=== PATIENT | female | born 1955 | race Caucasian/White ===

== ENCOUNTER 2020-05-30 13:14 | Outpatient (REF) | payer OTHER, SELFPAY | END 2020-05-30 13:15 | disposition home or self-care (01) | LOC: HO.LAB 13:14 | PROVIDERS: PCP Internal Medicine; Visit Provider Internal Medicine | DX: Z20.828 Contact with and (suspected) exposure to other viral communicable diseases (principal) | CPT/HCPCS: 87635 ==

== ENCOUNTER 2020-06-13 09:28 | Outpatient (REF) | payer OTHER, SELFPAY ==
--- NOTE | 2020-06-13 09:33 | MM_ITS ---
EXAMINATION: BONE DENSITOMETRY CLINICAL INDICATION: Disorder of bone density and structure, unspecified site. COMPARISON: Previous BD dated 11/09/2009 and baseline BD dated 06/12/2007. TECHNIQUE: Using a [employer] DXA System (software version: 13.1) manufactured by [employer], dual-energy x-ray absorptiometry was performed of the lumbar spine and left hip. The images are of good technical quality. Summary results are attached. FINDINGS: AP SPINE L1-L4: Current: BMD 1.107 g/cm2, Z-score 1.2, T-score -0.6, normal, 1.4% increase from previous, 5.2% increase from baseline (<5% change is not significant). Prior: BMD 1.092 g/cm2. Baseline: BMD 1.052 g/cm2. LEFT FEMUR, NECK: Current: BMD 0.806 g/cm2, Z-score 0.0, T-score -1.7, osteopenia. Prior: BMD 0.826 g/cm2. Baseline: BMD 0.769 g/cm2. LEFT FEMUR, TOTAL: Current: BMD 0.861 g/cm2, Z-score 0.2, T-score -1.2, osteopenia, 0.2% decrease from previous, 2.3% increase from baseline (<5% change is not significant). Prior: BMD 0.863 g/cm2. Baseline: BMD 0.842 g/cm2. IDENTIFIED RISK FACTORS: Rheumatoid arthritis. Secondary osteoporosis (early menopause). Hysterectomy. Bilateral oophorectomy. HISTORY OF FRACTURE: None listed. MEDICATIONS: None listed. IMPRESSION: 1. DIAGNOSIS: Osteopenia based on the lowest T-score value of -1.7 in the femoral neck applying World Health Organization criteria. 2. 10-YEAR FRACTURE RISK PREDICTION, FRAX: Major osteoporotic fracture (clinical spine, forearm, hip or shoulder) 11.3%. Hip fracture 1.7%. 3. Treatment Recommendations: NOF guidelines recommend consideration for treatment in postmenopausal women and men age 50 and older presenting with the following: -A hip or vertebral (clinical or morphometric) fracture. -T-score less than or equal to -2.5 at the femoral neck or spine after appropriate evaluation to exclude secondary causes. -Low bone mass at the hip or spine and a 10-year fracture probability by FRAX of greater than or equal to 3% for hip fracture or greater than or equal to 20% for major osteoporotic fracture based on the [place] adapted WHO algorithm. 4. Other Recommendations: All treatment decisions require clinical judgment and consideration of individual patient factors, including patient preferences, comorbidities, previous drug use, risk factors not captured in the FRAX model (e.g. frailty, falls, vitamin D deficiency, increased bone turnover, interval significant decline in bone density) and possible under or overestimation of fracture risk by FRAX. Additional medical evaluation for secondary cause of low bone mineral density may be appropriate. FUTURE SCAN RECOMMENDATION: People with diagnosed cases of osteoporosis or at high risk for fracture should have regular bone mineral density tests. For patients eligible for Medicare, routine testing is allowed once every 2 years. The testing frequency can be increased to one year for patients who have rapidly progressing disease, those who are receiving or discontinuing medical therapy to restore bone mass, or have additional risk factors.
== END 2020-06-13 09:29 | disposition home or self-care (01) ==
LOC: HO.MAMMO 09:28
PROVIDERS: Visit Provider Internal Medicine
DX: Z13.820 Encounter for screening for osteoporosis (principal); M85.80 Other specified disorders of bone density and structure, unspecified site; M19.90 Unspecified osteoarthritis, unspecified site; M06.9 Rheumatoid arthritis, unspecified; Z78.0 Asymptomatic menopausal state; Z90.710 Acquired absence of both cervix and uterus; Z90.722 Acquired absence of ovaries, bilateral
CPT/HCPCS: 77080

== ENCOUNTER 2020-06-14 15:18 | Outpatient (REF) | payer OTHER, SELFPAY ==
--- NOTE | 2020-06-14 15:25 | XR_ITS ---
EXAMINATION: XR FINGER, RIGHT CLINICAL INFORMATION: Cellulitis. COMPARISON: Radiographs right hand 02/22/2019. TECHNIQUE: AP view right hand and 2 views right index finger are obtained for a total of 3 views. FINDINGS: The right index finger shows prominent osteoarthritic changes DIP joints with joint narrowing and subchondral sclerosis and spurring, greatest bridging dorsal osteophyte. No definite erosion. There is benign oval mineralization in soft tissues lateral side. There is no gas tracking in the soft tissues. No bony destructive process or periostitis. There is mild narrowing DIP joints 2nd through 5th fingers and mild narrowing 3rd finger PIP joint. The carpus is unremarkable. IMPRESSION: 1. Prominent osteoarthritic changes index finger DIP joint. No definite erosive change. 2. No gas tracking in soft tissues. No destructive process or periostitis.
== END 2020-06-14 15:19 | disposition home or self-care (01) ==
LOC: HO.XRAY 15:18
PROVIDERS: PCP Internal Medicine; Visit Provider Physician Assistant
DX: L03.019 Cellulitis of unspecified finger (principal)
CPT/HCPCS: 73140

== ENCOUNTER 2020-09-27 09:46 | Outpatient (REF) | payer OTHER, SELFPAY ==
--- NOTE | 2020-09-27 | MM_ITS ---
EXAMINATION: MM SCREENING DIGITAL BREAST TOMOSYNTHESIS, BILATERAL CLINICAL INFORMATION: Screening. Asymptomatic. The lifetime risk of breast cancer based on the Tyrer-Cuzick Model is 5.0%. COMPARISON: Mammography: July 03, 2018 and studies dating back to November 09, 2009 TECHNIQUE: Digital breast tomosynthesis is performed in both the craniocaudal and mediolateral oblique views along with computer-aided detection (CAD). Synthesized 2D images are generated from the tomosynthesis. FINDINGS: The breasts are heterogeneously dense, which may obscure small masses (ACR BI-RADS breast composition Category c). There are no significant masses, abnormal calcifications, or other abnormalities. MM/MM tomosynthesis screening BI IMPRESSION: There are no significant changes from prior study. ASSESSMENT: BI-RADS 1: Negative RECOMMENDATION: Routine annual mammography screening. This patient's information was entered into a reminder system with a target due date for their next mammogram.
== END 2020-09-27 09:47 | disposition home or self-care (01) ==
LOC: HO.MAMMO 09:46
PROVIDERS: Visit Provider Internal Medicine
DX: Z12.31 Encounter for screening mammogram for malignant neoplasm of breast (principal)
CPT/HCPCS: 77063; 77067

== ENCOUNTER 2021-07-10 05:48 | Inpatient (IN) | payer OTHER, SELFPAY ==
[2021-07-10] VITALS (29 sets, daily range): BP systolic 000–189; BP diastolic 00–97; PULSE 0–89; RESP 0–22; TEMP -17.7–36.7; O2SAT 0–100; BMI 26.0; BMI 25.7; BMI 22.8
--- NOTE | ~2021-07-10 | CT_ITS ---
EXAMINATION: CT HEAD WITHOUT CONTRAST (STROKE PROTOCOL) INDICATION INFORMATION: Stroke COMPARISON: 09/16/2019 TECHNIQUE: Noncontrast CT of the head was performed. DLP: 818 mGy-cm DOSE LOWERING TECHNIQUES: This CT examination was performed using dose optimization techniques as appropriate, variously including the following: - Automated exposure control - Adjustment of mA and/or kV according to patient size (this includes techniques or standardized protocols for targeted exams were dose is matched to indication/reason for exam; i.e. extremities or head) - Use of iterative reconstruction technique FINDINGS: There is no evidence of acute intracranial hemorrhage or territorial infarction. No abnormal mass-effect or midline shift is seen. [place] to white matter differentiation is well preserved. No extra-axial fluid collections are identified. The ventricles are normal in size. There is moderate periventricular white matter hypoattenuation consistent with chronic small vessel ischemic disease. Mild volume loss is noted. The osseous structures and soft tissues are normal. The mastoid air cells and visualized portions of the paranasal sinuses are well-aerated. CT/CT head for stroke IMPRESSION: No acute intracranial findings. Chronic small vessel ischemic disease and volume loss. This stroke protocol result was discussed with Dr. Johns on 07/10/2021 6:20 AM.
--- NOTE | ~2021-07-10 | MR_ITS ---
EXAMINATION: MR BRAIN AND CERVICAL SPINE WITHOUT CONTRAST CLINICAL INFORMATION: Posterior stroke symptoms. CT showing C5-C6 disc herniation with mass effect. COMPARISON: CTA head and neck 07/10/2021. TECHNIQUE: Multiplanar multisequence MRI of the brain and cervical spine were performed without contrast. FINDINGS: Brain MRI: There is no acute infarction, hemorrhage, mass, or extra-axial fluid collection. Moderate patchy foci of T2/FLAIR hyperintensity are seen in the cerebral white matter. The ventricles are normal in size without hydrocephalus. The major arterial flow voids are preserved at the skull base. 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 There is mild paranasal sinus mucosal thickening. Orbital contents appear normal. Cervical spine MRI: The cervical vertebral bodies maintain normal heights and alignment. There is moderate disc height loss at C5-C6 and mild to moderate disc height loss at C6-C7. No bone marrow edema is seen. There is no edema within the cord. Several scattered perineural cysts are noted in the neural foramina. The extraspinal soft tissues are within normal limits. SPINAL LEVELS: C2-C3: Mild disc bulging. No spinal canal or neural foraminal stenosis. C3-C4: Disc osteophyte complex with uncovertebral hypertrophy and facet arthropathy resulting in mild spinal canal stenosis with effacement of the subarachnoid space. Severe bilateral neural foraminal stenosis. C4-C5: Disc osteophyte complex with central protrusion and uncovertebral hypertrophy resulting in moderate spinal canal stenosis with flattening of the cord. Moderate left neural foraminal stenosis. C5-C6: Disc osteophyte complex with uncovertebral hypertrophy resulting in moderate to severe spinal canal stenosis with cord flattening and severe bilateral neural foraminal stenosis. Moderate right facet arthropathy. C6-C7: Disc osteophyte complex with uncovertebral hypertrophy resulting in mild to moderate spinal canal stenosis and moderate bilateral neural foraminal stenosis. C7-T1: No posterior disc abnormality. No spinal canal or neural foraminal stenosis. MR/MR cervical spine wo con IMPRESSION: Brain MRI: No acute intracranial abnormality. No infarct or mass. Moderate chronic microangiopathy. Cervical spine: Multilevel degenerative spondylosis. Spinal canal stenosis appears moderate at C4-C5 and moderate to severe at C5-C6. Multilevel neural foraminal stenosis is detailed above.
--- NOTE | ~2021-07-10 | CT_ITS ---
EXAMINATION: CT ANGIOGRAM NECK AND HEAD CLINICAL INFORMATION: Stroke COMPARISON: Noncontrast head CT from earlier today TECHNIQUE: Initial noncontrast head CT was performed. Test bolus sequences followed by intravenous administration 70 mL of Omnipaque 350. Helical imaging was performed in the axial plane from the thoracic inlet to the skull vertex. Delayed postcontrast imaging of the head was also performed. The data was processed at the geospatial information technologist's workstation for generation of MIP sequences. Angled MIPs and volume rendered reformatted images were also generated at an offline 3D workstation. Stenoses are assessed in accordance with NASCET criteria unless otherwise indicated. DOSE LOWERING TECHNIQUES: This CT examination was performed using dose optimization techniques as appropriate, variously including the following: - Automated exposure control - Adjustment of mA and/or kV according to patient size (this includes techniques or standardized protocols for targeted exams were dose is matched to indication/reason for exam; i.e. extremities or head) - Use of iterative reconstruction technique DLP: 1544 mGy-cm FINDINGS: Neck CTA: There is a classic 3 vessel branching pattern of the aortic arch. Normal appearance of the visualized aortic arch and proximal branches. No evidence of stenosis at the branch origins. Both vertebral arteries are diminutive along the cervical course. There is atherosclerotic plaque and calcification at the proximal segments of the bilateral internal carotid arteries, without significant stenosis. Otherwise normal appearance of the common and internal carotid arteries without focal stenosis. 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 The remainder of the basilar artery is diminutive in caliber. Bilateral posterior cerebral arteries are patent. Normal appearance of the intradural internal carotid arteries without focal stenosis. Normal appearance of the anterior cerebral and middle cerebral arteries without focal occlusion or stenosis. Normal anterior communicating artery. Normal arborization of the middle cerebral arteries. CT Head: No intracranial mass, hemorrhage, extra-axial collection, or midline shift. The [place]-white matter differentiation is preserved. There is moderate periventricular white matter hypoattenuation consistent with chronic small vessel ischemic disease. Volume loss is noted. No pathologic intra-axial enhancement or regional oligemia. No hydrocephalus. There is mucosal thickening of the ethmoid air cells. The mastoid air cells are well-aerated. CT Neck: The thyroid gland and remaining cervical soft tissues are normal in appearance. Degenerative changes are noted in the cervical spine with disc space narrowing and endplate osteophyte formation. Upper Chest: Scarring is noted at the lung apices. 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 No large vessel occlusion or significant stenosis in the intracranial circulation. Findings discussed with Dr. Johns on 07/10/2021 6:51 AM.
--- NOTE | 2021-07-10 06:00 | ECG_ITS ---
Test Reason : stroke protocol Blood Pressure : / mmHG Vent. Rate : 086 BPM Atrial Rate : 086 BPM P-R Int : 236 ms QRS Dur : 092 ms QT Int : 380 ms P-R-T Axes : 083 -24 061 degrees QTc Int : 454 ms Sinus rhythm with 1st degree A-V block RSR' or QR pattern in V1 suggests right ventricular conduction delay Left axis deviation Borderline ECG When compared with ECG of 16-SEP-2019 05:31, No significant change was found Referred By: Becky Johns Electronically Signed By:ETHEL CRUMP MD
[2021-07-10 06:05] LABS: Glucose, Whole Blood 90 mg/dL (60-115)
--- NOTE | 2021-07-10 06:11 | ED_ITS ---
HPI - Weakness General Chief complaint: Stroke Stated complaint: Dizziness, fell into [place] trying to walk Time Seen by Provider: 07/10/21 05:59 Source: family () Mode of arrival: wheelchair History of Present Illness HPI Narrative: 65-year-old female arrives via wheelchair to the emergency room with acute dizziness and weakness. provides most of the initial information and states that when he got home last night his was a little upset with him and he went to bed early at approximately 9:00 p.m.. Patient endorses that she went to bed at approximately 12:30. The states that at approximately 5:15 a.m. he heard his walking around and then states that she called out to him that she was dizzy. Has been when up and found on the toilet ?kind of wheezing back and forth? and he helped her to stand and then they both walked to the bed. The states that the hung onto him with both of her arms and stated that she did not want the ambulance to be called. The then helped his down the stairs, but she primarily descended the stairs on her bottom and then states that he ?set her up on the outside bench? and went and got the car. He denies that she was slouched or tilted to 1 side when he returned. Related Data Allergies Allergy/AdvReac Type Severity Reaction Status Date / Time No Known Allergies Allergy Unverified 05/11/20 15:03 [No Known Allergies*] Review of Systems Review of Systems: Pertinent positives and negatives as stated in HPI 10 point review of systems is otherwise negative. [facility] Past Medical History Source: nursing notes reviewed Medical History Bipolar disorder HTN (hypertension) IBS (irritable bowel syndrome) Lupus Rheumatoid arthritis TIA (transient ischemic attack) Surgical History No history of previous surgery Social History Social History Alcohol intake: never Patient Tobacco Use Status: Never used Tobacco Use of substances other than those prescribed or required for medical reasons: Yes Substance Use Type: Marijuana Substance Use Frequency: Occasionally Advance Directives: No Advance Directives Information Provided: Yes Physical Exam Vital Signs: Vital Signs: Last Vital Signs Temp 0 F L 07/10/21 06:05 Pulse 74 07/10/21 07:56 Resp 16 07/10/21 07:31 BP 163/77 H 07/10/21 07:56 Pulse Ox 97 07/10/21 07:56 Body Mass Index 22.8 VITAL SIGNS: Reviewed. GENERAL: Well developed, well nourished, in no acute distress. HEAD: Normocephalic/atraumatic EYES: PERRLA, EOMI intact without pain, no nystagmus EARS: Ext canals without abnormality, TMs non-bulging and non-erythematous NOSE: Nares patent bilateral OROPHARYNX: no oral lesions noted, posterior pharynx clear NECK: Supple, no adenopathy LUNGS: Normal breath sounds. No adventitious sounds or accessory muscle use. SpO2<97> CARDIOVASCULAR: Regular rate and rhythm without noted murmurs, no JVD or lower extremity edema. ABDOMEN: Soft, non-tender, non-distended with bowel sounds. MUSCULOSKELETAL: No tenderness, deformities, or effusions noted on gross inspection. EXTREMITIES: No cyanosis, clubbing or edema. SKIN: Inspection of the skin reveals no rashes NEUROLOGIC: Alert and please refer to NIH Stroke scale NIH Stroke Scale Internal: Initial- Upon Arrival Level of Consciousness: Alert Level of Consciousness Questions: Answers neither question correctly Level of Consciousness Commands: Performs both tasks correctly Best Gaze: Normal Visual: No visual loss Facial Palsy: Partial paralysis Motor Arm (Right): No movement Motor Arm (Left): Some effort against gravity Motor Leg (Right): No movement Motor Leg (Left): Some effort against gravity Limb Ataxia: Absent Sensory: Normal Best Language: Severe aphasia Dysarthia: Normal Extinction and Inattention: No abnormality Score: 18 Course Course Course Narrative: 65-year-old male with history and clinical presentation of stroke, suspect posterior. No evidence of infection, EKG is without evidence of the atrial fibrillation atrial flutter, and initial systolic blood pressure although elevated responded well to 2.5 mg of Lopressor and patient was treated with tPA. I discussed the case in length with neurology, as well as later discussing the case with the buffing wheel inspector who accepts admission. MRI has been ordered. Reevaluation(s) Reevaluation #1: I discuss the CT head noncontrast with [facility] who states that there are no acute ischemic findings. Time: 06:20 Reevaluation #2: I spoke with Neurology, Dr. Reed, who recommends administering tPA at this time. Time: 06:31 MDM - Weakness Lab Data Result diagrams: 07/10/21 06:13 07/10/21 06:13 Labs: Lab Results 07/10/21 07/10/21 07/10/21 Range/Units 06:00 06:00 06:13 WBC 3.7 L (4.8-10.8) X10*3/uL RBC 3.78 L (4.20-5.50) X10*6/uL Hgb 12.0 (12.0-16.0) g/dl Hct 35.5 L (37.0-47.0) % MCV 93.9 (80.0-98.0) fL MCH 31.7 (27.0-33.0) pg MCHC 33.8 (31.0-35.0) g/dl RDW 12.5 (11.0-16.0) % Plt Count 209 (160-400) X10*3/uL MPV 9.5 (9.4-12.3) fL Immature Gran % (Auto) 0.3 (0.0-0.4) % Neut % (Auto) 36.8 L (45-73) % Lymph % (Auto) 42.2 H (20-40) % [place] % (Auto) 17.7 H (2-11) % Eos % (Auto) 2.5 (0-4) % Baso % (Auto) 0.5 (0-2) % Lymph # (Auto) 1.6 (1.2-4.9) X10*3/uL [place] # (Auto) 0.7 (0.1-1.2) X10*3/uL Eos # (Auto) 0.1 (0.0-0.4) X10*3/uL Baso # (Auto) 0.0 (0.0-0.2) X10*3/uL Abs Immat Gran (auto) 0.01 (0.00-0.03) X10*3/uL Absolute Neuts (auto) 1.4 L (2.0-8.3) x10*3/uL Absolute Nucleated RBC 0.000 (0.0-0.012) X10*3/uL Nucleated RBC % (auto) 0.0 (0.0-0.2) /100WBC PT (9.9-13.0) SEC Whole Blood PT 12.7 (11.1-13.5) sec INR (0.9-1.1) Whole Blood INR 1.1 (0.9-1.1) Sodium (135-145) mmol/L Potassium (3.3-5.1) mmol/L Chloride (96-108) mmol/L Carbon Dioxide (22-29) mmol/L Anion Gap (12-20) BUN (9-16) mg/dL Creatinine (0.5-1.4) mg/dL Estim Creat Clear Calc Estimated GFR POC Glucose 90 (60-115) mg/dL Random Glucose (60-115) mg/dL Calcium (8.4-10.2) mg/dL Total Bilirubin (0.0-1.0) mg/dL AST (5-31) U/L ALT (0-31) U/L Alkaline Phosphatase (39-117) U/L Troponin I High Sens Total Protein (6.5-8.0) g/dL Albumin (3.5-5.0) g/dL COVID-19 (VINEET) (Negative) COVID-19 Clin Com 07/10/21 07/10/21 07/10/21 Range/Units 06:13 06:13 06:13 WBC (4.8-10.8) X10*3/uL RBC (4.20-5.50) X10*6/uL Hgb (12.0-16.0) g/dl Hct (37.0-47.0) % MCV (80.0-98.0) fL MCH (27.0-33.0) pg MCHC (31.0-35.0) g/dl RDW (11.0-16.0) % Plt Count (160-400) X10*3/uL MPV (9.4-12.3) fL Immature Gran % (Auto) (0.0-0.4) % Neut % (Auto) (45-73) % Lymph % (Auto) (20-40) % [place] % (Auto) (2-11) % Eos % (Auto) (0-4) % Baso % (Auto) (0-2) % Lymph # (Auto) (1.2-4.9) X10*3/uL [place] # (Auto) (0.1-1.2) X10*3/uL Eos # (Auto) (0.0-0.4) X10*3/uL Baso # (Auto) (0.0-0.2) X10*3/uL Abs Immat Gran (auto) (0.00-0.03) X10*3/uL Absolute Neuts (auto) (2.0-8.3) x10*3/uL Absolute Nucleated RBC (0.0-0.012) X10*3/uL Nucleated RBC % (auto) (0.0-0.2) /100WBC PT 11.3 (9.9-13.0) SEC Whole Blood PT (11.1-13.5) sec INR 1.0 (0.9-1.1) Whole Blood INR (0.9-1.1) Sodium 139 (135-145) mmol/L Potassium 4.4 (3.3-5.1) mmol/L Chloride 105 (96-108) mmol/L Carbon Dioxide 25 (22-29) mmol/L Anion Gap 13 (12-20) BUN 14 (9-16) mg/dL Creatinine 0.71 (0.5-1.4) mg/dL Estim Creat Clear Calc 77.0 Estimated GFR > 60 POC Glucose (60-115) mg/dL Random Glucose 99 (60-115) mg/dL Calcium 9.0 (8.4-10.2) mg/dL Total Bilirubin < 0.2 (0.0-1.0) mg/dL AST 22 (5-31) U/L ALT 22 (0-31) U/L Alkaline Phosphatase 138 H (39-117) U/L Troponin I High Sens Cancelled Total Protein 6.5 (6.5-8.0) g/dL Albumin 4.3 (3.5-5.0) g/dL COVID-19 (VINEET) (Negative) COVID-19 Clin Com 07/10/21 Range/Units 06:13 WBC (4.8-10.8) X10*3/uL RBC (4.20-5.50) X10*6/uL Hgb (12.0-16.0) g/dl Hct (37.0-47.0) % MCV (80.0-98.0) fL MCH (27.0-33.0) pg MCHC (31.0-35.0) g/dl RDW (11.0-16.0) % Plt Count (160-400) X10*3/uL MPV (9.4-12.3) fL Immature Gran % (Auto) (0.0-0.4) % Neut % (Auto) (45-73) % Lymph % (Auto) (20-40) % [place] % (Auto) (2-11) % Eos % (Auto) (0-4) % Baso % (Auto) (0-2) % Lymph # (Auto) (1.2-4.9) X10*3/uL [place] # (Auto) (0.1-1.2) X10*3/uL Eos # (Auto) (0.0-0.4) X10*3/uL Baso # (Auto) (0.0-0.2) X10*3/uL Abs Immat Gran (auto) (0.00-0.03) X10*3/uL Absolute Neuts (auto) (2.0-8.3) x10*3/uL Absolute Nucleated RBC (0.0-0.012) X10*3/uL Nucleated RBC % (auto) (0.0-0.2) /100WBC PT (9.9-13.0) SEC Whole Blood PT (11.1-13.5) sec INR (0.9-1.1) Whole Blood INR (0.9-1.1) Sodium (135-145) mmol/L Potassium (3.3-5.1) mmol/L Chloride (96-108) mmol/L Carbon Dioxide (22-29) mmol/L Anion Gap (12-20) BUN (9-16) mg/dL Creatinine (0.5-1.4) mg/dL Estim Creat Clear Calc Estimated GFR POC Glucose (60-115) mg/dL Random Glucose (60-115) mg/dL Calcium (8.4-10.2) mg/dL Total Bilirubin (0.0-1.0) mg/dL AST (5-31) U/L ALT (0-31) U/L Alkaline Phosphatase (39-117) U/L Troponin I High Sens Total Protein (6.5-8.0) g/dL Albumin (3.5-5.0) g/dL COVID-19 (VINEET) Negative (Negative) COVID-19 Clin Com See Note Discharge Plan Discharge Clinical Impression: Cerebrovascular accident Patient Disposition: Admitted As Inpatient
--- NOTE | 2021-07-10 06:18 | PC.NURSE ---
IV PLACED, LABS DRAWN AND COVID OBTAINED TO LAB. AT BEDSIDE. PT DIRECTLY TO CT SCAN. DIFFICULT TO DETERMINE LAST KNOWN WELL TIME. DR. ACEVEDO IN ROOM SPEAKING WITH .
[2021-07-10 06:21] LABS: MANUAL DIFF FLAG NO
[2021-07-10 06:28] LABS: Basophils Percent Auto 0.5 % (0-2); Eosinophils Absolute Auto 0.1 X10*3/uL (0.0-0.4); Eosinophils Percent Auto 2.5 % (0-4); Hematocrit 35.5 % (37.0-47.0); Imm Gran Abs Auto 0.01 X10*3/uL (0.00-0.03); Imm Gran Pct Auto 0.3 % (0.0-0.4); Lymphocytes Absolute Auto 1.6 X10*3/uL (1.2-4.9); Lymphocytes Percent Auto 42.2 % (20-40); Mean Corpuscular HGB Conc 33.8 g/dl (31.0-35.0); Mean Corpuscular Hemoglobin 31.7 pg (27.0-33.0); Mean Corpuscular Volume 93.9 fL (80.0-98.0); Mean Platelet Volume 9.5 fL (9.4-12.3); Monocytes Absolute Auto 0.7 X10*3/uL (0.1-1.2); Monocytes Percent Auto 17.7 % (2-11); Neutrophils Absolute Auto 1.4 x10*3/uL (2.0-8.3); Neutrophils Percent Auto 36.8 % (45-73); Platelet Count 209 X10*3/uL (160-400); Red Blood Count 3.78 X10*6/uL (4.20-5.50); Red Cell Distribution Width 12.5 % (11.0-16.0); White Blood Count 3.7 X10*3/uL (4.8-10.8)
[2021-07-10] MEDS: iohexoL 350 MG/ML 100 ML INFUS..BTL 70 ML IV (06:28)
--- NOTE | 2021-07-10 06:28 | PC.NURSE ---
PT RETURNS FROM CT IN STRETCHER.
--- NOTE | 2021-07-10 06:31 | PC.NURSE ---
Nursing prepress supervisor called for TPA.
[2021-07-10 06:33] LABS: Prothrombin Time 11.3 SEC (9.9-13.0)
[2021-07-10 06:34] LABS: Prothrombin Time Whole Bld POC 12.7 sec (11.1-13.5); ~PT, ~INR - Anti Coag Clinic 1.1 (0.9-1.1)
[2021-07-10] MEDS: Metoprolol Tartrate 5 MG/5 ML VIAL 2.5 MG IVPUSH (06:41)
[2021-07-10 06:42] LABS: Alanine Aminotransferase 22 U/L (0-31); Albumin Level 4.3 g/dL (3.5-5.0); Alkaline Phosphatase 138 U/L (39-117); Anion Gap 13 (12-20); Aspartate Amino Transferase 22 U/L (5-31); Bilirubin Total < 0.2 mg/dL (0.0-1.0); Blood Urea Nitrogen 14 mg/dL (9-16); COVID-19 Test Negative (Negative); Carbon Dioxide 25 mmol/L (22-29); Chloride 105 mmol/L (96-108); Estimated Glomerular Filt Rate > 60; Glucose Random 99 mg/dL (60-115); Potassium 4.4 mmol/L (3.3-5.1); Sodium 139 mmol/L (135-145); Total Protein 6.5 g/dL (6.5-8.0)
--- NOTE | 2021-07-10 06:46 | PC.NURSE ---
Pharmacy contacted regarding possible need for TPA.
[2021-07-10 06:49] LABS: Troponin-I High Sensitivity < 3.5 ng/L (<3.5-17.0)
--- NOTE | 2021-07-10 07:06 | PC.NURSE ---
Initiatial bolus of alteplase given 8
--- NOTE | 2021-07-10 07:17 | PC.NURSE ---
Initial dose of alteplase of 5.6ml bp 178/83 hr-77 Prior to be given dose slight left hand weakness and drift, slight weakness in left leg. No visible facial droop, speech clear. Patient is reporting posterior head pressure which is her baseline still experiencing some dizziness when moving head side to side.
--- NOTE | 2021-07-10 07:35 | PC.NURSE ---
pt alert and oriented, skin pwd, respirations even and unlabored pt continuos on speaking in full clear sentences, left sided drift improving and strength improving as well, left leg also improving, pt reports dizziness improving just feels foggy ns on the monitor, vs stable
[2021-07-10] MEDS: 0.9 % Sodium Chloride 1,000 ML 999 ML IV (08:18)
[2021-07-10 08:30] LABS: MANUAL DIFF FLAG NO
[2021-07-10 08:32] LABS: Basophils Percent Auto 0.6 % (0-2); Eosinophils Absolute Auto 0.1 X10*3/uL (0.0-0.4); Eosinophils Percent Auto 1.7 % (0-4); Hematocrit 33.4 % (37.0-47.0); Hemoglobin 11.4 g/dl (12.0-16.0); Imm Gran Abs Auto 0.01 X10*3/uL (0.00-0.03); Imm Gran Pct Auto 0.3 % (0.0-0.4); Lymphocytes Percent Auto 27.4 % (20-40); Mean Corpuscular HGB Conc 34.1 g/dl (31.0-35.0); Mean Corpuscular Hemoglobin 31.8 pg (27.0-33.0); Mean Corpuscular Volume 93.3 fL (80.0-98.0); Mean Platelet Volume 9.2 fL (9.4-12.3); Monocytes Absolute Auto 0.5 X10*3/uL (0.1-1.2); Monocytes Percent Auto 14.5 % (2-11); Neutrophils Percent Auto 55.5 % (45-73); Platelet Count 178 X10*3/uL (160-400); Red Blood Count 3.58 X10*6/uL (4.20-5.50); Red Cell Distribution Width 12.4 % (11.0-16.0); White Blood Count 3.6 X10*3/uL (4.8-10.8)
--- NOTE | 2021-07-10 08:48 | PHA.MEDREC ---
Pharmacy Consult ? Medication Reconciliation Pharmacy has completed the medication reconciliation. There are no remarkable issues for provider's attention. Patient reported she is no longer taking Lefunomide or Trulance. Fidelina Egan, PharmD
[2021-07-10 08:58] LABS: Anion Gap 11 (12-20); Blood Urea Nitrogen 13 mg/dL (9-16); Calcium 8.6 mg/dL (8.4-10.2); Carbon Dioxide 26 mmol/L (22-29); Chloride 106 mmol/L (96-108); Cholesterol 205 mg/dL; Creatinine Clr Calc Pharmacy 76.6; Estimated Glomerular Filt Rate > 60; Glucose Random 94 mg/dL (60-115); HDL Cholesterol 59 mg/dL; LDL Cholesterol Calculated 137 mg/dl; Potassium 4.2 mmol/L (3.3-5.1); Sodium 139 mmol/L (135-145); Triglycerides 48 mg/dL
--- NOTE | 2021-07-10 09:05 | PC.NURSE ---
Patient requested bed paris reports being still dizzy.
--- NOTE | 2021-07-10 09:12 | PC.NURSE ---
@ [address] ACEVEDO FOR CALL OUT TO [facility] PT [place] LINE [phone] GENEVIEVE ANSWERS, TAKES PT INFO AND CALL BACK NUMBER THEN ASKS TO SPEAK WITH DR CURTIS ACEVEDO TAKES OVER CALL RIGHT AWAY
--- NOTE | 2021-07-10 09:33 | P.CNNE_ITS ---
History of Present Illness Data of Consult Service Date: 07/10/21 Primary Care Provider: Franko Graham MD [facility] Reason for consult: Stroke 65 years old woman with complex underlying medical history with diagnoses of bipolar disorder, lupus, rheumatoid arthritis, cerebral microvascular disease and complex partial seizure disorder who was in usual state of health until this morning at about 05:00 when her noted sudden change in her condition. She complained of being dizzy and her had to hold her. She was complaining of weakness and being very dizzy. She was brought to emergency room and was evaluated. In emergency room she was noted to have right arm and leg weakness at 1 point and then ataxia. There was no obvious problem with her speech language or mentation. There was no headache. Initial head CT did not reveal any significant abnormality of acute nature. Emergency room physician vincent gómez I discussed her case and because of no other obvious explanation and suspicion of ischemic stroke treated her with intravenous tPA. I saw her after tPA was finished. There was no new complaint at that point. She was feeling somewhat better. Review of Systems Review of Systems: No recent cold or flu-like illness. No recent ear problem. She had her ear cleaned couple of days ago. No headache. No trauma. No chest pain shortness of breath or palpitation. PMFSH Past Medical History Medical History Bipolar disorder HTN (hypertension) IBS (irritable bowel syndrome) Lupus Rheumatoid arthritis TIA (transient ischemic attack) Surgical History Surgical History No history of previous surgery Social History Social History Alcohol intake: never Patient Tobacco Use Status: Never used Tobacco Use of substances other than those prescribed or required for medical reasons: Yes Substance Use Type: Marijuana Substance Use Frequency: Occasionally Advance Directives: No Advance Directives Information Provided: Yes Meds Allergies Allergy/AdvReac Type Severity Reaction Status Date / Time No Known Allergies Allergy Unverified 05/11/20 15:03 [No Known Allergies*] Active Medications: Current Medications Pharmacy Consult (Consult Rx Perform Med Rec) 1 each MISCELLANE ONCE PRN PRN Reason: Consult order Sodium Chloride (0.9 % Sodium Chloride Flush 3 Ml Syringe) [facility] Medications Medication Instructions Recorded Confirmed Last Taken Type aspirin 81 mg chewable tablet 81 mg PO DAILY 07/10/21 07/10/21 07/09/21 History bupropion HCl 300 mg 24 hr tablet, 300 mg PO BEDTIME 07/10/21 07/10/21 07/09/21 History extended release carbamazepine 200 mg tablet 400 mg PO BEDTIME 07/10/21 07/10/21 07/09/21 History diphenhydramine 25 1 tab PO Q6H PRN 07/10/21 07/10/21 Unknown History mg-acetaminophen 500 mg tablet (Tylenol PM Extra Strength) hydroxychloroquine 200 mg tablet 1 tab PO DAILY 07/10/21 07/10/21 07/09/21 History lamotrigine 200 mg tablet 400 mg PO BEDTIME 07/10/21 07/10/21 07/09/21 History lorazepam 1 mg tablet 1 tab PO BEDTIME PRN 07/10/21 07/10/21 Unknown History metoprolol succinate 25 mg 37.5 tab PO DAILY 07/10/21 07/10/21 07/09/21 History tablet,extended release 24 hr naproxen sodium 220 mg tablet 220 mg PO BID PRN 07/10/21 07/10/21 Unknown History (Aleve) omeprazole 40 mg capsule,delayed 40 mg PO DAILY 07/10/21 07/10/21 07/09/21 History release Physical Exam Vital Signs: Vital Signs: Last Vital Signs Temp 0 F L 07/10/21 06:05 Pulse 79 07/10/21 08:12 Resp 18 07/10/21 08:12 BP 159/79 H 07/10/21 08:12 Pulse Ox 98 07/10/21 08:12 Body Mass Index 22.8 Neuro: Other: She was alert and awake with normal spontaneity of speech fluency comprehension and affect. She recognized me right away. Pupils were round reactive to light. Extraocular muscles were intact. There was right beating nystagmus with rightward gaze and upward gaze. With leftward gaze somewhat of similar nystagmus was noted. Visual shafer are full to confrontation. Face was symmetrical. Tongue was midline. Speech was normal. There was no pronator drift. There was no [id number] and [id number] ataxia. There was no obvious focal weakness at this time. Deep tendon reflexes were trace to absent with flexor plantars. Results Labs CBC & Chem 7: 07/10/21 08:28 07/10/21 08:28 Labs: Short CBC 07/10/21 07/10/21 Range/Units 06:13 08:28 WBC 3.7 L 3.6 L (4.8-10.8) X10*3/uL Hgb 12.0 11.4 L (12.0-16.0) g/dl Hct 35.5 L 33.4 L (37.0-47.0) % Plt Count 209 178 (160-400) X10*3/uL BMP 07/10/21 07/10/21 06:13 08:28 Sodium 139 139 Potassium 4.4 4.2 Chloride 105 106 Carbon Dioxide 25 26 BUN 14 13 Creatinine 0.71 0.65 Calcium 9.0 8.6 Liver Function 07/10/21 Range/Units 06:13 Total Bilirubin < 0.2 (0.0-1.0) mg/dL AST 22 (5-31) U/L ALT 22 (0-31) U/L Alkaline Phosphatase 138 H (39-117) U/L Albumin 4.3 (3.5-5.0) g/dL Noncontrast head CT did not reveal any obvious acute abnormality. Moderate amount of microvascular ischemic changes were noted in the white matter. Some atrophy was noted. CTA of brain did not reveal any definite large vessel occlusion or stenosis. Assessment and Plan (1) Cerebrovascular accident: Status: Acute 65 years old woman with complex underlying history with diagnoses of bipolar disorder, lupus, rheumatoid arthritis, cerebral microvascular disease and complex partial seizure disorder. She came to hospital with new and sudden onset of dizziness and weakness. In emergency room she was noted to have one- sided weakness and ataxia. With clinical suspicion of cerebral infarction and no other obvious explanation she was treated with intravenous tPA. I saw her after that treatment when she was feeling better. Her examination revealed a right beating nystagmus. Otherwise there was no focal finding. Imaging with CT scan and CTA did not reveal any obvious lesion to explain her symptoms. My semaj mmendation is to obtain a noncontrast MRI of brain to define the exact nature of this problem, stroke versus an alternate explanation such as was tubular neuritis. Seizure disorder was a possibility but her mentation in emergency room was not suggestive of that. I would also recommend checking lamotrigine level. Otherwise she should be admitted to ICU for 24 hours with typical to post tPA blood pressure control protocol. After that she could be started on anti-platelet agent. Procedures Date of Service Date of Service: 07/10/21
--- NOTE | 2021-07-10 09:36 | PC.NURSE ---
@ [phone] RETURN CALL FROM [facility]LAY[facility] OF [facility] PT [place] LINE ASKING TO SPEAK WITH DR CURTIS ACEVEDO TAKES OVER CALL
--- NOTE | 2021-07-10 09:50 | ED_ITS ---
HPI - Neuro Symptoms/Deficit General Chief Complaint: Stroke Stated Complaint: Dizziness, fell into [place] trying to walk Time Seen by Provider: 07/10/21 05:59 Source: family () Mode of arrival: wheelchair Related Data Home Medications Medication Instructions Recorded Confirmed aspirin 81 mg chewable tablet 81 mg PO DAILY 07/10/21 07/10/21 bupropion HCl 300 mg 24 hr tablet, 300 mg PO BEDTIME 07/10/21 07/10/21 extended release carbamazepine 200 mg tablet 400 mg PO BEDTIME 07/10/21 07/10/21 diphenhydramine 25 1 tab PO Q6H PRN 07/10/21 07/10/21 mg-acetaminophen 500 mg tablet (Tylenol PM Extra Strength) hydroxychloroquine 200 mg tablet 1 tab PO DAILY 07/10/21 07/10/21 lamotrigine 200 mg tablet 400 mg PO BEDTIME 07/10/21 07/10/21 lorazepam 1 mg tablet 1 tab PO BEDTIME PRN 07/10/21 07/10/21 metoprolol succinate 25 mg 37.5 tab PO DAILY 07/10/21 07/10/21 tablet,extended release 24 hr naproxen sodium 220 mg tablet 220 mg PO BID PRN 07/10/21 07/10/21 (Aleve) omeprazole 40 mg capsule,delayed 40 mg PO DAILY 07/10/21 07/10/21 release Previous Rx's Medication Instructions Recorded atorvastatin 40 mg tablet (Lipitor) 40 mg PO DAILY 30 Days #30 tab 07/11/21 Allergies Allergy/AdvReac Type Severity Reaction Status Date / Time No Known Allergies Allergy Unverified 05/11/20 15:03 [No Known Allergies*] [facility] Past Medical History Medical History (Updated 07/10/21 @ 14:44 by Felice Oliver MD) Bipolar disorder HTN (hypertension) IBS (irritable bowel syndrome) Lupus Rheumatoid arthritis TIA (transient ischemic attack) Surgical History No history of previous surgery Social History Social History Household Members: Spouse Housing: House Do you presently have visiting nurse or other home services: No Alcohol intake: never Patient Tobacco Use Status: Former Tobacco user Tobacco use type: Cigarette Substance Use Type: Marijuana service: No Current occupational status: unemployed Physical Exam Vital Signs: Vital Signs: Last Vital Signs Temp 97.0 F 07/11/21 11:54 Pulse 97 07/11/21 12:59 Resp 25 H 07/11/21 11:54 BP 156/76 H 07/11/21 12:59 Pulse Ox 98 07/11/21 11:54 Body Mass Index 22.8 MDM - Neuro Symptoms/Deficit Lab Data Result diagrams: 07/11/21 05:15 07/11/21 05:15 Labs: Lab Results 07/10/21 07/10/21 07/10/21 Range/Units 06:00 06:00 06:13 WBC 3.7 L (4.8-10.8) X10*3/uL RBC 3.78 L (4.20-5.50) X10*6/uL Hgb 12.0 (12.0-16.0) g/dl Hct 35.5 L (37.0-47.0) % MCV 93.9 (80.0-98.0) fL MCH 31.7 (27.0-33.0) pg MCHC 33.8 (31.0-35.0) g/dl RDW 12.5 (11.0-16.0) % Plt Count 209 (160-400) X10*3/uL MPV 9.5 (9.4-12.3) fL Immature Gran % (Auto) 0.3 (0.0-0.4) % Neut % (Auto) 36.8 L (45-73) % Lymph % (Auto) 42.2 H (20-40) % [place] % (Auto) 17.7 H (2-11) % Eos % (Auto) 2.5 (0-4) % Baso % (Auto) 0.5 (0-2) % Lymph # (Auto) 1.6 (1.2-4.9) X10*3/uL [place] # (Auto) 0.7 (0.1-1.2) X10*3/uL Eos # (Auto) 0.1 (0.0-0.4) X10*3/uL Baso # (Auto) 0.0 (0.0-0.2) X10*3/uL Abs Immat Gran (auto) 0.01 (0.00-0.03) X10*3/uL Absolute Neuts (auto) 1.4 L (2.0-8.3) x10*3/uL Absolute Nucleated RBC 0.000 (0.0-0.012) X10*3/uL Nucleated RBC % (auto) 0.0 (0.0-0.2) /100WBC PT (9.9-13.0) SEC Whole Blood PT 12.7 (11.1-13.5) sec INR (0.9-1.1) Whole Blood INR 1.1 (0.9-1.1) Sodium (135-145) mmol/L Potassium (3.3-5.1) mmol/L Chloride (96-108) mmol/L Carbon Dioxide (22-29) mmol/L Anion Gap (12-20) BUN (9-16) mg/dL Creatinine (0.5-1.4) mg/dL Estim Creat Clear Calc Estimated GFR POC Glucose 90 (60-115) mg/dL Random Glucose (60-115) mg/dL Calcium (8.4-10.2) mg/dL Total Bilirubin (0.0-1.0) mg/dL AST (5-31) U/L ALT (0-31) U/L Alkaline Phosphatase (39-117) U/L Troponin I High Sens (<3.5-17.0) ng/L Total Protein (6.5-8.0) g/dL Albumin (3.5-5.0) g/dL COVID-19 (VINEET) (Negative) COVID-19 Clin Com 07/10/21 07/10/21 07/10/21 Range/Units 06:13 06:13 06:13 WBC (4.8-10.8) X10*3/uL RBC (4.20-5.50) X10*6/uL Hgb (12.0-16.0) g/dl Hct (37.0-47.0) % MCV (80.0-98.0) fL MCH (27.0-33.0) pg MCHC (31.0-35.0) g/dl RDW (11.0-16.0) % Plt Count (160-400) X10*3/uL MPV (9.4-12.3) fL Immature Gran % (Auto) (0.0-0.4) % Neut % (Auto) (45-73) % Lymph % (Auto) (20-40) % [place] % (Auto) (2-11) % Eos % (Auto) (0-4) % Baso % (Auto) (0-2) % Lymph # (Auto) (1.2-4.9) X10*3/uL [place] # (Auto) (0.1-1.2) X10*3/uL Eos # (Auto) (0.0-0.4) X10*3/uL Baso # (Auto) (0.0-0.2) X10*3/uL Abs Immat Gran (auto) (0.00-0.03) X10*3/uL Absolute Neuts (auto) (2.0-8.3) x10*3/uL Absolute Nucleated RBC (0.0-0.012) X10*3/uL Nucleated RBC % (auto) (0.0-0.2) /100WBC PT 11.3 (9.9-13.0) SEC Whole Blood PT (11.1-13.5) sec INR 1.0 (0.9-1.1) Whole Blood INR (0.9-1.1) Sodium 139 (135-145) mmol/L Potassium 4.4 (3.3-5.1) mmol/L Chloride 105 (96-108) mmol/L Carbon Dioxide 25 (22-29) mmol/L Anion Gap 13 (12-20) BUN 14 (9-16) mg/dL Creatinine 0.71 (0.5-1.4) mg/dL Estim Creat Clear Calc 77.0 Estimated GFR > 60 POC Glucose (60-115) mg/dL Random Glucose 99 (60-115) mg/dL Calcium 9.0 (8.4-10.2) mg/dL Total Bilirubin < 0.2 (0.0-1.0) mg/dL AST 22 (5-31) U/L ALT 22 (0-31) U/L Alkaline Phosphatase 138 H (39-117) U/L Troponin I High Sens < 3.5 (<3.5-17.0) ng/L Total Protein 6.5 (6.5-8.0) g/dL Albumin 4.3 (3.5-5.0) g/dL COVID-19 (VINEET) (Negative) COVID-19 Clin Com 07/10/21 Range/Units 06:13 WBC (4.8-10.8) X10*3/uL RBC (4.20-5.50) X10*6/uL Hgb (12.0-16.0) g/dl Hct (37.0-47.0) % MCV (80.0-98.0) fL MCH (27.0-33.0) pg MCHC (31.0-35.0) g/dl RDW (11.0-16.0) % Plt Count (160-400) X10*3/uL MPV (9.4-12.3) fL Immature Gran % (Auto) (0.0-0.4) % Neut % (Auto) (45-73) % Lymph % (Auto) (20-40) % [place] % (Auto) (2-11) % Eos % (Auto) (0-4) % Baso % (Auto) (0-2) % Lymph # (Auto) (1.2-4.9) X10*3/uL [place] # (Auto) (0.1-1.2) X10*3/uL Eos # (Auto) (0.0-0.4) X10*3/uL Baso # (Auto) (0.0-0.2) X10*3/uL Abs Immat Gran (auto) (0.00-0.03) X10*3/uL Absolute Neuts (auto) (2.0-8.3) x10*3/uL Absolute Nucleated RBC (0.0-0.012) X10*3/uL Nucleated RBC % (auto) (0.0-0.2) /100WBC PT (9.9-13.0) SEC Whole Blood PT (11.1-13.5) sec INR (0.9-1.1) Whole Blood INR (0.9-1.1) Sodium (135-145) mmol/L Potassium (3.3-5.1) mmol/L Chloride (96-108) mmol/L Carbon Dioxide (22-29) mmol/L Anion Gap (12-20) BUN (9-16) mg/dL Creatinine (0.5-1.4) mg/dL Estim Creat Clear Calc Estimated GFR POC Glucose (60-115) mg/dL Random Glucose (60-115) mg/dL Calcium (8.4-10.2) mg/dL Total Bilirubin (0.0-1.0) mg/dL AST (5-31) U/L ALT (0-31) U/L Alkaline Phosphatase (39-117) U/L Troponin I High Sens (<3.5-17.0) ng/L Total Protein (6.5-8.0) g/dL Albumin (3.5-5.0) g/dL COVID-19 (VINEET) Negative (Negative) COVID-19 Clin Com See Note Discharge Plan Discharge Clinical Impression: Cerebrovascular accident Patient Disposition: Admitted As Inpatient Interventions: Admission Worksheet (ED) Last Done: 07/10/21 10:50 Discharge Date/Time: 07/10/21 10:51
--- NOTE | 2021-07-10 09:52 | PC.NURSE ---
speech therapy at bedside
[2021-07-10] MEDS: Acetaminophen 325 MG TABLET 975 MG PO (10:30)
--- NOTE | 2021-07-10 10:32 | PC.NURSE ---
pt going to mri with dilcia li the installation coordinator
--- NOTE | 2021-07-10 10:50 | PC.NURSE ---
report given to rn icu
[2021-07-10 12:29] LABS: Glucose, Whole Blood 95 mg/dL (60-115)
--- NOTE | 2021-07-10 12:34 | MHC.STROKE ---
Addendum entered by Judy Sun RN 07/10/21 16:45: I ROUNDED AGAIN ON THE PATIENT AND WE DISCUSSED THE MRI RESULTS, I MENTIONED THAT DR. GONZALES REVIEWED THE MRI ALSO. STROKE EDUCATION REINFORCED. WE DISCUSSED HER LDL OF 137, CONSIDER A STATIN, ALSO APPLY VTE PROPHYLAXIS COMPRESSION DEVICES BY THE END OF DAY 2 07/11/21 2300, THEY ARE ORDERED. Original Note: 07/10/21 WALK-IN WITH HER FROM HOME. STROKE PROTOCOL ACTIVATED, I RECEIVED A CALL FROM THE ED PROVIDER. STAT CTH AND CTA H/N, NO BLEED, NO LVO. ONSET OF SYMPTOMS BEGAN AROUND 2100 THE NIGHT BEFORE DIZZINESS I WAS BOUNCING OFF THE [place], I COULDN'T STAND STRAIGHT , BUT THEN RESOLVED. SHE WENT TO BED AROUND 0023. SHE WOKE AROUND 0500 AND JUST HER WAS ABOUT TO GO TO WORK SHE BEGAN WITH SEVERE DIZZINESS, CONFUSION, APHASIA. NIHSS = 18. DR ACEVEDO AND DR GONZALES DISCUSSED THE CASE. THIS PATIENT IS KNOWN TO DR GONZALES. HER BP WAS 189/87. BASED ON HER SYMPTOMS AND HER SIGNIFICANT CHANGE FROM HER BASELINE IT WAS DETERMINED TO GIVE TPA (ALTEPLASE). [id number] WAS 78 MINUTES DUE TO CONTROLLING BP AND CARE TEAM DETERMINING ELIGIBILITY AND CLARIFICATION OF TIMELINE. TPA (ALTEPLASE BOLUS GIVEN AT 0706. FAILED INITIAL SWALLOW SCREEN, NPO. PATIENT WITH HISTORY OF TIA'S, HTN, I DID MEET WITH THE PATIENT AND HER , I ALSO KNOW THEM FROM A PRIOR ADMISSION. STROKE EDUCATION PROVIDED. I ACCOMPANIED HER TO MRI ON A CARDIAC SBP 170'S, SHE TOLERATED THE SCAN, I THEN TRANSFERRED HER TO ICU NURSE JOHANA. I DID IDENTIFY A SMALL BRUISE ON THE LEFT UPPER CHEST THAT I COMMUNICATED TO THE NURSE ABOUT. DR GONZALES AND DR NICHOALS DISCUSSED HER CASE AND MRI BRAIN AND C-SPINE ARE BEING READ STAT. I WILLCONTINUE JERMAIN.
--- NOTE | 2021-07-10 13:06 | MHC.SL.SWA ---
Speech Pathologist Impression: Within Functional Limits Risk of Aspiration Due to: Neurological Condition Dysphasia Diet Status: Upgrade Liquid Consistency and Strategies for Safe Swallow: Liquid Intake Recommendation: Thin Liquid Intake Strategies: Small Sips Solid Food Consistency: Dietary Recommendations: Regular Additional Modifications to Solid Foods: Provide additional gravies, sauces. Oral Medication Intake: Whole with Liquid Compensatory Strategies and Precautions to be Taken for Safe Swallow: Sitting Upright (90 deg) Supervision While Eating and Drinking for Safe Swallow: Intermittent Supervision Foods to Avoid: Swallowing Recommended Treatments: Recommendation for Speech: Inpatient Speech Therapy Comment: Pt presents with signs of mild R oral motor weakness. On swallow evaluation, on all consistencies, Pt presented with Swallow WNL with no clinical signs of aspiration. Recommend start Regular Diet with thin liquids. MD, Nursing, Nutrition notified of diet recommendation via secure Text. BRICK CLEANER to follow up with observation of toleration of recommended diet. Frequency/Duration: BRICK CLEANER to observe 1-2X for toleration of recommended diet, swallow function. Date Range for Service Req: While inpatient Timeline to reassess: Leather Stretcher Clinican/Clinical Fellow: No Supervisory Statement: I have reviewed and agree with the student/clinical fellow's documentation: Speech Language Pathologist: Racquel Markham M.A., CCC-BRICK CLEANER
[2021-07-10 13:41] LABS: Appearance Urine CLEAR; Color Urine YELLOW; Glucose Urine UA NEG (NEG); Leukocyte Esterase Urine NEG (NEG); Nitrite Urine NEG (NEG); Urine Blood NEG (NEG); Urine Ketones NEG (NEG); Urine Protein TRACE MG/DL (NEG-TRACE)
--- NOTE | 2021-07-10 14:32 | PM.CCHP ---
History of Present Illness Date of Service: 07/10/21 Chief Complaint: Dizziness 65-year-old lady with underlying history of bipolar disorder, lupus/rheumatoid arthritis on Plaquenil, hypertension, IBS, prior history of TIA admitted on 07/10/2021 with dizziness, bilateral weakness, and possible aphasia. CT head demonstrated no acute bleed. Neurology was consulted and recommended tPA administration. Patient has had tPA. She also was noted to have protrusion of several cervical discs with concern for cord compression. MRI had/cervical spine was obtained and showed no bleed, acute infarct, 0 cord compression. Patient has been admitted to intensive care unit for further monitoring. Review of Systems Constitutional: Constitutional: Denies daytime sleepiness, Denies excessive sweating, Denies fatigue, Denies fever(s), Denies lethargy, Denies malaise, Denies night sweats, Denies snoring, Reports weakness and Denies weight loss Eyes: Eyes: Denies blurry vision and Denies itchy eyes ENT: Reports dizziness, Denies nasal congestion, Denies post nasal drip, Denies sinus pain, Denies sinus pressure and Denies other ( Thrush) Cardiovascular: Cardiovascular: Denies chest pain, Denies pedal edema, Denies dyspnea, Denies orthopnea and Denies paroxysmal nocturnal dyspnea Respiratory: Respiratory: Denies cough, Denies hemoptysis, Denies excessive phlegm production, Denies dyspnea, Denies snoring and Denies wheezing Gastrointestinal: Gastrointestinal: Denies abdominal pain and Denies heartburn Musculoskeletal: Musculoskeletal: Denies myalgias, Denies arthralgias and Denies joint swelling Integumentary/Breasts: Skin/Breast: Denies rash Neurologic: Reports dizziness, Reports lack of coordination, Denies memory loss, Denies seizure-like activity, Reports weakness and Reports other Psychiatric: Psychiatric: Denies abnormal sleep pattern, Denies anxiety and Denies memory loss Endocrine: Endocrine: Denies excessive sweating, Denies fatigue and Denies heat intolerance Hematologic/Lymphatic: Hematologic/Lymphatic: Denies easy bruising Allergic/Immunologic: Allergic/Immunologic: Denies itchy eyes, Denies seasonal rhinorrhea and Denies wheezing PMFSH Past Medical History Medical History (Updated 07/10/21 @ 14:44 by Felice Oliver MD) Bipolar disorder HTN (hypertension) IBS (irritable bowel syndrome) Lupus Rheumatoid arthritis TIA (transient ischemic attack) Surgical History Surgical History No history of previous surgery Social History Social History Household Members: Spouse Housing: House Do you presently have visiting nurse or other home services: No Alcohol intake: never Patient Tobacco Use Status: Former Tobacco user Tobacco use type: Cigarette Use of substances other than those prescribed or required for medical reasons: Yes Substance Use Type: Marijuana Substance Use Frequency: Occasionally Last Used Substance: Days (ago) Currently Displaying Signs/Symptoms of Drug Intoxication Withdrawal: No Any prior treatment program specific to substance use: No Have you been hit, kicked, punched, or otherwise hurt by someone within the past year? If so, by whom?: No Do you feel safe in your current relationship?: Yes Is there a partner from a previous relationship who is making you feel unsafe now?: No Advance Directives: No Advance Directives Information Provided: Yes Do you have thoughts of harming others: None Do you have a plan to hurt others: No Plan Recently lost weight without trying: Unsure Nutrition Risks: No Nutritional Risk Patient : No : No Poor oral hygiene: No Meds Allergies Allergy/AdvReac Type Severity Reaction Status Date / Time No Known Allergies Allergy Unverified 05/11/20 15:03 [No Known Allergies*] Active Medications: Current Medications Pharmacy Consult (Consult Rx Perform Med Rec) 1 each MISCELLANE ONCE PRN PRN Reason: Consult order Sodium Chloride (0.9 % Sodium Chloride Flush 3 Ml Syringe) 3 ml IVFLUSH [facility] Medications Medication Instructions Recorded Confirmed Last Taken Type aspirin 81 mg chewable tablet 81 mg PO DAILY 07/10/21 07/10/21 07/09/21 History bupropion HCl 300 mg 24 hr tablet, 300 mg PO BEDTIME 07/10/21 07/10/21 07/09/21 History extended release carbamazepine 200 mg tablet 400 mg PO BEDTIME 07/10/21 07/10/21 07/09/21 History diphenhydramine 25 1 tab PO Q6H PRN 07/10/21 07/10/21 Unknown History mg-acetaminophen 500 mg tablet (Tylenol PM Extra Strength) hydroxychloroquine 200 mg tablet 1 tab PO DAILY 07/10/21 07/10/2107/09/21 History lamotrigine 200 mg tablet 400 mg PO BEDTIME 07/10/21 07/10/21 07/09/21 History lorazepam 1 mg tablet 1 tab PO BEDTIME PRN 07/10/21 07/10/21 Unknown History metoprolol succinate 25 mg 37.5 tab PO DAILY 07/10/21 07/10/21 07/09/21 History tablet,extended release 24 hr naproxen sodium 220 mg tablet 220 mg PO BID PRN 07/10/21 07/10/21 Unknown History (Aleve) omeprazole 40 mg capsule,delayed 40 mg PO DAILY 07/10/21 07/10/21 07/09/21 History release Physical Exam Vital Signs: Vital Signs: Last Vital Signs Temp 0 F L 07/10/21 06:05 Pulse 72 07/10/21 14:00 Resp 13 07/10/21 14:00 BP 140/55 H 07/10/21 14:00 Pulse Ox 96 07/10/21 14:00 Body Mass Index 22.8 Const: General: no acute distress, alert and awake Nutritional Appearance: not obese Orientation/consciousness: oriented to person, oriented to place, oriented to time and Other orientation findings ( oriented) HENMT: Head: Yes atraumatic Mouth: no other ( thrush) Throat: No postnasal drainage Eyes: General: appearance normal, both eyes and all related structures Sclerae: sclerae normal EOM: EOMs intact bilaterally Neck: Neck: Yes no lymphadenopathy, Yes trachea midline and Yes supple Lymphatic: no lymphadenopathy noted Resp: Effort & Inspection: normal respiratory effort and no respiratory distress Auscultation: clear to auscultation bilaterally Cardio: Rate: regular rate Rhythm: regular rhythm Heart sounds: no gallops, no murmurs and no rubs GI: Palpation (GI): Soft to palpation and Other GI palpation findings present ( Nontender) Auscultation: normal bowel sounds Skin: General skin exam: other ( warm) Rashes: no rashes Neuro: General: oriented to person, oriented to place, oriented to time, tone normal, moves all extremities, no focal motor deficits and other (Strength 4 out of 5 bilateral symmetric) Cranial nerves: Yes CN's II-XII intact bilaterally Extrem: General: Yes no pedal edema, No clubbing and No cyanosis Results Labs CBC and Chem 7: 07/10/21 08:28 07/10/21 08:28 Labs: Laboratory Results - last 24 hr 07/10/21 07/10/21 07/10/21 06:00 06:00 06:13 MCV 93.9 MCH 31.7 MCHC 33.8 RDW 12.5 Plt Count 209 MPV 9.5 Immature Gran % (Auto) 0.3 Neut % (Auto) 36.8 L Lymph % (Auto) 42.2 H [place] % (Auto) 17.7 H Eos % (Auto) 2.5 Baso % (Auto) 0.5 Lymph # (Auto) 1.6 [place] # (Auto) 0.7 Eos # (Auto) 0.1 Baso # (Auto) 0.0 Abs Immat Gran (auto) 0.01 Absolute Neuts (auto) 1.4 L Absolute Nucleated RBC 0.000 Nucleated RBC % (auto) 0.0 PT Whole Blood PT 12.7 INR Whole Blood INR 1.1 Anion Gap Estim Creat Clear Calc Estimated GFR POC Glucose 90 Random Glucose Calcium Total Bilirubin AST ALT Alkaline Phosphatase Troponin I High Sens Total Protein Albumin Triglycerides Cholesterol LDL Cholesterol, Calc HDL Cholesterol Urine Color Urine Appearance Urine pH Ur Specific [place] Urine Protein Urine Glucose (UA) Urine Ketones Urine Blood Urine Nitrite Ur Leukocyte Esterase COVID-19 (VINEET) COVID-19 Clin Com 07/10/21 07/10/21 07/10/21 06:13 06:13 06:13 MCV MCH MCHC RDW Plt Count MPV Immature Gran % (Auto) Neut % (Auto) Lymph % (Auto) [place] % (Auto) Eos % (Auto) Baso % (Auto) Lymph # (Auto) [place] # (Auto) Eos # (Auto) Baso # (Auto) Abs Immat Gran (auto) Absolute Neuts (auto) Absolute Nucleated RBC Nucleated RBC % (auto) PT 11.3 Whole Blood PT INR 1.0 Whole Blood INR Anion Gap 13 Estim Creat Clear Calc 77.0 Estimated GFR > 60 POC Glucose Random Glucose 99 Calcium 9.0 Total Bilirubin < 0.2 AST 22 ALT 22 Alkaline Phosphatase 138 H Troponin I High Sens < 3.5 Total Protein 6.5 Albumin 4.3 Triglycerides Cholesterol LDL Cholesterol, Calc HDL Cholesterol Urine Color Urine Appearance Urine pH Ur Specific [place] Urine Protein Urine Glucose (UA) Urine Ketones Urine Blood Urine Nitrite Ur Leukocyte Esterase COVID-19 (VINEET) COVID-19 Clin Com 07/10/21 07/10/21 07/10/21 06:13 08:28 08:28 MCV 93.3 MCH 31.8 MCHC 34.1 RDW 12.4 Plt Count 178 MPV 9.2 L Immature Gran % (Auto) 0.3 Neut % (Auto) 55.5 Lymph % (Auto) 27.4 [place] % (Auto) 14.5 H Eos % (Auto) 1.7 Baso % (Auto) 0.6 Lymph # (Auto) 1.0 L [place] # (Auto) 0.5 Eos # (Auto) 0.1 Baso # (Auto) 0.0 Abs Immat Gran (auto) 0.01 Absolute Neuts (auto) 2.0 Absolute Nucleated RBC 0.000 Nucleated RBC % (auto) 0.0 PT Whole Blood PT INR Whole Blood INR Anion Gap 11 L Estim Creat Clear Calc 76.6 Estimated GFR > 60 POC Glucose Random Glucose 94 Calcium 8.6 Total Bilirubin AST ALT Alkaline Phosphatase Troponin I High Sens Total Protein Albumin Triglycerides 48 Cholesterol 205 LDL Cholesterol, Calc 137 HDL Cholesterol 59 Urine Color Urine Appearance Urine pH Ur Specific [place] Urine Protein Urine Glucose (UA) Urine Ketones Urine Blood Urine Nitrite Ur Leukocyte Esterase COVID-19 (VINEET) Negative COVID-19 Clin Com See Note 07/10/21 07/10/21 12:26 13:26 MCV MCH MCHC RDW Plt Count MPV Immature Gran % (Auto) Neut % (Auto) Lymph % (Auto) [place] % (Auto) Eos % (Auto) Baso % (Auto) Lymph # (Auto) [place] # (Auto) Eos # (Auto) Baso # (Auto) Abs Immat Gran (auto) Absolute Neuts (auto) Absolute Nucleated RBC Nucleated RBC % (auto) PT Whole Blood PT INR Whole Blood INR Anion Gap Estim Creat Clear Calc Estimated GFR POC Glucose 95 Random Glucose Calcium Total Bilirubin AST ALT Alkaline Phosphatase Troponin I High Sens Total Protein Albumin Triglycerides Cholesterol LDL Cholesterol, Calc HDL Cholesterol Urine Color YELLOW Urine Appearance CLEAR Urine pH 6.0 Ur Specific [place] 1.010 Urine Protein TRACE Urine Glucose (UA) NEG Urine Ketones NEG Urine Blood NEG Urine Nitrite NEG Ur Leukocyte Esterase NEG COVID-19 (VINEET) COVID-19 Clin Com Imaging Radiologist's Impressions: Impressions Head CT 07/10/21 05:59 IMPRESSION: No acute intracranial findings. Chronic small vessel ischemic disease and volume loss. This stroke protocol result was discussed with Dr. Johns on 07/10/2021 6:20 AM. Head/Neck CTA 07/10/21 05:59 IMPRESSION: Persistent trigeminal artery as noted above, with diminutive caliber of the vertebrobasilar system which is favored to be chronic. No large vessel occlusion or significant stenosis in the intracranial circulation. Findings discussed with Dr. Johns on 07/10/2021 6:51 AM. Brain MRI 07/10/21 07:51 IMPRESSION: Brain MRI: No acute intracranial abnormality. No infarct or mass. Moderate chronic microangiopathy. Cervical spine: Multilevel degenerative spondylosis. Spinal canal stenosis appears moderate at C4-C5 and moderate to severe at C5-C6. Multilevel neural foraminal stenosis is detailed above. Cervical Spine MRI 07/10/21 09:03 IMPRESSION: Brain MRI: No acute intracranial abnormality. No infarct or mass. Moderate chronic microangiopathy. Cervical spine: Multilevel degenerative spondylosis. Spinal canal stenosis appears moderate at C4-C5 and moderate to severe at C5-C6. Multilevel neural foraminal stenosis is detailed above. Assessment and Plan (1) Cerebrovascular accident: Status: Acute (2) Bipolar disorder: Status: Acute (3) Lupus: Status: Acute (4) Rheumatoid arthritis: Status: Acute Assessment: 65-year-old lady admitted with suspicion for CVA, now status post tPA vein monitored in the intensive care unit. Plan: Neuro: Possible CVA versus conversion, now status post tPA. Neurology service care appreciated. Passed swallow evaluation. OT/PT pending. Continue with neuro checks. MRI brain/cervical spine with no evidence of bleed, infarct, or cord compression. Cardiac: No acute issues. Pulmonary: No acute issues. Renal: No acute issues. Endo: No acute issues. GI: No acute issues. ID: No acute issues Heme/Onc: No acute issues. Psych: Underlying history of bipolar disease. Lamictal level is pending. Miscellaneous: Underlying history of SLE and rheumatoid arthritis on Plaquenil therapy. Continue Plaquenil.. Prophylaxis: Pneumatic compression Diet: Regular Critical care time spent: 45 minutes
[2021-07-10] MEDS: 0.9 % Sodium Chloride Flush 3 ML SYRINGE IVFLUSH ×2 (16:16→23:27)
[2021-07-10 16:39] LABS: Glucose, Whole Blood 81 mg/dL (60-115)
--- NOTE | 2021-07-10 18:21 | PC.NURSE ---
Pt to floor from ER post tpa. Alert and oriented, VSS. SR with 1st degree on tele. LS clear, satting well on RA. used bedpan x3. Passed swalow eval, tolerating regular diet well.
[2021-07-10 21:36] LABS: Glucose, Whole Blood 99 mg/dL (60-115)
[2021-07-10] MEDS: carBAMazepine 200 MG TABLET 400 MG PO (21:47)
[2021-07-10] MEDS: LORazepam 1 MG TABLET PO (23:25)
[2021-07-11] VITALS (13 sets, daily range): BP systolic 130–187; BP diastolic 65–101; PULSE 75–98; RESP 12–25; TEMP 36.1–36.4; O2SAT 95–98; BMI 23.6
[2021-07-11] MEDS: Metoprolol Tartrate 5 MG/5 ML VIAL IVPUSH (01:21)
[2021-07-11 05:25] LABS: MANUAL DIFF FLAG NO
[2021-07-11 05:47] LABS: Basophils Percent Auto 0.3 % (0-2); Eosinophils Absolute Auto 0.1 X10*3/uL (0.0-0.4); Eosinophils Percent Auto 3.5 % (0-4); Hematocrit 32.8 % (37.0-47.0); Imm Gran Abs Auto 0.01 X10*3/uL (0.00-0.03); Imm Gran Pct Auto 0.3 % (0.0-0.4); Lymphocytes Percent Auto 34.5 % (20-40); Mean Corpuscular HGB Conc 33.5 g/dl (31.0-35.0); Mean Corpuscular Hemoglobin 31.7 pg (27.0-33.0); Mean Corpuscular Volume 94.5 fL (80.0-98.0); Mean Platelet Volume 9.3 fL (9.4-12.3); Monocytes Absolute Auto 0.3 X10*3/uL (0.1-1.2); Monocytes Percent Auto 10.1 % (2-11); Neutrophils Absolute Auto 1.5 x10*3/uL (2.0-8.3); Neutrophils Percent Auto 51.3 % (45-73); Platelet Count 193 X10*3/uL (160-400); Red Blood Count 3.47 X10*6/uL (4.20-5.50); Red Cell Distribution Width 12.6 % (11.0-16.0); White Blood Count 2.9 X10*3/uL (4.8-10.8)
[2021-07-11 05:55] LABS: Albumin Level 3.7 g/dL (3.5-5.0); Anion Gap 14 (12-20); Blood Urea Nitrogen 10 mg/dL (9-16); Calcium 8.7 mg/dL (8.4-10.2); Carbon Dioxide 24 mmol/L (22-29); Chloride 107 mmol/L (96-108); Creatinine Clr Calc Pharmacy 70.1; Estimated Glomerular Filt Rate > 60; Glucose Random 140 mg/dL (60-115); Magnesium 2.1 mg/dL (1.6-2.6); Phosphorus 3.1 mg/dL (2.7-4.5); Potassium 3.6 mmol/L (3.3-5.1); Sodium 141 mmol/L (135-145)
[2021-07-11 07:32] LABS: Glucose, Whole Blood 91 mg/dL (60-115)
[2021-07-11] MEDS: Hydroxychloroquine Sulfate 200 MG TABLET 400 MG PO (07:55)
[2021-07-11] MEDS: 0.9 % Sodium Chloride Flush 3 ML SYRINGE IVFLUSH (07:55)
--- NOTE | 2021-07-11 08:05 | CA_ITS ---
NAME: KELLEY WISE DATE: 07/11/2021 : 54 AGE: 65 SEX: FEMALE REFERRING PHYSICIAN: LADAN NICHOLAS INDICATIONS: CVA, S/P TPA BUBBLE STUDY HT: 5'5 WT: 141 BP: 162/83 SALESPERSON BURIAL PLOTS: YR STUDY QUALITY: Average ECG RHYTHM: Sinus rhythm CONCLUSION: Normal biventricular function. There is no significant valvular or pericardial pathology. No interatrial shunt by bubble study. FINDINGS: Left ventricle: Normal left ventricular ejection fraction 60 65%. No regional wall motion abnormalities. There Is mildly increased left ventricular wall thickness. Diastolic function is normal for age. Right ventricle: Right ventricular is normal in size in function. Atria: Both atria are normal in size. There is no evidence of interatrial shunting by bubble study. Aortic valve: Normal in structure and function. There is no evidence of aortic valve stenosis or regurgitation. Mitral valve: Mitral valve is normal in structure and function. There is no mitral stenosis or regurgitation. Pulmonic valve: Likely normal in structure and function. Tricuspid valve: Normal in structure and function. PASP Aorta: Aorta normal in size. Pulmonary artery: Normal in size. Inferior vena cava: Normal in size and collapses normally with respiration. Normal right atrial pressure. Pericardium: There is no pericardial effusion. M-MODE/2D MEASUREMENTS: LVd: 4.05 cm LVs: 3.02 cm IVSd: 1.25 cm IVSs: LVPWd: 1.14 cm LVPWs: ASC. AORATA: 2.7 cm RVd: 2.83 cm AO root: 3.0 cm LA: AV Cusp: LVOT: 2.2 cm: EF%: TAPSE: OTHER: Effusion: Thrombus: Wall Motion: RVSP: MITRAL E/A: 59.6 / 87.8 = .7 E Med: 7.18 cm/s E Lat. 9.25 cm/s AV Cusps Trileaflet : Yes / No DOPPLER MEASUREMENTS: AORTIC PP mmHg MFG 5 mmHg Velocity: 151 m/s Valve Area: 1.91 cm2 RA Vol. 8.5 ml/m2 IVC: 1.44 cm LA Vol. 24.5 ml/m2 RVS 12.2. cm/s MTDD
--- NOTE | 2021-07-11 08:56 | P.PNCC_ITS ---
Subjective Subjective Date of Service: 07/11/21 Interval History: 65-year-old lady with underlying history of bipolar disorder, lupus/rheumatoid arthritis on Plaquenil, hypertension, IBS, prior history of TIA admitted on 07/10/2021 with dizziness, bilateral weakness, and possible aphasia. CT head demonstrated no acute bleed. Neurology was consulted and recommended tPA administration. Patient has had tPA infused. She also was noted to have protrusion of several cervical discs with concern for cord compression. MRI had/cervical spine was obtained and showed no bleed, acute infarct, and no cord compression. Patient has been admitted to intensive care unit for further monitoring. No events overnight Critical Care Time (minutes): 0 Physical Exam Vital Signs: Vital Signs: Last Vital Signs Temp 97.5 F 07/11/21 08:00 Pulse 77 07/11/21 08:00 Resp 14 07/11/21 08:00 BP 130/65 07/11/21 08:00 Pulse Ox 95 07/11/21 08:00 Body Mass Index 23.6 Const: General: no acute distress, alert and awake Eyes: Sclerae: sclerae normal EOM: EOMs intact bilaterally Neck: Neck: Yes no lymphadenopathy, Yes trachea midline and Yes supple Resp: Effort & Inspection: normal respiratory effort and no respiratory distress Auscultation: clear to auscultation bilaterally Cardio: Rate: regular rate Rhythm: regular rhythm Heart sounds: no gallops, no murmurs and no rubs GI: Palpation (GI): Soft to palpation and Other GI palpation findings present ( Nontender) Auscultation: normal bowel sounds Extrem: General: Yes no pedal edema, No clubbing and No cyanosis Objective Data Labs CBC & Chem 7: 07/11/21 05:15 07/11/21 05:15 Labs: Laboratory Results - last 24 hr 07/10/21 07/10/21 07/10/21 06:13 08:28 12:26 WBC RBC Hgb Hct MCV MCH MCHC RDW Plt Count MPV Immature Gran % (Auto) Neut % (Auto) Lymph % (Auto) [place] % (Auto) Eos % (Auto) Baso % (Auto) Lymph # (Auto) [place] # (Auto) Eos # (Auto) Baso # (Auto) Abs Immat Gran (auto) Absolute Neuts (auto) Absolute Nucleated RBC Nucleated RBC % (auto) Sodium 139 Potassium 4.2 Chloride 106 Carbon Dioxide 26 Anion Gap 11 L BUN 13 Creatinine 0.65 Estim Creat Clear Calc 76.6 Estimated GFR > 60 POC Glucose 95 Random Glucose 94 Calcium 8.6 Phosphorus Magnesium Troponin I High Sens < 3.5 Albumin Triglycerides 48 Cholesterol 205 LDL Cholesterol, Calc 137 HDL Cholesterol 59 Urine Color Urine Appearance Urine pH Ur Specific [place] Urine Protein Urine Glucose (UA) Urine Ketones Urine Blood Urine Nitrite Ur Leukocyte Esterase 07/10/21 07/10/21 07/10/21 13:26 16:35 21:32 WBC RBC Hgb Hct MCV MCH MCHC RDW Plt Count MPV Immature Gran % (Auto) Neut % (Auto) Lymph % (Auto) [place] % (Auto) Eos % (Auto) Baso % (Auto) Lymph # (Auto) [place] # (Auto) Eos # (Auto) Baso # (Auto) Abs Immat Gran (auto) Absolute Neuts (auto) Absolute Nucleated RBC Nucleated RBC % (auto) Sodium Potassium Chloride Carbon Dioxide Anion Gap BUN Creatinine Estim Creat Clear Calc Estimated GFR POC Glucose 81 99 Random Glucose Calcium Phosphorus Magnesium Troponin I High Sens Albumin Triglycerides Cholesterol LDL Cholesterol, Calc HDL Cholesterol Urine Color YELLOW Urine Appearance CLEAR Urine pH 6.0 Ur Specific [place] 1.010 Urine Protein TRACE Urine Glucose (UA) NEG Urine Ketones NEG Urine Blood NEG Urine Nitrite NEG Ur Leukocyte Esterase NEG 07/11/21 07/11/21 07/11/21 05:15 05:15 07:29 WBC 2.9 L RBC 3.47 L Hgb 11.0 L Hct 32.8 L MCV 94.5 MCH 31.7 MCHC 33.5 RDW 12.6 Plt Count 193 MPV 9.3 L Immature Gran % (Auto) 0.3 Neut % (Auto) 51.3 Lymph % (Auto) 34.5 [place] % (Auto) 10.1 Eos % (Auto) 3.5 Baso % (Auto) 0.3 Lymph # (Auto) 1.0 L [place] # (Auto) 0.3 Eos # (Auto) 0.1 Baso # (Auto) 0.0 Abs Immat Gran (auto) 0.01 Absolute Neuts (auto) 1.5 L Absolute Nucleated RBC 0.000 Nucleated RBC % (auto) 0.0 Sodium 141 Potassium 3.6 Chloride 107 Carbon Dioxide 24 Anion Gap 14 BUN 10 Creatinine 0.71 Estim Creat Clear Calc 70.1 Estimated GFR > 60 POC Glucose 91 Random Glucose 140 H Calcium 8.7 Phosphorus 3.1 Magnesium 2.1 Troponin I High Sens Albumin 3.7 Triglycerides Cholesterol LDL Cholesterol, Calc HDL Cholesterol Urine Color Urine Appearance Urine pH Ur Specific [place] Urine Protein Urine Glucose (UA) Urine Ketones Urine Blood Urine Nitrite Ur Leukocyte Esterase Progress Note: A&P Assessment and plan (1) Cerebrovascular accident: Status: Acute (2) Bipolar disorder: Status: Acute (3) Lupus: Status: Acute (4) Rheumatoid arthritis: Status: Acute Assessment and Plan: Assessment: 65-year-old lady admitted with suspicion for CVA, now status post tPA being monitored in the intensive care unit. Plan: Neuro: Possible CVA versus conversion, now status post tPA. Neurology service care appreciated. Passed swallow evaluation. OT/PT is pending. Continue with neuro checks. MRI brain/cervical spine with no evidence of bleed, infarct, or cord compression. Cardiac: No acute issues. Pulmonary: No acute issues. Renal: No acute issues. Endo: No acute issues. GI: No acute issues. ID: No acute issues Heme/Onc: No acute issues. Psych: Underlying history of bipolar disease. Lamictal level is pending. Miscellaneous: Underlying history of SLE and rheumatoid arthritis on Plaquenil therapy. Continue Plaquenil.. Prophylaxis: Pneumatic compression Diet: Regular Quality Stroke Does the patient have a stroke diagnosis?: Yes Reason for No Anti-thrombotic by Day Two: N/A - Med Ordered VTE Prior VTE?: No VTE Risk Level:: Medical - moderate - high VTE Device Contraindication: N/A - Device Ordered VTE Drug Contraindication: Treatment Not Indicated
--- NOTE | 2021-07-11 10:39 | MHC.SL.DTX ---
Dysphagia Diet modifications: Last documented Solid diet consistencies: Regular Last documented Liquid consistency: Thin Last documented Medication Administration: whole with liquids Changes made to current diet?: No: D/C 07/11. Liquid Consistency and Strategies: Liquid Intake Recommendation: Thin Compensatory Strategies for Safe Swallow: Small Sips No Straws Compensatory Strategies for Safe Swallow(b): Sitting Upright (90 deg) Solid Food Consistency: Dietary Recommendations: Regular Additional Modifications to Solids: Provide additional gravies, sauces. Oral Medication Intake: Whole with Liquid Strategies and Precautions to be Taken for Safe Swallow: Sitting Upright (90 deg) Supervision While Eating and/Drinking: Intermittent Supervision Foods to Avoid: Swallowing Recommended Treatments: Compens. Strategy Educat. Level of Impact on: Daily activities: None Interpersonal interactions: Education: None Employment: None Community: None Prognosis for Improvement: Excellent Recommendation for Speech: Discharge from this date. Pt was seen in her room in the ICU with her present. Current diet consistency REGULAR solids and THIN liquids. RN reported pt has been tolerating her current diet consistency without any issues. Pt denied difficulty with mastication, swallow, speech, or language abilities. Pt declined solids offered due to just having eaten breakfast but tolerated thin liquids with a timely pharyngeal swallow trigger and no overt s/s aspiration. Pt to be discharged from at this time. RN notified. Please re-refer if any changes in any ST domain are noted. Claims Adjudicator Clinican/Clinical Fellow: No Supervisory Statement: I have reviewed and agree with the student/clinical fellow's documentation: N/A Speech Language Pathologist: Kate Mijares M.A., CCC-GARMENT [employer] CUTTER [employer]
[2021-07-11 11:46] LABS: Glucose, Whole Blood 109 mg/dL (60-115)
--- NOTE | 2021-07-11 12:17 | P.DS_ITS ---
DS: Providers Provider Date of Service: 07/11/21 Date of admission: 07/10/21 08:05 Date of discharge: 07/11/21 Primary care physician: Franko Graham MD Consults: 07/10/21 08:05 Consult to Neurology Routine Consulting Provider: [facility] Reason for consultation: CVA s/p tPA DS: Diagnosis Discharge Diagnosis (1) Cerebrovascular accident: Status: Acute (2) Bipolar disorder: Status: Acute (3) Lupus: Status: Acute (4) Rheumatoid arthritis: Status: Acute DS: Summary Hospital Course Hospital Course: 65-year-old lady with underlying history of bipolar disorder, lupus/rheumatoid arthritis on Plaquenil, hypertension, IBS, prior history of TIA admitted on 07/10/2021 with dizziness, bilateral weakness, and possible aphasia. CT head demonstrated no acute bleed. Neurology was consulted and recommended tPA administration. Patient has had tPA infused. She also was noted to have protrusion of several cervical discs with concern for cord compression. MRI had/cervical spine was obtained and showed no bleed, acute infarct, and no cord compression. Patient has been admitted to intensive care unit for further monitoring. She has been monitored for 24 hours with no recurrnce of her symptoms. Status at Discharge Functional status at discharge: independent ambulation Overall status at discharge: patient is back to baseline Time Spent with Patient Time attestation: Total time spent providing and/or coordinating discharge services: Discharge coordination time: Greater than 30 minutes Quality: Stroke Does the patient have a stroke diagnosis?: Yes Reason for No Anti-thrombotic at DC: N/A - Med Ordered Reason for No Anticoagulant at DC: Drug treatment not indicated Reason Not Initiating IV-Tpa: N/A - Med Ordered Reason for No Anti-thrombotic by Day Two: N/A - Med Ordered Reason for No Statin at DC: N/A - Med Ordered Physical Exam 2 Vital Signs: Vital Signs: Last Vital Signs Temp 97.0 F 07/11/21 11:54 Pulse 97 07/11/21 11:54 Resp 25 H 07/11/21 11:54 BP 156/76 H 07/11/21 11:54 Pulse Ox 98 07/11/21 11:54 Body Mass Index 23.6 Const: General: no acute distress, alert and awake Eyes: Sclerae: sclerae normal EOM: EOMs intact bilaterally Neck: Neck: Yes no lymphadenopathy, Yes trachea midline and Yes supple Resp: Effort & Inspection: normal respiratory effort and no respiratory distress Auscultation: clear to auscultation bilaterally Cardio: Rate: regular rate Rhythm: regular rhythm Heart sounds: no gallops, no murmurs and no rubs GI: Palpation (GI): Soft to palpation and Other GI palpation findings present ( Nontender) Auscultation: normal bowel sounds Extrem: General: Yes no pedal edema, No clubbing and No cyanosis DS: Data Data Completed and Pending Labs on day of discharge: Laboratory Results - last 24 hr 07/10/21 07/10/21 07/10/21 06:13 12:26 13:26 WBC RBC Hgb Hct MCV MCH MCHC RDW Plt Count MPV Immature Gran % (Auto) Neut % (Auto) Lymph % (Auto) [place] % (Auto) Eos % (Auto) Baso % (Auto) Lymph # (Auto) [place] # (Auto) Eos # (Auto) Baso # (Auto) Abs Immat Gran (auto) Absolute Neuts (auto) Absolute Nucleated RBC Nucleated RBC % (auto) Sodium Potassium Chloride Carbon Dioxide Anion Gap BUN Creatinine Estim Creat Clear Calc Estimated GFR POC Glucose 95 Random Glucose Calcium Phosphorus Magnesium Troponin I High Sens < 3.5 Albumin Urine Color YELLOW Urine Appearance CLEAR Urine pH 6.0 Ur Specific [place] 1.010 Urine Protein TRACE Urine Glucose (UA) NEG Urine Ketones NEG Urine Blood NEG Urine Nitrite NEG Ur Leukocyte Esterase NEG 07/10/21 07/10/21 07/11/21 16:35 21:32 05:15 WBC 2.9 L RBC 3.47 L Hgb 11.0 L Hct 32.8 L MCV 94.5 MCH 31.7 MCHC 33.5 RDW 12.6 Plt Count 193 MPV 9.3 L Immature Gran % (Auto) 0.3 Neut % (Auto) 51.3 Lymph % (Auto) 34.5 [place] % (Auto) 10.1 Eos % (Auto) 3.5 Baso % (Auto) 0.3 Lymph # (Auto) 1.0 L [place] # (Auto) 0.3 Eos # (Auto) 0.1 Baso # (Auto) 0.0 Abs Immat Gran (auto) 0.01 Absolute Neuts (auto) 1.5 L Absolute Nucleated RBC 0.000 Nucleated RBC % (auto) 0.0 Sodium Potassium Chloride Carbon Dioxide Anion Gap BUN Creatinine Estim Creat Clear Calc Estimated GFR POC Glucose 81 99 Random Glucose Calcium Phosphorus Magnesium Troponin I High Sens Albumin Urine Color Urine Appearance Urine pH Ur Specific [place] Urine Protein Urine Glucose (UA) Urine Ketones Urine Blood Urine Nitrite Ur Leukocyte Esterase 07/11/21 07/11/21 07/11/21 05:15 07:29 11:43 WBC RBC Hgb Hct MCV MCH MCHC RDW Plt Count MPV Immature Gran % (Auto) Neut % (Auto) Lymph % (Auto) [place] % (Auto) Eos % (Auto) Baso % (Auto) Lymph # (Auto) [place] # (Auto) Eos # (Auto) Baso # (Auto) Abs Immat Gran (auto) Absolute Neuts (auto) Absolute Nucleated RBC Nucleated RBC % (auto) Sodium 141 Potassium 3.6 Chloride 107 Carbon Dioxide 24 Anion Gap 14 BUN 10 Creatinine 0.71 Estim Creat Clear Calc 70.1 Estimated GFR > 60 POC Glucose 91 109 Random Glucose 140 H Calcium 8.7 Phosphorus 3.1 Magnesium 2.1 Troponin I High Sens Albumin 3.7 Urine Color Urine Appearance Urine pH Ur Specific [place] Urine Protein Urine Glucose (UA) Urine Ketones Urine Blood Urine Nitrite Ur Leukocyte Esterase Discharge Plan Discharge Anticipated Discharge Date/Time: 07/11/21 12:20 Patient Disposition: Home, Self-Care Discharge Diagnosis: Stroke like syndrome Referrals: Franko Graham MD [Primary Care Provider] - 1 Week Discharge Medications: New atorvastatin [Lipitor] 40 mg tablet 40 mg PO DAILY 30 Days Qty: 30 RF: 6 Continued lamotrigine 200 mg tablet 400 mg PO BEDTIME RF: 0 omeprazole 40 mg capsule,delayed release(DR/EC) 40 mg PO DAILY RF: 0 metoprolol succinate 25 mg tablet extended release 24 hr 37.5 tab PO DAILY RF: 0 lorazepam 1 mg tablet 1 tab PO BEDTIME PRN (Reason: Anxiety/insomnia) RF: 0 hydroxychloroquine 200 mg tablet 1 tab PO DAILY RF: 0 bupropion HCl 300 mg tablet extended release 24 hr 300 mg PO BEDTIME RF: 0 carbamazepine 200 mg tablet 400 mg PO BEDTIME RF: 0 naproxen sodium [Aleve] 220 mg Tablet 220 mg PO BID PRN (Reason: Back Pain) RF: 0 aspirin 81 mg Tablet,Chewable 81 mg PO DAILY RF: 0 diphenhydramine-acetaminophen [Tylenol PM Extra Strength] 25-500 mg Tablet 1 tab PO Q6H PRN (Reason: Headache) RF: 0 Discharge Orders: Discharge Order (Routine); Ordered 07/11/21 Ordered By: Felice Oliver Diet: regular diet Activity on Discharge: As tolerated Stand Alone Forms: Patient Portal Discharge page Care Plan Goals: Continue current medication regimen, start Lipitor 40mg daily. Health Concerns: Likely stroke like syndrome Plan of Treatment: Follow up with Dr. Reed within 2 weeks. Assessment: Admitted with CVA syndrome, received tPA. MRI brain normal. Discharge Date/Time: 07/11/21 13:35
--- NOTE | 2021-07-11 12:47 | MHC.CM.PN ---
Met with pt to discuss d/c planning; pt resides with spouse: active and independent with all care needs: no barriers to transportation/care/f/u services: Reviewed findings from PT/OT evals supporting a return to home - pt is in agreement and anxious to d/c. Spouse to transport. No services are expected.
[2021-07-11] MEDS: Metoprolol Succinate ER 12.5 MG HALFTAB.ER.24H 37.5 MG PO (12:59)
[2021-07-11] MEDS: NaPROXEN 250 MG TABLET PO (12:59)
[2021-07-13 21:16] LABS: Lamotrigine Lamictal 9.5 mcg/mL (4.0-18.0)
== END 2021-07-11 13:35 | disposition home or self-care (01) | DRG 93 ==
LOC: HO.ED 07:53 → HO.EDOVER 08:10 → HO.ICU 08:26
PROVIDERS: Student in an Organized Health Care Education/Training Program; Admitting Provider Internal Medicine Pulmonary Disease; Emergency Provider Emergency Medicine Emergency Medical Services; PCP Internal Medicine; Visit Provider Student in an Organized Health Care Education/Training Program
DX: R47.01 Aphasia (principal); R42 Dizziness and giddiness; M06.9 Rheumatoid arthritis, unspecified; M32.9 Systemic lupus erythematosus, unspecified; Z20.822 Contact with and (suspected) exposure to COVID-19; M48.02 Spinal stenosis, cervical region; Z87.891 Personal history of nicotine dependence; Z79.1 Long term (current) use of non-steroidal anti-inflammatories (NSAID); Z79.82 Long term (current) use of aspirin; Z79.899 Other long term (current) drug therapy
CPT/HCPCS: 36415; 70450; 70496; 70498; 70551; 72141; 80048; 80053; 80061; 80175; 81003; 82040; 82947; 83735; 84100; 84484; 85025; 85610; 87635; 92610; 93005; 93306; 96361; 96374; 96375; 97112; 97116; 97162; 97166; 97535; 99285; J2997; Q9967

== ENCOUNTER 2021-07-23 17:12 | Outpatient (REF) | payer OTHER, SELFPAY ==
[2021-07-23 18:34] LABS: C Reactive Protein 0.32 mg/dL (< or = 0.50)
[2021-07-23 19:07] LABS: Erythrocyte Sedimentation Rate 21 MM/HR (0-20)
== END 2021-07-23 17:13 | disposition home or self-care (01) ==
LOC: HO.LAB 17:12
PROVIDERS: PCP Internal Medicine; Visit Provider Psychiatry & Neurology Neurology
DX: G43.909 Migraine, unspecified, not intractable, without status migrainosus (principal)
CPT/HCPCS: 36415; 85652; 86140

== ENCOUNTER 2021-08-06 13:34 | Outpatient (REF) | payer OTHER, SELFPAY ==
--- NOTE | ~2021-08-06 | US_ITS ---
EXAMINATION: ULTRASOUND SOFT TISSUES NONVASCULAR, LEFT LEG AND RIGHT FOREARM CLINICAL INFORMATION: Palpable lump. COMPARISON: None TECHNIQUE: Grayscale and color imaging of the left posteromedial lower thigh and right volar proximal forearm laterally near the elbow. FINDINGS: There is heterogeneous appearance to the soft tissues in the left medial thigh just deep to skin and adjacent to the muscles. This appears ill-defined. Ultrasound of the right forearm is normal. No abnormality is seen. US/US extremity nonvascular IMPRESSION: Heterogeneous appearance to the soft tissues of the left thigh. Further evaluation with MRI should be considered if clinically indicated. No focal abnormality seen in the right forearm.
== END 2021-08-06 13:35 | disposition home or self-care (01) ==
LOC: HO.US 13:34
PROVIDERS: PCP Internal Medicine; Visit Provider Physician Assistant
DX: D17.24 Benign lipomatous neoplasm of skin and subcutaneous tissue of left leg (principal)
CPT/HCPCS: 76882

== ENCOUNTER 2021-09-03 16:36 | Outpatient (REF) | payer OTHER, SELFPAY ==
--- NOTE | ~2021-09-03 | CT_ITS ---
EXAMINATION: CT BRAIN AND CT CERVICAL SPINE WITHOUT CONTRAST. CLINICAL INFORMATION: Status post injury. Pain. COMPARISON: MR head 07/10/2021. CT brain 07/10/2021. TECHNIQUE: 5 mm thin axial and reformatted 2 mm thin sagittal and coronal images of brain were obtained without contrast. Subsequently axial 3 mm thin and reformatted 2 mm thin sagittal and coronal images of cervical spine were obtained. DLP 910 mGy/cm. FINDINGS: BRAIN: There is no acute intra-axial, extra-axial bleed, masses, collection or midline shift. There is no acute infarction evolution. The lateral ventricles are symmetrical in size but enlarged. There is a lacunar infarction left external capsule. There is diffuse periventricular hypodensity in both cerebral hemispheres without mass effect. Bone windows reveal no calvarial abnormality. There is no scalp soft tissue abnormality either. Bilateral paranasal sinuses and mastoid air cells are well-aerated. CERVICAL SPINE: There is mild straightening of cervical lordosis. The vertebral heights and alignment is normal. There is loss of C5-C6 and C6-C7 disc heights with moderate ventral and posterior spondylosis. Rest the disc heights are normal. The craniovertebral junction and the C1-C2 alignment is normal. There is no visible acute fracture, dislocation or subluxation seen. There is bilateral C3-C4 right C5-C6 facet joint arthropathy and mild hypertrophy. The prevertebral and paravertebral soft tissues are normal. CT/CT cervical spine wo con IMPRESSION: No acute intracranial process seen Lacunar infarction left external capsule and chronic small vessel ischemic changes in both cerebral hemispheres is unchanged to 07/10/2021 exam.. No acute fracture, dislocation or subluxation seen in cervical spine. There are degenerative disc changes and spondylosis C5-C6 and C6-C7 disc levels.
== END 2021-09-03 16:37 | disposition home or self-care (01) ==
LOC: HO.CT 16:36
PROVIDERS: PCP Internal Medicine; Visit Provider Nurse Practitioner Primary Care
DX: S09.8XXA Other specified injuries of head, initial encounter (principal); S20.211A Contusion of right front wall of thorax, initial encounter; X58.XXXA Exposure to other specified factors, initial encounter; Y93.9 Activity, unspecified; Y92.9 Unspecified place or not applicable; Y99.9 Unspecified external cause status
CPT/HCPCS: 70450; 72125

== ENCOUNTER 2021-10-09 14:59 | Emergency (ER) | payer OTHER, SELFPAY ==
--- NOTE | ~2021-10-09 | CT_ITS ---
EXAMINATION: CT HEAD WITHOUT CONTRAST CT FACIAL BONES WITHOUT CONTRAST CT CERVICAL SPINE WITHOUT CONTRAST CLINICAL INFORMATION: Fall. Injury. COMPARISON: CT head and CT cervical spine 09/03/2021 TECHNIQUE: Imaging was performed from the skull base to vertex without intravenous administration of contrast. In addition, helical noncontrast CT imaging was acquired through the cervical spine and facial bones and source images were reviewed along with axial reconstructions and sagittal and coronal MPRs. [This CT examination was performed using dose optimization techniques as appropriate, variously including the following: *Automated exposure control *Adjustment of mA and/or kV according to patient size (this includes techniques or standardized protocols for targeted exams where dose is matched to indication/reason for exam; i.e. extremities or head) *Use of iterative reconstruction technique] DLP: 1259 mGy-cm FINDINGS: HEAD: Small scalp hematoma left frontal region. No skull fracture. There is a small acute hyperdense right-sided subdural the frontal lobe measuring 0.7 cm in diameter. Coronal image 70/200 series 10. There is generalized global volume loss. There is moderate prominence of the ventricles and the sulci . There is moderate hypodensity of the periventricular white matter due to chronic small vessel ischemic disease. There are vascular calcifications of the internal carotid arteries bilaterally. FACIAL BONES: There is no evidence of an acute facial bone fracture. The paranasal sinuses are well aerated. The orbits are unremarkable in appearance. CERVICAL SPINE: There is no evidence of acute cervical spine fracture. Vertebral bodies remain normal in height. There is degenerative disc height narrowing and vertebral endplate spurs and facet joint arthrosis of cervical spine. No pre- or paravertebral soft tissue abnormality is identified. Limited assessment of the lung apices is unremarkable. CT/CT cervical spine wo con IMPRESSION: 1. Small acute right-sided subdural hematoma the right frontal region. Scalp hematoma left frontal region. No skull fracture. 2. No acute facial bone abnormality. 3. No acute cervical spine fracture or traumatic subluxation. This critical result was discussed with Mirtha HOSKINS on 10/09/2021, 5:13 PM and it was ascertained that the content and urgency of the report was understood at the time of direct communication.
[2021-10-09 15:17] VITALS: BP 184/87; PULSE 86; RESP 18; TEMP 36.8; O2SAT 97; BMI 22.2
--- NOTE | 2021-10-09 16:06 | ED_ITS ---
HPI - Fall General Chief Complaint: Fall Stated Complaint: fell down stair head laceration Time Seen by Provider: 10/09/21 16:06 Source: patient and family () Mode of arrival: ambulatory Limitations: no limitations History of Present Illness HPI Narrative: Patient is a 66 year old female presenting to the emergency department today with her , after a fall. Patient states that she slipped down a few stairs into her cellar and landed on her face, while wearing glasses. Patient denies any loss of consciousness. Patient denies any other injuries from the incident. Patient denies any dizziness, lightheadedness, abdominal pain, nausea, vomiting, fever, chills, blurry vision, double vision, loss of vision, chest pain, difficulty breathing, shortness of breath, back pain, night sweats, pain with urination, increased urinary frequency, increased urinary urgency, blood in her urine or stool, syncope or a near syncopal episode, bowel incontinence, bladder incontinence, bowel retention, bladder retention, or any other complaints at this time. Patient denies any anticoagulant use. MD complaint: fall Onset (ago): minute(s) Fall from: standing Fall witnessed: yes, by family Place fall occurred: home Loss of consciousness: none Prolonged down time: no Symptoms prior to fall: none Context: tripped/slipped Location of injury: face Related Data Home Medications Medication Instructions Recorded Confirmed aspirin 81 mg chewable tablet 81 mg PO DAILY 07/10/21 07/10/21 bupropion HCl 300 mg 24 hr tablet, 300 mg PO BEDTIME 07/10/21 07/10/21 extended release carbamazepine 200 mg tablet 400 mg PO BEDTIME 07/10/21 07/10/21 diphenhydramine 25 1 tab PO Q6H PRN 07/10/21 07/10/21 mg-acetaminophen 500 mg tablet (Tylenol PM Extra Strength) hydroxychloroquine 200 mg tablet 1 tab PO DAILY 07/10/21 07/10/21 lamotrigine 200 mg tablet 400 mg PO BEDTIME 07/10/21 07/10/21 lorazepam 1 mg tablet 1 tab PO BEDTIME PRN 07/10/21 07/10/21 metoprolol succinate 25 mg 37.5 tab PO DAILY 07/10/21 07/10/21 tablet,extended release 24 hr naproxen sodium 220 mg tablet 220 mg PO BID PRN 07/10/21 07/10/21 (Aleve) omeprazole 40 mg capsule,delayed 40 mg PO DAILY 07/10/21 07/10/21 release Previous Rx's Medication Instructions Recorded atorvastatin 40 mg tablet (Lipitor) 40 mg PO DAILY 30 Days #30 tab 07/11/21 Allergies Allergy/AdvReac Type Severity Reaction Status Date / Time No Known Allergies Allergy Verified 10/09/21 15:17 [No Known Allergies*] Review of Systems Constitutional: Constitutional: Reports no additional constitutional complaints, Denies chills, Denies fever(s) and Denies night sweats Eyes: Eyes: Reports no additional eye complaints, Denies blurry vision, Denies change in vision, Denies diplopia, Denies eye discharge, Denies loss of vision and Denies eye pain ENT: Denies dizziness Cardiovascular: Cardiovascular: Reports no additional cardiovascular complaints, Denies chest pain, Denies lightheadedness, Denies Loss of Consciousness and Denies dyspnea Respiratory: Respiratory: Reports no additional respiratory complaints and Denies dyspnea Gastrointestinal: Gastrointestinal: Reports no additional gastrointestinal complaints, Denies abdominal pain, Denies melena, Denies hematochezia, Denies change in bowel habits and Denies change in stool character Genitourinary: Genitourinary: Denies hematuria, Denies urinary frequency, Denies dysuria, Denies urinary incontinence, Denies urinary hesitancy and Denies urinary urgency Musculoskeletal: Musculoskeletal: Reports no additional musculoskeletal comp laints, Denies numbness and Denies tingling Integumentary/Breasts: Comments: skin tear to the left cheek Neurologic: Denies dizziness, Denies loss of vision, Denies numbness and Denies tingling Psychiatric: Psychiatric: Reports no additional psychiatric complaints Endocrine: Endocrine: Reports no additional endocrine complaints Hematologic/Lymphatic: Hematologic/Lymphatic: Reports no additional hematologic/lymphatic complaints Allergic/Immunologic: Allergic/Immunologic: Reports no additional allergic/immunologic complaints PMFSH Past Medical History Attestation statement: The following information was validated with the patient. Source: old records reviewed Medical History Bipolar disorder HTN (hypertension) IBS (irritable bowel syndrome) Lupus Rheumatoid arthritis TIA (transient ischemic attack) Surgical History No history of previous surgery Social History Social History Household Members: Spouse Housing: House Do you presently have visiting nurse or other home services: No Alcohol intake: never Patient Tobacco Use Status: Former Tobacco user Tobacco use type: Cigarette Substance Use Type: Marijuana Advance Directives: No Advance Directives Information Provided: No service: No Current occupational status: unemployed Physical Exam Vital Signs: Vital Signs: Last Vital Signs Temp 98.4 F 10/09/21 17:49 Pulse 84 10/09/21 17:49 Resp 15 10/09/21 17:49 BP 172/80 H 10/09/21 17:49 Pulse Ox 100 10/09/21 17:49 BMI result Body Mass Index 22.2 Const: General: cooperative, no acute distress, alert and awake Nutritional Appearance: well nourished Orientation/consciousness: patient oriented x3 Limitations: no limitations HENMT: Head: Yes normal to inspection and Yes atraumatic Ears: hearing grossly normal bilaterally and external ears normal General nose exam: Normal external nose present, no nasal discharge noted and no epistaxis Face and sinus: Yes normal facial exam, No abrasion and No laceration Mouth: Normal oral and palatal mucosa present, no drooling and no muffled voice Eyes: General: appearance normal, both eyes and all related structures Leticia orbital: periorbital findings normal Eyelids: Yes eyelids normal Conjunctivae: conjunctivae normal Pupils: Equal, round and reactive pupils present EOM: EOMs intact bilaterally Neck: Neck: Yes normal visual inspection, Yes full ROM and Yes no lymphadenopathy Chest: Chest palpation & inspection: normal inspection of the chest Resp: Effort & Inspection: normal respiratory effort and able to speak in complete sentences GI: Inspection: Yes normal to inspection Skin: Other: small skin tear to the left facial cheek, no active bleeding Neuro: General: patient oriented x3 and moves all extremities Cranial nerves: Yes Equal, round and reactive pupils present Cognition (Neuro): no rmal cognition Motor exam (neuro): 5/5 motor strength present throughout Sensory Exam: Normal double simultaneous stimulation for sensation Coordination: [id number] test normal Extrem: General: Yes normal to inspection, Yes full ROM and Yes capillary refill normal Psych: Appearance: grossly normal Mental Status: mental status grossly normal Affect: normal affect Attitude: cooperative Thought process: Normal thought process present Thought content: Normal thought content present Insight: Good insight present (Psych) NIH Stroke Scale Internal: Initial- Upon Arrival Time: 16:06 Level of Consciousness: Alert Level of Consciousness Questions: Answers both questions correctly Level of Consciousness Commands: Performs both tasks correctly Best Gaze: Normal Visual: No visual loss Facial Palsy: Normal Motor Arm (Right): No drift Motor Arm (Left): No drift Motor Leg (Right): No drift Motor Leg (Left): No drift Limb Ataxia: Absent Sensory: Normal Best Language: No aphasia Dysarthia: Normal Extinction and Inattention: No abnormality Score: 0 Course Consultations Consultation #1: Spoke to radiologist who informed me the patient has a small subdural bleed. Time: 17:20 Consultation #2: Spoke to Dr. Sims at [facility] who accepted the patient as a trauma transfer. Time: 17:30 MDM - Fall MDM Narrative Medical decision making narrative: Patient is a 66 year old female presenting to the emergency department today after a fall. Patient's physical exam showed a small skin abrasion to the patient's left facial cheek with no active bleeding. Patient's neurological exam was normal.Patient's head, C-Spine, and maxillofacial CT showed a left sided scalp hematoma and small right subdural hematoma. I explained my physical exam findings as well as all test results to the patient and the patient's . I answered all questions asked by the patient and the patient's . I callend and spoke to Dr. Zuluaga at [facility] who agreed to the transfer of the patient. Patient and the patient's verbalized agreement and understanding with this treatment plan and transfer. Differential Diagnosis Differential diagnosis: Likely fracture and concussion without loss of consciousness Medical Records Attestation: I reviewed the patient's medical records. Imaging Data Head, C-Spine, Maxillofacial CT: Attestation: I personally reviewed and interpreted this imaging study as follows: Radiologist's impression: EXAMINATION: CT HEAD WITHOUT CONTRAST CT FACIAL BONES WITHOUT CONTRAST CT CERVICAL SPINE WITHOUT CONTRAST CLINICAL INFORMATION: Fall. Injury.? COMPARISON: CT head and CT cervical spine 09/03/2021 TECHNIQUE: Imaging was performed from the skull base to vertex without intravenous administration of contrast. In addition, helical noncontrast CT imaging was acquired through the cervical spine and facial bones and source images were reviewed along with axial reconstructions and sagittal and coronal MPRs. [This CT examination was performed using dose optimization techniques as appropriate, variously including the following: *Automated exposure control *Adjustment of mA and/or kV according to patient size (this includes techniques or standardized protocols for targeted exams where dose is matched to indication/reason for exam; i.e. extremities or head) *Use of iterative reconstruction technique] DLP: 1259 mGy-cm FINDINGS: HEAD: Small scalp hematoma left frontal region. No skull fracture. There is a small acute hyperdense right-sided subdural the frontal lobe measuring 0.7 cm in diameter. Coronal image 70/200 series 10. There is generalized global volume loss. There is moderate prominence of the ventricles and the sulci . There is moderate hypodensity of the periventricular white matter due to chronic small vessel ischemic disease. There are vascular calcifications of the internal carotid arteries bilaterally. FACIAL BONES: There is no evidence of an acute facial bone fracture. The paranasal sinuses are well aerated. The orbits are unremarkable in appearance. CERVICAL SPINE: There is no evidence of acute cervical spine fracture. Vertebral bodies remain normal in height. There is degenerative disc height narrowing and vertebral endplate spurs and facet joint arthrosis of cervical spine. No pre- or paravertebral soft tissue abnormality is identified. Limited assessment of the lung apices is unremarkable. CT/CT head/brain wo con IMPRESSION: 1. Small acute right-sided subdural hematoma the right frontal region. Scalp hematoma left frontal region. No skull fracture. 2. No acute facial bone abnormality. 3. No acute cervical spine fracture or traumatic subluxation. ? This critical result was discussed with Mirtha HOSKINS on 10/09/2021, 5:13 PM and it was ascertained that the content and urgency of the report was understood at the time of direct communication. Dictated By: CLAUDIO GARCIA MD Signed By: Electronically signed by CLAUDIO GARCIA MD Movie Producer: [email or web address] Discharge Plan Discharge Clinical Impression: Subdural hematoma, Fall Patient Disposition: [facility] Transfer Details: [facility] Trauma/ED, accepted by Dr. Zuluaga Prescriptions: No Action lamotrigine 200 mg tablet 400 mg PO BEDTIME 0RF omeprazole 40 mg capsule,delayed release(DR/EC) 40 mg PO DAILY 0RF metoprolol succinate 25 mg tablet extended release 24 hr 37.5 tab PO DAILY 0RF lorazepam 1 mg tablet 1 tab PO BEDTIME PRN (Reason: Anxiety/insomnia) 0RF hydroxychloroquine 200 mg tablet 1 tab PO DAILY 0RF bupropion HCl 300 mg tablet extended release 24 hr 300 mg PO BEDTIME 0RF carbamazepine 200 mg tablet 400 mg PO BEDTIME 0RF naproxen sodium [Aleve] 220 mg Tablet 220 mg PO BID PRN (Reason: Back Pain) 0RF aspirin 81 mg Tablet,Chewable 81 mg PO DAILY 0RF diphenhydramine-acetaminophen [Tylenol PM Extra Strength] 25-500 mg Tablet 1 tab PO Q6H PRN (Reason: Headache) 0RF atorvastatin [Lipitor] 40 mg tablet 40 mg PO DAILY 30 Days Qty: 30 6RF Print Language: Surinamese
[2021-10-09 17:49] VITALS: BP 172/80; PULSE 84; RESP 15; TEMP 36.9; O2SAT 100
== END 2021-10-09 19:04 | disposition short-term general hospital (02) ==
PROVIDERS: Emergency Provider Internal Medicine; PCP Internal Medicine
DX: S06.5X9A Traumatic subdural hemorrhage with loss of consciousness of unspecified duration, initial encounter (principal); S00.81XA Abrasion of other part of head, initial encounter; M54.2 Cervicalgia; G44.309 Post-traumatic headache, unspecified, not intractable; W10.9XXA Fall (on) (from) unspecified stairs and steps, initial encounter; Y93.9 Activity, unspecified; Y92.9 Unspecified place or not applicable; Y99.9 Unspecified external cause status
CPT/HCPCS: 70450; 70486; 72125; 90471; 99285

== ENCOUNTER 2021-10-18 09:35 | Outpatient (REF) | payer OTHER, SELFPAY ==
--- NOTE | ~2021-10-18 | XR_ITS ---
EXAMINATION: XR CHEST XR RIBS, BILATERAL XR SHOULDER, RIGHT XR FACIAL BONES CLINICAL INFORMATION: Pain, swelling and bruising of right shoulder, facial bones and bilateral ribs. COMPARISON: None TECHNIQUE: Right shoulder 3 views. Chest x-ray and bilateral ribs 6 views. Facial bones 5 views. FINDINGS: CHEST: The lungs are well-expanded and clear of acute process. There is minimal bilateral apical pleural thickening. The heart size and pulmonary vascularity is normal. No gross bony abnormality seen. BILATERAL RIBS: Multiple views of bilateral ribs reveal no visible acute fracture. There is a healing fracture right lateral 10th rib. There is no acute fracture or bony abnormality involving the left ribs. The soft tissues are normal. RIGHT SHOULDER: There is no visible acute, dislocation or subluxation. The AC joint is intact. The soft tissues are normal. FACIAL BONES: There is a normal aeration of paranasal sinuses and mastoid air cells. The bony sinus driscoll, bony facial bones and the nasal bone appear intact. There is no fracture or soft tissue swelling seen. There are dentures seen throughout the oral cavity. XR/XR ribs BI min 4V w CXR1V IMPRESSION: 1. Unremarkable chest. 2. Old healing fracture right lateral 10th rib. No acute rib fracture seen on either side. 3. Unremarkable maxillofacial and nasal bones. The sinuses are clear. 4. Unremarkable right shoulder.
--- NOTE | ~2021-10-18 | XR_ITS ---
EXAMINATION: XR CHEST XR RIBS, BILATERAL XR SHOULDER, RIGHT XR FACIAL BONES CLINICAL INFORMATION: Pain, swelling and bruising of right shoulder, facial bones and bilateral ribs. COMPARISON: None TECHNIQUE: Right shoulder 3 views. Chest x-ray and bilateral ribs 6 views. Facial bones 5 views. FINDINGS: CHEST: The lungs are well-expanded and clear of acute process. There is minimal bilateral apical pleural thickening. The heart size and pulmonary vascularity is normal. No gross bony abnormality seen. BILATERAL RIBS: Multiple views of bilateral ribs reveal no visible acute fracture. There is a healing fracture right lateral 10th rib. There is no acute fracture or bony abnormality involving the left ribs. The soft tissues are normal. RIGHT SHOULDER: There is no visible acute, dislocation or subluxation. The AC joint is intact. The soft tissues are normal. FACIAL BONES: There is a normal aeration of paranasal sinuses and mastoid air cells. The bony sinus driscoll, bony facial bones and the nasal bone appear intact. There is no fracture or soft tissue swelling seen. There are dentures seen throughout the oral cavity. XR/XR facial bones min 3V IMPRESSION: 1. Unremarkable chest. 2. Old healing fracture right lateral 10th rib. No acute rib fracture seen on either side. 3. Unremarkable maxillofacial and nasal bones. The sinuses are clear. 4. Unremarkable right shoulder.
--- NOTE | ~2021-10-18 | XR_ITS ---
EXAMINATION: XR CHEST XR RIBS, BILATERAL XR SHOULDER, RIGHT XR FACIAL BONES CLINICAL INFORMATION: Pain, swelling and bruising of right shoulder, facial bones and bilateral ribs. COMPARISON: None TECHNIQUE: Right shoulder 3 views. Chest x-ray and bilateral ribs 6 views. Facial bones 5 views. FINDINGS: CHEST: The lungs are well-expanded and clear of acute process. There is minimal bilateral apical pleural thickening. The heart size and pulmonary vascularity is normal. No gross bony abnormality seen. BILATERAL RIBS: Multiple views of bilateral ribs reveal no visible acute fracture. There is a healing fracture right lateral 10th rib. There is no acute fracture or bony abnormality involving the left ribs. The soft tissues are normal. RIGHT SHOULDER: There is no visible acute, dislocation or subluxation. The AC joint is intact. The soft tissues are normal. FACIAL BONES: There is a normal aeration of paranasal sinuses and mastoid air cells. The bony sinus driscoll, bony facial bones and the nasal bone appear intact. There is no fracture or soft tissue swelling seen. There are dentures seen throughout the oral cavity. XR/XR shoulder RT min 2V IMPRESSION: 1. Unremarkable chest. 2. Old healing fracture right lateral 10th rib. No acute rib fracture seen on either side. 3. Unremarkable maxillofacial and nasal bones. The sinuses are clear. 4. Unremarkable right shoulder.
== END 2021-10-18 09:36 | disposition home or self-care (01) ==
LOC: HO.XRAY 09:35
PROVIDERS: Absent Provider Internal Medicine; PCP Internal Medicine; Visit Provider Physician Assistant
DX: M25.511 Pain in right shoulder (principal); R07.81 Pleurodynia; S00.83XD Contusion of other part of head, subsequent encounter
CPT/HCPCS: 70150; 71111; 73030

== ENCOUNTER 2021-11-01 13:32 | Outpatient (REF) | payer OTHER, SELFPAY ==
[2021-11-01 14:21] LABS: Carbamazepine Tegretol 7.9 mcg/mL (5.0-12.0)
[2021-11-06 09:31] LABS: Lamotrigine Lamictal 9.6 mcg/mL (4.0-18.0)
== END 2021-11-01 13:33 | disposition home or self-care (01) ==
LOC: HO.LAB 13:32
PROVIDERS: Internal Medicine; PCP Internal Medicine; Visit Provider Psychiatry & Neurology Neurology
DX: G40.209 Localization-related (focal) (partial) symptomatic epilepsy and epileptic syndromes with complex partial seizures, not intractable, without status epilepticus (principal); Z79.899 Other long term (current) drug therapy
CPT/HCPCS: 36415; 80156; 80175

== ENCOUNTER 2021-11-16 04:28 | Observation (INO) | payer OTHER, SELFPAY ==
[2021-11-16] VITALS (12 sets, daily range): BP systolic 131–220; BP diastolic 53–140; PULSE 68–103; RESP 8–18; TEMP 36.3–36.8; O2SAT 96–100; BMI 21.4
--- NOTE | ~2021-11-16 | CT_ITS ---
EXAMINATION: CT HEAD WITHOUT CONTRAST CLINICAL INFORMATION: AMS, HTN, hx hemorrhagic cva 6 weeks ago COMPARISON: 10/09/2021 TECHNIQUE: Contiguous axial imaging was performed from the skull base to vertex without intravenous administration of contrast. This CT examination was performed using dose optimization techniques as appropriate, variously including the following: *Automated exposure control *Adjustment of mA and/or kV according to patient size (this includes techniques or standardized protocols for targeted exams where dose is matched to indication/reason for exam; i.e. extremities or head) *Use of iterative reconstruction technique DLP: 723 mGy-cm FINDINGS: There is no evidence of acute intracranial hemorrhage or territorial infarction. Previously seen right subdural hematoma has resolved. No abnormal mass effect or midline shift is seen. [place] to white matter differentiation is well preserved. No extra-axial fluid collections are identified. Mild enlargement of the ventricles, sulci, and extra-axial CSF spaces is indicative of parenchymal volume loss. Multiple areas of hypoattenuation in the subcortical and periventricular white matter are most consistent with chronic microangiopathic changes. The osseous structures and soft tissues are normal. The mastoid air cells and visualized portions of the paranasal sinuses are well aerated. CT/CT head/brain wo con IMPRESSION: No acute intracranial pathology. Moderate cerebral microangiopathy. Resolution of the previously seen right frontal subdural hematoma.
--- NOTE | 2021-11-16 05:06 | ECG_ITS ---
Test Reason : ams Blood Pressure : / mmHG Vent. Rate : 086 BPM Atrial Rate : 086 BPM P-R Int : 246 ms QRS Dur : 108 ms QT Int : 390 ms P-R-T Axes : 089 -28 066 degrees QTc Int : 466 ms Sinus rhythm with 1st degree A-V block Minimal voltage criteria for LVH, may be normal variant ( Jan product ) Borderline ECG When compared with ECG of 10-JUL-2021 06:35, No significant change was found Referred By: Jaye Saldana Electronically Signed By:FAITH PAGE MD
--- NOTE | 2021-11-16 05:09 | ED.AMS ---
HPI - Altered Mental Status General Chief Complaint: Altered Mental Status Stated Complaint: ? Medication Reaction Time Seen by Provider: 11/16/21 04:58 Source: family and EMS Mode of arrival: EMS Limitations: altered mental status History of Present Illness HPI narrative: Patient comes to emergency room complaining of altered mental status. The patient's called the ambulance because the patient's was not acting right. Patient's reports that she has had episodes very similar to this. It is unclear if it is secondary to the patient's bipolar disorder versus medication. The reports that the /patient refuses any help with her medications and she manage her medications herself. Patient's is concerned that she might have accidentally overdosed in her psychiatric medications. The patient is complaining of nausea. On October 09, patient had a fall, came to the emergency room and she was diagnosed with a small subdural bleed. The patient's reports that since then, the patient has been acting abnormally, seems to be more distant from her , does not want to get any help for her chores, states she has more disagreeable. Related Data Home Medications Medication Instructions Recorded Confirmed aspirin 81 mg chewable tablet 81 mg PO DAILY 07/10/21 07/10/21 bupropion HCl 300 mg 24 hr tablet, 300 mg PO BEDTIME 07/10/21 07/10/21 extended release carbamazepine 200 mg tablet 400 mg PO BEDTIME 07/10/21 07/10/21 diphenhydramine 25 1 tab PO Q6H PRN 07/10/21 07/10/21 mg-acetaminophen 500 mg tablet (Tylenol PM Extra Strength) hydroxychloroquine 200 mg tablet 1 tab PO DAILY 07/10/21 07/10/21 lamotrigine 200 mg tablet 400 mg PO BEDTIME 07/10/21 07/10/21 lorazepam 1 mg tablet 1 tab PO BEDTIME PRN 07/10/21 07/10/21 metoprolol succinate 25 mg 37.5 tab PO DAILY 07/10/21 07/10/21 tablet,extended release 24 hr naproxen sodium 220 mg tablet 220 mg PO BID PRN 07/10/21 07/10/21 (Aleve) omeprazole 40 mg capsule,delayed 40 mg PO DAILY 07/10/21 07/10/21 release Previous Rx's Medication Instructions Recorded atorvastatin 40 mg tablet (Lipitor) 40 mg PO DAILY 30 Days #30 tab 07/11/21 Allergies Allergy/AdvReac Type Severity Reaction Status Date / Time No Known Allergies Allergy Verified 10/09/21 15:17 [No Known Allergies*] Review of Systems Review of Systems: Yes Unobtainable due to mental status [facility] Past Medical History Medical History (Updated 11/16/21 @ 07:02 by Jaye Saldana MD) Bipolar disorder HTN (hypertension) IBS (irritable bowel syndrome) Lupus Rheumatoid arthritis Subdural hematoma TIA (transient ischemic attack) Surgical History No history of previous surgery Social History Social History Household Members: Spouse Housing: House Do you presently have visiting nurse or other home services: No Alcohol intake: never Patient Tobacco Use Status: Former Tobacco user Tobacco use type: Cigarette Use of substances other than those prescribed or required for medical reasons: Yes Substance Use Type: Marijuana Substance Use Frequency: Chronic Longstanding Advance Directives: No service: No Current occupational status: unemployed Physical Exam ED Vital Signs: Vital Signs - 24 hr 11/16/21 04:39 11/16/21 05:30 11/16/21 05:37 Temperature 97.4 F Pulse Rate 86 82 Respiratory Rate 15 15 12 Blood Pressure 202/97 H 209/98 H Pulse Oximetry 96 100 11/16/21 06:00 11/16/21 06:14 Temperature Pulse Rate 83 82 Respiratory Rate 13 12 Blood Pressure 189/90 H 157/82 H Pulse Oximetry 99 96 BMI result Body Mass Index 21.4 Const Other: Appearance: Patient is awake, nonverbal, groaning, tossing in bed Eyes: Pupils equal, round and reactive to light. ENT: Pharynx normal. Neck: Normal inspection. Neck supple. No lymph nodes noted. No crepitus CVS: Normal heart rate and rhythm. Pulses normal. Normal S1 and S2 Respiratory: No respiratory distress. Breath sounds normal. No Wheezing. No rales Abdomen: Soft and nontender. No rigidity. No distention. Skin: Skin warm and dry. Normal skin color. Normal skin turgor. Extremities: No lower extremity edema. No Lacerations. No Rash Neuro: Patient is awake, not speaking. Unable to participate in cranial nerve assessment, moves all extremities spontaneously Psych: Patient is altered Course Course Course Narrative: Patient's blood pressure to 215/97. Patient states she has headache. Patient was given 1 dose of [address] has been ordered, all labs pending After 1st dose of labetalol, blood pressure decreased to 200, patient was still complaining of a headache. A 2nd dose of labetalol 10 mg was ordered, blood pressure decreased to 150 systolic, patient no longer having a headache. Patient is more awake and alert, still seems confused. Head CT does not show any acute pathologies. I discussed the above-mentioned with ou hospitalist Dr. Velasquez, pt being admitted MDM - Altered Mental Status Lab Data Result diagrams: 11/16/21 05:23 11/16/21 05:23 Labs: Lab Results 11/16/21 11/16/21 11/16/21 Range/Units 05:19 05:22 05:22 WBC (4.8-10.8) X10*3/uL RBC (4.20-5.50) X10*6/uL Hgb (12.0-16.0) g/dl Hct (37.0-47.0) % MCV (80.0-98.0) fL MCH (27.0-33.0) pg MCHC (31.0-35.0) g/dl RDW (11.0-16.0) % Plt Count (160-400) X10*3/uL MPV (9.4-12.3) fL Immature Gran % (Auto) (0.0-0.4) % Neut % (Auto) (45-73) % Lymph % (Auto) (20-40) % [place] % (Auto) (2-11) % Eos % (Auto) (0-4) % Baso % (Auto) (0-2) % Lymph # (Auto) (1.2-4.9) X10*3/uL [place] # (Auto) (0.1-1.2) X10*3/uL Eos # (Auto) (0.0-0.4) X10*3/uL Baso # (Auto) (0.0-0.2) X10*3/uL Abs Immat Gran (auto) (0.00-0.03) X10*3/uL Absolute Neuts (auto) (2.0-8.3) x10*3/uL Absolute Nucleated RBC (0.0-0.012) X10*3/uL Nucleated RBC % (auto) (0.0-0.2) /100WBC PT 11.1 (9.9-13.0) SEC INR 1.0 (0.9-1.1) Sodium (135-145) mmol/L Potassium (3.3-5.1) mmol/L Chloride (96-108) mmol/L Carbon Dioxide (22-29) mmol/L Anion Gap (12-20) BUN (9-16) mg/dL Creatinine (0.5-1.4) mg/dL Estim Creat Clear Calc Estimated GFR Random Glucose (60-115) mg/dL Calcium (8.4-10.2) mg/dL Total Bilirubin (0.0-1.0) mg/dL Direct Bilirubin (0.0-0.5) mg/dL AST (5-31) U/L ALT (0-31) U/L Alkaline Phosphatase (39-117) U/L Ammonia (13-55) umol/L Troponin I High Sens < 3.5 (<3.5-17.0) ng/L Total Protein (6.5-8.0) g/dL Albumin (3.5-5.0) g/dL Urine Color Urine Appearance Urine pH (5.0-8.0) Ur Specific [place] (1.005-1.025) Urine Protein (NEG-TRACE) MG/DL Urine Glucose (UA) (NEG) MG/DL Urine Ketones (NEG) MG/DL Urine Blood (NEG) Urine Nitrite (NEG) Ur Leukocyte Esterase (NEG) Urine Opiates Screen (Not Detect) Urine Fentanyl Screen (Not Detect) Ur Barbiturates Screen (Not Detect) Ur Phencyclidine Scrn (Not Detect) Ur Amphetamines Screen (Not Detect) U Benzodiazepines Scrn (Not Detect) Urine Cocaine Screen (Not Detect) U Marijuana (THC) Screen (Not Detect) Ethyl Alcohol mg/dL COVID-19 (VINEET) Negative (Negative) COVID-19 Clin Com See Note 11/16/21 11/16/21 11/16/21 Range/Units 05:22 05:22 05:23 WBC 4.4 L (4.8-10.8) X10*3/uL RBC 3.59 L (4.20-5.50) X10*6/uL Hgb 11.2 L (12.0-16.0) g/dl Hct 34.3 L (37.0-47.0) % MCV 95.5 (80.0-98.0) fL MCH 31.2 (27.0-33.0) pg MCHC 32.7 (31.0-35.0) g/dl RDW 13.3 (11.0-16.0) % Plt Count 193 (160-400) X10*3/uL MPV 9.0 L (9.4-12.3) fL Immature Gran % (Auto) 0.9 H (0.0-0.4) % Neut % (Auto) 66.6 (45-73) % Lymph % (Auto) 21.7 (20-40) % [place] % (Auto) 8.9 (2-11) % Eos % (Auto) 1.4 (0-4) % Baso % (Auto) 0.5 (0-2) % Lymph # (Auto) 1.0 L (1.2-4.9) X10*3/uL [place] # (Auto) 0.4 (0.1-1.2) X10*3/uL Eos # (Auto) 0.1 (0.0-0.4) X10*3/uL Baso # (Auto) 0.0 (0.0-0.2) X10*3/uL Abs Immat Gran (auto) 0.04 H (0.00-0.03) X10*3/uL Absolute Neuts (auto) 2.9 (2.0-8.3) x10*3/uL Absolute Nucleated RBC 0.000 (0.0-0.012) X10*3/uL Nucleated RBC % (auto) 0.0 (0.0-0.2) /100WBC PT (9.9-13.0) SEC INR (0.9-1.1) Sodium (135-145) mmol/L Potassium (3.3-5.1) mmol/L Chloride (96-108) mmol/L Carbon Dioxide (22-29) mmol/L Anion Gap (12-20) BUN (9-16) mg/dL Creatinine (0.5-1.4) mg/dL Estim Creat Clear Calc Estimated GFR Random Glucose (60-115) mg/dL Calcium (8.4-10.2) mg/dL Total Bilirubin (0.0-1.0) mg/dL Direct Bilirubin (0.0-0.5) mg/dL AST (5-31) U/L ALT (0-31) U/L Alkaline Phosphatase (39-117) U/L Ammonia 30 (13-55) umol/L Troponin I High Sens (<3.5-17.0) ng/L Total Protein (6.5-8.0) g/dL Albumin (3.5-5.0) g/dL Urine Color Urine Appearance Urine pH (5.0-8.0) Ur Specific [place] (1.005-1.025) Urine Protein (NEG-TRACE) MG/DL Urine Glucose (UA) (NEG) MG/DL Urine Ketones (NEG) MG/DL Urine Blood (NEG) Urine Nitrite (NEG) Ur Leukocyte Esterase (NEG) Urine Opiates Screen (Not Detect) Urine Fentanyl Screen (Not Detect) Ur Barbiturates Screen (Not Detect) Ur Phencyclidine Scrn (Not Detect) Ur Amphetamines Screen (Not Detect) U Benzodiazepines Scrn (Not Detect) Urine Cocaine Screen (Not Detect) U Marijuana (THC) Screen (Not Detect) Ethyl Alcohol < 10 mg/dL COVID-19 (VINEET) (Negative) COVID-19 Clin Com 11/16/21 11/16/21 11/16/21 Range/Units 05:23 06:29 06:29 WBC (4.8-10.8) X10*3/uL RBC (4.20-5.50) X10*6/uL Hgb (12.0-16.0) g/dl Hct (37.0-47.0) % MCV (80.0-98.0) fL MCH (27.0-33.0) pg MCHC (31.0-35.0) g/dl RDW (11.0-16.0) % Plt Count (160-400) X10*3/uL MPV (9.4-12.3) fL Immature Gran % (Auto) (0.0-0.4) % Neut % (Auto) (45-73) % Lymph % (Auto) (20-40) % [place] % (Auto) (2-11) % Eos % (Auto) (0-4) % Baso % (Auto) (0-2) % Lymph # (Auto) (1.2-4.9) X10*3/uL [place] # (Auto) (0.1-1.2) X10*3/uL Eos # (Auto) (0.0-0.4) X10*3/uL Baso # (Auto) (0.0-0.2) X10*3/uL Abs Immat Gran (auto) (0.00-0.03) X10*3/uL Absolute Neuts (auto) (2.0-8.3) x10*3/uL Absolute Nucleated RBC (0.0-0.012) X10*3/uL Nucleated RBC % (auto) (0.0-0.2) /100WBC PT (9.9-13.0) SEC INR (0.9-1.1) Sodium 138 (135-145) mmol/L Potassium 4.2 (3.3-5.1) mmol/L Chloride 104 (96-108) mmol/L Carbon Dioxide 24 (22-29) mmol/L Anion Gap 14 (12-20) BUN 27 H (9-16) mg/dL Creatinine 0.77 (0.5-1.4) mg/dL Estim Creat Clear Calc 68.9 Estimated GFR > 60 Random Glucose 148 H (60-115) mg/dL Calcium 9.1 (8.4-10.2) mg/dL Total Bilirubin 0.3 (0.0-1.0) mg/dL Direct Bilirubin < 0.2 (0.0-0.5) mg/dL AST 17 (5-31) U/L ALT 23 (0-31) U/L Alkaline Phosphatase 151 H (39-117) U/L Ammonia (13-55) umol/L Troponin I High Sens (<3.5-17.0) ng/L Total Protein 6.3 L (6.5-8.0) g/dL Albumin 4.1 (3.5-5.0) g/dL Urine Color YELLOW Urine Appearance HAZY Urine pH 6.0 (5.0-8.0) Ur Specific [place] >= 1.030 H (1.005-1.025) Urine Protein TRACE (NEG-TRACE) MG/DL Urine Glucose (UA) NEG (NEG) MG/DL Urine Ketones 5 (NEG) MG/DL Urine Blood NEG (NEG) Urine Nitrite NEG (NEG) Ur Leukocyte Esterase NEG (NEG) Urine Opiates Screen POSITIVE H (Not Detect) Urine Fentanyl Screen Not Detected (Not Detect) Ur Barbiturates Screen Not Detected (Not Detect) Ur Phencyclidine Scrn Not Detected (Not Detect) Ur Amphetamines Screen Not Detected (Not Detect) U Benzodiazepines Scrn Not Detected (Not Detect) Urine Cocaine Screen Not Detected (Not Detect) U Marijuana (THC) Screen POSITIVE H (Not Detect) Ethyl Alcohol mg/dL COVID-19 (VINEET) (Negative) COVID-19 Clin Com Critical Care Time Critical Care Time Critical Care Time: Yes Total Critical Care Time: 50 Attestation: I have personally provided critical care time. Time includes review of lab data, radiology results, discussion with consultants, and monitoring for potential decompensation. Intervention performed as documented. Discharge Plan Discharge Clinical Impression: Altered mental status, Hypertensive emergency Patient Disposition: Admitted As Inpatient Prescriptions: No Action lamotrigine 200 mg tablet 400 mg PO BEDTIME 0RF omeprazole 40 mg capsule,delayed release(DR/EC) 40 mg PO DAILY 0RF metoprolol succinate 25 mg tablet extended release 24 hr 37.5 tab PO DAILY 0RF lorazepam 1 mg tablet 1 tab PO BEDTIME PRN (Reason: Anxiety/insomnia) 0RF hydroxychloroquine 200 mg tablet 1 tab PO DAILY 0RF bupropion HCl 300 mg tablet extended release 24 hr 300 mg PO BEDTIME 0RF carbamazepine 200 mg tablet 400 mg PO BEDTIME 0RF naproxen sodium [Aleve] 220 mg Tablet 220 mg PO BID PRN (Reason: Back Pain) 0RF aspirin 81 mg Tablet,Chewable 81 mg PO DAILY 0RF diphenhydramine-acetaminophen [Tylenol PM Extra Strength] 25-500 mg Tablet 1 tab PO Q6H PRN (Reason: Headache) 0RF atorvastatin [Lipitor] 40 mg tablet 40 mg PO DAILY 30 Days Qty: 30 6RF
[2021-11-16] MEDS: ondansetron HCL 4 MG/2 ML VIAL IVPUSH (05:28)
[2021-11-16] MEDS: Labetalol HCL 100 MG/20 ML VIAL 10 MG IVPUSH ×2 (05:28→05:35)
[2021-11-16 05:30] LABS: Basophils Percent Auto 0.5 % (0-2); Eosinophils Absolute Auto 0.1 X10*3/uL (0.0-0.4); Eosinophils Percent Auto 1.4 % (0-4); Hematocrit 34.3 % (37.0-47.0); Hemoglobin 11.2 g/dl (12.0-16.0); Imm Gran Abs Auto 0.04 X10*3/uL (0.00-0.03); Imm Gran Pct Auto 0.9 % (0.0-0.4); Lymphocytes Percent Auto 21.7 % (20-40); MANUAL DIFF FLAG NO; Mean Corpuscular HGB Conc 32.7 g/dl (31.0-35.0); Mean Corpuscular Hemoglobin 31.2 pg (27.0-33.0); Mean Corpuscular Volume 95.5 fL (80.0-98.0); Monocytes Absolute Auto 0.4 X10*3/uL (0.1-1.2); Monocytes Percent Auto 8.9 % (2-11); Neutrophils Absolute Auto 2.9 x10*3/uL (2.0-8.3); Neutrophils Percent Auto 66.6 % (45-73); Platelet Count 193 X10*3/uL (160-400); Red Blood Count 3.59 X10*6/uL (4.20-5.50); Red Cell Distribution Width 13.3 % (11.0-16.0); White Blood Count 4.4 X10*3/uL (4.8-10.8)
[2021-11-16] MEDS: Morphine Sulfate 4 MG/ML CARTRIDGE IVPUSH (05:30)
[2021-11-16 05:35] LABS: Prothrombin Time 11.1 SEC (9.9-13.0)
[2021-11-16 05:40] LABS: Ammonia 30 umol/L (13-55)
[2021-11-16 05:46] LABS: Ethanol < 10 mg/dL
[2021-11-16 05:49] LABS: Alanine Aminotransferase 23 U/L (0-31); Albumin Level 4.1 g/dL (3.5-5.0); Alkaline Phosphatase 151 U/L (39-117); Anion Gap 14 (12-20); Aspartate Amino Transferase 17 U/L (5-31); Bilirubin Direct < 0.2 mg/dL (0.0-0.5); Bilirubin Total 0.3 mg/dL (0.0-1.0); Blood Urea Nitrogen 27 mg/dL (9-16); Calcium 9.1 mg/dL (8.4-10.2); Carbon Dioxide 24 mmol/L (22-29); Chloride 104 mmol/L (96-108); Creatinine Clr Calc Pharmacy 68.9; Estimated Glomerular Filt Rate > 60; Glucose Random 148 mg/dL (60-115); Potassium 4.2 mmol/L (3.3-5.1); Sodium 138 mmol/L (135-145); Total Protein 6.3 g/dL (6.5-8.0)
[2021-11-16 05:55] LABS: Troponin-I High Sensitivity < 3.5 ng/L (<3.5-17.0)
[2021-11-16] MEDS: Prochlorperazine Edisylate 10 MG/2 ML VIAL IVPUSH (05:58)
[2021-11-16 06:03] LABS: COVID-19 Test Negative (Negative)
[2021-11-16 06:35] LABS: Appearance Urine HAZY; Color Urine YELLOW; Glucose Urine UA NEG (NEG); Leukocyte Esterase Urine NEG (NEG); Nitrite Urine NEG (NEG); Specific Gravity - Urine >= 1.030 (1.005-1.025); Urine Blood NEG (NEG); Urine Ketones 5 MG/DL (NEG); Urine Protein TRACE MG/DL (NEG-TRACE)
[2021-11-16 06:59] LABS: Amphetamine Screen Urine Not Detected (Not Detect); Barbiturates, Urine Not Detected (Not Detect); Benzodiazepines Screen Urine Not Detected (Not Detect); Cannabinoid Screen Urine POSITIVE (Not Detect); Cocaine Screen Urine Not Detected (Not Detect); Fentanyl, urine Not Detected (Not Detect); Opiate Screen Urine POSITIVE (Not Detect); Phencyclidine Screen Urine Not Detected (Not Detect)
--- NOTE | 2021-11-16 07:15 | PHA.MEDREC ---
Pharmacy Consult ? Medication Reconciliation Pharmacy has completed the medication reconciliation. Patient brought in list that matched claim history. Fidelina Egan, BaronD
--- NOTE | 2021-11-16 08:51 | PM.IMHP ---
History of Present Illness Date of Service: 11/16/21 Attending physician on admission: Dinesh Miles Chief Complaint: altered mental status 66-year-old female patient with past medical history significant for bipolar disorder, hypertension, irritable bowel syndrome, lupus, rheumatoid arthritis on Plaquenil, prior history of TIA and recent hospitalization to [facility] ICU on 07/10/2021 with symptoms of dizziness bilateral weakness possible aphasia patient received tPA treatment post tPA MRI showed no bleed no acute infarction no cord compression, patient was evaluated at [facility] on 10/09 for a fall and was noted to have small subdural bleed, called the ambulance last night since he found patient with garbled speech, and dry heaves, he did not allow her to ambulate since he was nervous that she might fall, he denies any weakness or visual impairment, noticed that patient's behavior is different since she was not taking her help, is more irritable, in the emergency room CT head was unremarkable but patient was noted to have significantly elevated blood pressure 202/98 patient received couple dosages of labetalol blood pressure improved to 157/82, her electrolytes are normal, UA unremarkable at present patient is awake alert answering questions appropriately she complains of occasional dizziness that is chronic associated with dry heaves dizziness at times last for few hours otherwise resolves in minutes she is on meclizine , at baseline patient is independent with ambulation take her medications. patient denies urinary symptoms of urgency and frequency complaining of dry heaves, otherwise denies abdominal pain, diarrhea, denies headache weakness, speech is clear. Review of Systems Review of Systems: General no headache , chronic intermittent dizziness, no fever, chills. CVS no chest pain, no palpitation. Respiratory no cough, no sputum production no respiratory distress. Gastrointestinal no abdominal pain, chronic constipation Skin no rash Musculoskeletal no pain Yes all other systems are reviewed and are negative [facility] Medical History Bipolar disorder HTN (hypertension) IBS (irritable bowel syndrome) Lupus Rheumatoid arthritis Subdural hematoma TIA (transient ischemic attack) Functional capacity: independent ambulation Pertinent family history: father had stroke and cancer( not aware of location), mother had no health issues Surgical History No history of previous surgery Social History Household Members: Spouse Housing: House Do you presently have visiting nurse or other home services: No Alcohol intake: never Patient Tobacco Use Status: Former Tobacco user Tobacco use type: Cigarette Use of substances other than those prescribed or required for medical reasons: Yes Substance Use Type: Marijuana Substance Use Frequency: Chronic Longstanding Advance Directives: No service: No Current occupational status: unemployed Meds Allergies Allergy/AdvReac Type Severity Reaction Status Date / Time No Known Allergies Allergy Verified 10/09/21 15:17 [No Known Allergies*] Active Medications: Current Medications Acetaminophen (Acetaminophen 325 Mg Tablet) 650 mg PO Q6H PRN PRN Reason: Pain, Mild (Pain Scale 1-3) Aspirin (Aspirin 81 Mg Tab.Chew) 81 mg PO DAILY MAURI Atorvastatin Calcium (Atorvastatin Calcium 40 Mg Tablet) 40 mg PO DAILY MAURI Bupropion HCl (Bupropion Hcl Xl 300 Mg Tab.Er.24h) 300 mg PO BEDTIME MAURI Carbamazepine (Carbamazepine 200 Mg Tablet) 400 mg PO BEDTIME MAURI Enoxaparin Sodium (Enoxaparin Sodium 40 Mg/0.4 Ml Syringe) 40 mg SUBCUT Q24H MAURI Gabapentin (Gabapentin 300 Mg Capsule) 300 mg PO BID MAURI Hydroxychloroquine Sulfate (Hydroxychloroquine Sulfate 200 Mg Tablet) 200 mg PO DAILY MARUI Lamotrigine (Lamotrigine 100 Mg Tablet) 400 mg PO BEDTIME MAURI Leflunomide (Leflunomide 10 Mg Tablet) 10 mg PO DAILY MAURI Lorazepam (Lorazepam 0.5 Mg Tablet) 0.5 mg PO TID PRN PRN Reason: Anxiety Lorazepam (Lorazepam 1 Mg Tablet) 1 mg PO BEDTIME MAURI Meclizine HCl (Meclizine Hcl 12.5 Mg Tablet) 12.5 mg PO DAILY PRN PRN Reason: Vertigo Omeprazole (Omeprazole 40 Mg Capsule.Dr) 40 mg PO DAILY MAURI Ondansetron HCl (Ondansetron Hcl 4 Mg/2 Ml Vial) 4 mg IVPUSH Q8H PRN PRN Reason: Nausea and Vomiting Sodium Chloride (0.9 % Sodium Chloride Flush 3 Ml Syringe) 3 ml IVFLUSH QSHIFT [facility] Home Medications Medication Instructions Recorded Confirmed Last Taken Type bupropion HCl 300 mg 24 hr tablet, 300 mg PO BEDTIME 07/10/21 11/16/21 07/09/21 History extended release carbamazepine 200 mg tablet 400 mg PO BEDTIME 07/10/21 11/16/21 07/09/21 History hydroxychloroquine 200 mg tablet 1 tab PO DAILY 07/10/21 11/16/21 07/09/21 History lamotrigine 200 mg tablet 400 mg PO BEDTIME 07/10/21 11/16/21 07/09/21 History lorazepam 1 mg tablet 1 tab PO BEDTIME PRN 07/10/21 11/16/21 Unknown History metoprolol succinate 25 mg 37.5 tab PO DAILY 07/10/21 11/16/21 07/09/21 History tablet,extended release 24 hr omeprazole 40 mg capsule,delayed 40 mg PO DAILY 07/10/21 11/16/21 07/09/21 History release gabapentin 300 mg capsule 1 cap PO BID 11/16/21 11/16/21 Unknown History leflunomide 10 mg tablet 1 tab PO DAILY 11/16/21 11/16/21 Unknown History lorazepam 0.5 mg tablet 1 tab PO TID PRN 11/16/21 11/16/21 Unknown History meclizine 12.5 mg tablet 1 tab PO DAILY PRN 11/16/21 11/16/21 Unknown History plecanatide 3 mg tablet (Trulance) 1 tab PO DAILY 11/16/21 11/16/21 Unknown History Physical Exam Vital Signs and Narrative: Vital Signs: Last Vital Signs Temp 97.4 F 11/16/21 04:39 Pulse 82 11/16/21 06:14 Resp 12 11/16/21 06:14 BP 157/82 H 11/16/21 06:14 Pulse Ox 96 11/16/21 06:14 BMI result Body Mass Index 21.4 Const: Other: General awake alert, resting comfortably in no acute distress. HEENT pupil equal round reactive to light and accommodation no nystagmus Neck supple no JVD. CVS regular rate rhythm, Respiratory lungs clear to auscultation, no respiratory distress, no wheeze, no rhonchi. Gastrointestinal abdomen soft, nontender, bowel sounds audible, no guarding , no rigidity. Extremities no edema. Neuro nonfocal , speech clear, cranial nerve 2-12 intact, gait not assessed. Skin no rash Psych appropriate affect Results Labs CBC and Chem 7: 11/16/21 05:23 11/16/21 05:23 Labs: Laboratory Results - last 24 hr 11/16/21 11/16/21 11/16/21 05:19 05:22 05:22 MCV MCH MCHC RDW Plt Count MPV Immature Gran % (Auto) Neut % (Auto) Lymph % (Auto) [place] % (Auto) Eos % (Auto) Baso % (Auto) Lymph # (Auto) [place] # (Auto) Eos # (Auto) Baso # (Auto) Abs Immat Gran (auto) Absolute Neuts (auto) Absolute Nucleated RBC Nucleated RBC % (auto) PT 11.1 INR 1.0 Anion Gap Estim Creat Clear Calc Estimated GFR Random Glucose Calcium Total Bilirubin Direct Bilirubin AST ALT Alkaline Phosphatase Ammonia 30 Total Protein Albumin Urine Color Urine Appearance Urine pH Ur Specific [place] Urine Protein Urine Glucose (UA) Urine Ketones Urine Blood Urine Nitrite Ur Leukocyte Esterase Urine Opiates Screen Urine Fentanyl Screen Ur Barbiturates Screen Ur Phencyclidine Scrn Ur Amphetamines Screen U Benzodiazepines Scrn Urine Cocaine Screen U Marijuana (THC) Screen Ethyl Alcohol COVID-19 (VINEET) Negative COVID-19 Clin Com See Note 11/16/21 11/16/21 11/16/21 05:22 05:23 05:23 MCV 95.5 MCH 31.2 MCHC 32.7 RDW 13.3 Plt Count 193 MPV 9.0 L Immature Gran % (Auto) 0.9 H Neut % (Auto) 66.6 Lymph % (Auto) 21.7 [place] % (Auto) 8.9 Eos % (Auto) 1.4 Baso % (Auto) 0.5 Lymph # (Auto) 1.0 L [place] # (Auto) 0.4 Eos # (Auto) 0.1 Baso # (Auto) 0.0 Abs Immat Gran (auto) 0.04 H Absolute Neuts (auto) 2.9 Absolute Nucleated RBC 0.000 Nucleated RBC % (auto) 0.0 PT INR Anion Gap 14 Estim Creat Clear Calc 68.9 Estimated GFR > 60 Random Glucose 148 H Calcium 9.1 Total Bilirubin 0.3 Direct Bilirubin < 0.2 AST 17 ALT 23 Alkaline Phosphatase 151 H Ammonia Total Protein 6.3 L Albumin 4.1 Urine Color Urine Appearance Urine pH Ur Specific [place] Urine Protein Urine Glucose (UA) Urine Ketones Urine Blood Urine Nitrite Ur Leukocyte Esterase Urine Opiates Screen Urine Fentanyl Screen Ur Barbiturates Screen Ur Phencyclidine Scrn Ur Amphetamines Screen U Benzodiazepines Scrn Urine Cocaine Screen U Marijuana (THC) Screen Ethyl Alcohol < 10 COVID-19 (VINEET) COVID-19 Clin Com 11/16/21 11/16/21 06:29 06:29 MCV MCH MCHC RDW Plt Count MPV Immature Gran % (Auto) Neut % (Auto) Lymph % (Auto) [place] % (Auto) Eos % (Auto) Baso % (Auto) Lymph # (Auto) [place] # (Auto) Eos # (Auto) Baso # (Auto) Abs Immat Gran (auto) Absolute Neuts (auto) Absolute Nucleated RBC Nucleated RBC % (auto) PT INR Anion Gap Estim Creat Clear Calc Estimated GFR Random Glucose Calcium Total Bilirubin Direct Bilirubin AST ALT Alkaline Phosphatase Ammonia Total Protein Albumin Urine Color YELLOW Urine Appearance HAZY Urine pH 6.0 Ur Specific [place] >= 1.030 H Urine Protein TRACE Urine Glucose (UA) NEG Urine Ketones 5 Urine Blood NEG Urine Nitrite NEG Ur Leukocyte Esterase NEG Urine Opiates Screen POSITIVE H Urine Fentanyl Screen Not Detected Ur Barbiturates Screen Not Detected Ur Phencyclidine Scrn Not Detected Ur Amphetamines Screen Not Detected U Benzodiazepines Scrn Not Detected Urine Cocaine Screen Not Detected U Marijuana (THC) Screen POSITIVE H Ethyl Alcohol COVID-19 (VINEET) COVID-19 Clin Com Imaging Radiologist's Impressions: Impressions Head CT 11/16/21 05:56 IMPRESSION: No acute intracranial pathology. Moderate cerebral microangiopathy. Resolution of the previously seen right frontal subdural hematoma. Assessment and Plan (1) Hypertensive emergency: Status: Acute (2) Altered mental status: Status: Acute (3) Rheumatoid arthritis: Status: Acute (4) Lupus: Status: Acute (5) Bipolar disorder: Status: Acute Plan 66-year-old female patient with past medical history of bipolar disorder, hypertension,irritable bowel syndrome, history of lupus / rheumatoid arthritis on [facility], recent hospitalization to [facility] on 07/10/2021 with dizziness bilateral weakness and possible aphasia received tPA patient presented again to [facility] ER today with symptoms of impaired speech, dry heaves and dizziness, CT head unremarkable noted to have elevated blood pressure at present speech has cleared will admit to hospital with a diagnosis of hypertensive encephalopathy. Dizziness with speech impairment likely due to hypertensive encephalopathy all symptoms have resolved, CT head unremarkable, recently seen subdural hematoma has resolved patient with chronic intermittent dizziness, continue meclizine patient is independent at baseline compliant with medication, denies drug overdose continue close neuro checks, good blood pressure control continue aspirin and statin consult Neurology with any change in new neuro exam Hypertensive encephalopathy noted to have elevated blood pressures in the past will increase dose of metoprolol to 50 mg daily and follow blood pressure closely history of lupus / rheumatoid arthritis continue Plaquenil history of bipolar disorder continue home medications recent Tegretol level was within normal range 7.9 on 11/01/2021, an upcoming appointment with Psychology next week increased irritability, refusal to take help likely related to mood disorder. history of chronic constipation continue home medication code status full code DVT prophylaxis with Lovenox Quality Stroke Does the patient have a stroke diagnosis?: No VTE Prior VTE?: No VTE Risk Level:: Medical - moderate - high VTE Device Contraindication: Treatment Not Indicated VTE Drug Contraindication: N/A - Med Ordered
[2021-11-16] MEDS: Leflunomide 10 MG TABLET PO (09:34)
[2021-11-16] MEDS: Hydroxychloroquine Sulfate 200 MG TABLET PO (09:34)
[2021-11-16] MEDS: Gabapentin 300 MG CAPSULE PO ×2 (09:34→21:15)
[2021-11-16] MEDS: Atorvastatin Calcium 40 MG TABLET PO (09:34)
[2021-11-16] MEDS: Enoxaparin Sodium 40 MG/0.4 ML SYRINGE SUBCUT (09:39)
[2021-11-16] MEDS: 0.9 % Sodium Chloride Flush 3 ML SYRINGE IVFLUSH ×2 (17:20→21:17)
[2021-11-16] MEDS: lamoTRIgine 100 MG TABLET 400 MG PO (21:15)
[2021-11-16] MEDS: buPROPion HCl XL 300 MG TAB.ER.24H PO (21:15)
[2021-11-16] MEDS: carBAMazepine 200 MG TABLET 400 MG PO (21:16)
[2021-11-16] MEDS: Acetaminophen 325 MG TABLET 650 MG PO (21:16)
[2021-11-16] MEDS: LORazepam 0.5 MG TABLET PO (21:16)
[2021-11-17 03:52] VITALS: BP 121/56; PULSE 82; RESP 20; TEMP 37.1; O2SAT 97
[2021-11-17] MEDS: Omeprazole 40 MG CAPSULE.DR PO (06:02)
[2021-11-17] MEDS: ondansetron HCL 4 MG/2 ML VIAL IVPUSH (06:35)
[2021-11-17 08:00] VITALS: BP 129/68; PULSE 76; RESP 18; TEMP 36.3; O2SAT 98
--- NOTE | 2021-11-17 08:21 | MHC.CM.PN ---
CM met with Patient at bedside and addressed IMM with her, providing her with the original and placing a copy on the chart. Patient lives in a house with her and home no services is the goal for dc. CM has initiated and will follow for dc planning. Patient has had [facility] in the past only and she requires no DME. PCP is DR. Franko Graham and Patient has received Covid/Pfizer vax X3.
[2021-11-17] MEDS: Leflunomide 10 MG TABLET PO (08:57)
[2021-11-17] MEDS: Hydroxychloroquine Sulfate 200 MG TABLET PO (08:57)
[2021-11-17] MEDS: Acetaminophen 325 MG TABLET 650 MG PO (08:57)
[2021-11-17] MEDS: Gabapentin 300 MG CAPSULE PO (08:57)
[2021-11-17] MEDS: 0.9 % Sodium Chloride Flush 3 ML SYRINGE IVFLUSH (08:58)
[2021-11-17] MEDS: Atorvastatin Calcium 40 MG TABLET PO (08:58)
[2021-11-17] MEDS: Enoxaparin Sodium 40 MG/0.4 ML SYRINGE SUBCUT (08:58)
[2021-11-17 11:28] VITALS: BP 124/56; PULSE 80; RESP 17; TEMP 36.3; O2SAT 98
--- NOTE | 2021-11-17 12:27 | P.DS_ITS ---
DS: Providers Provider Date of Service: 11/17/21 Date of admission: 11/16/21 08:45 Primary care physician: Franko Graham MD DS: Diagnosis Discharge Diagnosis (1) Hypertensive emergency: Status: Acute (2) Altered mental status: Status: Acute (3) Rheumatoid arthritis: Status: Acute (4) Lupus: Status: Acute (5) Bipolar disorder: Status: Acute DS: Summary Hospital Course Hospital Course: HPI Chief Complaint:? altered mental status 66-year-old female patient with past medical history significant for bipolar disorder, hypertension, irritable bowel syndrome, lupus, rheumatoid arthritis on Plaquenil, prior history of TIA and recent hospitalization to [facility] on 07/10/2021 with symptoms of dizziness bilateral weakness possible aphasia patient received tPA treatment post tPA MRI showed no bleed no acute infarction no cord compression, patient was evaluated at [facility] on 10/09 for a fall and was noted to have small subdural bleed, called the ambulance last night since he found patient with? garbled speech, and dry heaves, he did not allow her to ambulate since he was nervous that she might fall, he denies any weakness or? visual impairment, noticed that patient's behavior is different since she was not taking her help, is more irritable, in the emergency room CT head was unremarkable but patient was noted to have significantly elevated blood pressure 202/98 patient received couple dosages of labetalol blood pressure improved to 157/82, her electrolytes are normal, UA unremarkable at present patient is awake alert answering questions appropriately she complains of occasional dizziness that is chronic associated with dry heaves dizziness at times last for few hours otherwise resolves in minutes she is on meclizine , at baseline patient is independent with ambulation take her medications. patient denies? urinary symptoms of urgency and frequency complaining of dry heaves, otherwise denies abdominal pain, diarrhea, denies headache weakness,? speech is clear. hospital course 66-year-old female patient with past medical history of bipolar disorder, hypertension,irritable bowel syndrome, history of lupus / rheumatoid arthritis on Plaquenil, recent hospitalization to [facility] on 07/10/2021 with dizziness bilateral weakness and possible aphasia received tPA patient presented again to [facility] today with symptoms of? impaired speech, dry heaves and dizziness, CT head unremarkable noted to have elevated blood pressure at present speech has cleared will admit to hospital with a diagnosis of hypertensive encephalopathy. ?Dizziness with speech impairment ?likely due to hypertensive encephalopathy all symptoms have resolved, CT head unremarkable, recently seen subdural hematoma has resolved,?patient has chronic intermittent dizziness, dizziness has resolved patient tolerating diet, ambulating without symptoms of lightheadedness or dizziness, no nystagmus on examination, no cerebellar sign, recommend to continue meclizine,?patient is independent at baseline compliant with medication, denies drug overdose,?blood pressure under good control, recommend to?continue aspirin and statin. ? Hypertensive encephalopathy noted to have elevated blood pressures on arrival to ED, subsequently blood pressure improved after multiple doses of labetalol, BP stable in last 24 hours recommend to continue home dose of metoprolol and follow BP closely. history of lupus / rheumatoid arthritis continue Plaquenil history of bipolar disorder continue home medications recent Tegretol level was within normal range 7.9 on 11/01/2021, has an appointment with Psychology next week, no behavioral issues noted. history of chronic constipation? continue home medication Time Spent with Patient Time attestation: Total time spent providing and/or coordinating discharge services: Discharge coordination time: Greater than 30 minutes Quality: Stroke Does the patient have a stroke diagnosis?: No Physical Exam Vital Signs: Vital Signs: Last Vital Signs Temp 97.4 F 11/17/21 11:28 Pulse 80 11/17/21 11:28 Resp 17 11/17/21 11:28 BP 124/56 L 11/17/21 11:28 Pulse Ox 98 11/17/21 11:28 BMI result Body Mass Index 21.4 Const: Other: General? awake alert, , no acute distress.? HEENT pupil equal round reactive to light and accommodation, no nystagmus Neck? no JVD. CVS? regular rate rhythm, Respiratory lungs clear to auscultation, no respiratory distress, no wheeze, no rhonchi. Gastrointestinal abdomen soft, nontender, bowel sounds audible, no guarding , no rigidity. Extremities no edema. Neuro nonfocal , speech clear, cranial nerve 2-12 intact, gait steady Skin no rash Psych appropriate affect DS: Data Data Completed and Pending Completed studies during hospitalization [Text1]: Procedures Introduction of Other Thrombolytic into Peripheral Vein, Percutaneous Approach (07/10/21) Discharge Plan Discharge Patient Disposition: Home, Self-Care Discharge Diagnosis: Dizziness with speech impairment hypertensive encephalopathy Referrals: Franko Graham MD [Primary Care Provider] - 1 Week Discharge Medications: Continued leflunomide 10 mg tablet 1 tab PO DAILY 0RF meclizine 12.5 mg tablet 1 tab PO DAILY PRN (Reason: Vertigo) 0RF lorazepam 0.5 mg tablet 1 tab PO TID PRN (Reason: Anxiety) 0RF gabapentin 300 mg capsule 1 cap PO BID 0RF Trulance 3 mg tablet 1 tab PO DAILY 0RF lamotrigine 200 mg tablet 400 mg PO BEDTIME 0RF omeprazole 40 mg capsule,delayed release(DR/EC) 40 mg PO DAILY 0RF metoprolol succinate 25 mg tablet extended release 24 hr 37.5 tab PO DAILY 0RF lorazepam 1 mg tablet 1 tab PO BEDTIME PRN (Reason: Insomnia) 0RF hydroxychloroquine 200 mg tablet 1 tab PO DAILY 0RF bupropion HCl 300 mg tablet extended release 24 hr 300 mg PO BEDTIME 0RF carbamazepine 200 mg tablet 400 mg PO BEDTIME 0RF atorvastatin [Lipitor] 40 mg tablet 40 mg PO DAILY 30 Days Qty: 30 6RF Discharge Orders: Discharge Order (Routine); Ordered 11/17/21 Ordered By: Dinesh Miles Diet: low fat, low cholesterol Activity on Discharge: As tolerated Stand Alone Forms: Patient Portal Discharge page Care Plan Goals: dizziness /speech impairment completely resolved, symptoms likely related to high blood pressure take all medications as planned history of chronic dizziness follow-up with neurology, resume aspirin 81 mg daily subdural hematoma resolved Health Concerns: mood disorder/hyperlipidemia, continue all home medication/ Plan of Treatment: follow-up with primary care physician in psychology as planned/ take aspirin 81 mg by mouth daily Assessment: per discharge summary Discharge Date/Time: 11/17/21 14:45
--- NOTE | 2021-11-17 12:27 | MHC.CM.PN ---
Patient has been medically cleared for dc to home today, self care.
== END 2021-11-17 14:45 | disposition home or self-care (01) ==
LOC: HO.ED 07:02 → HO.EDOVER 08:58 → HO.IMC 15:45
PROVIDERS: Admitting Provider Hospitalist; Emergency Provider Emergency Medicine; PCP Internal Medicine; Visit Provider Hospitalist
DX: I16.1 Hypertensive emergency (principal); R41.82 Altered mental status, unspecified; M06.9 Rheumatoid arthritis, unspecified; M32.9 Systemic lupus erythematosus, unspecified; R47.81 Slurred speech; T42.6X1A Poisoning by other antiepileptic and sedative-hypnotic drugs, accidental (unintentional), initial encounter; Y92.019 Unspecified place in single-family (private) house as the place of occurrence of the external cause; I62.9 Nontraumatic intracranial hemorrhage, unspecified; I10 Essential (primary) hypertension; I44.0 Atrioventricular block, first degree; E78.5 Hyperlipidemia, unspecified; F31.9 Bipolar disorder, unspecified; F12.20 Cannabis dependence, uncomplicated; Z20.822 Contact with and (suspected) exposure to COVID-19; Z87.891 Personal history of nicotine dependence; Z79.899 Other long term (current) drug therapy
CPT/HCPCS: 36415; 70450; 80048; 80076; 80307; 81003; 82077; 82140; 84484; 85025; 85610; 87635; 93005; 96372; 96374; 96375; 96376; 99219; 99285; 99291; J1650; J2270; J2405

== ENCOUNTER 2021-12-05 17:43 | Outpatient (REF) | payer OTHER, SELFPAY | END 2021-12-05 17:44 | disposition home or self-care (01) | LOC: HO.LNP 17:43 | PROVIDERS: Visit Provider Physician Assistant | DX: R30.0 Dysuria (principal) | CPT/HCPCS: 87086 ==

== ENCOUNTER 2021-12-20 10:11 | Outpatient (REF) | payer OTHER, SELFPAY ==
--- NOTE | ~2021-12-20 | MM_ITS ---
EXAMINATION: MM SCREENING DIGITAL BREAST TOMOSYNTHESIS, BILATERAL CLINICAL INFORMATION: Screening. Asymptomatic. The lifetime risk of breast cancer based on the Tyrer-Cuzick Model is 1.9%. COMPARISON: Mammography: September 27, 2020 and studies dating back to August 06, 2013 TECHNIQUE: Digital breast tomosynthesis is performed in both the craniocaudal and mediolateral oblique views along with computer-aided detection (CAD). Synthesized 2D images are generated from the tomosynthesis. FINDINGS: The breasts are heterogeneously dense, which may obscure small masses (ACR BI-RADS breast composition Category c). There are no significant masses, abnormal calcifications, or other abnormalities. MM/MM tomosynthesis screening BI IMPRESSION: There are no significant changes from prior study. ASSESSMENT: BI-RADS 1: Negative RECOMMENDATION: Routine annual mammography screening. This patient's information was entered into a reminder system with a target due date for their next mammogram.
== END 2021-12-20 10:12 | disposition home or self-care (01) ==
LOC: HO.MAMMO 10:11
PROVIDERS: Visit Provider Internal Medicine
DX: Z12.31 Encounter for screening mammogram for malignant neoplasm of breast (principal)
CPT/HCPCS: 77063; 77067

== ENCOUNTER 2022-01-09 16:05 | Outpatient (REF) | payer OTHER, SELFPAY ==
[2022-01-09 19:22] LABS: Appearance Urine CLEAR; Color Urine YELLOW; Glucose Urine UA NEG (NEG); Leukocyte Esterase Urine NEG (NEG); Nitrite Urine NEG (NEG); Urine Blood NEG (NEG); Urine Ketones NEG (NEG); Urine Protein NEG (NEG-TRACE)
== END 2022-01-09 16:06 | disposition home or self-care (01) ==
LOC: HO.MANLNP 16:05
PROVIDERS: PCP Internal Medicine; Visit Provider Physician Assistant
DX: N10 Acute pyelonephritis (principal)
CPT/HCPCS: 81003

== ENCOUNTER 2022-03-01 12:38 | Outpatient (REF) | payer OTHER, SELFPAY ==
--- NOTE | ~2022-03-01 | XR_ITS ---
EXAMINATION: XR RIBS, LEFT CLINICAL INFORMATION: Pleurodynia, left side COMPARISON: Chest and bilateral RIBS 10/18/2021, single view chest 09/16/2019. TECHNIQUE: Frontal view chest and 4 views of the left ribs are obtained for a total of 5 views. FINDINGS: The lungs are clear. There is no pneumothorax, airspace consolidation, pleural reaction, or effusion. The costophrenic sulci are well-defined. Heart size normal. Vascularity normal. There is no visible rib fracture or rib destructive process. No visible acute bony abnormality. XR/XR ribs LT min 3V w CXR1V IMPRESSION: -No visible rib fracture or rib destructive process. -Lungs clear. No pneumothorax, infiltrate, or effusion.
== END 2022-03-01 12:39 | disposition home or self-care (01) ==
LOC: HO.XRAY 12:38
PROVIDERS: PCP Internal Medicine; Visit Provider Physician Assistant
DX: R07.81 Pleurodynia (principal)
CPT/HCPCS: 71101

== ENCOUNTER 2022-12-26 10:05 | Outpatient (REF) | payer OTHER, SELFPAY ==
--- NOTE | ~2022-12-26 | MM_ITS ---
EXAMINATION: MM SCREENING DIGITAL BREAST TOMOSYNTHESIS, BILATERAL CLINICAL INFORMATION: Screening. Asymptomatic. The lifetime risk of breast cancer based on the Tyrer-Cuzick Model is 4%. COMPARISON: Mammography: December 20, 2021 and studies dating back to April 30, 2016 TECHNIQUE: Digital breast tomosynthesis is performed in both the craniocaudal and mediolateral oblique views along with computer-aided detection (CAD). Synthesized 2D images are generated from the tomosynthesis. FINDINGS: There are scattered areas of fibroglandular density (ACR BI-RADS breast composition Category b). There are no significant masses, abnormal calcifications, or other abnormalities. MM/MM tomosynthesis screening BI IMPRESSION: No significant changes ASSESSMENT: BI-RADS 1: Negative RECOMMENDATION: Routine annual mammography screening. This patient's information was entered into a reminder system with a target due date for their next mammogram.
== END 2022-12-26 10:06 | disposition home or self-care (01) ==
LOC: HO.MAMMO 10:05
PROVIDERS: Visit Provider Internal Medicine
DX: Z12.31 Encounter for screening mammogram for malignant neoplasm of breast (principal)
CPT/HCPCS: 77063; 77067

== ENCOUNTER 2023-01-14 09:36 | Outpatient (REF) | payer OTHER, SELFPAY ==
[2023-01-14 11:27] LABS: MANUAL DIFF FLAG NO
[2023-01-14 11:33] LABS: Basophils Percent Auto 0.6 % (0-2); Eosinophils Absolute Auto 0.1 X10*3/uL (0.0-0.4); Eosinophils Percent Auto 2.9 % (0-4); Hematocrit 36.4 % (37.0-47.0); Hemoglobin 11.9 g/dl (12.0-16.0); Imm Gran Abs Auto 0.02 X10*3/uL (0.00-0.03); Imm Gran Pct Auto 0.6 % (0.0-0.4); Lymphocytes Absolute Auto 0.8 X10*3/uL (1.2-4.9); Lymphocytes Percent Auto 23.2 % (20-40); Mean Corpuscular HGB Conc 32.7 g/dl (31.0-35.0); Mean Corpuscular Hemoglobin 31.2 pg (27.0-33.0); Mean Corpuscular Volume 95.3 fL (80.0-98.0); Mean Platelet Volume 9.9 fL (9.4-12.3); Monocytes Absolute Auto 0.4 X10*3/uL (0.1-1.2); Monocytes Percent Auto 12.2 % (2-11); Neutrophils Absolute Auto 2.1 x10*3/uL (2.0-8.3); Neutrophils Percent Auto 60.5 % (45-73); Platelet Count 178 X10*3/uL (160-400); Red Blood Count 3.82 X10*6/uL (4.20-5.50); Red Cell Distribution Width 13.2 % (11.0-16.0); White Blood Count 3.5 X10*3/uL (4.8-10.8)
[2023-01-14 12:17] LABS: Estimated Average Glucose 105 mg/dL; Hemoglobin A1c % 5.3 %
[2023-01-14 12:24] LABS: Alanine Aminotransferase 28 U/L (0-31); Albumin Level 4.4 g/dL (3.5-5.0); Alkaline Phosphatase 125 U/L (39-117); Anion Gap 13 (12-20); Aspartate Amino Transferase 23 U/L (5-31); Bilirubin Total 0.2 mg/dL (0.0-1.0); Blood Urea Nitrogen 15 mg/dL (9-16); C Reactive Protein 0.17 mg/dL (< or = 0.50); Calcium 9.2 mg/dL (8.4-10.2); Carbon Dioxide 28 mmol/L (22-29); Chloride 107 mmol/L (96-108); Estimated Glomerular Filt Rate > 60; Glucose Random 94 mg/dL (60-115); Iron 74 mcg/dL (30-160); Magnesium 2.1 mg/dL (1.6-2.6); Percent Iron Saturation 27 % (15-50); Potassium 4.8 mmol/L (3.3-5.1); Sodium 143 mmol/L (135-145); Total Iron Binding Capacity 278 mcg/dL (228-428); Total Protein 6.3 g/dL (6.5-8.0); Unsaturated Iron Binding 204 ug/dL
[2023-01-14 12:32] LABS: Erythrocyte Sedimentation Rate 18 MM/HR (0-20)
[2023-01-14 12:42] LABS: Ferritin 78 ng/mL (10-250); Folate 9.5 ng/mL (> or = 4.0); Free T4 (Free Thyroxine) 0.82 ng/dL (0.71-1.85); Thyroid Stimulating Hormone 0.92 uIU/mL (0.32-4.0); Vitamin B12 261 pg/mL (200-900); Vitamin D 25-OH Total 13.9 ng/mL (>30)
[2023-01-15 04:11] LABS: Syphilis Screen Nonreactive (Nonreactive)
[2023-01-16 21:18] LABS: Lyme Abs Screen <0.90 index
== END 2023-01-14 09:37 | disposition home or self-care (01) ==
LOC: HO.MANLDS 09:36
PROVIDERS: Visit Provider Physician Assistant
DX: R41.3 Other amnesia (principal); R53.83 Other fatigue; G47.09 Other insomnia; M32.9 Systemic lupus erythematosus, unspecified
CPT/HCPCS: 36415; 80053; 82306; 82607; 82728; 82746; 83036; 83540; 83735; 84439; 84443; 85025; 85652; 86140; 86617; 86618; 86780

== ENCOUNTER 2023-02-11 15:09 | Outpatient (REF) | payer OTHER, SELFPAY ==
[2023-02-11 19:30] LABS: Vitamin D 25-OH Total 54.6 ng/mL (>30)
== END 2023-02-11 15:10 | disposition home or self-care (01) ==
LOC: HO.MANLDS 15:09
PROVIDERS: Visit Provider Physician Assistant
DX: E55.9 Vitamin D deficiency, unspecified (principal)
CPT/HCPCS: 36415; 82306

== ENCOUNTER 2023-09-27 09:07 | Emergency (ER) | payer BC, SELFPAY ==
--- NOTE | ~2023-09-27 | CT_ITS ---
EXAMINATION: CT ABDOMEN AND PELVIS WITH CONTRAST CLINICAL INFORMATION: Nausea, vomiting and diarrhea COMPARISON: Previous CT of the abdomen and pelvis December 2014 TECHNIQUE: Multidetector volumetric images were obtained from the superior aspect of the liver through the pubic symphysis following administration 85 mL of Omnipaque 350 intravenous contrast. Sagittal and coronal reformatted images were obtained on the technologist's workstation. Oral contrast: Yes This CT examination was performed using dose optimization techniques as appropriate, variously including the following: *Automated exposure control *Adjustment of mA and/or kV according to patient size (this includes techniques or standardized protocols for targeted exams where dose is matched to indication/reason for exam; i.e. extremities or head) *Use of iterative reconstruction technique DLP: 433 mGy-cm FINDINGS: LUNG BASES: The visualized lung bases are unremarkable. LIVER, GALLBLADDER, AND BILIARY TREE: The liver is normal in size, shape, and attenuation. No focal hepatic lesion or biliary ductal dilatation is present. The gallbladder is unremarkable with no evidence of radiopaque gallstones, gallbladder wall thickening, or obvious pericholecystic inflammatory changes. PANCREAS: Unremarkable. SPLEEN: Unremarkable. ADRENAL GLANDS: Unremarkable. KIDNEYS AND URETERS: The kidneys are normal in size, shape, and attenuation. No hydronephrosis, hydroureter, or calculi seen. No perinephric stranding. BLADDER: Unremarkable. GASTROINTESTINAL TRACT: The cecum is located low in the pelvis. Question mild wall thickening/colitis of the distal left colon and sigmoid colon versus changes due to underdistention. The small and large bowel are unremarkable. The appendix is seen. ABDOMINAL WALL: No significant hernia is appreciated. LYMPH NODES: Normal. VASCULAR: Severe atherosclerotic disease. PELVIC VISCERA: Uterus has been removed. No pelvic mass. OSSEOUS STRUCTURES: Unremarkable. CT/CT abdomen pelvis w IV con IMPRESSION: Question mild colitis of the distal colon versus changes due to underdistention. Severe atherosclerotic disease. Fleischner guidelines were followed.
[2023-09-27 09:14] VITALS: BP 158/71; PULSE 99; RESP 16; TEMP 36.4; O2SAT 97; BMI 25.8
[2023-09-27 09:41] LABS: MANUAL DIFF FLAG NO
[2023-09-27 09:56] LABS: Alanine Aminotransferase 18 U/L (0-31); Albumin Level 4.5 g/dL (3.5-5.0); Alkaline Phosphatase 132 U/L (39-117); Anion Gap 19 (12-20); Aspartate Amino Transferase 25 U/L (5-31); Bilirubin Total 0.3 mg/dL (0.0-1.0); Blood Urea Nitrogen 16 mg/dL (9-16); Calcium 9.7 mg/dL (8.4-10.2); Carbon Dioxide 22 mmol/L (22-29); Chloride 106 mmol/L (96-108); Creatinine Clr Calc Pharmacy 61.4; Estimated Glomerular Filt Rate > 60; Glucose Random 91 mg/dL (60-115); Potassium 3.7 mmol/L (3.3-5.1); Sodium 143 mmol/L (135-145); Total Protein 7.2 g/dL (6.5-8.0)
[2023-09-27 10:12] LABS: Basophils Percent Auto 0.7 % (0-2); Eosinophils Absolute Auto 0.1 X10*3/uL (0.0-0.4); Eosinophils Percent Auto 2.4 % (0-4); Hematocrit 34.1 % (37.0-47.0); Hemoglobin 11.3 g/dl (12.0-16.0); Imm Gran Abs Auto 0.03 X10*3/uL (0.00-0.03); Lymphocytes Percent Auto 34.3 % (20-40); Mean Corpuscular HGB Conc 33.1 g/dl (31.0-35.0); Mean Corpuscular Hemoglobin 31.1 pg (27.0-33.0); Mean Corpuscular Volume 93.9 fL (80.0-98.0); Mean Platelet Volume 9.4 fL (9.4-12.3); Monocytes Absolute Auto 0.5 X10*3/uL (0.1-1.2); Monocytes Percent Auto 15.5 % (2-11); Neutrophils Absolute Auto 1.4 x10*3/uL (2.0-8.3); Neutrophils Percent Auto 46.1 % (45-73); Platelet Count 231 X10*3/uL (160-400); Red Blood Count 3.63 X10*6/uL (4.20-5.50); Red Cell Distribution Width 12.9 % (11.0-16.0)
--- NOTE | 2023-09-27 10:20 | ED_ITS ---
HPI - Nausea/Vomiting/Diarrhea General Chief complaint: Nausea/Vomiting/Diarrhea Stated complaint: dehydration Time Seen by Provider: 09/27/23 10:19 Source: patient and RN notes reviewed Mode of arrival: ambulatory Limitations: no limitations History of Present Illness HPI Narrative: This is a 68-year-old female, with a history of hypertension, IBS, lupus, rheumatoid arthritis, subdural hematoma, and TIA presenting to the emergency department with complaints of diarrhea and vomiting x1 week. Patient states that over this last month, she has had loose stool which is atypical of her given her history of IBS as she typically gets constipation. She states that over the last week she has had very loose stool over this last week. Denies bloody or black stool. Denies any recent antibiotic use or raw undercooked food. Denies any sick contacts. She states that she has also had nausea and vomiting. She states that approximately 3 hours after consuming anything she vomits. She states that she has had 3 she sections, hysterectomy, and appendectomy. She does admit that she has been under significant amount of stress as her is currently at [facility] seeking treatment, unable to report what this treatment is for as this is making her upset, however states he has no GI symptoms. Denies any abdominal pain. No other complaints or concerns at this time. MD elicited complaint: nausea, vomiting and diarrhea Pertinent past history: abdominal surgery Description of vomiting: watery Description of diarrhea: watery Associated nausea: Yes Associated abdominal pain: No Exacerbating factors: eating Relieving factors: none Related Data Home Medications Medication Instructions Recorded Confirmed bupropion HCl 300 mg 24 hr tablet, 300 mg PO BEDTIME 07/10/21 11/16/21 extended release carbamazepine 200 mg tablet 400 mg PO BEDTIME 07/10/21 11/16/21 hydroxychloroquine 200 mg tablet 1 tab PO DAILY 07/10/21 11/16/21 lamotrigine 200 mg tablet 400 mg PO BEDTIME 07/10/21 11/16/21 lorazepam 1 mg tablet 1 tab PO BEDTIME PRN Insomnia 07/10/21 11/16/21 metoprolol succinate 25 mg 37.5 tab PO DAILY 07/10/21 11/16/21 tablet,extended release 24 hr omeprazole 40 mg capsule,delayed 40 mg PO DAILY 07/10/21 11/16/21 release gabapentin 300 mg capsule 1 cap PO BID 11/16/21 11/16/21 leflunomide 10 mg tablet 1 tab PO DAILY 11/16/21 11/16/21 lorazepam 0.5 mg tablet 1 tab PO TID PRN Anxiety 11/16/21 11/16/21 meclizine 12.5 mg tablet 1 tab PO DAILY PRN Vertigo 11/16/21 11/16/21 plecanatide 3 mg tablet (Trulance) 1 tab PO DAILY 11/16/21 11/16/21 Previous Rx's Medication Instructions Recorded atorvastatin 40 mg tablet (Lipitor) 40 mg PO DAILY 30 days #30 tabs 07/11/21 ciprofloxacin HCl 500 mg tablet 500 mg PO BID 5 days #10 tabs 09/27/23 metronidazole 500 mg tablet 500 mg PO Q8H 5 days #15 tabs 09/27/23 Allergies Allergy/AdvReac Type Severity Reaction Status Date / Time codeine AdvReac Nausea Verified 09/27/23 09:17 Review of Systems 2 Review of Systems: Yes all other systems are reviewed and are negative Constitutional: Constitutional: Reports as per HPI Gastrointestinal: Gastrointestinal: Reports nausea PMFSH Past Medical History Medical History Bipolar disorder HTN (hypertension) IBS (irritable bowel syndrome) Lupus Rheumatoid arthritis Subdural hematoma TIA (transient ischemic attack) Surgical History No history of previous surgery Social History Social History Household Members: Significant Other Housing: House Do you presently have visiting nurse or other home services: No Alcohol intake: never Patient Tobacco Use Status: Former Tobacco user Tobacco use type: Cigarette Smoked in Last 30 Days: No Use of substances other than those prescribed or required for medical reasons: Yes Substance Use Type: Marijuana Advance Directives: No Advance Directives Information Provided: No service: No Current occupational status: retired Physical Exam 2 Vital Signs: Vital Signs: Last Vital Signs Temp 97.8 F 09/27/23 15:32 Pulse 94 09/27/23 15:32 Resp 16 09/27/23 15:32 BP 185/80 H 09/27/23 15:32 Pulse Ox 99 09/27/23 15:32 O2 Del Method Room Air 09/27/23 15:32 BMI result Body Mass Index 25.8 Const: General: cooperative, comfortable and no acute distress O rientation/consciousness: patient oriented x3 Limitations: no limitations HEENT: Head: Yes normal to inspection, Yes normocephalic and Yes atraumatic Ears: hearing grossly normal bilaterally General nose exam: Normal external nose present Face and sinus: Yes normal facial exam Mouth: Normal oral and palatal mucosa present, oropharynx normal and moist mucous membranes Throat: Yes posterior oropharynx normal Eyes: General: appearance normal, both eyes and all related structures E yelids: Yes eyelids normal Conjunctivae: conjunctivae normal Sclerae: s clerae normal Pupils: Equal, round and reactive pupils present EOM: EOMs intact bilaterally Neck: Neck: Yes normal visual inspection, Yes full ROM and Yes no lymphadenopathy Lymphatic: no lymphadenopathy noted Chest: Chest palpation & inspection: normal inspection of the chest Resp: Effort & Inspection: normal respiratory effort and able to speak in complete sentences Auscultation: clear to auscultation bilaterally, no crackles, no rales, no rhonchi and no wheezes Cardio: Rate: regular rate Rhythm: regular rhythm Heart sounds: S1 normal heart sound present and S2 normal heart sound present GI: Other: Abdomen is soft, nontender, nondistended, normoactive bowel sounds present in all 4 quadrants Inspection: Yes normal to inspection Skin: General skin exam: no rashes or lesions noted Trauma: no lacerations or abrasions Wounds: no wounds Neuro: General: patient oriented x3 and moves all extremities Cranial nerves: Yes Equal, round and reactive pupils present Extrem: General: Yes normal to inspection Right upper extremity: normal to inspection Left upper extremity: normal to inspection Right lower extremity: normal to inspection Left lower extremity: normal to inspection Course Reevaluation(s) Reevaluation #1: Patient feeling okay. Has not been able to produce stool sample however states that if she is able to eat she will be able to do so. She also reports that she has had increasing anxiety, typically takes lorazepam 1 mg p.o. up to 3 times a day. Or provide patient with lorazepam as well as 2 L of IV fluids. Vital signs stable. She is nontoxic appearing. In no acute distress. Will continue to monitor in hopes that we will be able to obtain stool sample. Time: 14:55 Reevaluation #2: We were able to obtain stool sample, will treat patient with azithromycin x3 days Time: 16:31 Medications Administered Discontinued Medications Generic Name Dose Route Start Last Admin Trade Name Elfego PRN Reason Stop Dose Admin Sodium Chloride 1,000 mls @ 999 mls/hr 09/27/23 11:29 09/27/23 12:53 Ns IV 09/27/23 12:29 Infused .Q1H1M ONE Infusion Sodium Chloride 1,000 mls @ 999 mls/hr 09/27/23 14:55 09/27/23 16:49 Ns IV 09/27/23 15:55 Infused .Q1H1M ONE Infusion Iohexol 100 ml 09/27/23 11:59 09/27/23 11:59 Iohexol 350 Mg/Ml 100 Ml Infus..Btl IV 09/27/23 12:00 85 ml ONCE ONE Administration Lorazepam 1 mg 09/27/23 14:55 09/27/23 15:17 Lorazepam 1 Mg Tablet PO 09/27/23 14:56 1 mg ONCE ONE Administration Medical Decision Making Medical Decision Making [facility] Narrative: 68-year-old female, with a history of hypertension, IBS, lupus, rheumatoid arthritis, subdural hematoma, and TIA presenting to the emergency department with complaints of diarrhea and vomiting x1 week. On arrival, vital signs within normal limits. Patient is nontoxic appearing. Abdomen is soft and nontender. Given presentation, differential diagnoses include small-bowel obstruction, infectious diarrhea, C diff, irritable bowel syndrome, dehydration, TARSHA, influenza, COVID Plan: Labs, CT abdomen with IV contrast, GI panel, C diff Differential Diagnosis Differential Diagnoses: The differential diagnosis associated with the presentation includes See above Admission/Observation Consideration of admission/observation: Escalation of care including admission/observation considered Lab Data [facility] Lab Attestation statement: I reviewed the patient's lab results. No leukocytosis, H&H revealing normocytic anemia at 11.3/34.1, alk-phos mildly elevated 132, she has a history of this. 09/27/23 09:38 09/27/23 09:38 Labs: Lab Results 09/27/23 09/27/23 09/27/23 Range/Units 09:38 11:42 13:20 WBC 3.0 L (4.8-10.8) X10*3/uL RBC 3.63 L (4.20-5.50) X10*6/uL Hgb 11.3 L (12.0-16.0) g/dl Hct 34.1 L (37.0-47.0) % MCV 93.9 (80.0-98.0) fL MCH 31.1 (27.0-33.0) pg MCHC 33.1 (31.0-35.0) g/dl RDW 12.9 (11.0-16.0) % Plt Count 231 D (160-400) X10*3/uL MPV 9.4 (9.4-12.3) fL Immature Gran % (Auto) 1.0 H (0.0-0.4) % Neut % (Auto) 46.1 (45-73) % Lymph % (Auto) 34.3 (20-40) % Mclennan % (Auto) 15.5 H (2-11) % Eos % (Auto) 2.4 (0-4) % Baso % (Auto) 0.7 (0-2) % Lymph # (Auto) 1.0 L (1.2-4.9) X10*3/uL Mclennan # (Auto) 0.5 (0.1-1.2) X10*3/uL Eos # (Auto) 0.1 (0.0-0.4) X10*3/uL Baso # (Auto) 0.0 (0.0-0.2) X10*3/uL Abs Immat Gran (auto) 0.03 (0.00-0.03) X10*3/uL Absolute Neuts (auto) 1.4 L (2.0-8.3) x10*3/uL Absolute Nucleated RBC 0.000 (0.0-0.012) X10*3/uL Nucleated RBC % (auto) 0.0 (0.0-0.2) /100WBC Sodium 143 (135-145) mmol/L Potassium 3.7 (3.3-5.1) mmol/L Chloride 106 (96-108) mmol/L Carbon Dioxide 22 (22-29) mmol/L Anion Gap 19 (12-20) BUN 16 (9-16) mg/dL Creatinine 0.85 (0.5-1.4) mg/dL Estim Creat Clear Calc 61.4 Estimated GFR > 60 Random Glucose 91 (60-115) mg/dL Calcium 9.7 (8.4-10.2) mg/dL Total Bilirubin 0.3 (0.0-1.0) mg/dL AST 25 (5-31) U/L ALT 18 (0-31) U/L Alkaline Phosphatase 132 H (39-117) U/L Total Protein 7.2 (6.5-8.0) g/dL Albumin 4.5 (3.5-5.0) g/dL Lipase 16 (8-78) U/L Urine Color Yellow Urine Appearance Clear Urine pH 6.0 (5.0-9.0) Ur Specific [place] >= 1.030 H (1.005-1.025) Urine Protein Negative (Neg-Trace) mg/dL Urine Glucose (UA) Negative (Negative) mg/dL Urine Ketones 40 (Negative) mg/dL Urine Blood Negative (Negative) Urine Nitrite Negative (Negative) Ur Leukocyte Esterase Negative (Negative) Urine RBC 0-2 (0-2) /HPF Urine WBC 0-5 (0-5) /HPF Ur Squamous Epith Cells 0-2 (0-2) /HPF Urine Bacteria None Seen (None Seen) Hyaline Casts 0-2 (0-2) /LPF Stl C. cayetanensis PCR (Not Detect.) Stool Rotavirus A PCR (Not Detect.) Stl Adenov F 40/41 PCR (Not Detect.) Stool Astrovirus (PCR) (Not Detect.) Stool Campylobacter PCR (Not Detect.) Stool Cryptosporidium PCR (Not Detect.) Stl Sh Tox Pr E STEC PCR (Not Detect.) Stool E coli O157 PCR (Not Detect.) Stl Enterotoxigenic E PCR (Not Detect.) Stool EPEC (PCR) (Not Detect.) Stool EAEC (PCR) (Not Detect.) Stl E. histolytica PCR (Not Detect.) Stool Giardia Lamblia PCR (Not Detect.) Stl P. shigelloides PCR (Not Detect.) Stool Salmonella PCR (Not Detect.) Stool Sapovirus (PCR) (Not Detect.) Stl Shigella/EIEC PCR (Not Detect.) St Y.enterocolitica PCR (Not Detect.) Stool Vibrio (PCR) (Not Detect.) Stl Vibrio cholerae PCR (Not Detect.) Stl Norovirus GI/GII PCR (Not Detect.) C. difficile Tox B Gene (Negative) COVID-19 (VINEET) Negative (Negative) COVID-19 Clin Com See Note Influenza Type A (OPAL) Negative (Negative) Influenza Type B (OPAL) Negative (Negative) Influenza A & B Note See Note 09/27/23 Range/Units 16:06 WBC (4.8-10.8) X10*3/uL RBC (4.20-5.50) X10*6/uL Hgb (12.0-16.0) g/dl Hct (37.0-47.0) % MCV (80.0-98.0) fL MCH (27.0-33.0) pg MCHC (31.0-35.0) g/dl RDW (11.0-16.0) % Plt Count (160-400) X10*3/uL MPV (9.4-12.3) fL Immature Gran % (Auto) (0.0-0.4) % Neut % (Auto) (45-73) % Lymph % (Auto) (20-40) % Mclennan % (Auto) (2-11) % Eos % (Auto) (0-4) % Baso % (Auto) (0-2) % Lymph # (Auto) (1.2-4.9) X10*3/uL Mclennan # (Auto) (0.1-1.2) X10*3/uL Eos # (Auto) (0.0-0.4) X10*3/uL Baso # (Auto) (0.0-0.2) X10*3/uL Abs Immat Gran (auto) (0.00-0.03) X10*3/uL Absolute Neuts (auto) (2.0-8.3) x10*3/uL Absolute Nucleated RBC (0.0-0.012) X10*3/uL Nucleated RBC % (auto) (0.0-0.2) /100WBC Sodium (135-145) mmol/L Potassium (3.3-5.1) mmol/L Chloride (96-108) mmol/L Carbon Dioxide (22-29) mmol/L Anion Gap (12-20) BUN (9-16) mg/dL Creatinine (0.5-1.4) mg/dL Estim Creat Clear Calc Estimated GFR Random Glucose (60-115) mg/dL Calcium (8.4-10.2) mg/dL Total Bilirubin (0.0-1.0) mg/dL AST (5-31) U/L ALT (0-31) U/L Alkaline Phosphatase (39-117) U/L Total Protein (6.5-8.0) g/dL Albumin (3.5-5.0) g/dL Lipase (8-78) U/L Urine Color Urine Appearance Urine pH (5.0-9.0) Ur Specific [place] (1.005-1.025) Urine Protein (Neg-Trace) mg/dL Urine Glucose (UA) (Negative) mg/dL Urine Ketones (Negative) mg/dL Urine Blood (Negative) Urine Nitrite (Negative) Ur Leukocyte Esterase (Negative) Urine RBC (0-2) /HPF Urine WBC (0-5) /HPF Ur Squamous Epith Cells (0-2) /HPF Urine Bacteria (None Seen) Hyaline Casts (0-2) /LPF Stl C. cayetanensis PCR Not Detected (Not Detect.) Stool Rotavirus A PCR Not Detected (Not Detect.) Stl Adenov F 40/41 PCR Not Detected (Not Detect.) Stool Astrovirus (PCR) Not Detected (Not Detect.) Stool Campylobacter PCR Not Detected (Not Detect.) Stool Cryptosporidium PCR Not Detected (Not Detect.) Stl Sh Tox Pr E STEC PCR Not Detected (Not Detect.) Stool E coli O157 PCR Not applicable (Not Detect.) Stl Enterotoxigenic E PCR Not Detected (Not Detect.) Stool EPEC (PCR) Not Detected (Not Detect.) Stool EAEC (PCR) Not Detected (Not Detect.) Stl E. histolytica PCR Not Detected (Not Detect.) Stool Giardia Lamblia PCR Not Detected (Not Detect.) Stl P. shigelloides PCR Not Detected (Not Detect.) Stool Salmonella PCR Not Detected (Not Detect.) Stool Sapovirus (PCR) Not Detected (Not Detect.) Stl Shigella/EIEC PCR Not Detected (Not Detect.) St Y.enterocolitica PCR Not Detected (Not Detect.) Stool Vibrio (PCR) Not Detected (Not Detect.) Stl Vibrio cholerae PCR Not Detected (Not Detect.) Stl Norovirus GI/GII PCR Not Detected (Not Detect.) C. difficile Tox B Gene NEGATIVE (Negative) COVID-19 (VINEET) (Negative) COVID-19 Clin Com Influenza Type A (OPAL) (Negative) Influenza Type B (OPAL) (Negative) Influenza A & B Note Radiology Impression Discussion of test interpretation with radiology: I have reviewed the radiologist's reading. Radiologist Impression: EXAMINATION: CT ABDOMEN AND PELVIS WITH CONTRAST CLINICAL INFORMATION: Nausea, vomiting and diarrhea COMPARISON: Previous CT of the abdomen and pelvis December 2014 TECHNIQUE: Multidetector volumetric images were obtained from the superior aspect of the liver through the pubic symphysis following administration 85 mL of Omnipaque 350 intravenous contrast. Sagittal and coronal reformatted images were obtained on the technologist's workstation. Oral contrast: Yes This CT examination was performed using dose optimization techniques as appropriate, variously including the following: *Automated exposure control *Adjustment of mA and/or kV according to patient size (this includes techniques or standardized protocols for targeted exams where dose is matched to indication/reason for exam; i.e. extremities or head) *Use of iterative reconstruction technique DLP: 433 mGy-cm FINDINGS: LUNG BASES: The visualized lung bases are unremarkable. LIVER, GALLBLADDER, AND BILIARY TREE: The liver is normal in size, shape, and attenuation. No focal hepatic lesion or biliary ductal dilatation is present. The gallbladder is unremarkable with no evidence of radiopaque gallstones, gallbladder wall thickening, or obvious pericholecystic inflammatory changes. PANCREAS: Unremarkable. SPLEEN: Unremarkable. ADRENAL GLANDS: Unremarkable. KIDNEYS AND URETERS: The kidneys are normal in size, shape, and attenuation. No hydronephrosis, hydroureter, or calculi seen. No perinephric stranding. BLADDER: Unremarkable. GASTROINTESTINAL TRACT: The cecum is located low in the pelvis. Question mild wall thickening/colitis of the distal left colon and sigmoid colon versus changes due to underdistention. The small and large bowel are unremarkable. The appendix is seen. ABDOMINAL WALL: No significant hernia is appreciated. LYMPH NODES: Normal. VASCULAR: Severe atherosclerotic disease. PELVIC VISCERA: Uterus has been removed. No pelvic mass. OSSEOUS STRUCTURES: Unremarkable. CT/CT abdomen pelvis w IV con IMPRESSION: Question mild colitis of the distal colon versus changes due to underdistention. Severe atherosclerotic disease. Fleischner guidelines were followed. Dictated By: Becky Pearl MD Discharge Plan Discharge Clinical Impression: Colitis, Diarrhea Patient Disposition: Home, Self-Care Instructions: Acute Nausea and Vomiting (ED), Acute Diarrhea (ED), Colitis (ED) Additional Instructions: You were seen in the emergency department due to diarrhea, nausea and vomiting for the last week. Your urine does not appear to be infected however does appear to have evidence of dehydration. We gave you IV fluids. Your CT scan shows evidence of colitis, this can be due to a virus or bacterial. Drink plenty of fluids and get plenty of rest. We are sending her stool out for further testing, we will call you with any abnormal results. Please follow-up with your primary care physician on Friday regarding this visit. If any new or worsening symptoms occur including but not limited to chest pain, shortness of breath, worsening abdominal pain, nausea, vomiting, please return for re-evaluation. Prescriptions: New metronidazole 500 mg tablet 500 mg PO Q8H 5 Days Qty: 15 0RF ciprofloxacin HCl 500 mg tablet 500 mg PO BID 5 Days Qty: 10 0RF No Action leflunomide 10 mg tablet 1 tab PO DAILY meclizine 12.5 mg tablet 1 tab PO DAILY PRN (Reason: Vertigo) lorazepam 0.5 mg tablet 1 tab PO TID PRN (Reason: Anxiety) gabapentin 300 mg capsule 1 cap PO BID Trulance 3 mg tablet 1 tab PO DAILY lamotrigine 200 mg tablet 400 mg PO BEDTIME omeprazole 40 mg capsule,delayed release(DR/EC) 40 mg PO DAILY metoprolol succinate 25 mg tablet extended release 24 hr 37.5 tab PO DAILY lorazepam 1 mg tablet 1 tab PO BEDTIME PRN (Reason: Insomnia) hydroxychloroquine 200 mg tablet 1 tab PO DAILY bupropion HCl 300 mg tablet extended release 24 hr 300 mg PO BEDTIME carbamazepine 200 mg tablet 400 mg PO BEDTIME atorvastatin [Lipitor] 40 mg tablet 40 mg PO DAILY 30 Days Qty: 30 6RF Interventions: ED Discharge Assessment Last Done: 09/27/23 16:49 Discharge Date/Time: 09/27/23 16:50
[2023-09-27 11:02] VITALS: BP 165/81; PULSE 81; RESP 16; TEMP 36.4; O2SAT 99
[2023-09-27 11:48] LABS: Lipase 16 U/L (8-78)
[2023-09-27] MEDS: 0.9 % Sodium Chloride 1,000 ML 999 ML IV ×2 (11:52→15:18)
[2023-09-27] MEDS: iohexoL 350 MG/ML 100 ML INFUS..BTL IV (11:59)
--- NOTE | 2023-09-27 12:00 | PC.NURSE ---
a&ox4. vss and up to date. pt presents to the ED d/t v/d x a few days. denies blood in stool/emesis. pt also c/o generalized abd comfort that radiates to lower back bilaterally. pt verbalizes pain in back is stronger on the left side. pt also stating she has increased urinary frequency/urgency. no sob/wob noted. respirations even and unlabored. 20gIV placed in the left AC. tech obtained swabs and sent to lab. pt currently waiting to go to CT at this time. call ogden placed within reach.
[2023-09-27 12:09] LABS: COVID-19 Test Negative (Negative); IDNOW Serial# 6674DD1D
[2023-09-27 12:30] LABS: IDNOW Serial# 58CA691E; Influenza A Negative (Negative); Influenza B2 Negative (Negative)
[2023-09-27 13:02] VITALS: BP 159/69; PULSE 91; RESP 16; TEMP 36.8; O2SAT 100
--- NOTE | 2023-09-27 13:03 | PC.NURSE ---
vss and up to date at this time. pt stating she feels much better at this time and that her pain level in her back decreased to a 3/10 at this time. respirations remain even and unlabored. pt waiting for CT results at this time.resting comfortably in no apparent distress. call ogden placed within reach.
--- NOTE | 2023-09-27 13:21 | PC.NURSE ---
pt ambulates to the restroom independently w/ steady gait. urine obtained/sent to lab. plan of care ongoing at this time.
[2023-09-27 13:31] LABS: Appearance Urine Clear; Color Urine Yellow; Glucose Urine UA Negative (Negative); Leukocyte Esterase Urine Negative (Negative); Nitrite Urine Negative (Negative); Specific Gravity - Urine >= 1.030 (1.005-1.025); Urine Blood Negative (Negative); Urine Ketones 40 mg/dL (Negative); Urine Protein Negative (Neg-Trace)
[2023-09-27 13:34] LABS: Bacteria Urine None Seen (None Seen); Hyaline Casts Urine 0-2 /LPF (0-2); RBC Urine 0-2 /HPF (0-2); Squamous Epithelial Cell Urine 0-2 /HPF (0-2); WBC Urine 0-5 /HPF (0-5)
--- NOTE | 2023-09-27 14:58 | PC.NURSE ---
PO CHALLENGE REQUESTED BY PROVIDER. BEDSIDE COMMODE PROVIDED, AWAITING STOOL SAMPLE
[2023-09-27] MEDS: LORazepam 1 MG TABLET PO (15:17)
[2023-09-27 15:32] VITALS: BP 185/80; PULSE 94; RESP 16; TEMP 36.6; O2SAT 99
[2023-09-27 17:03] LABS: CDiff Gene PCR NEGATIVE (Negative)
[2023-09-28 10:20] LABS: Adenovirus F 40/41 Not Detected (Not Detect.); Astrovirus Not Detected (Not Detect.); Campylobacter Not Detected (Not Detect.); Cryptosporidium Not Detected (Not Detect.); Cyclospora cayetanensis Not Detected (Not Detect.); E. coli EAEC Not Detected (Not Detect.); E. coli EPEC Not Detected (Not Detect.); E. coli ETEC Not Detected (Not Detect.); E. coli STEC Not Detected (Not Detect.); Entamoeba histolytica Not Detected (Not Detect.); Giardia lamblia Not Detected (Not Detect.); Norovirus GI/GII Not Detected (Not Detect.); Plesiomonas shigelloides Not Detected (Not Detect.); Rotavirus A Not Detected (Not Detect.); Salmonella Not Detected (Not Detect.); Sapovirus Not Detected (Not Detect.); Shigella sp./EIEC Not Detected (Not Detect.); Vibrio Not Detected (Not Detect.); Vibrio Cholerae Not Detected (Not Detect.); Yersinia enterocolitica Not Detected (Not Detect.)
== END 2023-09-27 16:50 | disposition home or self-care (01) ==
PROVIDERS: Physician Assistant Medical; Emergency Provider Student in an Organized Health Care Education/Training Program; PCP Internal Medicine
DX: K52.9 Noninfective gastroenteritis and colitis, unspecified (principal); R11.2 Nausea with vomiting, unspecified; Z11.52 Encounter for screening for COVID-19; I10 Essential (primary) hypertension; M32.9 Systemic lupus erythematosus, unspecified; M06.9 Rheumatoid arthritis, unspecified; Z86.73 Personal history of transient ischemic attack (TIA), and cerebral infarction without residual deficits
CPT/HCPCS: 36415; 74177; 80053; 81001; 83690; 85025; 87493; 87502; 87507; 87635; 96360; 96361; 99284; Q9967

== ENCOUNTER 2023-12-30 10:14 | Outpatient (REF) | payer BC, SELFPAY ==
--- NOTE | ~2023-12-30 | MM_ITS ---
EXAMINATION: MM SCREENING DIGITAL BREAST TOMOSYNTHESIS, BILATERAL CLINICAL INFORMATION: Screening. Asymptomatic. COMPARISON: Mammography: 12/26/2022, 12/20/2021, and dating back to 2011. TECHNIQUE: Digital breast tomosynthesis is performed in both the craniocaudal and mediolateral oblique views along with computer-aided detection (CAD). Synthesized 2D images are generated from the tomosynthesis. FINDINGS: The breasts are heterogeneously dense, which may obscure small masses (ACR BI-RADS breast composition Category c). There are benign type scattered dystrophic calcifications bilaterally. There are no suspicious pleomorphic grouped calcifications. There is a benign-appearing lymph node in the far lateral right breast, and left breast as well. There is a stable elongated focal asymmetry in the inferolateral left breast, unchanged, probable cyst. Heterogeneously dense breast parenchyma as a stable somewhat nodular appearance. This is most likely on the basis of fibrocystic changes. No dominant mass or architectural distortion identified. There is no suspicious skin or axillary abnormality. MM/MM tomosynthesis screening BI IMPRESSION: No mammographic evidence of malignancy. No significant interval change. Heterogeneously dense breast parenchyma with probable fibrocystic changes. Stable benign findings. ASSESSMENT: BI-RADS BI-RADS 2 - Benign Findings RECOMMENDATION: Routine annual mammography screening. 1 year F/U This examination should not preclude the clinical evaluation of a suspicious palpable abnormality. This patient's information was entered into a reminder system with a target due date for their next mammogram.
== END 2023-12-30 10:15 | disposition home or self-care (01) ==
LOC: HO.MAMMO 10:14
PROVIDERS: PCP Internal Medicine; Visit Provider Internal Medicine
DX: Z12.31 Encounter for screening mammogram for malignant neoplasm of breast (principal)
CPT/HCPCS: 77063; 77067

== ENCOUNTER → 2023-12-30 10:30 | Outpatient (BNV) | payer BC, SELFPAY | PROVIDERS: PCP Internal Medicine; Visit Provider Radiology Diagnostic Radiology | DX: Z12.31 Encounter for screening mammogram for malignant neoplasm of breast (principal) | CPT/HCPCS: 77063; 77067 ==

== ENCOUNTER 2024-07-09 14:30 | Outpatient (REF) | payer BC, SELFPAY ==
[2024-07-09 17:54] LABS: MANUAL DIFF FLAG NO
[2024-07-09 18:01] LABS: Basophils Percent Auto 0.7 % (0-2); Eosinophils Absolute Auto 0.1 X10*3/uL (0.0-0.4); Eosinophils Percent Auto 3.2 % (0-4); Hematocrit 29.1 % (37.0-47.0); Hemoglobin 9.5 g/dl (12.0-16.0); Imm Gran Abs Auto 0.01 X10*3/uL (0.00-0.03); Imm Gran Pct Auto 0.4 % (0.0-0.4); Mean Corpuscular HGB Conc 32.6 g/dl (31.0-35.0); Mean Corpuscular Hemoglobin 30.7 pg (27.0-33.0); Mean Corpuscular Volume 94.2 fL (80.0-98.0); Mean Platelet Volume 9.7 fL (9.4-12.3); Monocytes Absolute Auto 0.4 X10*3/uL (0.1-1.2); Monocytes Percent Auto 14.2 % (2-11); Neutrophils Absolute Auto 1.3 x10*3/uL (2.0-8.3); Neutrophils Percent Auto 44.5 % (45-73); Platelet Count 200 X10*3/uL (160-400); Red Blood Count 3.09 X10*6/uL (4.20-5.50); Red Cell Distribution Width 14.1 % (11.0-16.0); White Blood Count 2.8 X10*3/uL (4.8-10.8)
[2024-07-09 18:15] LABS: Alanine Aminotransferase 12 U/L (0-31); Albumin Level 3.9 g/dL (3.5-5.0); Alkaline Phosphatase 112 U/L (39-117); Anion Gap 9 (12-20); Aspartate Amino Transferase 21 U/L (5-31); Bilirubin Total 0.2 mg/dL (0.0-1.0); Blood Urea Nitrogen 10 mg/dL (9-16); C Reactive Protein 0.14 mg/dL (< or = 0.50); Carbon Dioxide 27 mmol/L (22-29); Chloride 109 mmol/L (96-108); Estimated Glomerular Filt Rate > 60; Glucose Random 116 mg/dL (60-115); Iron 84 mcg/dL (30-160); Magnesium 2.1 mg/dL (1.6-2.6); Percent Iron Saturation 31 % (15-50); Potassium 3.5 mmol/L (3.3-5.1); Sodium 141 mmol/L (135-145); Total Iron Binding Capacity 271 mcg/dL (228-428); Total Protein 6.2 g/dL (6.5-8.0); Unsaturated Iron Binding 187 ug/dL
[2024-07-09 18:39] LABS: Ferritin 62 ng/mL (10-250); Thyroid Stimulating Hormone 1.08 uIU/mL (0.32-4.0)
[2024-07-09 18:44] LABS: Vitamin B12 359 pg/mL (200-900)
[2024-07-09 18:55] LABS: T4 Thyroxine 6.4 ug/dL (4.5-12.0)
[2024-07-09 19:29] LABS: Erythrocyte Sedimentation Rate 33 MM/HR (0-20)
[2024-07-15 16:58] LABS: VITAMIN D (1,25 OH) D3 37 pg/mL; Vit D (1,25-Dihydroxy) Total 37 pg/mL (18-72); Vitamin D (1,25 OH) D2 <8 pg/mL
== END 2024-07-09 14:31 | disposition home or self-care (01) ==
LOC: HO.MANLDS 14:30
PROVIDERS: Visit Provider Physician Assistant
DX: R53.83 Other fatigue (principal)
CPT/HCPCS: 36415; 80053; 82607; 82652; 82728; 83540; 83735; 84436; 84443; 85025; 85652; 86140

== ENCOUNTER 2024-07-13 15:02 | Outpatient (REF) | payer MEDICARE, OTHER, SELFPAY ==
--- NOTE | ~2024-07-13 | XR_ITS ---
EXAMINATION: XR CHEST CLINICAL INFORMATION: COUGH COMPARISON: September 16, 2019 TECHNIQUE: 2 views of the chest were obtained. FINDINGS: No significant abnormality is noted involving the heart, lungs, mediastinum, bony thorax or soft tissues. XR/XR chest 2V IMPRESSION: Unremarkable examination. Electronically signed by: Lorena Hernandez MD 07/13/2024 07:21 PM [facility] [place], [place]
[2024-07-13 15:20] LABS: MANUAL DIFF FLAG NO
[2024-07-13 15:30] LABS: Basophils Percent Auto 0.9 % (0-2); Eosinophils Absolute Auto 0.2 X10*3/uL (0.0-0.4); Eosinophils Percent Auto 4.6 % (0-4); Hemoglobin 9.8 g/dl (12.0-16.0); Imm Gran Abs Auto 0.01 X10*3/uL (0.00-0.03); Imm Gran Pct Auto 0.3 % (0.0-0.4); Lymphocytes Absolute Auto 1.1 X10*3/uL (1.2-4.9); Lymphocytes Percent Auto 30.9 % (20-40); Mean Corpuscular HGB Conc 32.7 g/dl (31.0-35.0); Mean Corpuscular Volume 94.9 fL (80.0-98.0); Mean Platelet Volume 9.3 fL (9.4-12.3); Monocytes Absolute Auto 0.5 X10*3/uL (0.1-1.2); Monocytes Percent Auto 13.5 % (2-11); Neutrophils Absolute Auto 1.7 x10*3/uL (2.0-8.3); Neutrophils Percent Auto 49.8 % (45-73); Platelet Count 181 X10*3/uL (160-400); Red Blood Count 3.16 X10*6/uL (4.20-5.50); Red Cell Distribution Width 14.3 % (11.0-16.0); White Blood Count 3.5 X10*3/uL (4.8-10.8)
== END 2024-07-13 15:03 | disposition home or self-care (01) ==
LOC: HO.XRAY 15:02
PROVIDERS: PCP Internal Medicine; Visit Provider Physician Assistant
DX: R53.83 Other fatigue (principal); R05.3 Chronic cough
CPT/HCPCS: 36415; 71046; 85025

== ENCOUNTER 2024-09-27 01:29 | Observation (INO) | payer MEDICARE, OTHER, SELFPAY ==
[2024-09-27] VITALS (9 sets, daily range): BP systolic 122–205; BP diastolic 58–93; PULSE 89–107; RESP 16–20; TEMP 36.3–36.8; O2SAT 92–99; BMI 24.3
--- NOTE | ~2024-09-27 | CT_ITS ---
CLINICAL HISTORY: Fall with possible head strike CT head without contrast Comparison: CT/REG/SR - CT HEAD/BRAIN WO CON - 11/16/2021 05:45 AM EDT Findings: No intra-axial mass, midline shift, hydrocephalus, or acute hemorrhage. There is moderate cortical atrophy. Low-attenuation changes in the periventricular white matter are most compatible with microvascular ischemia. There is no sinus or mastoid fluid. The orbits are unremarkable. There is no acute fracture. IMPRESSION: 1. No acute intracranial findings. Involutional changes. This document has been electronically signed by: Burke Paul MD on 09/28/2024 01:07:41
--- NOTE | ~2024-09-27 | XR_ITS ---
EXAMINATION: XR LUMBOSACRAL SPINE CLINICAL INFORMATION: pain COMPARISON: July 25, 2017. TECHNIQUE: Three views of the lumbosacral spine. FINDINGS: Superior endplate compression deformity representing 40% volume loss, at L1. No gross retropulsion. Multilevel marginal osteophyte formation and endplate sclerosis and decreased intervertebral disc height more conspicuous at L5-S1 and L2-3 levels. Calcified plaques abdominal aorta. XR/XR lumbar spine 2-3V IMPRESSION: Acute/to subacute superior endplate compression fracture representing 40% volume loss at L1. Multilevel spondylosis. Atherosclerosis disease, abdominal aorta. Electronically signed by: Leonard Contreras MD 09/27/2024 08:52 AM EST
--- NOTE | 2024-09-27 01:54 | ED_ITS ---
HPI - Back Pain/Injury General Chief Complaint: Back Pain/Injury Stated Complaint: low back pain Time Seen by Provider: 09/27/24 01:50 Source: patient Mode of arrival: ambulatory Limitations: no limitations History of Present Illness ED Provider: Dr. Harpreet Kumari HPI Narrative: 69-year-old female with a history of subdural hematoma, rheumatoid arthritis, IBS, hypertension, TIA, lupus, bipolar disorder who presents emergency department for evaluation of severe lower back pain. According to the ED nurse, the patient ?threw out her back? 2 weeks prior. Patient was treated with lorazepam but no pain medicines. Patient states that today she was in the bathroom she got up twisted causing severe pain in her back and then she struck a wall and lowered herself to the ground. The patient was your pain and her was unable to get her off the ground. He called 911 and the patient was transported to the emergency department for evaluation. Here in the emergency department the patient states that her pain is greater than 10/10. She points to her lower mid back when asked to localize the pain. She states the pain is worse with movement. She denied any numbness or weakness of her lower extremities. She denied loss of bowel or bladder control. She states she was not ill in any way prior to twisting this. She denied fever, chills, chest pain, shortness of breath, nausea, vomiting or diarrhea. Related Data Home Medications ?Medication ?Instructions ?Recorded ?Confirmed bupropion HCl 300 mg 24 hr tablet, 300 mg PO BEDTIME 07/10/21 09/27/24 extended release hydroxychloroquine 200 mg tablet 200 mg PO DAILY 07/10/21 09/27/24 lamotrigine 200 mg tablet 400 mg PO BEDTIME 07/10/21 09/27/24 metoprolol succinate 25 mg 37.5 tab PO DAILY 07/10/21 09/27/24 tablet,extended release 24 hr omeprazole 40 mg capsule,delayed 40 mg PO DAILY@0630 07/10/21 09/27/24 release leflunomide 10 mg tablet 10 mg PO DAILY 11/16/21 09/27/24 diclofenac sodium 50 mg 50 mg PO BID 09/27/24 09/27/24 tablet,delayed release duloxetine 30 mg capsule,delayed 30 mg PO DAILY 02/03/25 02/03/25 release lorazepam 2 mg tablet 2 mg PO DAILY 09/27/24 09/27/24 Previous Rx's ?Medication ?Instructions ?Recorded atorvastatin 40 mg tablet (Lipitor) 40 mg PO DAILY 30 days #30 tabs 07/11/21 Allergies Allergy/AdvReac Type Severity Reaction Status Date / Time codeine AdvReac Nausea Verified 09/27/24 01:36 Review of Systems 2 Review of Systems: Yes all other systems are reviewed and are negative [facility] Past Medical History [facility] Narrative: Social history: The patient denies tobacco and alcohol use. She denies drug use. She lives with her . Medical History (Updated 09/28/24 @ 08:23 by Donal Lowe MD) L1 vertebral fracture Subdural hematoma Rheumatoid arthritis IBS (irritable bowel syndrome) HTN (hypertension) TIA (transient ischemic attack) Lupus Bipolar disorder Surgical History No history of previous surgery Social History Social History Household Members: Significant Other Housing: House Do you presently have visiting nurse or other home services: No Alcohol intake: never Patient Tobacco Use Status: Current someday Tobacco user Tobacco use type: Smokeless Tobacco Second Hand Smoke Exposure: No Substance Use Type: Marijuana service: No Current occupational status: retired Physical Exam 2 Vital Signs: Vital Signs: Last Vital Signs Temp 97.6 F 09/28/24 07:48 Pulse 99 09/28/24 07:48 Resp 16 09/28/24 07:48 BP 159/72 H 09/28/24 07:48 Pulse Ox 92 09/28/24 07:48 O2 Del Method Room Air 09/28/24 07:48 BMI result Body Mass Index 24.3 Vital signs revealed an elevated heart rate of 107 and elevated blood pressure of 205/93-most likely secondary to her severe pain Exam: General: Awake, patient was moaning and pain, she was able to answer questions Head: Normocephalic, atraumatic EENT: PERRL, Lids normal, sclera normal, conjunctiva normal, nose normal , ears normal, throat without erythema or exudates Neck: Supple, no adenopathy Lung: breath sounds symmetric, no wheezing, rales or rhonchi Chest: symmetric movement, nontender Heart: regular rate and rhythm, normal S1, S2 no murmurs or rubs Abdomen: soft, non-tender, nondistended, normal bowel sounds Back: no vertebral tenderness, tenderness palpation of her paraspinal muscles bilaterally in the lumbar sacral area, there was spasm of these muscles Extremities: no deformities, moves all extremities symmetrically Neuro: Awake, alert, oriented, normal speech, cranial nerves intact, moves all extremities symmetrically Psych: Pleasant, cooperative Medications Administered Generic Name Dose Route Start Last Admin Trade Name Freq PRN Reason Stop Dose Admin Acetaminophen 650 mg 09/27/24 08:06 09/28/24 07:12 Acetaminophen 325 Mg Tablet PO 650 mg Q6H PRN Administration Pain, Mild 1-3,fever,headache Atorvastatin Calcium 40 mg 09/28/24 09:00 09/28/24 08:12 Atorvastatin Calcium 40 Mg Tablet PO 40 mg DAILY MAURI Administration Bupropion HCl 300 mg 09/27/24 21:00 09/27/24 20:17 Bupropion Hcl Xl 300 Mg Tab.Er.24h PO 300 mg BEDTIME MAURI Administration Cyclobenzaprine HCl 5 mg 09/27/24 09:00 09/28/24 08:12 Cyclobenzaprine Hcl 5 Mg Tablet PO 5 mg TID MAURI Administration Diclofenac Sodium 50 mg 09/27/24 21:00 09/28/24 08:12 Diclofenac Sodium Delayed Rel 50 Mg Tablet. PO 50 mg BID MAURI Administration Duloxetine HCl 30 mg 09/28/24 09:00 09/28/24 08:12 Duloxetine Hcl 30 Mg Capsule. PO 30 mg DAILY MAURI Administration Enoxaparin Sodium 40 mg 09/28/24 10:00 09/28/24 09:56 Enoxaparin Sodium 40 Mg/0.4 Ml Syringe SUBCUT 40 mg Q24H MAURI Administration Hydroxychloroquine Sulfate 200 mg 09/27/24 11:00 09/28/24 08:13 Hydroxychloroquine Sulfate 200 Mg Tablet PO 200 mg DAILY MAURI Administration Lamotrigine 400 mg 09/27/24 21:00 09/27/24 20:16 Lamotrigine 100 Mg Tablet PO 400 mg BEDTIME MAURI Administration Leflunomide 10 mg 09/27/24 11:00 09/28/24 08:13 Leflunomide 10 Mg Tablet PO 10 mg DAILY MAURI Administration Lorazepam 2 mg 09/28/24 09:00 09/28/24 08:12 Lorazepam 1 Mg Tablet PO 2 mg DAILY MAURI Administration Metoprolol Succinate 37.5 mg 09/28/24 09:00 09/28/24 08:12 Metoprolol Succinate Er 12.5 Mg Halftab.Er.24h PO 37.5 mg DAILY MAURI Administration Protocol Morphine Sulfate 4 mg 09/27/24 08:03 09/28/24 09:56 Morphine Sulfate 4 Mg/Ml Cartridge IVPUSH 4 mg Q4H PRN Administration Pain, Severe (Pain Scale 7-10) Protocol Omeprazole 40 mg 09/28/24 06:30 09/28/24 05:56 Omeprazole 40 Mg Capsule.Dr PO 40 mg DAILY@0630 MAURI Administration Sodium Chloride 3 ml 09/27/24 16:00 09/28/24 08:11 0.9 % Sodium Chloride Flush 3 Ml Syringe IVFLUSH 3 ml QSHIFT MAURI Administration Discontinued Medications Generic Name Dose Route Start Last Admin Trade Name Freq PRN Reason Stop Dose Admin Ketorolac Tromethamine 15 mg 09/27/24 01:55 09/27/24 01:59 Ketorolac Tromethamine 15 Mg/Ml Vial IVPUSH 09/27/24 01:56 15 mg ONCE STA Administration Lorazepam 1 mg 09/27/24 06:26 09/27/24 06:46 Lorazepam 1 Mg Tablet PO 09/27/24 06:27 1 mg ONCE ONE Administration Lorazepam 2 mg 09/27/24 08:06 09/27/24 08:42 Lorazepam 2 Mg/Ml Vial IVPUSH 2 mg Q4H PRN Administration back spasms breakthrough Morphine Sulfate 4 mg 09/27/24 01:55 09/27/24 01:59 Morphine Sulfate 4 Mg/Ml Cartridge IVPUSH 09/27/24 01:56 4 mg ONCE STA Administration Protocol Morphine Sulfate 4 mg 09/27/24 03:56 09/27/24 04:02 Morphine Sulfate 4 Mg/Ml Cartridge IVPUSH 09/27/24 03:57 4 mg ONCE STA Administration Protocol Morphine Sulfate 4 mg 09/27/24 06:05 09/27/24 06:46 Morphine Sulfate 4 Mg/Ml Cartridge IVPUSH 09/27/24 06:06 4 mg ONCE STA Administration Protocol Ondansetron HCl 4 mg 09/27/24 03:56 09/27/24 04:02 Ondansetron Hcl 4 Mg/2 Ml Vial IVPUSH 09/27/24 03:57 4 mg ONCE ONE Administration Medical Decision Making Medical Decision Making [facility] Narrative: 69-year-old female with a history of subdural hematoma, rheumatoid arthritis, IBS, hypertension, TIA, lupus, bipolar disorder who presents emergency department for evaluation of severe lower back pain. Back 2 weeks prior and was taking lorazepam for spasm, she twisted while she was in the using severe pain in her lower back. The patient states that she fell against the wall then lowered herself to the ground. She had no head strike or injury. She was in severe in her was unable to get her off the ground and the patient was transported to the emergency department by ambulance. Vital signs revealed elevated heart rate and blood pressure most likely secondary to pain. Patient did have significant tenderness palpation of the paraspinal muscles in the lumbar sacral area bilaterally with no point tenderness or vertebrae. Neurologic exam was nonfocal. Differential diagnosis: ?Includes but is not limited to lumbar sacral sprain, lumbar sacral strain, muscle spasm, vertebral fracture Course: 02:00 Patient was presentation and findings are consistent with musculoskeletal strain of the lumbar sacral paraspinal muscles. Patient was treated with Toradol 15 mg IV and Zofran 4 mg IV 06:08 The patient did receive a 2nd dose of morphine 4 mg IV with only minimal improvement of her pain. Her pain came down from 10/10 to 7/10. Examination revealed no point tenderness over vertebrae but she still has significant tenderness palpation over her right paraspinal muscles. I ordered a 3rd dose of morphine 4 mg IV. At this time, I do not think that the patient will be able to be discharged home and will need to be admitted for intractable pain. Patient's presentation was discussed over tiger with the covering hospitalist, Dr. Ozuna. After this discussion, I ordered Ativan 1 mg orally for spasm , laboratory evaluation and physical therapy consult. The patient will be admitted to the hospitalist service for further management. Admission/Observation Consideration of admission/observation: Escalation of care including admission/observation considered (Yes) Consult Healthcare Provider Management of the patient was discussed with: Hospitalist Lab Data [facility] Lab Attestation statement: I reviewed the patient's lab results. My independent interpretation patient's laboratory evaluation is as follows: Chronic normal static anemia with an H&H of 9.8 and 28.8 . Platelet count was normal. CMP revealed an elevated glucose of 119, elevated alk-phos of 124. C reactive protein was elevated . ESR was elevated 55. Urinalysis did not reveal any evidence for urinary tract infection. Patient does have elevations in her C-reactive protein And ESR, but I do not think that she has infectious process is the cause of her back pain. 09/27/24 06:44 09/27/24 06:44 Labs: Lab Results 09/27/24 Range/Units 06:44 WBC 4.8 (4.8-10.8) X10*3/uL RBC 3.17 L (4.20-5.50) X10*6/uL Hgb 9.8 L (12.0-16.0) g/dl Hct 28.8 L (37.0-47.0) % MCV 90.9 (80.0-98.0) fL MCH 30.9 (27.0-33.0) pg MCHC 34.0 (31.0-35.0) g/dl RDW 13.2 (11.0-16.0) % Plt Count 164 (160-400) X10*3/uL MPV 9.1 L (9.4-12.3) fL Immature Gran % (Auto) 0.6 H (0.0-0.4) % Neut % (Auto) 78.3 H (45-73) % Lymph % (Auto) 10.5 L (20-40) % [place] % (Auto) 9.8 (2-11) % Eos % (Auto) 0.4 (0-4) % Baso % (Auto) 0.4 (0-2) % Lymph # (Auto) 0.5 L (1.2-4.9) X10*3/uL [place] # (Auto) 0.5 (0.1-1.2) X10*3/uL Eos # (Auto) 0.0 (0.0-0.4) X10*3/uL Baso # (Auto) 0.0 (0.0-0.2) X10*3/uL Abs Immat Gran (auto) 0.03 (0.00-0.03) X10*3/uL Absolute Neuts (auto) 3.7 (2.0-8.3) x10*3/uL Absolute Nucleated RBC 0.000 (0.0-0.012) X10*3/uL Nucleated RBC % (auto) 0.0 (0.0-0.2) /100WBC ESR 55 H (0-20) MM/HR Sodium 141 (135-145) mmol/L Potassium 3.9 (3.3-5.1) mmol/L Chloride 107 (96-108) mmol/L Carbon Dioxide 23 (22-29) mmol/L Anion Gap 15 (12-20) BUN 13 (9-16) mg/dL Creatinine 0.72 (0.5-1.4) mg/dL Estim Creat Clear Calc 62.7 Estimated GFR > 60 Random Glucose 119 H (60-115) mg/dL Calcium 9.3 (8.4-10.2) mg/dL Total Bilirubin 0.2 (0.0-1.0) mg/dL AST 27 (5-31) U/L ALT 12 (0-31) U/L Alkaline Phosphatase 124 H (39-117) U/L Total Creatine Kinase 79 (26-140) U/L C-Reactive Protein 1.01 H (< or = 0.50) mg/dL Total Protein 6.7 (6.5-8.0) g/dL Albumin 4.0 (3.5-5.0) g/dL Independent Historian Clinical information obtained from an independent historian. History obtained from or confirmed by: Spouse Chronic Conditions Patient?s care impacted by: Hypertension and Other (Rheumatoid arthritis) Discharge Plan Discharge Clinical Impression: Strain of lumbar region, Intractable back pain Patient Disposition: Admitted As Inpatient Interventions: Admission Worksheet (ED) Last Done: 09/27/24 09:37 Discharge Date/Time: 09/27/24 10:32
--- NOTE | 2024-09-27 01:55 | PC.NURSE ---
MD dee made aware that pt extremely uncomfortable and unable to sit still d/t pain. at bedside assessing pt now
[2024-09-27] MEDS: Morphine Sulfate 4 MG/ML CARTRIDGE IVPUSH ×5 (01:59→17:43)
[2024-09-27] MEDS: Ketorolac Tromethamine 15 MG/ML VIAL IVPUSH (01:59)
--- OUTSIDE RECORDS SUMMARY | 2024-09-27 02:00 | XMS_ITS | Data Portability ---
Author Organization [facility] Home Service Address [address] [place] [address] Assessment No assessment recorded. Plan of Treatment Reminders Order Date Submit Date Provider Last Modified By Organization Details Last Modified Time Details Appointments None recorded. Lab vitamin B12 + folate, serum or blood 2023 [facility] (Lab), [address] [place] [address], [id number], 4 14:20:30 vitamin D, 25-hydroxy , total, serum 2023 [facility] (Lab), [address] [place] [address], [address], 4 11:24:46 TSH + free T4, serum 2023 [facility] (Lab), [address] [place] [address], [address], 4 14:20:30 iron + TIBC + ferritin, serum 2023 [facility] (Lab), [address] [place] [address], [address], 4 14:20:30 CBC w/ auto diff 2023 [facility] (Lab), [address] [place] [address], [address], 4 14:20:30 CMP, serum or plasma 2023 024 [facility] (Lab), [address] [place], [address], 4 14:20:30 magnesium, serum or plasma 2023 024 [facility] (Lab), [address] [place], [address], 4 14:20:30 ESR (erythrocy te sedimentat ion rate), blood 2023 [facility] (Lab), [address] [place], [address], 4 14:20:30 C-reactive protein, quantitati ve, serum or plasma 2023 [facility] (Lab), [address] [place], [address], 4 14:20:30 Referral None recorded. Procedures None recorded. Surgeries None recorded. Imaging XR, chest, 2 view 2023 [facility], [address] [place], [address], 4 19:24:35 Medication Orders eszopiclon e 1 mg tablet 2022 023 [facility][id number], [address], [place], [id number], 3 11:01:34 doxepin 6 mg tablet 2022 023 [facility] #[id number], [address], [place], [id number], 4 16:29:28 ondansetro n 8 mg disintegra ting tablet 2023 024 [facility], [address] [facility], [place], [address], 14:20:33 omeprazole 40 mg capsule,de layed release 2023 024 [facility], [address] [facility], [place], [address], 4 10:58:32 primidone 50 mg tablet 2023 024 [facility] #[id number], [address] [place], [address], 10:12:41 lorazepam 2 mg tablet 2023 024 [id number], [address] [place], [address], 14:16:17 Patient TargetsNo targets recorded. Patient InstructionsNo instructions recorded. Reason for Referral None Reported. Results Created Date Observation Date Name Description Value Unit Range Abnormal Flag Note LastModifiedBy Organization Detail LastModifiedTime 09/27/1909/27/2023 CT, abdom en + pelvi s, w/ contr ast No observ ation record ed. [email or web address] [facility] (Medical Records) [address] [place], [address], 09/28/2023 09:30:05 01/24/20 24 12/30/2023 MAMMO , scree jason, digit al, bilat eral No observ ation record ed. [email or web address] [facility] [address] [place] [address] [place], [address], 01/25/2024 09:20:22 07/13/20 24 07/13/2024 XR, chest , 2 view No observ ation record ed. [email or web address] [facility] (Medical Records) [address] [place], [address], 07/14/2024 09:04:08 Result Notes None recorded. Problems Name Problem SNOMED Code Status Onset Date Resolution Date Notes Provider Name and Address Organization Details Recorded Time Systemic lupus erythemat osus 68253898 Active 2019 Not Available [facility] 3 18:59:09 Paronychi a of finger of right hand 175763834205 23339 Active 2019 Not Available [facility] 3 18:59:08 Seronegat lionel rheumatoi d arthritis 246977408 Active 2020 Not Available [facility] 3 18:59:08 Hypertens lionel encephalo juan luis 07614044 Active 2021 Not Available [facility] 3 18:59:08 Fall Active 2021 Not Available [facility] 3 18:59:08 Dysuria 17462144 Active 2021 Not Available [facility] 3 18:59:08 Acute urinary tract infection 194410380 Active 2021 Not Available [facility] 3 18:59:08 Urinary incontine nce 565399621 Active 2021 Not Available [facility] 3 18:59:08 Cervical radiculop athy 79100050 Active 2021 Not Available [facility] 3 18:59:08 Rib pain 890647979 Active 2021 Not Available [facility] 3 18:59:08 Dizziness 511200879 Active 2021 Not Available [facility] 3 18:59:08 Tremor 53785572 Active 2021 Not Available [facility] 3 18:59:08 Impacted cerumen of bilateral ears 808982611701 9108 Active 2021 Not Available [facility] 3 18:59:08 Impacted cerumen 84961304 Active 2021 Not Available [facility] 3 18:59:08 Cough 31041565 Active 2021 Not Available [facility] 3 18:59:08 Insomnia 697515222 Active 2022 Not Available [facility] 3 18:59:08 Multi-inf arct dementia 04612447 Active 2022 Not Available [facility] 3 18:59:09 Seizure disorder 384874552 Active 2022 Not Available [facility] 3 18:59:08 Subdural hematoma 83773225 Active 2022 Not Available [facility] 3 18:59:09 Memory impairmen t 632796929 Active 2022 Not Available [facility] 3 18:59:08 Allergic rhinitis 34547677 Active 2022 Not Available [facility] 3 18:59:09 Fatigue 93615725 Active 2022 Not Available [facility] 3 18:59:09 Vitamin D deficienc y 88339902 Active 2022 Not Available [facility] 3 18:59:08 Iron deficienc y anemia 35665628 Active 2022 Not Available [facility] 3 18:59:09 Nausea 533989094 Active 2022 Not Available [facility] 3 18:59:08 Fever with chills 804921525 Active 2022 Not Available [facility] 3 18:59:08 Bipolar disorder 25961499 Active 2017 Not Available [facility] 3 18:59:08 Hypertens lionel disorder 08014843 Active 2017 Not Available [facility] 3 18:59:08 Acid reflux 487006642 Active 2017 Not Available [facility] 3 18:59:09 Anxiety disorder 034291133 Active 2017 Not Available [facility] 3 18:59:08 Chronic constipat ion 846023145 Active 2017 Not Available [facility] 3 18:59:08 Diarrhea 73192805 Active 2023 GATO BRENNAN [address] [place] [address], [address], [facility] [place] 4 13:38:28 Nausea and vomiting 67797665 Active 2023 GATO BRENNAN [address] [place] [address], [address], [facility] [place] 4 10:55:51 Gastroeso phageal reflux disease 647590810 Active 2023 GATO BRENNAN [address] [place] [address], [address], [facility] [place] 4 10:57:39 Acute gastroent eritis 16312652 Active 2023 GATO BRENNAN [address] [place] [address], [address], [facility] [place] 4 11:00:39 Isolated head tremor 568564970 Active 2023 GATO BRENNAN [address] [place] [address], [address], [facility] [place] 4 10:10:19 Acute bronchiti s 93880677 Active 2023 GATO BRENNAN [address] [place] [address], [address], [facility] [place] 4 13:50:08 Leukopeni a 77545502 Active 2023 GATO BRENNAN [address] [place] [address], [address], [facility] [place] 4 15:51:30 Problem Notes None recorded. Procedures Surgical History Date Name Laterality Status Provider Name and Address Organization Details Recorded Time 2 Cerumen Removal completed GATO BRENNAN [address] [place] [address], [address], [facility] [place] 03/05/2022 11:40:45 2 Cerumen Removal completed GATO BRENNAN [address] [place] [address], [address], [facility] [place] 03/01/2022 12:04:20 0 Cerumen Removal completed GATO BRENNAN [address] [facility], [place], [address], [facility] [place] 05/22/2020 16:19:48 Imaging Results Imaging Date Name Status LastModified by Organiz ation Details LastModified Time 09/27/2023 CT, abdomen + pelvis, w/ contrast completed [email or web address] [facility] (Medical Records) [address] [place], [address], 09/28/2023 09:30:05 12/30/2023 MAMMO, screening, digital, bilateral completed [email or web address] [facility] [address] [place] [address] [place], [address], 01/25/2024 09:20:22 07/13/2024 XR, chest, 2 view completed [email or web address] [facility] (Medical Records) [address] [place], [address], 07/14/2024 09:04:08 Procedure Notes None recorded. Medical Equipment None Reported. Allergies Allergen ID Allergen Name Allergen Category Reaction Reaction Severity Criticality Documentation Date Start Date Code Code System Note Provider Name and Address Organization Details Recorded Time 688 codeine medicatio n Not available Not available Not available 11/19/2017 2670 RxNorm Emily Bose [facility] 8 14:48:46 Medications Name Sig Start Date Stop Date Status Note LastModified by Organization Details LastModified Time celecoxib 200 mg capsule TAKE 1 CAPSULE BY MOUTH TWICE DAILY 06/17 completed Not Available Not Available Not Available cyclobenzap rine 10 mg tablet 03/23 completed Not Available Not Available Not Available amoxicillin 500 mg capsule TAKE 1 CAPSULE BY MOUTH EVERY 8 HOURS FOR 10 DAYS active Not Available Not Available No t Available atorvastati n 40 mg tablet TAKE 1 TABLET DAILY active Not Available Not Available No t Available lamotrigine 150 mg tablet Take 2 tablets every day by oral route for 90 days. 05/17 completed Not Available Not Available Not Available metformin 500 mg tablet TAKE 1 TABLET BY MOUTH TWICE DAILY active Not Available Not Available No t Available primidone 50 mg tablet TAKE 1 TABLET BY MOUTH THREE TIMES A DAY NEEDED FOR 14 DAYS active Not Available Not Available No t Available venlafaxine ER 37.5 mg capsule,ext ended release 24 hr TAKE 1 CAPSULE BY MOUTH EVERY DAY 07/09 completed Not Available Not Available Not Available clonidine HCl 0.1 mg tablet take 1 tablet by mouth twice a day 12/16 completed Not Available Not Available Not Available acetaminoph en 325 mg tablet TAKE 2 TABLETS BY MOUTH EVERY 4 HOURS NEEDED FOR HEADACHE 01/14 completed Not Available Not Available Not Available prednisone 10 mg tablet TAKE 4 TABS DAILY X3 DAYS THEN 3 TABS DAILY X3 DAYS THEN 2 TABS DAILY X3 DAY THEN 1 TAB DAILY X3 DAY 07/09 completed Not Available Not Available Not Available doxycycline hyclate 100 mg capsule TAKE 1 CAPSULE BY MOUTH TWICE A DAY FOR 10 DAYS 07/09 completed Not Available Not Available Not Available naproxen 375 mg tablet 04/12 completed Not Available Not Available Not Available lamotrigine 200 mg tablet TAKE 2 TABLETS ONCE DAILY active Not Available Not Available No t Available trazodone 50 mg tablet TAKE 1-2 TABLETS BY MOUTH AN HOUR PRIOR TO BEDTIME NEEDED 06/09 completed Not Available Not Available Not Available azithromyci n 250 mg tablet 03/23 completed Not Available Not Available Not Available fluconazole 150 mg tablet Take 1 tablet every day by oral route for 2 days. 05/17 completed Not Available Not Available Not Available hydrocodone 5 mg-acetamin ophen 325 mg tablet TAKE ONE TABLET BY MOUTH EVERY 4-6 HRS NEEDED 07/09 completed Not Available Not Available Not Available minocycline 100 mg capsule 05/17 completed Not Available Not Available Not Available meloxicam 15 mg tablet TAKE 1 TABLET BY MOUTH DAILY active Not Available Not Available No t Available ondansetron HCl 4 mg tablet TAKE 1 TABLET BY MOUTH EVERY 4 TO 6 HOURS NEEDED FOR NAUSEA 07/09 completed Not Available Not Available Not Available prednisone 20 mg tablet Take 1 tablet every day by oral route for 5 days. 04/05 completed Not Available Not Available Not Available prednisone 5 mg tablet 09/19 completed Not Available Not Available Not Available Toprol XL 50 mg tablet,exte nded release 1 po daily 02/12 completed Not Available Not Available Not Available leflunomide 10 mg tablet TAKE 1 TABLET BY MOUTH EVERY DAY active Not Available Not Available No t Available meclizine 12.5 mg tablet TAKE 1 TABLET BY MOUTH EVERY DAY NEEDED 10/16 completed Not Available Not Available Not Available metronidazo le 500 mg tablet TAKE 1 TABLET BY MOUTH EVERY 8 HOURS FOR 5 DAYS 04/09 completed Not Available Not Available Not Available ciprofloxac in 250 mg tablet TAKE 1 TABLET BY MOUTH TWICE DAILY FOR 7 DAYS 07/02 completed Not Available Not Available Not Available ciprofloxac in 500 mg tablet TAKE 1 TABLET BY MOUTH TWICE DAILY FOR 5 DAYS 10/10 completed Not Available Not Available Not Available sulfamethox azole 800 mg-trimetho prim 160 mg tablet TAKE 1 TABLET BY MOUTH EVERY 12 HOURS FOR 7 DAYS 12/19 completed Not Available Not Available Not Available omeprazole 40 mg capsule,del ayed release TAKE 1 CAPSULE BY MOUTH DAILY active Not Available Not Available No t Available leflunomide 20 mg tablet TAKE 1 TABLET BY MOUTH DAILY active Not Available Not Available No t Available tramadol 50 mg tablet Take 1 tablet every 6 hours by oral route as needed for 7 days. 05/31 completed Not Available Not Available Not Available ondansetron 8 mg disintegrat ing tablet Place 1 tablet twice a day by transling ual route as needed for 30 days. 07/09 completed Not Available Not Available Not Available lamotrigine 25 mg tablet 05/17 completed Not Available Not Available Not Available meloxicam 7.5 mg tablet TAKE 1 TABLET BY MOUTH DAILY 06/09 completed Not Available Not Available Not Available carbamazepi ne 200 mg tablet Take 2 tablets every day by oral route for 90 days. active Not Available Not Available No t Available oxycodone-a cetaminophe n 5 mg-325 mg tablet Take 1 tablet 4 times a day by oral route as needed for 7 days. 05/31 completed Not Available Not Available Not Available alprazolam 0.5 mg tablet 05/31 completed Not Available Not Available Not Available lorazepam 0.5 mg tablet TAKE 1 TABLET BY MOUTH THREE TIMES DAILY NEEDED 11/06 completed Not Available Not Available Not Available methotrexat e sodium 2.5 mg tablet 11/24 completed Not Available Not Available Not Available betamethaso ne valerate 0.1 % topical cream PRN 05/31 completed Not Available Not Available Not Available lorazepam 2 mg tablet TAKE 1 TABLET BY MOUTH THREE TIMES A DAY FOR 30 DAYS active Not Available Not Available No t Available meclizine 25 mg tablet TAKE 1 TABLET BY MOUTH THREE TIMES A DAY NEEDED FOR 10 DAYS active Not Available Not Available No t Available prednisone 2.5 mg tablet 04/05 completed Not Available Not Available Not Available cephalexin 500 mg capsule Take 1 capsule every 6 hours by oral route for 10 days. 05/17 completed Not Available Not Available Not Available hyoscyamine sulfate 0.125 mg tablet Take 1 tablet every day by oral route for 90 days. 04/04 completed Not Available Not Available Not Available tacrolimus 0.1 % topical ointment 11/24 completed Not Available Not Available Not Available carbamazepi ne 100 mg chewable tablet Chew 0.5 tablets every day by oral route for 30 days. 05/17 completed Not Available Not Available Not Available Lamictal 100 mg tablet Take 3 tablets every day by oral route. 06/29 completed Not Available Not Available Not Available mupirocin calcium 2 % topical cream APPLY A SMALL AMOUNT TO THE AFFECTED AREA BY TOPICAL ROUTE 3 TIMES PER DAY FOR 10 DAYS 05/31 completed Not Available Not Available Not Available docusate sodium 100 mg capsule TAKE 1 CAPSULE BY MOUTH TWO TIMES A DAY 11/27 completed Not Available Not Available Not Available oxybutynin chloride ER 5 mg tablet,exte nded release 24 hr 1 tab qd active Not Available Not Available Not Available gabapentin 300 mg capsule TAKE 1 CAPSULE BY MOUTH TWICE DAILY 01/14 completed Not Available Not Available Not Available omeprazole 20 mg capsule,del ayed release Take 2 capsules every day by oral route. 06/29 completed Not Available Not Available Not Available folic acid 1 mg tablet Take 1 tablet every day by oral route. 11/27 completed Not Available Not Available Not Available halobetasol propionate 0.05 % topical cream 11/24 completed Not Available Not Available Not Available diclofenac sodium 50 mg tablet,heena yed release TAKE 1 TABLET 2 TIMES DAILYWITH FOOD active Not Available Not Available No t Available metoprolol succinate ER 25 mg tablet,exte nded release 24 hr TAKE 1 AND 1/2 TABLETS DAILY active Not Available Not Available No t Available ergocalcife rol (vitamin D2) 1,250 mcg (50,000 unit) capsule TAKE 1 CAPSULE BY MOUTH EVERY WEEK 06/09 completed Not Available Not Available Not Available clobetasol 0.05 % topical ointment APPLY TOPICALLY TO THE AFFECTED AREA TWICE DAILY 10/16 completed Not Available Not Available Not Available lorazepam 1 mg tablet TAKE 1 TABLET 3 TIMES A DAY BY ORAL ROUTE NEEDED. 07/09 completed Not Available Not Available Not Available hydroxychlo roquine 200 mg tablet TAKE 1 TABLET BY MOUTH EVERY DAY active Not Available Not Available No t Available ibuprofen 600 mg tablet TAKE 1 TABLET BY MOUTH EVERY 4 TO 6 HOURS NEEDED active Not Available Not Available No t Available zolpidem 10 mg tablet TAKE 1 TABLET BY MOUTH EVERY DAY AT BEDTIME 11/06 completed Not Available Not Available Not Available methylpredn isolone 4 mg tablets in a dose pack TAKE 6 TABLETS ON DAY 1 DIRECTED ON PACKAGE AND DECREASE BY 1 TAB EACH DAY FOR A TOTAL OF 6 DAYS active Not Available Not Available No t Available betamethaso ne dipropionat e 0.05 % topical ointment 11/24 completed Not Available Not Available Not Available clobetasol 0.05 % scalp solution 05/17 completed Not Available Not Available Not Available ondansetron 4 mg disintegrat ing tablet DISSOLVE 1 TABLET UNDER THE TONGUE EVERY 4 TO 6 HOURS NEEDED FOR NAUSEA 07/09 completed Not Available Not Available Not Available fluticasone propionate 50 mcg/actuati on nasal spray,suspe nsion SHAKE LIQUID AND USE 1 SPRAY IN EACH NOSTRIL EVERY DAY active Not Available Not Available No t Available metronidazo le 0.75 % topical gel 06/29 completed Not Available Not Available Not Available doxycycline hyclate 100 mg tablet TK 1 T PO BID 11/24 completed Not Available Not Available Not Available dicyclomine 10 mg capsule TAKE 1 CAPSULE BY MOUTH THREE TIMES DAILY NEEDED FOR ABDOMINAL DISCOMFOR T 07/09 completed Not Available Not Available Not Available amoxicillin 875 mg-potassiu m clavulanate 125 mg tablet TAKE 1 TABLET BY MOUTH EVERY 12 HOURS FOR 10 DAYS 07/09 completed Not Available Not Available Not Available oxycodone 5 mg tablet TAKE 1 TABLET BY MOUTH EVERY 6 HOURS NEEDED FOR MODERATE PAIN 10/16 completed Not Available Not Available Not Available Adult Low Dose Aspirin 81 mg tablet,heena yed release TAKE 1 TABLET (81 MG) BY ORAL ROUTE NEEDED 2022 active Not Available Not Available Not Avai lable cyclobenzap rine 5 mg tablet TAKE 1 TABLET BY MOUTH EVERY NIGHT 10/16 completed Not Available Not Available Not Available bupropion HCl XL 300 mg 24 hr tablet, extended release TAKE 1 TABLET EVERY MORNING active Not Available Not Available No t Available mirtazapine 7.5 mg tablet Take 1 tablet every day by oral route at bedtime for 90 days. active Not Available Not Available No t Available duloxetine 20 mg capsule,del ayed release TAKE ONE CAPSULE BY MOUTH EVERY DAY 07/21 completed Not Available Not Available Not Available duloxetine 30 mg capsule,del ayed release TAKE 1 CAPSULE ONCE DAILY active Not Available Not Available No t Available eszopiclone 1 mg tablet Take 1 tablet every day by oral route for 14 days. 06/13 completed Not Available Not Available Not Available carbamazepi ne ER 200 mg capsule,ext ended release [id number] 07/09 completed Not Available Not Available Not Available Boostrix Tdap 2.5 Lf unit-8 mcg-5 Lf/0.5 mL intramuscul ar suspension 06/14 completed Not Available Not Available Not Available chlorhexidi ne gluconate 0.12 % mouthwash SWISH AND SPIT 15 ML BY MOUTH IN THE MORNING AND IN THE EVENING FOR 2 WEEKS 07/09 completed Not Available Not Available Not Available carbamazepi ne 2 tablets daily- 400 mg daily 06/29 completed Not Available Not Available Not Available Lipitor 01/14 completed Not Available Not Available Not Available Stool Softener 3 tabs daily 02/12 completed Not Available Not Available Not Available Miralax as needed 02/12 completed Not Available Not Available Not Available Abilify 2mg 1 po daily 10/30 completed Not Available Not Available Not Available oxycodone 10 mg tablet Take 1 tablet 4 times a day by oral route as needed for 7 days. 10/16 completed Not Available Not Available Not Available diclofenac 1 % topical gel APPLY 2 GRAMS EXTERNALL Y TO THE AFFECTED AREA FOUR TIMES DAILY active Not Available Not Available No t Available Prevnar 13 (PF) 0.5 mL intramuscul ar syringe 06/14 completed Not Available Not Available Not Available butalbital- acetaminoph en-caffeine 50 mg-300 mg-40 mg capsule Take 1 capsule every 6 hours by oral route as needed for 7 days. 05/17 completed Not Available Not Available Not Available Probiotic 1 daily 05/31 completed Not Available Not Available Not Available doxepin 6 mg tablet Take 1 tablet every day by oral route at bedtime for 90 days. 10/28 completed Not Available Not Available Not Available metoprolol succ 50 mg-hydrochl orothiazide 12.5 mg tablet,ext. rel 24 hr 1 po daily 06/22 completed Not Available Not Available Not Available Latuda 20 mg tablet 03/03 completed Not Available Not Available Not Available methotrexat e 2.5 mg tablet Take 4 tablets every week by oral route. 11/27 completed Not Available Not Available Not Available Linzess 290 mcg capsule 03/23 completed Not Available Not Available Not Available Latuda 60 mg tablet TAKE 1 TABLET BY MOUTH EVERY DAY AFTER A MEAL 07/02 completed Not Available Not Available Not Available Belsomra 10 mg tablet Take 1 tablet every day by oral route at bedtime for 7 days. 07/21 completed Not Available Not Available Not Available Vraylar 1.5 mg capsule TABLET ONE CAPSULE BY MOUTH EVERY NIGHT AT BEDTIME 01/14 completed Not Available Not Available Not Available Vraylar 3 mg capsule TAKE ONE TABLET AT BEDTIME active Not Available Not Available No t Available Trulance 3 mg tablet TAKE 1 TABLET BY MOUTH EVERY DAY 10/28 completed Not Available Not Available Not Available Shingrix (PF) 50 mcg/0.5 mL intramuscul ar suspension, kit ADM 0.5ML IM UTD 11/24 completed Not Available Not Available Not Available Lidocaine Pain Relief 4 % topical patch APPLY 1 PATCH TOPICALLY TO THE SKIN DAILY 06/09 completed Not Available Not Available Not Available Fluzone High-Dose Quad (PF) 240 mcg/0.7 mL IM syringe ADM 0.7ML IM UTD 11/24 completed Not Available Not Available Not Available Vitals Date Recorded Body height Body mass index (BMI) Body weight Heart rate Oxygen saturation Oxygen saturation in Arterial blood by Pulse oximetry Systolic blood pressure Diastolic blood pressure Provider Name and Address Organization Details Last Updated DateTime 3 165.74 cm 24.6 kg/m2 80114.1 9 g 81 /min 95 % 95 % 140 mm[Hg] 68 mm[Hg] Seema Fink [facility] 3 10:33:26 Date Recorded Body height Body mass index (BMI) Body weight Heart rate Oxygen saturation Oxygen saturation in Arterial blood by Pulse oximetry Systolic blood pressure Diastolic blood pressure Provider Name and Address Organization Details Last Updated DateTime 3 165.74 cm 24.3 kg/m2 87721.0 8 g 79 /min 95 % 95 % 130 mm[Hg] 70 mm[Hg] Sadaf Mary [facility] 3 11:47:48 Date Recorded Body height Body mass index (BMI) Body weight Heart rate Oxygen saturation Oxygen saturation in Arterial blood by Pulse oximetry Systolic blood pressure Diastolic blood pressure Provider Name and Address Organization Details Last Updated DateTime 4 165.74 cm 24.3 kg/m2 34797.0 8 g 96 /min 97 % 97 % 148 mm[Hg] 90 mm[Hg] Sadaf Mary [facility] 4 10:49:44 Date Recorded Body height Body mass index (BMI) Body weight Heart rate Oxygen saturation Oxygen saturation in Arterial blood by Pulse oximetry Systolic blood pressure Diastolic blood pressure Provider Name and Address Organization Details Last Updated DateTime 4 165.74 cm 22.8 kg/m2 89946.4 7 g 92 /min 98 % 98 % 146 mm[Hg] 92 mm[Hg] Jackie Baker [facility] 4 09:57:09 Date Recorded Body height Body mass index (BMI) Body weight Heart rate Oxygen saturation Oxygen saturation in Arterial blood by Pulse oximetry Systolic blood pressure Diastolic blood pressure Provider Name and Address Organization Details Last Updated DateTime 4 165.74 cm 23.5 kg/m2 04922.4 8 g 99 /min 95 % 95 % 156 mm[Hg] 88 mm[Hg] Jackie Baker [facility] 4 14:00:57 Social History Question Answer Notes LastModified by Organizat ion Details LastModified Time Tobacco Smoking Status Former Smoker Not Available [facility] 06/27/2020 03:36:23 What Was The Date Of Your Most Recent Tobacco Screening? 07/09/2024 [email or web address] Information not available 07/09/2024 Do You Or Have You Ever Used Any Other Forms Of Tobacco Or Nicotine? No [email or web address] Information not available 07/21/2023 Sex: Unknown Functional Status None recorded. Mental Status None recorded. Family History Nothing Reported. Medical History No medical history recorded. Gynecological HistoryNo gynecological history recorded. Obstetrics History GPAL:G 0 P 0 0 0 0 Immunizations Vaccine Type Date Status Note Provider Nam e and Address Organization Details Recorded Time influenza, unspecified formulation 4 completed [address] [facility] 06/11/2024 08:21:38 SARS-COV-2 (COVID-19) vaccine, UNSPECIFIED 4 completed Jackie rain [facility] 06/11/2024 08:21:46 Influenza, split virus, quadrivalent, preservative 9 completed Not Available [facility] 08/15/2023 18:59:09 pneumococcal polysaccharide PPV23 9 completed Not Available [facility] 08/15/2023 18:59:09 Influenza, split virus, quadrivalent, preservative 0 completed Not Available [facility] 08/15/2023 18:59:09 COVID-19, mRNA, LNP-S, PF, 30 mcg/0.3 mL dose 1 completed Not Available [facility] 08/15/2023 18:59:09 COVID-19, mRNA, LNP-S, PF, 30 mcg/0.3 mL dose 1 completed Not Available [facility] 08/15/2023 18:59:09 zoster recombinant 0 completed Not Available [facility] 08/15/2023 18:59:09 Pneumococcal conjugate PCV 13 0 completed Not Available [facility] 08/15/2023 18:59:09 zoster recombinant 1 completed Not Available [facility] 08/15/2023 18:59:09 Past Encounters Encounter ID Performer Location Encounter Start Date Encounter Closed Date Diagnosis/Indication Diagnosis SNOMED-CT Code Diagnosis ICD10 Code Diagnosis Note [id number] Myrna Colin NP, [facility] [address] [facility], [place] [address] 11/28/2017 13:28:02 11/28/2017 14:30:55 Bipolar disorder 55129658 F31.9 improved with abilify Gastroesop hageal reflux disease without esophagitis 670615879 K21.9 use omeprazole BID, continue dietary modificati ons including reduction in cola intake Localized, primary osteoarthritis of the hand 691067080 M19.049 Tylenol prn Essential hypertension 93430794 I10 stable Hyperlipidemia 81520740 E78.5 mediterran linda diet, will recheck labs February, aware continue walking daily Impacted cerumen 3486025 6 H61.20 cleared [id number] Myrna Colin NP, [facility] [address] [facility], [place] [address] 03/23/2018 10:28:15 03/23/2018 12:34:20 On examination - rash present 514629375 R21 written script- betamethas one , using [employer] discount card Hypertensive disorder 38 721110 I10 stable Hypercholesterolemia 136 26518 E78.2 will review Anxiety disorder 6256452 06 F41.9 abilify helpful [id number] Myrna Colin NP, S [facility] [address] [facility], [place] [address] 09/25/2018 10:20:28 09/25/2018 13:49:28 Anxiety disorder 024103587 F41.9 Bipolar disorder 1655682 4 F31.9 stable Hypertensive disorder 38 609379 I10 stable Gastroesop hageal reflux disease 608201405 K21.9 Chronic constipation 236 294617 K59.09 trulance- new 4 months ago-[facility] [id number] Myrna Colin NP, [facility] [address] [facility] [address],[place] [address] 10/30/2018 09:27:36 10/30/2018 10:36:32 Acid reflux 669468764 K21.9 Hypertensive disorder 38 335232 I10 stable Anxiety disorder 8092140 06 F41.9 Screening procedure 2012 5006 Z13.9 [id number] [facility] [address] [facility],[place] [address] 02/12/2019 09:54:22 02/12/2019 10:38:43 Multiple joint pain 51643843 M25.50 treat for lymp empiricall y with doxy 100 bid x 21 day pt requests written rx Fatigue 83168887 R53.83 Hypertensive disorder 38 669107 I10 Anxiety disorder 5356575 06 F41.9 Vitamin D deficiency 347 88445 E55.9 [id number] [facility] [address] [facility],[place] [address] 02/19/2019 14:13:08 02/19/2019 15:09:56 Hand joint pain 035589358 M25.549 Multiple joint pain 3567 8005 M25.50 primarily hands, wrists, elbows no injury Fatigue 11206233 R53.83 ? [place] [id number] Franko Graham DO [facility] [address] [facility],[place] [address] 03/01/2019 11:17:16 03/01/2019 12:03:57 Multiple joint pain 55017433 M25.50 oxycodon and pred given for next 3 days will also need to continue for now only taking half tab once a day will need to have her increase the dose back to where it should be Impetigo 56202580 L01.00 will add mupirocin [id number] Franko Graham DO [facility] [address] [facility],[place] [address] 03/03/2019 11:59:37 03/03/2019 12:46:37 Multiple joint pain 70527068 M25.50 oxycodon and pred will be given in a taper will also need to continue for now only taking half tab once a day [id number] Franko Graham DO [facility] [address] [facility] [address],[place] [address] 03/10/2019 13:22:52 03/10/2019 14:06:53 Multiple joint pain 22575456 M25.50 -complete prednisone -continue with tylenol and diclofenac gel for pain relief -followup with rheumatolo gy after the pred still we feel that it was the latuda and she is now off the med and will be seeing the psych soon Nausea 730027132 R11.0 now gone since off latuda Acid reflux 267799248 K2 1.9 still taking omeprazole Hypertensive disorder 38 842484 I10 doing well will hold clonidine and cont metoprolol [id number] Franko Graham [facility] [address] [facility],[place] [address] 04/12/2019 09:58:50 04/12/2019 10:37:41 Multiple joint pain 04193652 M25.50 seems that she has not improved at all since stopping med rheum w/u in progress will look for the lab done by rheum Impetigo 49995313 L01.00 will add mupirocin will also try on 1 spot on her arm Hand joint pain 40580040 8 M25.549 [id number] Franko Graham [facility] [address] [facility],[place] [address] 04/19/2019 12:01:40 04/19/2019 14:41:42 Rheumatoid arthritis 78078020 M06.9 will be starting DMARDS with MTX await derm consult On examina tion - rash present 644972335 R21 ? if this is dissm herpes zoster getting to see derm 2 days will see she has had for several weeks [id number] Franko Graham [facility] [address] [facility], [employer] [facility] [address] 05/31/2019 14:40:53 05/31/2019 15:37:59 Hypertensive disorder 52281480 I10 doing well will hold clonidine and cont metoprolol Acid reflux 753568933 K2 1.9 still taking omeprazole Gastroesop hageal reflux disease 821800251 K21.9 gets symptomati c if she stops the omeprazole Subacute c utaneous lupus erythematosus 029944000 L93.1 PEEWEE negative will cont to improve with current new meds will follow with rheumatolo gy and dermatolog y in the next 2 months. [id number] Franko Graham [facility] [address] [facility] [address],[place] [facility] [place] [address] 09/29/2019 11:43:07 09/29/2019 12:27:52 Hypertensive disorder 93117583 I10 doing well will cont clonidine and cont metoprolol Bipolar disorder 3266322 4 F31.9 will need to discuss the dx and the treatment regimen Multi-infa rct dementia 39515753 F01.50 again a I am not sure if this has anything to do with her microang changes or if this is even a correct dx also we dont know if she did or did not have a seizure Systemic l upus erythematosus 17908284 M32.9 continuing to manage her various problems assoc with this disease will have rheum see her soon also she is requiring assistive services which are vital during exacerbati on (ex cva) etc will follow closely [id number] Franko Graham DO [facility] [address] [facility] [address],[place] [address] 12/17/2019 14:43:23 12/17/2019 15:19:19 Hypertensive disorder 85137543 I10 cont metoprolol at 50mg she will double up on 25 mg Nasal infection 19718278 3 J32.9 [id number] Franko Graham [facility] [address] [facility] [address],[place] [facility] [place] [address] 01/12/2020 10:54:01 01/12/2020 11:23:01 Hypertensive disorder 02991487 I10 usin 1 1/2 tabs of up on 25 mg metoprolol to equal 37.5mg Congestion of nasal sinus 94297932 R09.81 seems to have developed an seasonal allergies so she will try zyrtec and or flonase Seizure disorder 3263246 02 G40.909 now on an extra carbamaxze pine 50mg [id number] GATO BRENNAN [facility] [address] [facility] [address],[place] [address] 04/05/2020 13:48:59 04/05/2020 14:26:15 Paronychia of finger 020682489 L03.019 the patient's second finger on her right hand has an infection of the nail bed that is red, swollen and leaking purulent discharge has tried OTC abx ointment, episom salt baths, bandaging and other OTC remedies with no effect will now try oral abx to see if this improves and removes infection Hypertensive disorder 38 259408 I10 BP well controlled stable [id number] Franko Graham [facility] [address], [place] [address] 05/17/2020 10:21:36 05/17/2020 11:25:00 Bipolar disorder 86091080 F31.9 will need to discuss the dx and the treatment regimen Anxiety disorder 7324822 06 F41.9 about the same and her son is getting and she is stressed Systemic l upus erythematosus 95983933 M32.9 continuing to manage her various problems assoc with this disease will have rheum see her soon also she is requiring assistive services which are vital during exacerbati on (ex cva) etc will follow closely Paronychia of finger of right hand 2469177918 0125362 L03.011 will use doxy as she is still very infected Postmenopa usal osteopenia 218279865 M85.80 [id number] GATO BRENNAN [facility] [address], [place] [address] 05/22/2020 15:51:40 05/22/2020 16:27:05 Impacted cerumen of bilateral ears 6055592233 004917 H61.23 procedure tolerated well doing good Tms visualized Hypertensive disorder 38 604011 I10 BP well controlled stable [id number] GATO BRENNAN [facility] [address],[place] [address] 06/14/2020 13:53:01 06/14/2020 16:06:19 Paronychia of finger 767086884 L03.019 will set up with Dr. Fregoso Hypertensive disorder 38 089579 I10 BP well controlled stable [id number] Franko Graham DO [facility] [address] [facility] [address],[place] [address] 09/22/2020 08:31:33 09/22/2020 11:55:49 Hypertensive disorder 70728523 I10 using 1 1/2 tabs of up on 25 mg metoprolol to equal 37.5mg bp at home has been ok and has been stable at other appts Paronychia of finger of right hand 0870863696 6277659 L03.011 will use doxy as she is being followed by hand spec Systemic l upus erythematosus 98078227 M32.9 continuing to manage her various problems assoc with this disease will have rheum see her soon also she is requiring assistive services which are vital during exacerbati on (ex cva) etc will follow closely Acid reflux 275920726 K2 1.9 still taking omeprazole Screening mammography 24 714796 Z12.31 Seronegati ve rheumatoid arthritis 232306164 M06.00 being followed by rheumatros [place] and has been doing ok overall has had to be on pred recently and she is worse in the left hand only [id number] DO [facility] [address],[place] [address] 11/24/2020 09:29:52 11/24/2020 10:03:37 Anxiety disorder 987787641 F41.9 given the severity of her anxiety and that she will be seeing dr moscoso later this month we will be giving her a mild lorazepam dose for in the meantime until she an be seen pt understand s this is temporary Chronic constipation 236 527646 K59.09 Hypertensive disorder 38 068863 I10 using 1 1/2 tabs of up on 25 mg metoprolol to equal 37.5mg bp at home has been ok and has been stable at other appts [id number] Franko Graham DO [facility] [address],[place] [address] 01/10/2021 10:10:38 01/10/2021 10:33:40 Acid reflux 393234288 K21.9 still taking omeprazole sd Hypertensive disorder 38 897736 I10 using 1 1/2 tabs of up on 25 mg metoprolol to equal 37.5mg bp is excellent bp at home has been ok and has been stable at other appts Anxiety disorder 7417198 06 F41.9 given the severity of her anxiety and that she will be seeing dr moscoso later this month we will be giving her a mild lorazepam dose for in the meantime until she an be seen pt understand s and she seems to be stable on latuda [id number] GATO BRENNAN [facility] [address], [place] [address] 04/04/2021 14:20:32 04/04/2021 15:29:32 Contact dermatitis 91913455 L25.5 allergic contact dermatitis of unknown originstar t on pred taper, fu if no improvemen t Systemic l upus erythematosus 82169243 M32.9 uses it for lupus flare ups Paronychia of finger 444 167528 L03.011 index finger, never healed quiet right, the finger nail is growing back dented and is easily discolored has fu with rheum, told them to obtain XRs [id number] GATO BRENNAN [facility] [address],[place] [address] 07/02/2021 14:11:13 07/02/2021 16:04:17 Active or passive immunization 914152990 Z23 advisedup to date Adult heal th examination 577660163 Z00.00 BP fluctuates in office, no concerns today Lipoma of skin 752769146 D17.24 fu with US and probable derm referral [id number] GATO BRENNAN [facility] [address],[place] [address] 08/08/2021 08:21:08 08/08/2021 16:35:01 Cervical disc disorder 032454158 M50.90 will refer to neuro Multi-infa rct dementia 01103848 F01.50 stable Bipolar disorder 3462135 4 F31.9 stable Seizure disorder 9821277 02 G40.909 stable [id number] GATO BRENNAN [facility] [address],[place] [address] 10/16/2021 10:53:37 10/16/2021 11:50:47 Rib pain 990967675 R07.81 will fu with XR ribs to r/o possible fx giving bruising pattern Superficia l injury of face 631264209 S00.83XA will fu with XR facial bones to r/o ethmoid bones Subdural hematoma 864359 01 S06.5X0A will recheck CT to monitor her bleed Recurrent falls 49042933 2 R29.6 has PT evaluating herwould like to discuss with her PT about gait imbalance Traumatic hematoma 19817 9004 T14.8XXA will resolve, pretty small Constipation 50053799 K5 9.03 increased water intake Pain of ri ght shoulder joint 4172937345 3938161 M25.511 [id number] GATO BRENNAN [facility] [address] [facility], [place] [address] 10/30/2021 11:52:37 10/31/2021 10:14:19 Cervical radiculopathy 67721988 M54.12 will f/u with refill to [facility] [id number] GATO BRENNAN [facility] [address] [facility], [place] [address] 11/06/2021 14:11:21 11/06/2021 16:24:43 Subdural hematoma 20269195 S06.5X0A will recheck CT to monitor her bleed [id number] GATO BRENNAN [facility] [address] [place] [address] 11/27/2021 10:19:27 11/27/2021 14:40:16 Anxiety disorder 920685170 F40.02 refill Hypertensive disorder 38 796241 I10 stable today in office on 2 tabs of metoprolol Hypertensi ve encephalopathy 74152945 I67.4 will continue to monitor her BP Fall R29.6 no recent falls History of subdural hematoma 813326500 Z86.[address] with neuro [id number] GATO BRENNAN [facility] [address] [facility], [place] [address] 12/05/2021 15:45:41 12/07/2021 08:56:32 Dysuria 72111229 R30.0 [id number] GATO BRENNAN [facility] [address] [facility], [place] [address] 01/09/2022 15:09:51 01/11/2022 09:40:40 Acute urinary tract infection 491378156 N10 will trial a different medication for the recurrent UTIs Urinary incontinence 165 416207 N39.3 worsened due to UTI Cervical radiculopathy 92453973 M54.12 [place] [id number] GATO BRENNAN [facility] [address] [facility], [place] [address] 03/01/2022 11:12:09 03/01/2022 12:24:34 Rib pain 906748915 R07.81 will fu with XR ribs following fall Urinary incontinence 165 209221 N39.3 will start on oxybutynin Dizziness 981189025 R42 will set up with ENT for re-evaluat ion of her inner ear with the continued dizziness Tremor 28771654 G25.2 will set up with Dr. Aguila Impacted c erumen of bilateral ears 3738611935 703918 H61.23 will need to try debrox for a couple of days and come back [id number] GATO BRENNAN [facility] [address] [facility], [place] [address] 03/05/2022 10:40:30 03/05/2022 14:25:08 Impacted cerumen 95472228 H61.23 resolved [id number] GATO BRENNAN [facility] [address] [facility], [place] [address] 01/14/2023 08:55:50 01/14/2023 10:39:38 Insomnia 071475492 G47.09 agreed to trial trazadone for the sleep Systemic l upus erythematosus 97862839 M32.9 uses it for lupus flare ups Multi-infa rct dementia 11598969 F01.50 stable Bipolar disorder 8502601 4 F31.30 depressed episode currentlya greed to trial med specifical ly for the depression Seizure disorder 8541322 02 G40.909 stable Subdural hematoma 901864 01 S06.5X0A will recheck CT to monitor her bleed Memory impairment 820932 006 R41.3 agreed to f/u blood work Allergic rhinitis 577054 04 J30.1 agreed to trial flonase Fatigue 78275731 R53.83 agreed to lab work [id number] GATO BRENNAN [facility] [address] [facility], [place] [address] 05/09/2023 12:10:32 05/09/2023 15:28:14 Nausea 619593396 R11.0 will set up with zofran as needed Fever with chills 294370 006 R50.81 continue with APAP and Advil [id number] GATO BRENNAN [facility] [address] [facility], [address] [facility] [place] [address] 06/09/2023 10:19:50 06/10/2023 13:42:42 Insomnia 730690824 G47.09 agreed to trial eszopiclon e for the sleeping Tremor 93284791 G25.2 neuro exam was normal, no findings suggestive of brain damage, parkinson' s, MS or anythingre cent MRI was negativewi ll talk to shivam about possible causes from intermediate use of lamictal and carbamazep ine [id number] GATO BRENNAN [facility] [address], it[address] [facility] [place] [place] [address] 07/21/2023 11:40:07 07/21/2023 12:33:52 Insomnia 769235749 G47.09 will trial doxepin instead Adult heal examination 915465609 Z00.00 BP fluctuates in office, no concerns today [id number] GATO BRENNAN [facility] [address] [facility], it[address] [facility] [place] [address] 10/10/2023 10:37:32 10/10/2023 14:00:16 Nausea and vomiting 37548728 R11.2 will set up with PRN zofran meds Gastroesop hageal reflux disease 632889722 K21.9 will set up with omeprazole 40 mg as she is do for it Acute gastroenteritis 69 006246 K52.9 resolved [id number] GATO BRENNAN [facility] [address],[place] [address] 04/09/2024 09:40:25 04/09/2024 11:43:07 Depression screening 834903600 Z13.31 SCREENING NEGATIVE Isolated head tremor 230 817852 G25.0 will start on primidoneo mariano with bupropionw ill f/u after she talks to her psych [id number] GAT[facility] BRENNAN [facility] [address] [facility] [address],[place] [address] 07/09/2024 13:55:42 07/09/2024 14:37:05 Anxiety disorder 809516518 F40.02 refill Cough 83471377 R05.3 will set up with CXR to determine if there are residual symptoms Fatigue 21644265 R53.83 agreed to lab work to recheck her levels Health Concerns Section Related Observation LastModified by Organization Detai ls LastModified Time None Recorded Concern Status LastModified by Organization Details LastModified Time None Recorded Advance Directives Directive None Recorded Payers Encounter Date Sequence Insurance Name Policy Number Policy Saavedra Covered Member ID Saavedra Member ID Guarantor Name 06/09/2023 1 [facility] [id number] [facility] Charanjit [id number] [facility] Charanjit 07/21/2023 1 [facility] [id number] [facility] Charanjit [id number] 2 [facility] Charanjit 10/10/2023 1 [place] [id number] Tabatha Charanjit [id number] [facility] Charanjit 04/09/2024 1 [place] [facility] Tabatha A Charanjit [id number] 2 Tabatha Charanjit 04/09/2024 2 [facility] IN[facility]MNITY [facility]AN - [employer] [id number] Tabatha Charanjit [id number] [facility] Charanjit 07/09/2024 1 [place] [employer] Tabatha A Charanjit [id number] 2 Tabatha Charanjit 07/09/2024 2 [employer] INDEMNITY PLAN - [employer] [id number] Tabathapercy Davisarty [id number] Tabatha Charanjit Notes Date Note Type Note Provider Name a nd Address Organization Details Recorded Time 3 text/html f/u tremor the patient has a newer mouth tremor, bilateral hand tremorsno pill rolling motion, no the patient was sent to neurology recent brain MRIdoes not need a new one neuro cleared her, no neuro disorders concludedwill ask psych about the meds I have concerns about for possibly triggering intermediate tremoragreed to f/u with him first and will see if he thinks that could be it discussed alternatives for sleeping aidswill try lunesta can also try belsomra GATO BRENNAN [address] [place], [address], [facility] [place] 06/09/2023 10:51:28 3 text/html Annual WellnessReported bypatient.Diet and Nutrition:healthy diet; discussed vitamin and supplement use; discussed portion control; discussed maintaining calcium balance; discussed diet improvement Fracture Risk:no history of fractures; no recent explained fracture; no sudden unexplained fractures; no previous musculoskeletal injuries Physical Activity:exercises on a regular basis; recent increase in physical activity; good physical condition Additional Lifestyle Factors:no tobacco use Depression Risk:never feels sad, empty, or tearful; no loss of interest in activities; no significant changes in weight; no sleep disturbances or insomnia; no agitation; no loss of energy; no feelings of worthlessness or guilt; no thoughts of suicide; no history of depression; no history of mood disorders; sees pyschiatrist Hearing:no loss of hearing Vision:no vision problems [address]ATO BR[address]N [address] [place], [id number], [facility], [place], operated by [facility] 07/21/2023 12:10:23 4 text/html ER f/u for dehydration the patient is drinking more appropriatelythe patient had gastro bugthe patient has possible colitis related to viral infection no longer having diarrhea the patient has not been nauseous as well which is going wellthe patient mostly doing much better needs to get her strength back will send in refills GATO BRENNAN [address] [place], [phone], [facility], [place], operated by [facility] 10/10/2023 11:00:53 08/16/202 4 text/html f/u depression the patient is very stressed, her has bladder cancer, found to have the neoplasm in his kidneys, has both removed, is on dialysis at home constantly the patient feels stresseddiscussed tremors, could be a side effect of the lamotriginewill talk to her psychiatrist agreed to trial primidone to see if it helps when she has the tremors will fu with me to let me know what Dr. Rush says GATO BRENNAN [address] [place], [phone], [facility], [place], operated by [facility] 04/09/2024 10:14:55 4 text/html f/u URI the patient reports that her cough is much betterresidual fatigue and intermittent dry cough the patient reports that she is more upset given her poor healthadjusting to this at hometalks to her psychiatrist and therapist recommended lab work and CXR GATO BRENNAN [address] [place], [phone], [facility], [place], operated by [facility] 07/09/2024 14:31:29 OBGyn Episode No OBEpisode recorded.
[2024-09-27] MEDS: ondansetron HCL 4 MG/2 ML VIAL IVPUSH (04:02)
[2024-09-27] MEDS: LORazepam 1 MG TABLET PO (06:46)
[2024-09-27 06:47] LABS: MANUAL DIFF FLAG NO
[2024-09-27 06:49] LABS: Basophils Percent Auto 0.4 % (0-2); Eosinophils Percent Auto 0.4 % (0-4); Hematocrit 28.8 % (37.0-47.0); Hemoglobin 9.8 g/dl (12.0-16.0); Imm Gran Abs Auto 0.03 X10*3/uL (0.00-0.03); Imm Gran Pct Auto 0.6 % (0.0-0.4); Lymphocytes Absolute Auto 0.5 X10*3/uL (1.2-4.9); Lymphocytes Percent Auto 10.5 % (20-40); Mean Corpuscular Hemoglobin 30.9 pg (27.0-33.0); Mean Corpuscular Volume 90.9 fL (80.0-98.0); Mean Platelet Volume 9.1 fL (9.4-12.3); Monocytes Absolute Auto 0.5 X10*3/uL (0.1-1.2); Monocytes Percent Auto 9.8 % (2-11); Neutrophils Absolute Auto 3.7 x10*3/uL (2.0-8.3); Neutrophils Percent Auto 78.3 % (45-73); Platelet Count 164 X10*3/uL (160-400); Red Blood Count 3.17 X10*6/uL (4.20-5.50); Red Cell Distribution Width 13.2 % (11.0-16.0); White Blood Count 4.8 X10*3/uL (4.8-10.8)
[2024-09-27 07:21] LABS: Alanine Aminotransferase 12 U/L (0-31); Anion Gap 15 (12-20); Aspartate Amino Transferase 27 U/L (5-31); Bilirubin Total 0.2 mg/dL (0.0-1.0); Blood Urea Nitrogen 13 mg/dL (9-16); C Reactive Protein 1.01 mg/dL (< or = 0.50); Calcium 9.3 mg/dL (8.4-10.2); Carbon Dioxide 23 mmol/L (22-29); Chloride 107 mmol/L (96-108); Creatinine Clr Calc Pharmacy 62.7; Estimated Glomerular Filt Rate > 60; Glucose Random 119 mg/dL (60-115); Potassium 3.9 mmol/L (3.3-5.1); Sodium 141 mmol/L (135-145); Total Protein 6.7 g/dL (6.5-8.0)
[2024-09-27 07:23] LABS: Erythrocyte Sedimentation Rate 55 MM/HR (0-20)
[2024-09-27 07:42] LABS: Alkaline Phosphatase 124 U/L (39-117)
--- NOTE | 2024-09-27 08:08 | PM.IMHP ---
History of Present Illness Date of Service: 09/27/24 Chief Complaint: back pain 66F PMH bipolar, hypertension, IBS, SLE, rheumatoid arthritis, TIA presented with sudden-onset severe low back pain. Patient states she threw out her back about 2 weeks prior to presentation and to slowly improved. Then on day of presentation she was in bathroom got up twisted and had severe back pain again. She was unable to get up or walk and has been called EMS. In ED, patient was able to ambulate but is still in severe pain. Denies leg weakness or numbness, saddle anesthesia, urinary retention or fecal incontinence. lumbar xray with L1 acute to subacute fracture. Review of Systems Review of Systems: Yes all other systems are reviewed and are negative FOR[facility]LY [facility], [facility] Medical History Subdural hematoma Rheumatoid arthritis IBS (irritable bowel syndrome) HTN (hypertension) TIA (transient ischemic attack) Lupus Bipolar disorder Surgical History No history of previous surgery Social History Household Members: Significant Other Housing: House Do you presently have visiting nurse or other home services: No Alcohol intake: never Patient Tobacco Use Status: Current someday Tobacco user Tobacco use type: Smokeless Tobacco Second Hand Smoke Exposure: No Substance Use Type: Marijuana service: No Current occupational status: retired Meds Allergies Allergy/AdvReac Type Severity Reaction Status Date / Time codeine AdvReac Nausea Verified 09/27/24 01:36 Active Medications: Current Medications Enoxaparin Sodium (Enoxaparin Sodium 40 Mg/0.4 Ml Syringe) 40 mg SUBCUT Q24H MAURI Morphine Sulfate (Morphine Sulfate 4 Mg/Ml Cartridge) 4 mg IVPUSH Q4H PRN; Protocol PRN Reason: Pain, Severe (Pain Scale 7-10) Home Medications ?Medication ?Instructions ?Recorded ?Confirmed ?Last Taken ?Type bupropion HCl 300 mg 24 hr tablet, 300 mg PO BEDTIME 07/10/21 09/27/24 09/26/24 History extended release hydroxychloroquine 200 mg tablet 200 mg PO DAILY 07/10/21 09/27/24 09/26/24 History lamotrigine 200 mg tablet 400 mg PO BEDTIME 07/10/21 09/27/24 09/26/24 History metoprolol succinate 25 mg 37.5 tab PO DAILY 07/10/21 09/27/24 09/26/24 History tablet,extended release 24 hr omeprazole 40 mg capsule,delayed 40 mg PO DAILY@0630 07/10/21 09/27/24 09/26/24 History release leflunomide 10 mg tablet 10 mg PO DAILY 11/16/21 09/27/24 09/26/24 History diclofenac sodium 50 mg 50 mg PO BID 09/27/24 09/27/24 09/26/24 History tablet,delayed release duloxetine 30 mg capsule,delayed 30 mg PO DAILY 09/27/24 09/27/24 09/26/24 History release lorazepam 2 mg tablet 2 mg PO DAILY 09/27/24 09/27/24 09/26/24 History Physical Exam Vital Signs and Narrative: Vital Signs: Last Vital Signs Temp 97.9 F 09/27/24 06:24 Pulse 94 09/27/24 06:24 Resp 16 09/27/24 06:24 BP 163/82 H 09/27/24 06:24 Pulse Ox 96 09/27/24 06:24 O2 Del Method Room Air 09/27/24 06:24 BMI result Body Mass Index 24.3 General: AO X 3, no acute distress Resp: CTA bilateral, no accessory muscles used CVS: S1,S2,RRR GI: soft, non tender, non distended Neuro: motor grossly intact, alert Psych: appropriate affect, appropriate insight Results Labs 09/27/24 06:44 09/27/24 06:44 Labs: Laboratory Results - last 24 hr 09/27/24 06:44 MCV 90.9 MCH 30.9 MCHC 34.0 RDW 13.2 Plt Count 164 MPV 9.1 L Immature Gran % (Auto) 0.6 H Neut % (Auto) 78.3 H Lymph % (Auto) 10.5 L [place] % (Auto) 9.8 Eos % (Auto) 0.4 Baso % (Auto) 0.4 Lymph # (Auto) 0.5 L [place] # (Auto) 0.5 Eos # (Auto) 0.0 Baso # (Auto) 0.0 Abs Immat Gran (auto) 0.03 Absolute Neuts (auto) 3.7 Absolute Nucleated RBC 0.000 Nucleated RBC % (auto) 0.0 ESR 55 H Anion Gap 15 Estim Creat Clear Calc 62.7 Estimated GFR > 60 Random Glucose 119 H Calcium 9.3 Total Bilirubin 0.2 AST 27 ALT 12 Alkaline Phosphatase 124 H Total Creatine Kinase 79 C-Reactive Protein 1.01 H Total Protein 6.7 Albumin 4.0 Assessment and Plan (1) Strain of lumbar region: Status: Acute Plan 66F PMH bipolar, hypertension, IBS, SLE, rheumatoid arthritis, TIA presented with sudden-onset severe low back pain Intractable back pain due to L1 fracture Pain control with morphine and Ativan and Flexeril PT eval Hypertension Continue metoprolol SLE/RA Continue Plaquenil History of TIA Continue statin Bipolar Continue lamotrigine, bupropion DVT prophylaxis with Lovenox Full code Quality Stroke Does the patient have a stroke diagnosis?: No VTE Prior VTE?: No VTE Risk Level:: Medical - moderate - high VTE Device Contraindication: Treatment Not Indicated VTE Drug Contraindication: N/A - Med Ordered
--- NOTE | 2024-09-27 08:37 | PC.NURSE ---
Pt off the floor to radiology, will medicate on return. pt requested to sit on the edge of the bed, RN advised that pt please stay lying in bed, is high fall risk.
[2024-09-27] MEDS: LORazepam 2 MG/ML VIAL IVPUSH (08:42)
[2024-09-27] MEDS: Cyclobenzaprine HCl 5 MG TABLET PO ×3 (08:42→20:17)
[2024-09-27] MEDS: Acetaminophen 325 MG TABLET 650 MG PO ×2 (08:42→20:18)
--- NOTE | 2024-09-27 09:57 | PHA.MEDREC ---
Addendum entered by Adia Baez RPh 09/27/24 10:05: reviewed by [facility]. Original Note: Pharmacy Consult ? Medication Reconciliation Pharmacy has completed the medication reconciliation. Spoke to patient to confirm med list. Patient states she is no longer taking Carbamazipine 400 mg, Gabapentin 300 mg, Meclizine, Metronidazole 500 mg, and Trulance. Patient states she takes Lorazepam daily not TID. patient states she last took her medications yesterday.
[2024-09-27 11:07] LABS: Appearance Urine Cloudy; Color Urine Dark Yellow; Glucose Urine UA Negative (Negative); Leukocyte Esterase Urine Trace (Negative); Nitrite Urine Negative (Negative); PH 5.5 (5.0-9.0); Specific Gravity - Urine >= 1.030 (1.005-1.025); UMIC TRIGGER UACC YES; Urine Blood Negative (Negative); Urine Ketones 40 mg/dL (Negative); Urine Protein 100 (2+) mg/dL (Neg-Trace)
[2024-09-27] MEDS: Leflunomide 10 MG TABLET PO (11:43)
[2024-09-27] MEDS: Hydroxychloroquine Sulfate 200 MG TABLET PO (11:43)
[2024-09-27 12:18] LABS: Bacteria Urine Trace (None Seen); RBC Urine 0-2 /HPF (0-2); WBC Urine 0-5 /HPF (0-5)
[2024-09-27] MEDS: 0.9 % Sodium Chloride Flush 3 ML SYRINGE IVFLUSH (14:38)
[2024-09-27] MEDS: lamoTRIgine 100 MG TABLET 400 MG PO (20:16)
[2024-09-27] MEDS: Diclofenac Sodium Delayed Rel 50 MG TABLET.DR PO (20:16)
[2024-09-27] MEDS: buPROPion HCl XL 300 MG TAB.ER.24H PO (20:17)
[2024-09-28] VITALS (7 sets, daily range): BP systolic 105–159; BP diastolic 50–72; PULSE 79–99; RESP 16–20; TEMP 36.2–36.6; O2SAT 92–95
[2024-09-28] MEDS: Morphine Sulfate 4 MG/ML CARTRIDGE IVPUSH ×6 (00:18→22:22)
[2024-09-28] MEDS: 0.9 % Sodium Chloride Flush 3 ML SYRINGE IVFLUSH ×4 (01:00→19:52)
--- NOTE | 2024-09-28 03:37 | PC.NURSE ---
09/27 2299; Received a phone call from the daughter Marga stating that she believes when her mother fell at home she hit her head. MD Mccormack notified of this new information. CT head/brain ordered
[2024-09-28] MEDS: Omeprazole 40 MG CAPSULE.DR PO (05:56)
[2024-09-28] MEDS: Acetaminophen 325 MG TABLET 650 MG PO ×2 (07:12→19:01)
[2024-09-28] MEDS: Diclofenac Sodium Delayed Rel 50 MG TABLET.DR PO ×2 (08:12→19:51)
[2024-09-28] MEDS: LORazepam 1 MG TABLET 2 MG PO (08:12)
[2024-09-28] MEDS: DULoxetine HCl 30 MG CAPSULE.DR PO (08:12)
[2024-09-28] MEDS: Cyclobenzaprine HCl 5 MG TABLET PO ×3 (08:12→19:52)
[2024-09-28] MEDS: Metoprolol Succinate ER 12.5 MG HALFTAB.ER.24H 37.5 MG PO (08:12)
[2024-09-28] MEDS: Atorvastatin Calcium 40 MG TABLET PO (08:12)
[2024-09-28] MEDS: Hydroxychloroquine Sulfate 200 MG TABLET PO (08:13)
[2024-09-28] MEDS: Leflunomide 10 MG TABLET PO (08:13)
--- NOTE | 2024-09-28 08:21 | HO.PM.IMPN ---
Subjective Subjective Date of Service: 09/28/24 Interval History: pain Physical Exam Vital Signs: Vital Signs: Last Vital Signs Temp 97.6 F 09/28/24 07:48 Pulse 99 09/28/24 07:48 Resp 16 09/28/24 07:48 BP 159/72 H 09/28/24 07:48 Pulse Ox 92 09/28/24 07:48 O2 Del Method Room Air 09/28/24 07:48 BMI result Body Mass Index 24.3 Exam: General: Awake, patient was moaning and pain, she was able to answer questions Head: Normocephalic, atraumatic EENT: PERRL, Lids normal, sclera normal, conjunctiva normal, nose normal , ears normal, throat without erythema or exudates Neck: Supple, no adenopathy Lung: breath sounds symmetric, no wheezing, rales or rhonchi Chest: symmetric movement, nontender Heart: regular rate and rhythm, normal S1, S2 no murmurs or rubs Abdomen: soft, non-tender, nondistended, normal bowel sounds Back: no vertebral tenderness, tenderness palpation of her paraspinal muscles bilaterally in the lumbar sacral area, there was spasm of these muscles Extremities: no deformities, moves all extremities symmetrically Neuro: Awake, alert, oriented, normal speech, cranial nerves intact, moves all extremities symmetrically Psych: Pleasant, cooperative Objective Data Active Medications Acetaminophen (Acetaminophen 325 Mg Tablet) 650 mg PO Q6H PRN PRN Reason: Pain, Mild 1-3,fever,headache Last Admin: 09/28/24 07:12 Dose: 650 mg Documented By: JERRI Atorvastatin Calcium (Atorvastatin Calcium 40 Mg Tablet) 40 mg PO DAILY [facility] Last Admin: 09/28/24 08:12 Dose: 40 mg Documented By: JERRI Bupropion HCl (Bupropion Hcl Xl 300 Mg Tab.Er.24h) 300 mg PO BEDTIME [facility] Last Admin: 09/27/24 20:17 Dose: 300 mg Documented By: SCOTT Calcium Carbonate (Calcium Carbonate 750 Mg Tab.Chew) 750 mg PO Q4H PRN PRN Reason: Heartburn Cyclobenzaprine HCl (Cyclobenzaprine Hcl 5 Mg Tablet) 5 mg PO TID [facility] Last Admin: 09/28/24 08:12 Dose: 5 mg Documented By: JERRI Diclofenac Sodium (Diclofenac Sodium Delayed Rel 50 Mg Tablet.) 50 mg PO BID [facility] Last Admin: 09/28/24 08:12 Dose: 50 mg Documented By: JERRI Duloxetine HCl (Duloxetine Hcl 30 Mg Capsule.) 30 mg PO DAILY [facility] Last Admin: 09/28/24 08:12 Dose: 30 mg Documented By: JERRI Enoxaparin Sodium (Enoxaparin Sodium 40 Mg/0.4 Ml Syringe) 40 mg SUBCUT Q24H [facility] Hydroxychloroquine Sulfate (Hydroxychloroquine Sulfate 200 Mg Tablet) 200 mg PO DAILY [facility] Last Admin: 09/28/24 08:13 Dose: 200 mg Documented By: JERRI Lamotrigine (Lamotrigine 100 Mg Tablet) 400 mg PO BEDTIME [facility] Last Admin: 09/27/24 20:16 Dose: 400 mg Documented By: SCOTT Leflunomide (Leflunomide 10 Mg Tablet) 10 mg PO DAILY [facility] Last Admin: 09/28/24 08:13 Dose: 10 mg Documented By: JERRI Lorazepam (Lorazepam 1 Mg Tablet) 2 mg PO DAILY [facility] Last Admin: 09/28/24 08:12 Dose: 2 mg Documented By: JERRI Magnesium Hydroxide (Milk Of Magnesia 30 Ml Oral.Susp) 30 ml PO DAILY PRN PRN Reason: Constipation Melatonin (Melatonin 3 Mg Tablet) 6 mg PO BEDTIME PRN PRN Reason: Insomnia Metoprolol Succinate (Metoprolol Succinate Er 12.5 Mg Halftab.Er.24h) 37.5 mg PO DAILY [facility]; Protocol Last Admin: 09/28/24 08:12 Dose: 37.5 mg Documented By: JERRI Morphine Sulfate (Morphine Sulfate 4 Mg/Ml Cartridge) 4 mg IVPUSH Q4H PRN; Protocol PRN Reason: Pain, Severe (Pain Scale 7-10) Last Admin: 09/28/24 05:55 Dose: 4 mg Documented By: SCOTT Omeprazole (Omeprazole 40 Mg Capsule.) 40 mg PO DAILY@0630 [facility] Last Admin: 09/28/24 05:56 Dose: 40 mg Documented By: SCOTT Sodium Chloride (0.9 % Sodium Chloride Flush 3 Ml Syringe) 3 ml IVFLUSH QSHIFT [facility] Last Admin: 09/28/24 08:11 Dose: 3 ml Documented By: JERRI Labs 09/27/24 06:44 09/27/24 06:44 Labs: Laboratory Results - last 24 hr 09/27/24 Unknown Urine Color Dark Yellow Urine Appearance Cloudy Urine pH 5.5 Ur Specific [place] >= 1.030 H Urine Protein 100 (2+) H Urine Glucose (UA) Negative Urine Ketones 40 Urine Blood Negative Urine Nitrite Negative Ur Leukocyte Esterase Trace H Urine RBC 0-2 Urine WBC 0-5 Ur Squamous Epith Cells 6-10 Urine Bacteria Trace Hyaline Casts 3-5 Assessment and Plan (1) L1 vertebral fracture: Status: Acute Plan 66F PMH bipolar, hypertension, IBS, SLE, rheumatoid arthritis, TIA presented with sudden-onset severe low back pain Intractable back pain due to L1 fracture Pain control with morphine and Ativan and Flexeril PT eval appreciated recommending STR Hypertension Continue metoprolol SLE/RA Continue Plaquenil History of TIA Continue statin Bipolar Continue lamotrigine, bupropion DVT prophylaxis with Lovenox Full code reason for continued hospitalization:pain control/ snf placement Quality Stroke Does the patient have a stroke diagnosis?: No VTE Prior VTE?: No VTE Risk Level:: Medical - moderate - high VTE Device Contraindication: Treatment Not Indicated VTE Drug Contraindication: N/A - Med Ordered
[2024-09-28] MEDS: Enoxaparin Sodium 40 MG/0.4 ML SYRINGE SUBCUT (09:56)
--- NOTE | 2024-09-28 11:38 | MHC.CM.PN ---
PT LIVES WITH IS INDEPENDENT HAD NO PREVIOUS SERVICES HAS OWN [facility] ,PHYSICAL THERAPY RECOMMENDED ACUTE REHAB REFERRALS SENT [facility]
[2024-09-28] MEDS: buPROPion HCl XL 300 MG TAB.ER.24H PO (19:51)
[2024-09-28] MEDS: lamoTRIgine 100 MG TABLET 400 MG PO (19:52)
[2024-09-29] MEDS: Melatonin 3 MG TABLET 6 MG PO (02:20)
[2024-09-29 02:22] VITALS: RESP 18
[2024-09-29] MEDS: Morphine Sulfate 4 MG/ML CARTRIDGE IVPUSH ×3 (02:22→11:22)
[2024-09-29 03:38] VITALS: BP 145/66; PULSE 92; RESP 18; TEMP 36.8; O2SAT 94
[2024-09-29] MEDS: Acetaminophen 325 MG TABLET 650 MG PO (05:44)
[2024-09-29] MEDS: Omeprazole 40 MG CAPSULE.DR PO (05:44)
[2024-09-29 06:26] VITALS: RESP 16
[2024-09-29 07:53] VITALS: BP 164/70; PULSE 95; RESP 16; TEMP 36.5; O2SAT 91
[2024-09-29] MEDS: Atorvastatin Calcium 40 MG TABLET PO (09:18)
[2024-09-29] MEDS: Diclofenac Sodium Delayed Rel 50 MG TABLET.DR PO (09:18)
[2024-09-29] MEDS: Cyclobenzaprine HCl 5 MG TABLET PO (09:19)
[2024-09-29] MEDS: Metoprolol Succinate ER 12.5 MG HALFTAB.ER.24H 37.5 MG PO (09:19)
[2024-09-29] MEDS: LORazepam 1 MG TABLET 2 MG PO (09:19)
[2024-09-29] MEDS: DULoxetine HCl 30 MG CAPSULE.DR PO (09:19)
[2024-09-29] MEDS: Hydroxychloroquine Sulfate 200 MG TABLET PO (09:19)
[2024-09-29] MEDS: Leflunomide 10 MG TABLET PO (09:19)
[2024-09-29] MEDS: Enoxaparin Sodium 40 MG/0.4 ML SYRINGE SUBCUT (09:20)
[2024-09-29] MEDS: 0.9 % Sodium Chloride Flush 3 ML SYRINGE IVFLUSH (09:34)
--- NOTE | 2024-09-29 10:27 | MHC.CM.PN ---
pt to be dcd to [facility] today at 1
--- NOTE | 2024-09-29 10:34 | P.DS_ITS ---
DS: Providers Provider Date of Service: 09/29/24 Date of admission: 09/27/24 08:06 Date of discharge: 09/29/24 Primary care physician: Franko Graham MD DS: Diagnosis Discharge Diagnosis (1) L1 vertebral fracture: Status: Acute (2) Intractable back pain: Status: Acute DS: Summary Hospital Course Hospital Course: Admission note HPI 66F PMH bipolar, hypertension, IBS, SLE, rheumatoid arthritis, TIA presented with sudden-onset severe low back pain. Patient states she threw out her back about 2 weeks prior to presentation and to slowly improved. Then on day of presentation she was in bathroom got up twisted and had severe back pain again. She was unable to get up or walk and has been called EMS. In ED, patient was able to ambulate but is still in severe pain. Denies leg weakness or numbness, saddle anesthesia, urinary retention or fecal incontinence. lumbar xray with L1 acute to subacute fracture. Hospital course The patient was admitted for evaluation of Intractable back pain due to L1 fracture as shown on lumber spine XR as Acute/to subacute superior endplate compression fracture representing 40% volume loss at L1. Treated with pain control and physical therapy with fair response. will be discharged to SNF facility on Oxycodone as needed for pain along with Tylenol 2-3 times a day and to continue home medicaitons. Discharge plan Start physical therapy Flexiril as muscle relaxant; stop of causing sedation Time Attestation Discharge Coordination Time (in mins): 37 Quality: Safe Use of Opioids Does Pt have an Active Cancer Diagnosis on the Problem List?: No Quality: Stroke Does the patient have a stroke diagnosis?: No Physical Exam Vital Signs: Vital Signs: Last Vital Signs Temp 97.7 F 09/29/24 07:53 Pulse 95 09/29/24 07:53 Resp 16 09/29/24 07:53 BP 164/70 H 09/29/24 07:53 Pulse Ox 91 L 09/29/24 07:53 O2 Del Method Room Air 09/29/24 07:53 BMI result Body Mass Index 24.3 Const: Other: Constitutional : Awake, interactive, not in distress Neck : Normal inspection, Supple Cardiovascular : RRR, no JVP, no lower extremity edema Respiratory : good bilateral air entry, no crackles, wheezes or rhonchi Gastrointestinal: soft, lax, Normal bowel sounds, Non tender Skin : Warm, Dry [place]: tenderness palpation of her paraspinal muscles bilaterally in the lumbar sacral area, there was spasm of these muscles Neurological : Alert & oriented x3, No focal deficit , CN 2-12 within normal DS: Data Data Completed and Pending Completed studies during hospitalization [Text1]: Procedures Introduction of Other Thrombolytic into Peripheral Vein, Percutaneous Approach (07/10/21) Imaging CT scan - head: Radiologist's impression: ITS Impressions Lumbar Spine X-Ray 09/27/24 08:30 IMPRESSION: Acute/to subacute superior endplate compression fracture representing 40% volume loss at L1. Multilevel spondylosis. Atherosclerosis disease, abdominal aorta. Electronically signed by: Leonard Contreras MD 09/27/2024 08:52 AM [facility] Discharge Plan Discharge Anticipated Discharge Date/Time: 09/29/24 10:31 Patient Disposition: Xfer SNF Discharge Diagnosis: L1 fracture Referrals: [facility] [Other] - 1 Week Franko Graham MD [Primary Care Provider] - 1 Week Discharge Medications: New cyclobenzaprine 5 mg Tablet 5 mg PO TID Qty: 90 0RF oxycodone 5 mg tablet 5 mg PO Q6H PRN (Reason: pain (scale score 7-10)) Qty: 20 0RF Rx Instructions: Partial Fill upon patient request. Continued leflunomide 10 mg tablet 10 mg PO DAILY lamotrigine 200 mg tablet 400 mg PO BEDTIME omeprazole 40 mg capsule,delayed release(DR/EC) 40 mg PO DAILY@0630 metoprolol succinate 25 mg tablet extended release 24 hr 37.5 tab PO DAILY hydroxychloroquine 200 mg tablet 200 mg PO DAILY bupropion HCl 300 mg tablet extended release 24 hr 300 mg PO BEDTIME atorvastatin [Lipitor] 40 mg tablet 40 mg PO DAILY 30 Days Qty: 30 6RF lorazepam 2 mg tablet 2 mg PO DAILY diclofenac sodium 50 mg tablet,delayed release (DR/EC) 50 mg PO BID duloxetine 30 mg capsule,delayed release(DR/EC) 30 mg PO DAILY Discharge Orders: Discharge Order (Routine); Ordered 09/29/24 Ordered By: Michael Ozuna Diet: Advance to usual diet Activity on Discharge: As tolerated Stand Alone Forms: Patient Portal Discharge page Print Language: Spanish Care Plan Goals: Start physical therapy Flexiril as muscle relaxant; stop of causing sedation Oxycodone as needed for pain Continue home medicaitons Health Concerns: L1 Vertebral fracture Plan of Treatment: Pain control physical therapy Assessment: as above Discharge Date/Time: 09/29/24 13:55
[2024-09-29 13:22] VITALS: BP 116/57; PULSE 84; RESP 16; TEMP 36.3; O2SAT 93
== END 2024-09-29 13:55 | disposition skilled nursing facility (03) ==
LOC: HO.ED 06:16 → HO.EDOVER 08:15 → HO.S3 08:42
PROVIDERS: Admitting Provider Internal Medicine; Emergency Provider Emergency Medicine Emergency Medical Services; PCP Internal Medicine; Visit Provider Student in an Organized Health Care Education/Training Program
DX: S39.012A Strain of muscle, fascia and tendon of lower back, initial encounter (principal); W19.XXXA Unspecified fall, initial encounter; Y93.9 Activity, unspecified; Y92.9 Unspecified place or not applicable; Y99.9 Unspecified external cause status; M32.9 Systemic lupus erythematosus, unspecified; I10 Essential (primary) hypertension; M06.9 Rheumatoid arthritis, unspecified; K58.9 Irritable bowel syndrome, unspecified; Z86.73 Personal history of transient ischemic attack (TIA), and cerebral infarction without residual deficits; Z79.899 Other long term (current) drug therapy
CPT/HCPCS: 36415; 70450; 72100; 80053; 81001; 82550; 85025; 85652; 86140; 96372; 96374; 96375; 96376; 97110; 97162; 97165; 97530; 99221; 99285; J1650; J1885; J2060; J2270; J2405

== ENCOUNTER 2024-09-27 08:06 | Outpatient (BNV) | payer OTHER, SELFPAY | END 2024-09-28 | PROVIDERS: Admitting Provider Internal Medicine; Emergency Provider Emergency Medicine Emergency Medical Services; PCP Internal Medicine; Visit Provider Radiology Diagnostic Radiology | DX: M54.50 Low back pain, unspecified (principal) | CPT/HCPCS: 70450 ==

== ENCOUNTER 2024-09-27 08:06 | Outpatient (BNV) | payer OTHER, SELFPAY | END 2024-09-27 08:30 | PROVIDERS: Admitting Provider Internal Medicine; Emergency Provider Emergency Medicine Emergency Medical Services; PCP Internal Medicine; Visit Provider Radiology Diagnostic Radiology | DX: M54.50 Low back pain, unspecified (principal) | CPT/HCPCS: 72100 ==

== ENCOUNTER → 2024-09-27 08:06 | Outpatient (BNV) | payer OTHER, SELFPAY | PROVIDERS: Admitting Provider Internal Medicine; Emergency Provider Emergency Medicine Emergency Medical Services; PCP Internal Medicine; Visit Provider Internal Medicine | DX: S39.012A Strain of muscle, fascia and tendon of lower back, initial encounter (principal) | CPT/HCPCS: 99223; 99232; 99239 ==

== ENCOUNTER 2024-10-25 12:42 | Outpatient (REF) | payer MEDICARE, OTHER, SELFPAY ==
--- NOTE | ~2024-10-25 | XR_ITS ---
.EXAMINATION: XR LUMBOSACRAL SPINE CLINICAL INFORMATION: COMP FX L2 COMPARISON: September 27, 2024. TECHNIQUE: Three views of the lumbosacral spine. FINDINGS: Sclerotic deformity representing 40% volume loss without gross retropulsion at L1 vertebra. Multilevel thoracolumbar spondylosis. Vascular calcifications. No lytic or blastic lesions. XR/XR lumbar spine 2-3V IMPRESSION: Healing subacute fracture deformity at L1. Electronically signed by: Leonard Contreras MD 10/25/2024 01:55 PM [facility]
--- NOTE | ~2024-10-25 | XR_ITS ---
EXAMINATION: XR BILATERAL HIPS WITH AP PELVIS CLINICAL INFORMATION: PAIN RT HIP COMPARISON: None available. TECHNIQUE: AP view of the pelvis and single views of each hip were obtained. FINDINGS: No fracture. Hip joint spaces are maintained. Alignment is anatomic. Sacroiliac joints and pubic symphysis are normal. No abnormal soft tissue calcifications. Right hip: There is no bony erosive changes. No loose bodies, fracture or dislocation. There is minimal right lateral hip spurring. Left hip: There is minimal lateral hip spurring. No acute fracture, dislocation, lytic or sclerotic process. XR/XR hip BI w PEL1V IMPRESSION: Osteoarthritic bilateral hip joints. No visible acute fracture or dislocation. Electronically signed by: Romaine Mcguire MD 10/26/2024 09:21 AM [facility]
--- OUTSIDE RECORDS SUMMARY | 2024-10-25 14:49 | XMS_ITS | Data Portability ---
Author Organization [facility] Home Service Address [address] [place] [address] Assessment No assessment recorded. Plan of Treatment Reminders Order Date Submit Date Provider Last Modified By Organization Details Last Modified Time Details Appointments FOLLOW UP 15 2024 02:15P GATO MORAN Not available Not available Not available Lab vitamin B12 + folate, serum or blood 2023 [facility] (Lab), [address] [place] [address], [address], 07/09/2024 14:20:30 vitamin D, 25-hydrox y, total, serum 2023 024 [facility] (Lab), [address] [place] [address], [address], 07/16/2024 11:24:46 TSH + free T4, serum 2023 024 [facility] (Lab), [address] [place] [address], [address], 07/09/2024 14:20:30 iron + TIBC + ferritin, serum 2023 024 [facility] (Lab), [address] [place] [address], [address], 07/09/2024 14:20:30 CBC w/ auto diff 2023 024 [facility] (Lab), [address] [place] [address], [address], 07/09/2024 14:20:30 CMP, serum or plasma 2023 024 [facility] (Lab), [address] [place] [address], [address], 07/09/2024 14:20:30 magnesium , serum or plasma 2023 024 [facility] (Lab), [address] [place] [address], [address], 07/09/2024 14:20:30 ESR (erythroc yte sedimenta tion rate), blood 2023 024 [facility] (Lab), [address] [place] [address], [address], 07/09/2024 14:20:30 C-reactiv e protein, quantitat lionel, serum or plasma 2023 024 [facility] (Lab), [address] [place] [address], [address], 07/09/2024 14:20:30 Referral None recorded. Procedures None recorded. Surgeries None recorded. Imaging US, abdominal aorta - brother of a AAA incidenta l finding on XR lumbar spine 2024 025 [email or web address] Central Scheduling, [address] [place] [address], [address], 10/19/2024 08:36:16 XR, lumbosacr al spine, 2 or 3 view [email or web address] [place] [address] Central Scheduling, [address] [place] [address], [address], 10/18/2024 15:55:37 XR, hip + pelvis, bilateral , 2 view [email or web address] [place] [address] Central Scheduling, [address] [place] [address], [address], 10/18/2024 15:55:38 XR, chest, 2 view 2023 024 [facility] Central Scheduling, [address] [place], [address], 07/13/2024 19:24:35 Medication Orders fentanyl 12 mcg/hr transderm al patch 2024 025 [id number], [address] [place], [address], 10/18/2024 15:41:53 lorazepam 2 mg tablet 2023 024 [id number], [address] [place], [address], 07/09/2024 14:16:17 primidone 50 mg tablet 2023 025 [id number], [address] [place], [address], 10/15/2024 09:55:11 ondansetr on 8 mg disintegr ating tablet 2023 024 [facility], [address] [place] [address], [address], 07/09/2024 14:20:33 omeprazol e 40 mg capsule,d elayed release 2023 024 [facility], [address] [place] [address], [address], 10/10/2023 10:58:32 doxepin 6 mg tablet 2022 023 [id number], [address], [place], [id number], 10/29/2023 16:29:28 Patient TargetsNo targets recorded. Patient InstructionsNo instructions recorded. Reason for Referral None Reported. Results Created Date Observation Date Name Description Value Unit Range Abnormal Flag Note LastModifiedBy Organization Detail LastModifiedTime 09/27/19 24 09/27/2023 CT, abdom en + pelvi s, w/ contr ast No observ ation record ed. [facility] (Medical Records) [address] [place], [address], 09/28/2023 09:30:05 01/24/20 24 12/30/2023 MAMMO , scree jason, digit al, bilat eral No observ ation record ed. [email or web address] [facility] [address] [place] [address] [place], [address], 01/25/2024 09:20:22 07/13/20 24 07/13/2024 XR, chest , 2 view No observ ation record ed. [email or web address] [facility] (Medical Records) [address] [place], [address], 07/14/2024 09:04:08 09/27/19 25 09/27/2024 XR, lumba r spine No observ ation record ed. [email or web address] [facility] (Medical Records) [address] [place], [address], 09/27/2024 09:19:55 09/28/19 25 09/28/2024 CT, brain , w/o contr ast No observ ation record ed. [facility] [address] [place], [address], 09/28/2024 08:38:32 Result Notes None recorded. Problems Name Problem SNOMED Code Status Onset Date Resolution Date Notes Provider Name and Address Organization Details Recorded Time Systemic lupus erythemat osus 49957964 Active 2019 Not Available [facility] 3 18:59:09 Paronychi a of finger of right hand 996216970675 08426 Active 2019 Not Available [facility] 3 18:59:08 Seronegat lionel rheumatoi d arthritis 118901374 Active 2020 Not Available [facility] 3 18:59:08 Hypertens lionel encephalo juan luis 01204295 Active 2021 Not Available [facility] 3 18:59:08 Fall Active 2021 Not Available [facility] 3 18:59:08 Dysuria 60941296 Active 2021 Not Available [facility] 3 18:59:08 Acute urinary tract infection 309730861 Active 2021 Not Available [facility] 3 18:59:08 Urinary incontine nce 422207927 Active 2021 Not Available [facility] 3 18:59:08 Cervical radiculop athy 92011923 Active 2021 Not Available [facility] 3 18:59:08 Rib pain 223778264 Active 2021 Not Available [facility] 3 18:59:08 Dizziness 023574930 Active 2021 Not Available [facility] 3 18:59:08 Tremor 43531894 Active 2021 Not Available [facility] 3 18:59:08 Impacted cerumen of bilateral ears 706824608913 9108 Active 2021 Not Available [facility] 3 18:59:08 Impacted cerumen 71507517 Active 2021 Not Available [facility] 3 18:59:08 Cough 05433652 Active 2021 Not Available [facility] 3 18:59:08 Insomnia 763989548 Active 2022 Not Available [facility] 3 18:59:08 Multi-inf arct dementia 98783307 Active 2022 Not Available [facility] 3 18:59:09 Seizure disorder 184056183 Active 2022 Not Available [facility] 3 18:59:08 Subdural hematoma 00373095 Active 2022 Not Available [facility] 3 18:59:09 Memory impairmen t 153245296 Active 2022 Not Available [facility] 3 18:59:08 Allergic rhinitis 19735938 Active 2022 Not Available [facility] 3 18:59:09 Fatigue 82656036 Active 2022 Not Available [facility] 3 18:59:09 Vitamin D deficienc y 76810016 Active 2022 Not Available [facility] 3 18:59:08 Iron deficienc y anemia 56554410 Active 2022 Not Available [facility] 3 18:59:09 Nausea 705349951 Active 2022 Not Available [facility] 3 18:59:08 Fever with chills 502763540 Active 2022 Not Available [facility] 3 18:59:08 Bipolar disorder 76844973 Active 2017 Not Available [facility] 3 18:59:08 Hypertens lionel disorder 41046957 Active 2017 Not Available [facility] 3 18:59:08 Acid reflux 086343527 Active 2017 Not Available [facility] 3 18:59:09 Anxiety disorder 329550137 Active 2017 Not Available [facility] 3 18:59:08 Chronic constipat ion 487995912 Active 2017 Not Available [facility] 3 18:59:08 Diarrhea 64741135 Active 2023 GATO BRENNAN [address] [place] [address], [address], [facility] 4 13:38:28 Nausea and vomiting 51472612 Active 2023 GATO BRENNAN [address] [place] [address], [address], [facility] 4 10:55:51 Gastroeso phageal reflux disease 804781201 Active 2023 GATO BRENNAN [address] [place] [address], [address], [facility] 4 10:57:39 Acute gastroent eritis 46221377 Active 2023 GATO BRENNAN [address] [place], [address], [facility] 4 11:00:39 Isolated head tremor 907941207 Active 2023 GATO BRENNAN [address] [place], [address], [facility] 4 10:10:19 Acute bronchiti s 14346236 Active 2023 GATO BRENNAN [address] [place] [address], , [facility] 4 13:50:08 Leukopeni a 97346235 Active 2023 GATO BRENNAN [address] [place] [address], , [facility] 4 15:51:30 Degenerat ion of lumbar intervert ebral disc 01576512 Active 2024 GATO BRENNAN [address] [place] [address], , [facility] 5 15:13:56 Compressi on fracture of L2 589922275007 69653 Active 2024 GATO BRENNAN [address] [place] [address], , [facility] 5 15:28:19 Altered mental status 215249961 Active 2024 GATO BRENNAN [address] [place] [address], , [facility] 5 15:29:25 Bilateral hip joint pain 064487531661 94865 Active 2024 GATO BRENNAN [address] [place] [address], , [facility] 5 15:37:16 Problem Notes None recorded. Procedures Surgical History Date Name Laterality Status Provider Name and Address Organization Details Recorded Time 2 Cerumen Removal completed GATO BRENNAN [address] [place], [address], [facility] 03/05/2022 11:40:45 2 Cerumen Removal completed GATO BRENNAN [address] [place], [address], [facility] 03/01/2022 12:04:20 0 Cerumen Removal completed GATO BRENNAN [address] [place], [address], [facility] 05/22/2020 16:19:48 Imaging Results Imaging Date Name Status LastModified by Organiz ation Details LastModified Time 09/27/2023 CT, abdomen + pelvis, w/ contrast completed [facility] (Medical Records) [address] [place], [address], 09/28/2023 09:30:05 12/30/2023 MAMMO, screening, digital, bilateral completed [email or web address] [facility] [address] [place] [address] [place], [address], 01/25/2024 09:20:22 07/13/2024 XR, chest, 2 view completed [email or web address] [facility] (Medical Records) [address] [place], [address], 07/14/2024 09:04:08 09/27/2024 [facility] [address] [place], [address], 09/27/2024 09:19:55 09/28/2024 CT, brain, w/o contrast completed [facility] (Medical Records) [address] [place], [address], 09/28/2024 08:38:32 Procedure Notes None recorded. Medical Equipment None Reported. Allergies Allergen ID Allergen Name Allergen Category Reaction Reaction Severity Criticality Documentation Date Start Date Code Code System Note Provider Name and Address Organization Details Recorded Time 747 codeine medicatio n Not available Not available Not available 11/19/2017 2670 RxNorm Emily Bose [facility] 8 14:48:46 8791 oxycodone medicatio n Not available Not available Not available 10/18/2024 7804 RxNorm GATO BRENNAN [address] [place] [address], [address], [facility] 5 15:23:18 Medications Name Sig Start Date Stop Date Status Note LastModified by Organization Details LastModified Time celecoxib 200 mg capsule TAKE 1 CAPSULE BY MOUTH TWICE DAILY 06/17 completed Not Available Not Available Not Available cyclobenzap rine 10 mg tablet 03/23 completed Not Available Not Available Not Available amoxicillin 500 mg capsule TAKE 1 CAPSULE BY MOUTH EVERY 8 HOURS FOR 10 DAYS 10/15 completed Not Available Not Available Not Available atorvastati n 40 mg tablet TAKE 1 TABLET DAILY active Not Available Not Available No t Available lamotrigine 150 mg tablet Take 2 tablets every day by oral route for 90 days. 05/17 completed Not Available Not Available Not Available metformin 500 mg tablet TAKE 1 TABLET BY MOUTH TWICE DAILY 10/15 completed Not Available Not Available Not Available primidone 50 mg tablet TAKE 1 TABLET BY MOUTH THREE TIMES A DAY NEEDED FOR 14 DAYS 10/15 completed Not Available Not Available Not Available venlafaxine ER 37.5 mg capsule,ext ended [...] tablet TAKE 1 TABLET BY MOUTH DAILY 10/15 completed Not Available Not Available Not Available ondansetron HCl 4 mg tablet TAKE [...] tablet TAKE 1 TABLET BY MOUTH DAILY 10/15 completed Not Available Not Available Not Available tramadol 50 mg tablet Take 1 [...] day by oral route for 90 days. 10/15 completed Not Available Not Available Not Available oxycodone-a cetaminophe n 5 mg-325 mg [...] TIMES A DAY NEEDED FOR 10 DAYS 10/18 completed Not Available Not Available Not Available prednisone 2.5 mg tablet 04/05 completed [...] nded release 24 hr 1 tab qd 10/15 completed Not Available Not Available Not Available gabapentin [...] mg tablet,exte nded release 24 hr TAKE 2 TABLETS DAILY active Not Available Not Available [...] DAY FOR A TOTAL OF 6 DAYS 10/15 completed Not Available Not Available Not Available betamethaso ne dipropionat e 0.05 % [...] 1 SPRAY IN EACH NOSTRIL EVERY DAY 10/15 completed Not Available Not Available Not Available metronidazo le 0.75 % topical gel [...] TABLET (81 MG) BY ORAL ROUTE NEEDED 10/18 completed Not Available Not Available Not Available cyclobenzap rine 5 mg tablet TAKE 1 [...] ne ER 200 mg capsule,ext ended release [id number] Take one cap BID 2024 active Not Available Not Available Not Avai lable Boostrix Tdap 2.5 Lf unit-8 mcg-5 Lf/0.5 mL intramuscul ar suspension 06/14 completed Not Available Not Available Not Available fentanyl 12 mcg/hr transdermal patch 2024 active Not Available Not Available Not Avai lable chlorhexidi ne gluconate 0.12 % mouthwash SWISH [...] Not Available Vraylar 3 mg capsule TAKE 1 CAPSULE BY MOUTH EVERY DAY active Not Available [...] Updated DateTime 3 165.74 cm 24.3 kg/m2 63440.0 8 g 79 /min 95 % 95 % 130 mm[Hg] 70 mm[Hg] Sadaf [facility] 3 11:47:48 Date Recorded Body height Body mass index (BMI) Body weight Heart rate Oxygen saturation Oxygen saturation in Arterial blood by Pulse oximetry Systolic blood pressure Diastolic blood pressure Provider Name and Address Organization Details Last Updated DateTime 4 165.74 cm 24.3 kg/m2 96222.0 8 g 96 /min 97 % 97 % 148 mm[Hg] 90 mm[Hg] Sadaf [facility] 4 10:49:44 Date Recorded Body height Body mass index (BMI) Body weight Heart rate Oxygen saturation Oxygen saturation in Arterial blood by Pulse oximetry Systolic blood pressure Diastolic blood pressure Provider Name and Address Organization Details Last Updated DateTime 4 165.74 cm 22.8 kg/m2 27485.4 7 g 92 /min 98 % 98 % 146 mm[Hg] 92 mm[Hg] Jackie [facility] 4 09:57:09 Date Recorded Body height Body mass index (BMI) Body weight Heart rate Oxygen saturation Oxygen saturation in Arterial blood by Pulse oximetry Systolic blood pressure Diastolic blood pressure Provider Name and Address Organization Details Last Updated DateTime 4 165.74 cm 23.5 kg/m2 19234.4 8 g 99 /min 95 % 95 % 156 mm[Hg] 88 mm[Hg] Jackie [facility] 4 14:00:57 Date Recorded Body height Heart rate Oxygen saturation Oxygen saturation in Arterial blood by Pulse oximetry Systolic blood pressure Diastolic blood pressure Provider Name and Address Organization Details Last Updated DateTime 5 165.74 cm 82 /min 97 % 97 % 176 mm[Hg] 78 mm[Hg] Jackie [facility] 5 15:10:49 Social History Question Answer Notes LastModified by Organizat ion Details LastModified Time Tobacco Smoking Status Former Smoker Not Available [facility] 06/27/2020 03:36:23 What Was The Date Of Your Most Recent Tobacco Screening? 07/09/2024 [email or web address] Information not available 07/09/2024 Do You Or Have You Ever Used Any Other Forms Of Tobacco Or Nicotine? No [email or web address] Information not available 07/21/2023 Sex: Unknown Functional Status None recorded. Mental Status None recorded. Family History Nothing Reported. Medical History No medical history recorded. Gynecological HistoryNo gynecological history recorded. Obstetrics History GPAL:G 0 P 0 0 0 0 Immunizations Vaccine Type Date Status Note Provider Nam e and Address Organization Details Recorded Time influenza, unspecified formulation 4 completed Jackie rain [facility] 06/11/2024 08:21:38 SARS-COV-2 (COVID-19) vaccine, UNSPECIFIED 4 completed Jackie rain [facility] 06/11/2024 08:21:46 Influenza, split virus, quadrivalent, preservative 9 completed Not Available [facility] 08/15/2023 18:59:09 pneumococcal polysaccharide PPV23 9 completed Not Available [facility] 08/15/2023 18:59:09 Influenza, split virus, quadrivalent, preservative 0 completed Not Available [facility] 08/15/2023 18:59:09 COVID-19, mRNA, LNP-S, PF, 30 mcg/0.3 mL dose 1 completed Not Available [facility] 08/15/2023 18:59:09 COVID-19, mRNA, LNP-S, PF, 30 mcg/0.3 mL dose 1 completed Not Available [facility] 08/15/2023 18:59:09 zoster recombinant 0 completed Not Available [facility] 08/15/2023 18:59:09 Pneumococcal conjugate PCV 13 0 completed Not Available [facility] 08/15/2023 18:59:09 zoster recombinant 1 completed Not Available [facility] 08/15/2023 18:59:09 Past Encounters Encounter ID Performer Location Encounter Start Date Encounter Closed Date Diagnosis/Indication Diagnosis SNOMED-CT Code Diagnosis ICD10 Code Diagnosis Note [id number] Myrna Colin NP, S [facility] [address] [facility],[place] [address] 11/28/2017 13:28:02 11/28/2017 14:30:55 Bipolar disorder 37504967 F31.9 improved with abilify Gastroesop hageal reflux disease without esophagitis 181392218 K21.9 use omeprazole BID, continue dietary modificati ons including reduction in cola intake Localized, primary osteoarthritis of the hand 014349710 M19.049 Tylenol prn Essential hypertension 44230302 I10 stable Hyperlipidemia 35457315 E78.5 mediterran linda diet, will recheck labs February, aware continue walking daily Impacted cerumen 3633910 6 H61.20 cleared [id number] Myrna Colin NP, S [facility] [address] [facility], [facility] [place] [employer] [place] [address] 03/23/2018 10:28:15 03/23/2018 12:34:20 On examination - rash present 631946353 R21 written script- betamethas one , using [employer] discount card Hypertensive disorder 38 314776 I10 stable Hypercholesterolemia 136 07080 E78.2 will review Anxiety disorder 4944235 06 F41.9 abilify helpful [id number] Myrna Colin NP, S [facility] [address] [facility], [place] [address] 09/25/2018 10:20:28 09/25/2018 13:49:28 Anxiety disorder 718587834 F41.9 Bipolar disorder 2838120 4 F31.9 stable Hypertensive disorder 38 175012 I10 stable Gastroesop hageal reflux disease 531228638 K21.9 Chronic constipation 236 296519 K59.09 trulance- new 4 months ago-[facility] [id number] Myrna Colin NP, [facility] [address] [facility], [place] [address] 10/30/2018 09:27:36 10/30/2018 10:36:32 Acid reflux 120232305 K21.9 Hypertensive disorder 38 887434 I10 stable Anxiety disorder 9002089 06 F41.9 Screening procedure 2012 5006 Z13.9 [id number] November KARY Delacruz [facility] [address] [facility], [place] [employer] [place] [address] 02/12/2019 09:54:22 02/12/2019 10:38:43 Multiple joint pain 64918217 M25.50 treat for lymp empiricall y with doxy 100 bid x 21 day pt requests written rx Fatigue 98113498 R53.83 Hypertensive disorder 38 631909 I10 Anxiety disorder 5173997 06 F41.9 Vitamin D deficiency 347 12583 E55.9 [id number] KARY Andrade [facility] [address] [facility], [place] [address] 02/19/2019 14:13:08 02/19/2019 15:09:56 Hand joint pain 349694175 M25.549 Multiple joint pain 3567 8005 M25.50 primarily hands, wrists, elbows no injury Fatigue 06548908 R53.83 ? [place] [id number] Franko Graham [facility] [address] [facility] [address] 03/01/2019 11:17:16 03/01/2019 12:03:57 Multiple joint pain 21498214 M25.50 oxycodon and pred given for next 3 days will also need to continue for now only taking half tab once a day will need to have her increase the dose back to where it should be Impetigo 79661559 L01.00 will add mupirocin [id number] Franko Graham [facility] [address] [facility] [address] 03/03/2019 11:59:37 03/03/2019 12:46:37 Multiple joint pain 60084944 M25.50 oxycodon and pred will be given in a taper will also need to continue for now only taking half tab once a day [id number] Franko Graham [facility] [address] [facility], ite [facility] [place] [address] 03/10/2019 13:22:52 03/10/2019 14:06:53 Multiple joint pain 45781949 M25.50 -complete prednisone -continue with tylenol and diclofenac gel for pain relief -followup with rheumatolo gy after the pred still we feel that it was the latuda and she is now off the med and will be seeing the psych soon Nausea 770039086 R11.0 now gone since off latuda Acid reflux 974097489 K2 1.9 still taking omeprazole Hypertensive disorder 38 133911 I10 doing well will hold clonidine and cont metoprolol [id number] Franko Graham DO [facility] [address] [facility],[place] [address] 04/12/2019 09:58:50 04/12/2019 10:37:41 Multiple joint pain 42185963 M25.50 seems that she has not improved at all since stopping med rheum w/u in progress will look for the lab done by rheum Impetigo 23621945 L01.00 will add mupirocin will also try on 1 spot on her arm Hand joint pain 75831890 8 M25.549 [id number] Franko Graham DO [facility] [address] [facility],[place] [address] 04/19/2019 12:01:40 04/19/2019 14:41:42 Rheumatoid arthritis 13163891 M06.9 will be starting DMARDS with MTX await derm consult On examina tion - rash present 169210197 R21 ? if this is dissm herpes zoster getting to see derm 2 days will see she has had for several weeks [id number] Franko Graham DO [facility] [address] [facility], [place] [address] 05/31/2019 14:40:53 05/31/2019 15:37:59 Hypertensive disorder 90351147 I10 doing well will hold clonidine and cont metoprolol Acid reflux 352778407 K2 1.9 still taking omeprazole Gastroesop hageal reflux disease 973520940 K21.9 gets symptomati c if she stops the omeprazole Subacute c utaneous lupus erythematosus 921333370 L93.1 PEEWEE negative will cont to improve with current new meds will follow with rheumatolo gy and dermatolog y in the next 2 months. [id number] Franko Graham DO [facility] [address] [facility],[place] [employer] [place] [address] 09/29/2019 11:43:07 09/29/2019 12:27:52 Hypertensive disorder 30025856 I10 doing well will cont clonidine and cont metoprolol Bipolar disorder 7124175 4 F31.9 will need to discuss the dx and the treatment regimen Multi-infa rct dementia 51275433 F01.50 again a I am not sure if this has anything to do with her microang changes or if this is even a correct dx also we dont know if she did or did not have a seizure Systemic l upus erythematosus 56250809 M32.9 continuing to manage her various problems assoc with this disease will have rheum see her soon also she is requiring assistive services which are vital during exacerbati on (ex cva) etc will follow closely [id number] Franko Graham DO [facility] [address] [facility], [place] [address] 12/17/2019 14:43:23 12/17/2019 15:19:19 Hypertensive disorder 17510042 I10 cont metoprolol at 50mg she will double up on 25 mg Nasal infection 29792499 3 J32.9 [id number] Franko Graham [facility] Internal [facility] [address] [facility],[place] [address] 01/12/2020 10:54:01 01/12/2020 11:23:01 Hypertensive disorder 52126754 I10 usin 1 1/2 tabs of up on 25 mg metoprolol to equal 37.5mg Congestion of nasal sinus 08018433 R09.81 seems to have developed an seasonal allergies so she will try zyrtec and or flonase Seizure disorder 2089846 02 G40.909 now on an extra carbamaxze pine 50mg [id number] GATO BRENNAN [facility] [address] [facility] [address] 04/05/2020 13:48:59 04/05/2020 14:26:15 Paronychia of finger 019183575 L03.019 the patient's second finger on her right hand has an infection of the nail bed that is red, swollen and leaking purulent discharge has tried OTC abx ointment, episom salt baths, bandaging and other OTC remedies with no effect will now try oral abx to see if this improves and removes infection Hypertensive disorder 38 425867 I10 BP well controlled stable [id number] Franko Graham [facility] Internal Medicine [address] [facility], [place] [address] 05/17/2020 10:21:36 05/17/2020 11:25:00 Bipolar disorder 85262586 F31.9 will need to discuss the dx and the treatment regimen Anxiety disorder 2655582 06 F41.9 about the same and her son is getting and she is stressed Systemic l upus erythematosus 02804067 M32.9 continuing to manage her various problems assoc with this disease will have rheum see her soon also she is requiring assistive services which are vital during exacerbati on (ex cva) etc will follow closely Paronychia of finger of right hand [id number] 8491763 L03.011 will use doxy as she is still very infected Postmenopa usal osteopenia 654617683 M85.80 [id number] GATO BRENNAN [facility] [address] [facility], [place] [address] 05/22/2020 15:51:40 05/22/2020 16:27:05 Impacted cerumen of bilateral ears 9501978552 531126 H61.23 procedure tolerated well doing good Tms visualized Hypertensive disorder 38 081582 I10 BP well controlled stable [id number] GATO BRENNAN [facility] [address] [facility],[place] [address] 06/14/2020 13:53:01 06/14/2020 16:06:19 Paronychia of finger 304627703 L03.019 will set up with Dr. Fregoso Hypertensive disorder 38 685000 I10 BP well controlled stable [id number] Franko Graham DO [facility] [address] [facility], [place] [address] 09/22/2020 08:31:33 09/22/2020 11:55:49 Hypertensive disorder 27408008 I10 using 1 1/2 tabs of up on 25 mg metoprolol to equal 37.5mg bp at home has been ok and has been stable at other appts Paronychia of finger of right hand 0262402518 2379620 L03.011 will use doxy as she is being followed by hand spec Systemic l upus erythematosus 85401066 M32.9 continuing to manage her various problems assoc with this disease will have rheum see her soon also she is requiring assistive services which are vital during exacerbati on (ex cva) etc will follow closely Acid reflux 734576865 K2 1.9 still taking omeprazole Screening mammography 24 754771 Z12.31 Seronegati ve rheumatoid arthritis 628191671 M06.00 being followed by rosie shore and has been doing ok overall has had to be on pred recently and she is worse in the left hand only [id number] Franko Graham DO [facility] [address] [facility] [place], [place] [address] 11/24/2020 09:29:52 11/24/2020 10:03:37 Anxiety disorder 952194180 F41.9 given the severity of her anxiety and that she will be seeing dr moscoso later this month we will be giving her a mild lorazepam dose for in the meantime until she an be seen pt understand s this is temporary Chronic constipation 236 185628 K59.09 Hypertensive disorder 38 812083 I10 using 1 1/2 tabs of up on 25 mg metoprolol to equal 37.5mg bp at home has been ok and has been stable at other appts [id number] Franko Graham DO [facility] [address] [facility], [place] [address] 01/10/2021 10:10:38 01/10/2021 10:33:40 Acid reflux 187370740 K21.9 still taking omeprazole sd Hypertensive disorder 38 404641 I10 using 1 1/2 tabs of up on 25 mg metoprolol to equal 37.5mg bp is excellent bp at home has been ok and has been stable at other appts Anxiety disorder 06 F41.9 given the severity of her anxiety and that she will be seeing dr moscoso later this month we will be giving her a mild lorazepam dose for in the meantime until she an be seen pt understand s and she seems to be stable on latuda [id number] GATO BRENNAN [facility] [address] [facility] [place] [facility] [place] [facility] [place] [address] 04/04/2021 14:20:32 04/04/2021 15:29:32 Contact dermatitis 15063878 L25.5 allergic contact dermatitis of unknown originstar t on pred taper, fu if no improvemen t Systemic l upus erythematosus 59380240 M32.9 uses it for lupus flare ups Paronychia of finger 444 686987 L03.011 index finger, never healed quiet right, the finger nail is growing back dented and is easily discolored has fu with rheum, told them to obtain XRs [id number] GATO BRENNAN [facility] [address] [facility] [place] [address] 07/02/2021 14:11:13 07/02/2021 16:04:17 Active or passive immunization 037291996 Z23 advisedup to date Adult heal th examination 236869906 Z00.00 BP fluctuates in office, no concerns today Lipoma of skin 327351501 D17.24 fu with US and probable derm referral [id number] GATO BRENNAN [facility] [address] [facility],[place] [address] 08/08/2021 08:21:08 08/08/2021 16:35:01 Cervical disc disorder 170166586 M50.90 will refer to neuro Multi-infa rct dementia 40755122 F01.50 stable Bipolar disorder 9542277 4 F31.9 stable Seizure disorder 6263679 02 G40.909 stable [id number] GATO BRENNAN [facility] [address] [facility],[place] [address] 10/16/2021 10:53:37 10/16/2021 11:50:47 Rib pain 480005224 R07.81 will fu with XR ribs to r/o possible fx giving bruising pattern Superficia l injury of face 945450028 S00.83XA will fu with XR facial bones to r/o ethmoid bones Subdural hematoma 679348 01 S06.5X0A will recheck CT to monitor her bleed Recurrent falls 68273987 2 R29.6 has PT evaluating herwould like to discuss with her PT about gait imbalance Traumatic hematoma 25715 9004 T14.8XXA will resolve, pretty small Constipation 33087103 K5 9.03 increased water intake Pain of ri t shoulder joint 1299330762 3506480 M25.511 [id number] GATO BRENNAN [facility] [address] [place] [address], [place] [address] 10/30/2021 11:52:37 10/31/2021 10:14:19 Cervical radiculopathy 98129560 M54.12 will f/u [facility] refill [facility] [id number] GATO BRENNAN [facility] [address] [place] [address], [place] [address] 11/06/2021 14:11:21 11/06/2021 16:24:43 Subdural hematoma 02301060 S06.5X0A will recheck CT to monitor her bleed [id number] GATO BRENNAN [facility] [address] [place] [address],[place] [address] 11/27/2021 10:19:27 11/27/2021 14:40:16 Anxiety disorder 013667107 F40.02 refill Hypertensive disorder 38 968285 I10 stable today in office on 2 tabs of metoprolol Hypertensi ve encephalopathy 71944757 I67.4 will continue to monitor her BP Fall R29.6 no recent falls History of subdural hematoma 983973038 Z86.[address] with neuro [id number] GATO BRENNAN [facility] [address] [place] [address], [place] [address] 12/05/2021 15:45:41 12/07/2021 08:56:32 Dysuria 54136346 R30.0 [id number] GATO BRENNAN [facility] [address] [place] [address], [place] [address] 01/09/2022 15:09:51 01/11/2022 09:40:40 Acute urinary tract infection 290011116 N10 will trial a different medication for the recurrent UTIs Urinary incontinence 165 334869 N39.3 worsened due to UTI Cervical radiculopathy 85391807 M54.12 [place] [id number] GATO BRENNAN [facility] [address] [facility],[place] [address] 03/01/2022 11:12:09 03/01/2022 12:24:34 Rib pain 371621964 R07.81 will fu with XR ribs following fall Urinary incontinence 165 136595 N39.3 will start on oxybutynin Dizziness 736050108 R42 will set up with ENT for re-evaluat ion of her inner ear with the continued dizziness Tremor 35031369 G25.2 will set up with Dr. Aguila Impacted c erumen of bilateral ears 0365463096 005040 H61.23 will need to try debrox for a couple of days and come back [id number] GATO BRENNAN [facility] [address] [facility], [place] [address] 03/05/2022 10:40:30 03/05/2022 14:25:08 Impacted cerumen 03603079 H61.23 resolved [id number] GATO BRENNAN [facility] [address] [facility], [place] [address] 01/14/2023 08:55:50 01/14/2023 10:39:38 Insomnia 977981790 G47.09 agreed to trial trazadone for the sleep Systemic l upus erythematosus 34053674 M32.9 uses it for lupus flare ups Multi-infa rct dementia 60542953 F01.50 stable Bipolar disorder 8491164 4 F31.30 depressed episode currentlya greed to trial med specifical ly for the depression Seizure disorder 0209837 02 G40.909 stable Subdural hematoma 900070 01 S06.5X0A will recheck CT to monitor her bleed Memory impairment 604362 006 R41.3 agreed to f/u blood work Allergic rhinitis 549293 04 J30.1 agreed to trial flonase Fatigue 84684145 R53.83 agreed to lab work [id number] GATO BRENNAN [facility] [address] [facility], [facility] [place] [address] 05/09/2023 12:10:32 05/09/2023 15:28:14 Nausea 134910628 R11.0 will set up with zofran as needed Fever with chills 347569 006 R50.81 continue with APAP and Advil [id number] GATO BRENNAN [facility] [address] [facility] [address] [place] [address] 06/09/2023 10:19:50 06/10/2023 13:42:42 Insomnia 545877649 G47.09 agreed to trial eszopiclon e for the sleeping Tremor 60804516 G25.2 neuro exam was normal, no findings suggestive of brain damage, parkinson' s, MS or anythingre cent MRI was negativewi ll talk to shivam about 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 [id number] GATO BRENNAN [facility] [address] [facility] [address] [place] [address] 07/21/2023 11:40:07 07/21/2023 12:33:52 Insomnia 521513137 G47.09 will trial doxepin instead Adult heal th examination 571650242 Z00.00 BP fluctuates in office, no concerns today [id number] GATO BRENNAN [facility] [address] [facility] [address] [place] [address] 10/10/2023 10:37:32 10/10/2023 14:00:16 Nausea and vomiting 72907020 R11.2 will set up with PRN zofran meds Gastroesop hageal reflux disease 090230601 K21.9 will set up with omeprazole 40 mg as she is do for it Acute gastroenteritis 69 673220 K52.9 resolved [id number] GATO BRENNAN [facility] [address] [facility] [address] [place] [address] 04/09/2024 09:40:25 04/09/2024 11:43:07 Depression screening 586364436 Z13.31 SCREENING NEGATIVE Isolated head tremor 230 243338 G25.0 will start on primidoneo mariano with bupropionw ill f/u after she talks to her psych [id number] GATO BRENNAN [facility] [address] [facility] [address] [place] [address] 07/09/2024 13:55:42 07/09/2024 14:37:05 Anxiety disorder 583188537 F40.02 refill Cough 48364901 R05.3 will set up with CXR to determine if there are residual symptoms Fatigue 58436478 R53.83 agreed to lab work to recheck her levels [id number] GATO BRENNAN Internal [facility] [address] [facility] [address],[place] [address] 10/18/2024 14:57:49 10/18/2024 15:55:37 At increased risk for falls 611156593 Z91.81 due to weakness, tremors Fall 5016864 R29.6 no recent falls Degenerati on of lumbar intervertebral disc 08321326 M51.369 will trial a very small dose of fentanyl Compressio n fracture of L2 8870683270 4790658 M48.56XA recheck if f/x is healing Altered mental status 41 0289543 R41.82 working with psych Memory impairment 559090 006 R41.3 no Anxiety disorder 6168528 06 F40.02 weaning off the ativan, switching to hydroxyzin e Family his tory of aneurysm of abdominal aorta 418159964 Z82.49 will set up with screening Bilateral hip joint pain 8658746186 5952676 M25.551 set up with XRs Health Concerns Section Related Observation LastModified by Organization Detai ls LastModified Time None Recorded Concern Status LastModified by Organization Details LastModified Time None Recorded Advance Directives Directive None Recorded Payers Encounter Date Sequence Insurance Name Policy Number Policy Saavedra Covered Member ID Saavedra Member ID Guarantor Name 07/21/2023 1 [facility] [id number] [facility] [id number] [facility] 10/10/2023 1 [place] [id number] Tabatha Charanjit [id number] [facility] 04/09/2024 1 [place] [facility] Tabatha Gomez Charanjit [id number] 2 [facility] Charanjit 04/09/2024 2 [facility] [id number] Tabatha Charanjit [id number] [facility] 07/09/2024 1 [place] [facility] Tabatha Donohue [id number] 2 [facility] 07/09/2024 2 [facility] [id number] [facility] [id number] Tabatha Charanjit 10/18/2024 1 [place]: [facility] Tabatha Coronadoy [id number] 2 [facility] 10/18/2024 2 [facility] [id number] [facility] [id number] [facility] Notes Date Note Type Note Provider Name a ct Address Organization Details Recorded Time 3 text/html Annual WellnessReported bypatient.Diet and Nutrition:healthy [...] hearing Vision:no vision problems GATO BRENNAN [address] [place], [address], [facility] 07/21/2023 12:10:23 4 text/html ER f/u for dehydration the patient is drinking more appropriatelythe patient had gastro bugthe patient has possible colitis related to viral infection no longer having diarrhea the patient has not been nauseous as well which is going wellthe patient mostly doing much better needs to get her strength back will send in refills GATO BRENNAN [address] [place], [address], [facility] 10/10/2023 11:00:53 4 text/html f/u depression the patient is [...] what Dr. Rush says GATO BRENNAN [address] [place], [address], [facility] 04/09/2024 10:14:55 4 text/html f/u URI the patient reports that her cough is much betterresidual fatigue and intermittent dry cough the patient reports that she is more upset given her poor healthadjusting to this at hometalks to her psychiatrist and therapist recommended lab work and CXR GATO BRENNAN [address] [place], [address], [facility] 07/09/2024 14:31:29 5 text/html hospital d/c the patient has a fall? not sure, not witnessed and only remembers waking up on the fall the patient reports that she had her medications changed at ER and SNF the patient had ended up taking herself off the vraylar, daughter did f/u for patient to her psychiatrist Dr. Riley the patient is having PT and OT and VNA comingfor med reconciliation taking the half of the ativan, ?if she took more than she was supposed to the patient was getting morphine and was switch to oxycodone, developed delirium the patient reports she broke her L1 and L2 lumbar fracture, did not have imaging on her hips as far as the note says the patient will need fu imaging and US abdominal CT head, no major changes, known brain matter changes, no change correlated to recent memory changes GATO BRENNAN [address] [place], [address], [facility] 10/18/2024 15:49:38 OBGyn Episode No OBEpisode recorded.
--- OUTSIDE RECORDS SUMMARY | 2024-10-25 14:49 | XMS_ITS | Continuity of Care Document ---
Author Organization [facility] Address [address] [facility] [place] [address] Assessment No assessment recorded. Plan of Treatment Reminders Order Date Submit Date Provider Last Modified By Organization Details Last Modified Time Details Appointments FOLLOW UP 15 2024 02:15P GATO MORAN Not available Not available Not available Lab None recorded. Referral None recorded. Procedures None recorded. Surgeries None recorded. Imaging US, abdominal aorta - brother of a AAA incidenta l finding on XR lumbar spine 2024 025 [facility] Central Scheduling, [address] [place], [address], 10/19/2024 08:36:16 XR, lumbosacr al spine, 2 or 3 view [address] Central Scheduling, [address] [place], [address], 10/18/2024 15:55:37 XR, hip + pelvis, bilateral , 2 view [email or web address] [place] [address] Central Scheduling, [address] [place], [address], 10/18/2024 15:55:38 Medication Orders fentanyl 12 mcg/hr transderm al patch 2024 025 [facility][id number], [address] [facility], [place], [address], 10/18/2024 15:41:53 Patient TargetsNo targets recorded. Patient InstructionsNo instructions recorded. Reason for Referral None Reported. Results Created Date Observation Date Name Description Value Unit Range Abnormal Flag Note LastModifiedBy Organization Detail LastModifiedTime 09/27/19 25 09/27/2024 XR, lumba r spine No observ ation [facility] ed[facility] [address] [place], [address], 09/27/2024 09:19:55 09/28/19 25 09/28/2024 CT, brain , w/o contr ast No observ at[facility] [address] [place], [address], 09/28/2024 08:38:32 Result Notes None recorded. Problems Name Problem SNOMED Code Status Onset Date Resolution Date Notes Provider Name and Address Organization Details Recorded Time Systemic lupus erythemat osus 43311760 Active 2019 Not Available [facility] 3 18:59:09 Paronychi a of finger of right hand 219315950338 80176 Active 2019 Not Available [facility] 3 18:59:08 Seronegat lionel rheumatoi d arthritis 777447075 Active 2020 Not Available [facility] 3 18:59:08 Hypertens lionel encephalo juan luis 69097919 Active 2021 Not Available [facility] 3 18:59:08 Fall Active 2021 Not Available [facility] 3 18:59:08 Dysuria 58666435 Active 2021 Not Available [facility] 3 18:59:08 Acute urinary tract infection 331558934 Active 2021 Not Available [facility] 3 18:59:08 Urinary incontine nce 995548777 Active 2021 Not Available [facility] 3 18:59:08 Cervical radiculop athy 19353320 Active 2021 Not Available [facility] 3 18:59:08 Rib pain 860304683 Active 2021 Not Available [facility] 3 18:59:08 Dizziness 128542958 Active 2021 Not Available [facility] 3 18:59:08 Tremor 94631079 Active 2021 Not Available [facility] 3 18:59:08 Impacted cerumen of bilateral ears 817606121996 9108 Active 2021 Not Available [facility] 3 18:59:08 Impacted cerumen 13201800 Active 2021 Not Available [facility] 3 18:59:08 Cough 19224924 Active 2021 Not Available [facility] 3 18:59:08 Insomnia 465640374 Active 2022 Not Available [facility] 3 18:59:08 Multi-inf arct dementia 91501782 Active 2022 Not Available [facility] 3 18:59:09 Seizure disorder 485667236 Active 2022 Not Available [facility] 3 18:59:08 Subdural hematoma 36719768 Active 2022 Not Available [facility] 3 18:59:09 Memory impairmen t 401786915 Active 2022 Not Available [facility] 3 18:59:08 Allergic rhinitis 06720695 Active 2022 Not Available [facility] 3 18:59:09 Fatigue 24851123 Active 2022 Not Available [facility] 3 18:59:09 Vitamin D deficienc y 39284448 Active 2022 Not Available [facility] 3 18:59:08 Iron deficienc y anemia 13498772 Active 2022 Not Available [facility] 3 18:59:09 Nausea 687698941 Active 2022 Not Available [facility] 3 18:59:08 Fever with chills 538449777 Active 2022 Not Available [facility] 3 18:59:08 Bipolar disorder 46152048 Active 2017 Not Available [facility] 3 18:59:08 Hypertens lionel disorder 29298309 Active 2017 Not Available [facility] 3 18:59:08 Acid reflux 265533921 Active 2017 Not Available [facility] 3 18:59:09 Anxiety disorder 659422616 Active 2017 Not Available [facility] 3 18:59:08 Chronic constipat ion 623675499 Active 2017 Not Available [facility] 3 18:59:08 Diarrhea 48696563 Active 2023 GATO BRENNAN [address] [place], [address], [facility] 4 13:38:28 Nausea and vomiting 68084533 Active 2023 GATO BRENNAN [address] [place], [address], [facility] 4 10:55:51 Gastroeso phageal reflux disease 685707577 Active 2023 GATO BRENNAN [address] [place], [address], [facility] 4 10:57:39 Acute gastroent eritis 06774346 Active 2023 GATO BRENNAN [address] [place], [address], [facility] 4 11:00:39 Isolated head tremor 922447113 Active 2023 GATO BRENNAN [address] [place], [address], [facility] 4 10:10:19 Acute bronchiti s 83296168 Active 2023 GATO BRENNAN [address] [place], [address], [facility] 4 13:50:08 Leukopeni a 70234812 Active 2023 GATO BRENNAN [address] [place], [address], [facility] 4 15:51:30 Degenerat ion of lumbar intervert ebral disc 45203274 Active 2024 GATO BRENNAN [address] [place], [address], [facility] 5 15:13:56 Compressi on fracture of L2 483681256128 65130 Active 2024 GATO BRENNAN [address] [place] [address], [address], [facility] 5 15:28:19 Altered mental status 890483698 Active 2024 GATO BRENNAN [address] [place] [address], [address], [facility] 5 15:29:25 Bilateral hip joint pain 142693120018 81165 Active 2024 GATO BRENNAN [address] [place] [address], [address], [facility] 5 15:37:16 Problem Notes None recorded. Procedures Surgical History Date Name Laterality Status Provider Name and Address Organization Details Recorded Time 2 Cerumen Removal completed GATO BRENNAN [address] [place] [address], [address], [facility] 03/05/2022 11:40:45 2 Cerumen Removal completed GATO BRENNAN [address] [place] [address], [address], [facility] 03/01/2022 12:04:20 0 Cerumen Removal completed GATO BRENNAN [address] [place] [address], [address], [facility] 05/22/2020 16:19:48 Imaging Results None recorded. Procedure Notes None recorded. Medical Equipment None Reported. Allergies Allergen ID Allergen Name Allergen Category Reaction Reaction Severity Criticality Documentation Date Start Date Code Code System Note Provider Name and Address Organization Details Recorded Time 747 codeine medicatio n Not available Not available Not available 11/19/2017 2670 RxNorm Emily Bose [facility] 8 14:48:46 8791 oxycodone medicatio n Not available Not available Not available 10/18/2024 7804 RxNorm GATO BRENNAN [address] [place] [address], [address], [facility] 5 15:23:18 Medications Name Sig [...] ne ER 200 mg capsule,ext ended release [id number] Take one cap BID 2024 active Not [...] Not Available Not Available Fluzone High-Dose Quad 2019- (PF) 240 mcg/0.7 mL IM syringe ADM 0.7ML IM UTD 11/24 completed Not Available Not Available Not Available Vitals Date Recorded Body height Heart rate Oxygen saturation Oxygen saturation in Arterial blood by Pulse oximetry Systolic blood pressure Diastolic blood pressure Provider Name and Address Organization Details Last Updated DateTime 5 165.74 cm 82 /min 97 % 97 % 176 mm[Hg] 78 mm[Hg] [facility] 5 15:10:49 Social History Question Answer Notes LastModified by Organizat ion Details LastModified Time Tobacco Smoking Status Former Smoker Not Available [facility] 06/27/2020 03:36:23 What Was The Date Of Your Most Recent Tobacco Screening? 07/09/2024 [email or web address] Information not available 07/09/2024 Do You Or Have You Ever Used Any Other Forms Of Tobacco Or Nicotine? No [email or web address] Information not available 07/21/2023 Sex: Unknown Functional Status None recorded. Mental Status None recorded. Family History Nothing Reported. Medical History No medical history recorded. Gynecological HistoryNo gynecological history recorded. Obstetrics History GPAL:G 0 P 0 0 0 0 Immunizations Vaccine Type Date Status Note Provider Nam e and Address Organization Details Recorded Time influenza, unspecified formulation 4 completed Jackie rain [facility] 06/11/2024 08:21:38 SARS-COV-2 (COVID-19) vaccine, UNSPECIFIED 4 completed Jackie rain [facility] 06/11/2024 08:21:46 Influenza, split virus, quadrivalent, preservative 9 completed Not Available [facility] 08/15/2023 18:59:09 pneumococcal polysaccharide PPV23 9 completed Not Available [facility] 08/15/2023 18:59:09 Influenza, split virus, quadrivalent, preservative 0 completed Not Available [facility] 08/15/2023 18:59:09 COVID-19, mRNA, LNP-S, PF, 30 mcg/0.3 mL dose 1 completed Not Available [facility] 08/15/2023 18:59:09 COVID-19, mRNA, LNP-S, PF, 30 mcg/0.3 mL dose 1 completed Not Available [facility] 08/15/2023 18:59:09 zoster recombinant 0 completed Not Available [facility] 08/15/2023 18:59:09 Pneumococcal conjugate PCV 13 0 completed Not Available [facility] 08/15/2023 18:59:09 zoster recombinant 1 completed Not Available [facility] 08/15/2023 18:59:09 Past Encounters Encounter ID Performer Location Encounter Start Date Encounter Closed Date Diagnosis/Indication Diagnosis SNOMED-CT Code Diagnosis ICD10 Code Diagnosis Note [id number] GATO BRENNAN [facility] [address],[place] [address] 10/18/2024 14:57:49 10/18/2024 15:55:37 At increased risk for falls 358889128 Z91.81 due to weakness, tremors Fall R29.6 no recent falls Degenerati on of lumbar intervertebral disc 82432877 M51.369 will trial a very small dose of fentanyl Compressio n fracture of L2 3781873066 1569135 M48.56XA recheck if f/x is healing Altered mental status 41 2882401 R41.82 working with psych Memory impairment 523476 006 R41.3 no Anxiety disorder 7963636 06 F40.02 weaning off the ativan, switching to hydroxyzin e Family his tory of aneurysm of abdominal aorta 079049738 Z82.49 will set up with screening Bilateral hip joint pain 4768476532 1750443 M25.551 set up with XRs Health Concerns Section Related Observation LastModified by Organization Detai ls LastModified Time None Recorded Concern Status LastModified by Organization Details LastModified Time None Recorded Payers Encounter Date Sequence Insurance Name Policy Number Policy Saavedra Covered Member ID Saavedra Member ID Guarantor Name 10/18/2024 1 [place] [employer] Tabatha Donohue [id number] 2 Tabatha Donohue 10/18/2024 2 [facility] [employer] - [facility] [id number] Tabatha Donohue [id number] Tabatha Donohue Notes Date Note Type Note Provider Name a nd Address Organization Details Recorded Time 10/18/2024 text/html hospital d/c the patient has a [...] correlated to recent memory changes GATO BRENNAN [address] [place] [address], [place], [address], [facility] 10/18/2024 15:49:38 OBGyn Episode No OBEpisode recorded.
--- OUTSIDE RECORDS SUMMARY | 2024-10-25 14:49 | XMS_ITS | Encounter Summary ---
Author Organization [facility] Address [address] [place] [address] Care Team Providers Care District Wire Chief Name Role Phone Haroon Watson MD Primary Care Provider [phone] Encounter Details Date Type Department Care Team (Late st Contact Info) Description 10/05/2024 Lab Requisition [facility] [address] [facility] [place] [address] Haroon Watson MD [address] [place] [address] Encounter for other general examination Social History Tobacco Use Types Packs/Day Years Used Date Smoking Tobacco: Never Assessed Comments Unknown Sex and Gender Information Value Date Recorded Sex Assigned at Not on file Legal Sex Female 3:44 PM EDT Gender Identity Not on file Sexual Orientation Not on file documented as of this encounter Plan of Treatment Not on file documented as of this encounter Procedures Procedure Name Priority Date/Time Associated Diagnosis Comments COMPLETE BLOOD COUNT Routine 10/05/2024 5:20 AM EST Encounter for other general examination BASIC METABOLIC PANEL Routine 10/05/2024 5:20 AM EST Encounter for other general examination documented in this encounter Results * (ABNORMAL) Complete blood count (10/05/2024 5:20 AM EST) WBC 4.0(L) 4.8 - 10.8 K/[facility] LAB HEMETOLOGY METHOD 10/05/2024 9:24 AM EST [facility] RBC 3.40(L) 3.80 - 4.80 M/[facility] LAB HEMETOLOGY METHOD 10/05/2024 9:24 AM EST [facility] LAB Hemoglobin 10.0(L) 11.5 - 16.0 g/dL LAB HEMETOLOGY METHOD 10/05/2024 9:24 AM [facility] LAB Hematocrit 31.4(L) 35.0 - 47.0 % LAB HEMETOLOGY METHOD 10/05/2024 9:24 AM [facility] LAB MCV 92.1 79.0 - 98.0 FL LAB HEMETOLOGY METHOD 10/05/2024 9:24 AM [facility] LAB MCH 29.3 27.0 - 32.0 pcg LAB HEMETOLOGY METHOD 10/05/2024 9:24 AM [facility] LAB MCHC 31.8(L) 32.0 - 37.0 g/dL LAB HEMETOLOGY METHOD 10/05/2024 9:24 AM [facility] LAB RDW 13.2 11.0 - 15.0 % LAB HEMETOLOGY METHOD 10/05/2024 9:24 AM [facility] Platelets 243 130 - 400 K/mcL LAB HEMETOLOGY METHOD 10/05/2024 9:24 AM [facility] LAB MPV 10.3 7.0 - 11.0 FL LAB HEMETOLOGY METHOD 10/05/2024 9:24 AM [facility] LAB NRBC 0.0 <1.0 % LAB HEMETOLOGY METHOD 10/05/2024 9:24 AM [facility] LAB NRBC Absolute 0.00 <0.10 K/mcL LAB HEMETOLOGY METHOD 10/05/2024 9:24 AM [facility] Blood Venous blood specimen / Unknown 10/05/2024 5:20 AM EST 10/05/2024 8:51 AM EST us Haroon Watson MD LAB BLOOD ORDERABLES Final Res ult [facility] [address] [place] [address], * Basic metabolic panel (10/05/2024 5:20 AM EST) Sodium 137 133 - 145 mmol/L LAB CHEMISTRY METHOD 10/05/2024 9:47 AM [facility] Potassium 4.4 3.5 - 5.5 mmol/L LAB CHEMISTRY METHOD 10/05/2024 9:47 AM [facility] Chloride 104 96 - 110 mmol/L LAB CHEMISTRY METHOD 10/05/2024 9:47 AM [facility] CO2 28 21 - 32 mmol/L LAB CHEMISTRY METHOD 10/05/2024 9:47 AM [facility] Anion Gap 5 3 - 11 LAB CHEMISTRY METHOD 10/05/2024 9:47 AM [facility] Glucose 90 70 - 100 mg/dL LAB CHEMISTRY METHOD 10/05/2024 9:47 AM [facility] BUN 17 5 - 25 mg/dL LAB CHEMISTRY METHOD 10/05/2024 9:47 AM [facility] LAB Creatinine 0.69 0.50 - 1.10 mg/dL LAB CHEMISTRY METHOD 10/05/2024 9:47 AM [facility] LAB eGFR 93 >=60 mL/min/1. 73m2 LAB CHEMISTRY METHOD 10/05/2024 9:47 AM [facility] LAB Comment:Calculation based on the??Chronic Kidney Disease Epidemiology Collaboration (CKD-EPI) equation refit??without adjustment for race. BUN/Creatinine Ratio 24.6 LAB CHEMISTRY METHOD 10/05/2024 9:47 AM [facility] Calcium 9.5 8.5 - 10.5 mg/dL LAB CHEMISTRY METHOD 10/05/2024 9:47 AM [facility] Blood Venous blood specimen / Unknown Venipuncture / Unknown 10/05/2024 5:20 AM EST 10/05/2024 8:51 AM EST us Haroon Watson MD LAB BLOOD ORDERABLES Final Res ult [facility] [address] [place] [address], documented in this encounter Visit Diagnoses Diagnosis Encounter for other general examination documented in this encounter Care Teams District Wire Chief Relationship Specialty Start Date End Date Haroon Watson MD [address] [place] [phone] PCP - General Internal Medicine 09/30/24 documented as of this encounter
--- OUTSIDE RECORDS SUMMARY | 2024-10-25 14:49 | XMS_ITS | Clinical Summary ---
Author Organization 299 [facility] Address [address] [place] [address] Phone Care Team Providers Care Curator Herbarium Name Role Phone Haroon Watson MD Primary Care Provider Encounters Date Type Department Care Team Description 10/05/2024 Lab Requisition [facility] Lab [address] [place] [phone] Haroon Watson MD Encounter for other general examination 10/02/2024 Lab Requisition [facility] Lab [address] [place] [phone] Haroon Watson MD Encounter for other general examination 09/30/2024 Lab Requisition [facility] Lab [address] [place] [phone] Haroon Watson MD Encounter for other general examination from Last 3 Months Social History Tobacco Use Types Packs/Day Years Used Date Smoking Tobacco: Never Assessed Comments Unknown Sex and Gender Information Value Date Recorded Sex Assigned at Not on file Legal Sex Female 3:44 PM EDT Gender Identity Not on file Sexual Orientation Not on file Plan of Treatment Health Maintenance Due Date Last Done Comments Breast Cancer Screening 1955 DTaP,Tdap,and Td Vaccines (1 - Tdap) 1973 Pneumococcal Vaccine: 50+ Ye ars (1 of 1 - PCV) 2004 Zoster Vaccines (1 of 2) 2004 COVID-19 Vaccine ( - 2023-2 5 season) 2024 Influenza Vaccine (#1) 2024 Colorectal Cancer Screening: Colonoscopy 06/20/2024 Depression Screening 06/20/2024 Falls Risk Assessment 06/20/2024 Hepatitis C Screening 06/20/2024 Medicare Annual Wellness Visit 06/20/2024 Osteoporosis Screening (Bone Density Screening) 06/20/2024 Social Influencers of Health Screening 06/20/2024 RSV Immunization Patients 60 + Years Old (1 - 1-dose 75+ series) 2029 HIB Vaccines Aged Out No longer eligi ble based on patient's age to complete this topic HPV Vaccines Aged Out No longer eligi ble based on patient's age to complete this topic Hepatitis A Vaccines Aged Out No long er eligible based on patient's age to complete this topic Hepatitis B Vaccines Aged Out No long er eligible based on patient's age to complete this topic IPV Vaccines Aged Out No longer eligi ble based on patient's age to complete this topic MMR Vaccines Aged Out No longer eligi ble based on patient's age to complete this topic Meningococcal ACWY Vaccine Aged Out N o longer eligible based on patient's age to complete this topic Meningococcal B Vacine Aged Out No lo nger eligible based on patient's age to complete this topic RSV Immunization Patients Un shakira 20 months Aged Out No longer eligible b ased on patient's age to complete this topic Varicella Vaccines Aged Out No longer eligible based on patient's age to complete this topic Procedures Procedure Name Priority Date/Time Associated Diagnosis Comments COMPLETE BLOOD COUNT Routine 10/05/2024 5:20 AM EST Encounter for other general examination BASIC METABOLIC PANEL Routine 10/05/2024 5:20 AM EST Encounter for other general examination URINALYSIS WITH REFLEX MICROSCOPIC AND CULTURE Routine 10/01/2024 5:30 PM EST Encounter for other general examination TERRAZAS URINE CULTURE TUBE Routine 10/01/2024 5:30 PM EST Encounter for other general examination URINALYSIS WITH REFLEX MICROSCOPIC AND CULTURE Routine 10/01/2024 5:30 PM EST Encounter for other general examination CULTURE URINE Routine 10/01/2024 5:30 PM EST Encounter for other general examination CBC WITH AUTO DIFFERENTIAL Routine 09/30/2024 5:27 AM EST Encounter for other general examination MAGNESIUM Routine 09/30/2024 5:27 AM EST Encounter for other general examination CBC AND DIFFERENTIAL Routine 09/30/2024 5:27 AM EST Encounter for other general examination COMPREHENSIVE METABOLIC PANEL Routine 09/30/2024 5:27 AM EST Encounter for other general examination from Last 3 Months Results * (ABNORMAL) Complete blood count (10/05/2024 5:20 AM EST) [facility] WBC 4.0(L) 4.8 - 10.8 K/mcL LAB HEMETOLOGY METHOD 10/05/2024 9:24 AM [facility] RBC 3.40(L) 3.80 - 4.80 M/mcL LAB HEMETOLOGY METHOD 10/05/2024 9:24 AM [facility] Hemoglobin 10.0(L) 11.5 - 16.0 g/dL LAB HEMETOLOGY METHOD 10/05/2024 9:24 AM [facility] Hematocrit 31.4(L) 35.0 - 47.0 % LAB HEMETOLOGY METHOD 10/05/2024 9:24 AM [facility] MCV 92.1 79.0 - 98.0 FL LAB HEMETOLOGY METHOD 10/05/2024 9:24 AM [facility] MCH 29.3 27.0 - 32.0 pcg LAB HEMETOLOGY METHOD 10/05/2024 9:24 AM [facility] MCHC 31.8(L) 32.0 - 37.0 g/dL LAB HEMETOLOGY METHOD 10/05/2024 9:24 AM [facility] RDW 13.2 11.0 - 15.0 % LAB HEMETOLOGY METHOD 10/05/2024 9:24 AM [facility] Platelets 243 130 - 400 K/mcL LAB HEMETOLOGY METHOD 10/05/2024 9:24 AM EST [facility] MPV 10.3 7.0 - 11.0 FL LAB HEMETOLOGY METHOD 10/05/2024 9:24 AM EST [facility] NRBC 0.0 <1.0 % LAB HEMETOLOGY METHOD 10/05/2024 9:24 AM EST [facility] NRBC Absolute 0.00 <0.10 K/mcL LAB HEMETOLOGY METHOD 10/05/2024 9:24 AM [facility] Blood Venous blood specimen / Unknown 10/05/2024 5:20 AM EST 10/05/2024 8:51 AM EST us Haroon Watson MD LAB BLOOD ORDERABLES Final Res ult [facility] [address] [place] [address], * Basic metabolic panel (10/05/2024 5:20 AM EST) Sodium 137 133 - 145 mmol/L LAB CHEMISTRY METHOD 10/05/2024 9:47 AM [facility] Potassium 4.4 3.5 - 5.5 mmol/L LAB CHEMISTRY METHOD 10/05/2024 9:47 AM [facility] Chloride 104 96 - 110 mmol/L LAB CHEMISTRY METHOD 10/05/2024 9:47 AM [facility] CO2 28 21 - 32 mmol/L LAB CHEMISTRY METHOD 10/05/2024 9:47 AM [facility] Anion Gap 5 3 - 11 LAB CHEMISTRY METHOD 10/05/2024 9:47 AM [facility] Glucose 90 70 - 100 mg/dL LAB CHEMISTRY METHOD 10/05/2024 9:47 AM [facility] BUN 17 5 - 25 mg/dL LAB CHEMISTRY METHOD 10/05/2024 9:47 AM [facility] Creatinine 0.69 0.50 - 1.10 mg/dL LAB CHEMISTRY METHOD 10/05/2024 9:47 AM [facility] eGFR 93 >=60 mL/min/1. 73m2 LAB CHEMISTRY METHOD 10/05/2024 9:47 AM [facility] Comment:Calculation based on the??Chronic Kidney Disease Epidemiology Collaboration (CKD-EPI) equation refit??without adjustment for race. BUN/Creatinine Ratio 24.6 LAB CHEMISTRY METHOD 10/05/2024 9:47 AM [facility] Calcium 9.5 8.5 - 10.5 mg/dL LAB CHEMISTRY METHOD 10/05/2024 9:47 AM [facility] Blood Venous blood specimen / Unknown Venipuncture / Unknown 10/05/2024 5:20 AM EST 10/05/2024 8:51 AM EST us Haroon Watson MD LAB BLOOD ORDERABLES Final Res ult [facility] [address] [place] [address], * (ABNORMAL) Urinalysis with reflex microscopic and culture (10/01/2024 5:30 PM EST) Specific [place] Urine 1.012 1.003 - 1.030 LAB URINALYSIS - AUTOMATED METHOD 10/02/2024 12:39 PM [facility] pH, Urine 6.0 5.0 - 8.0 pH LAB URINALYSIS - AUTOMATED METHOD 10/02/2024 12:39 PM [facility] Leukocytes, Urine Trace(A) Negative LAB URINALYSIS - AUTOMATED METHOD 10/02/2024 12:39 PM [facility] Nitrite, Urine Negative Negative LAB URINALYSIS - AUTOMATED METHOD 10/02/2024 12:39 PM [facility] Protein, Urine Trace <=Trace mg/dL LAB URINALYSIS - AUTOMATED METHOD 10/02/2024 12:39 PM [facility] Glucose, Urine Negative Negative mg/dL LAB URINALYSIS - AUTOMATED METHOD 10/02/2024 12:39 PM [facility] Ketones, Urine 15(A) Negative mg/dL LAB URINALYSIS - AUTOMATED METHOD 10/02/2024 12:39 PM [facility] Urobilinogen, Urine 0.2 0.2 - 1.0 mg/dL LAB URINALYSIS - AUTOMATED METHOD 10/02/2024 12:39 PM [facility] Bilirubin, Urine Negative Negative LAB URINALYSIS - AUTOMATED METHOD 10/02/2024 12:39 PM [facility] Blood, Urine Negative Negative LAB URINALYSIS - AUTOMATED METHOD 10/02/2024 12:39 PM [facility] RBC, Urine 1.7 0 - 4 /HPF LAB URINALYSIS - AUTOMATED METHOD 10/02/2024 12:39 PM [facility] WBC, Urine 2.6 0 - 4 /HPF LAB URINALYSIS - AUTOMATED METHOD 10/02/2024 12:39 PM [facility] Squamous Epithelial, Urine 89(H) 0 - 60 /LPF LAB URINALYSIS - AUTOMATED METHOD 10/02/2024 12:39 PM [facility] Bacteria, Urine Negative Negative /HPF LAB URINALYSIS - AUTOMATED METHOD 10/02/2024 12:39 PM [facility] Hyaline Casts, Urine 0.0 0 - 3 /LPF LAB URINALYSIS - AUTOMATED METHOD 10/02/2024 12:39 PM [facility] Urine Urine specimen obtained by clean catch procedure / Unknown 10/01/2024 5:30 PM EST 10/02/2024 12:20 PM EST us Adnan M Dahdul MD LAB URINE ORDERABLES Final Res ult Performing Organization Address [facility]/ZIP Co de Phone Number [facility] [address] [place] [address], [place] [phone] * [place] urine culture tube (10/01/2024 5:30 PM EST) Extra Tube Hold for add-ons. 10/02/2024 2:01 PM EST [facility] Comment:Auto resulted. Urine Urine specimen obtained by clean catch procedure / Unknown 10/01/2024 5:30 PM EST 10/02/2024 12:20 PM EST Haroon Watson MD LAB URINE ORDERABLES Final Res ult Performing Organization Address [facility] Co de Phone Number [facility] [address] [place] [address], [place] [phone] * Culture urine (10/01/2024 5:30 PM EST) Pathologist [facility] Culture, Urine <10,000 cfu/ml, insignificant count, no further workup. 10/03/2024 11:12 AM EST [facility] Urine Urine specimen obtained by clean catch procedure / Unknown 10/01/2024 5:30 PM EST 10/02/2024 12:39 PM EST Haroon Watson MD LAB MICROBIOLOGY - GENERAL ORD ERABLES Final Result Performing Organization Address City/[facility]/ZIP Co de Phone Number [facility] [address] [place] [address], [place] [phone] * (ABNORMAL) CBC auto differential (09/30/2024 5:27 AM EST) WBC 4.2(L) 4.8 - 10.8 K/mcL LAB HEMETOLOGY METHOD 09/30/2024 9:40 AM EST [facility] RBC 3.30(L) 3.80 - 4.80 M/mcL LAB HEMETOLOGY METHOD 09/30/2024 9:40 AM [facility] Hemoglobin 9.7(L) 11.5 - 16.0 g/dL LAB HEMETOLOGY METHOD 09/30/2024 9:40 AM [facility] Hematocrit 30.8(L) 35.0 - 47.0 % LAB HEMETOLOGY METHOD 09/30/2024 9:40 AM [facility] MCV 94.2 79.0 - 98.0 FL LAB HEMETOLOGY METHOD 09/30/2024 9:40 AM [facility] MCH 29.7 27.0 - 32.0 pcg LAB HEMETOLOGY METHOD 09/30/2024 9:40 AM [facility] MCHC 31.5(L) 32.0 - 37.0 g/dL LAB HEMETOLOGY METHOD 09/30/2024 9:40 AM [facility] RDW 13.2 11.0 - 15.0 % LAB HEMETOLOGY METHOD 09/30/2024 9:40 AM [facility] Platelets 184 130 - 400 K/mcL LAB HEMETOLOGY METHOD 09/30/2024 9:40 AM [facility] MPV 10.1 7.0 - 11.0 FL LAB HEMETOLOGY METHOD 09/30/2024 9:40 AM [facility] NRBC 0.0 <1.0 % LAB HEMETOLOGY METHOD 09/30/2024 9:40 AM [facility] NRBC Absolute 0.00 <0.10 K/mcL LAB HEMETOLOGY METHOD 09/30/2024 9:40 AM [facility] Neutrophils Relative 60.8 % LAB HEMETOLOGY METHOD 09/30/2024 9:40 AM [facility] Lymphocytes Relative 17.7 % LAB HEMETOLOGY METHOD 09/30/2024 9:40 AM [facility] Monocytes Relative 13.8 % LAB HEMETOLOGY METHOD 09/30/2024 9:40 AM [facility] Eosinophils Relative 6.0 % LAB HEMETOLOGY METHOD 09/30/2024 9:40 AM [facility] Basophils Relative 0.7 % LAB HEMETOLOGY METHOD 09/30/2024 9:40 AM [facility] Immature Granulocytes Relative 1.0 % LAB HEMETOLOGY METHOD 09/30/2024 9:40 AM [facility] Neutrophils Absolute 2.55 1.50 - 7.00 K/mcL LAB HEMETOLOGY METHOD 09/30/2024 9:40 AM [facility] Lymphocytes Absolute 0.74(L) 1.00 - 5.00 K/mcL LAB HEMETOLOGY METHOD 09/30/2024 9:40 AM [facility] Monocytes Absolute 0.58 0.20 - 1.00 K/mcL LAB HEMETOLOGY METHOD 09/30/2024 9:40 AM [facility] Eosinophils Absolute 0.25 0.00 - 0.50 K/mcL LAB HEMETOLOGY METHOD 09/30/2024 9:40 AM [facility] Basophils Absolute 0.03 0.00 - 0.20 K/mcL LAB HEMETOLOGY METHOD 09/30/2024 9:40 AM [facility] Immature Granulocytes Absolute 0.04(H) 0.00 - 0.03 K/mcL LAB HEMETOLOGY METHOD 09/30/2024 9:40 AM [facility] Blood Venous blood specimen / Unknown Venipuncture / Unknown 09/30/2024 5:27 AM EST 09/30/2024 8:01 AM EST us Haroon Watson MD LAB BLOOD ORDERABLES Final Res ult Performing Organization Address [facility]/ZIP Co de Phone Number [facility] [address] [place] [address], [place] [phone] * Magnesium (09/30/2024 5:27 AM EST) Pathologist [facility] Magnesium 2.1 1.9 - 2.6 mg/dL LAB CHEMISTRY METHOD 09/30/2024 9:45 AM EST [facility] Blood Venous blood specimen / Unknown Venipuncture / Unknown 09/30/2024 5:27 AM EST 09/30/2024 8:01 AM EST Haroon Watson MD LAB BLOOD ORDERABLES Final Res ult Performing Organization Address [facility]/ZIP Co de Phone Number [facility] [address] [place] [address], [place] [phone] * (ABNORMAL) Comprehensive metabolic panel (09/30/2024 5:27 AM EST) [facility] Sodium 137 133 - 145 mmol/L LAB CHEMISTRY METHOD 09/30/2024 9:45 AM [facility] Potassium 4.9 3.5 - 5.5 mmol/L LAB CHEMISTRY METHOD 09/30/2024 9:45 AM [facility] Chloride 101 96 - 110 mmol/L LAB CHEMISTRY METHOD 09/30/2024 9:45 AM [facility] CO2 28 21 - 32 mmol/L LAB CHEMISTRY METHOD 09/30/2024 9:45 AM [facility] Anion Gap 8 3 - 11 LAB CHEMISTRY METHOD 09/30/2024 9:45 AM [facility] Glucose 68(L) 70 - 100 mg/dL LAB CHEMISTRY METHOD 09/30/2024 9:45 AM [facility] BUN 17 5 - 25 mg/dL LAB CHEMISTRY METHOD 09/30/2024 9:45 AM [facility] Creatinine 0.67 0.50 - 1.10 mg/dL LAB CHEMISTRY METHOD 09/30/2024 9:45 AM [facility] eGFR 94 >=60 mL/min/1. 73m2 LAB CHEMISTRY METHOD 09/30/2024 9:45 AM [facility] Comment:Calculation based on the??Chronic Kidney Disease Epidemiology Collaboration (CKD-EPI) equation refit??without adjustment for race. BUN/Creatinine Ratio 25.4 LAB CHEMISTRY METHOD 09/30/2024 9:45 AM [facility] Calcium 9.2 8.5 - 10.5 mg/dL LAB CHEMISTRY METHOD 09/30/2024 9:45 AM [facility] AST (SGOT) 19 10 - 42 unit/L LAB CHEMISTRY METHOD 09/30/2024 9:45 AM [facility] ALT (SGPT) 17 10 - 60 unit/L LAB CHEMISTRY METHOD 09/30/2024 9:45 AM [facility] Alkaline Phosphatase 131(H) 42 - 121 unit/L LAB CHEMISTRY METHOD 09/30/2024 9:45 AM [facility] Total Protein 6.3 6.0 - 8.0 g/dL LAB CHEMISTRY METHOD 09/30/2024 9:45 AM [facility] Albumin 3.3 3.2 - 5.0 g/dL LAB CHEMISTRY METHOD 09/30/2024 9:45 AM [facility] Total Bilirubin 0.3 0.0 - 1.4 mg/dL LAB CHEMISTRY METHOD 09/30/2024 9:45 AM [facility] Blood Venous blood specimen / Unknown Venipuncture / Unknown 09/30/2024 5:27 AM EST 09/30/2024 8:01 AM EST us Haroon Watson MD LAB BLOOD ORDERABLES Final Res ult [facility] [address] [place] [address], [place] [phone] from Last 3 Months Insurance MEDICARE Care Teams Curator Herbarium Relationship Specialty Start Date End Date Haroon Watson MD [address] [place] [id number] PCP - General Internal Medicine 09/30/24
--- OUTSIDE RECORDS SUMMARY | 2024-10-25 14:49 | XMS_ITS | Encounter Summary ---
Author Organization [facility] Address [address] [place] [phone] Care Team Providers Care Machine Skiver Name Role Phone Haroon Watson MD Primary Care Provider [phone] Encounter Details Date Type Department Care Team (Late st Contact Info) Description 10/02/2024 Lab Requisition [facility] [address] [facility] [place] [address] Haroon Watson MD [address] [place] [id number] Encounter for other general examination Social History [...] Procedure Name Priority Date/Time Associated Diagnosis Comments URINALYSIS WITH REFLEX MICROSCOPIC AND CULTURE Routine 10/01/2024 5:30 PM EST Encounter for other general examination TERRAZAS URINE CULTURE TUBE Routine 10/01/2024 5:30 PM EST Encounter for other general examination URINALYSIS WITH REFLEX MICROSCOPIC AND CULTURE Routine 10/01/2024 5:30 PM EST Encounter for other general examination CULTURE URINE Routine 10/01/2024 5:30 PM EST Encounter for other general examination documented in this encounter Results * Culture urine (10/01/2024 5:30 PM EST) Culture, Urine <10,000 cfu/ml, insignificant count, no further workup. 10/03/2024 11:12 AM [facility] Urine Urine specimen obtained by clean catch procedure / Unknown 10/01/2024 5:30 PM EST 10/02/2024 12:39 PM EST us Haroon Watson MD LAB MICROBIOLOGY - GENERAL ORD ERABLES Final Result [facility] [address] [place] [address], [place] [phone] * (ABNORMAL) Urinalysis with reflex microscopic and culture (10/01/2024 5:30 PM EST) Specific [place] Urine 1.012 1.003 - 1.030 LAB URINALYSIS - AUTOMATED METHOD 10/02/2024 12:39 PM [facility] pH, Urine 6.0 5.0 - 8.0 pH LAB URINALYSIS - AUTOMATED METHOD 10/02/2024 12:39 PM [facility] Leukocytes, Urine Trace(A) Negative LAB URINALYSIS - AUTOMATED METHOD 10/02/2024 12:39 PM [facility] Nitrite, Urine Negative Negative LAB URINALYSIS - AUTOMATED METHOD 10/02/2024 12:39 PM [facility] Protein, Urine Trace <=Trace mg/dL LAB URINALYSIS - AUTOMATED METHOD 10/02/2024 12:39 PM [facility] Glucose, Urine Negative Negative mg/dL LAB URINALYSIS - AUTOMATED METHOD 10/02/2024 12:39 PM [facility] Ketones, Urine 15(A) Negative mg/dL LAB URINALYSIS - AUTOMATED METHOD 10/02/2024 12:39 PM [facility] Urobilinogen, Urine 0.2 0.2 - 1.0 mg/dL LAB URINALYSIS - AUTOMATED METHOD 10/02/2024 12:39 PM [facility] Bilirubin, Urine Negative Negative LAB URINALYSIS - AUTOMATED METHOD 10/02/2024 12:39 PM [facility] Blood, Urine Negative Negative LAB URINALYSIS - AUTOMATED METHOD 10/02/2024 12:39 PM [facility] RBC, Urine 1.7 0 - 4 /HPF LAB URINALYSIS - AUTOMATED METHOD 10/02/2024 12:39 PM [facility] WBC, Urine 2.6 0 - 4 /HPF LAB URINALYSIS - AUTOMATED METHOD 10/02/2024 12:39 PM [facility] Squamous Epithelial, Urine 89(H) 0 - 60 /LPF LAB URINALYSIS - AUTOMATED METHOD 10/02/2024 12:39 PM [facility] Bacteria, Urine Negative Negative /HPF LAB URINALYSIS - AUTOMATED METHOD 10/02/2024 12:39 PM [facility] Hyaline Casts, Urine 0.0 0 - 3 /LPF LAB URINALYSIS - AUTOMATED METHOD 10/02/2024 12:39 PM [facility] Urine Urine specimen obtained by clean catch procedure / Unknown 10/01/2024 5:30 PM EST 10/02/2024 12:20 PM EST us Haroon Watson MD LAB URINE ORDERABLES Final Res ult [facility] [address] [place] [address], * [place] urine culture tube (10/01/2024 5:30 PM EST) Extra Tube Hold for add-ons. 10/02/2024 2:01 PM [facility] Comment:Auto resulted. Urine Urine specimen obtained by clean catch procedure / Unknown 10/01/2024 5:30 PM EST 10/02/2024 12:20 PM EST us Haroon Watson MD LAB URINE ORDERABLES Final Res ult [facility] [address] [place] [address], documented in this encounter Visit Diagnoses Diagnosis Encounter for other general examination documented in this encounter Care Teams Machine Skiver Relationship Specialty Start Date End Date Haroon Watson MD [address] [place] [phone] PCP - General Internal Medicine 09/30/24 documented as of this encounter
--- OUTSIDE RECORDS SUMMARY | 2024-10-25 14:49 | XMS_ITS | Encounter Summary ---
Author Organization [facility] Address [address] [place] [phone] Care Team Providers Care Scabbler Name Role Phone Haroon Watson MD Primary Care Provider [phone] Encounter Details Date Type Department Care Team (Late st Contact Info) Description 09/30/2024 Lab Requisition [facility] - Main Lab [address] [facility] [address] Haroon Watson MD [address] [place] [id number] Encounter for other general examination Social History [...] Procedure Name Priority Date/Time Associated Diagnosis Comments CBC WITH AUTO DIFFERENTIAL Routine 09/30/2024 5:27 AM EST Encounter for other general examination CBC AND DIFFERENTIAL Routine 09/30/2024 5:27 AM EST Encounter for other general examination MAGNESIUM Routine 09/30/2024 5:27 AM EST Encounter for other general examination COMPREHENSIVE METABOLIC PANEL Routine 09/30/2024 5:27 AM EST Encounter for other general examination documented in this encounter Results * (ABNORMAL) CBC auto differential (09/30/2024 5:27 AM EST) WBC 4.2(L) 4.8 - 10.8 K/[facility] LAB HEMETOLOGY METHOD 09/30/2024 9:40 AM [facility] LAB RBC 3.30(L) 3.80 - 4.80 M/mcL LAB HEMETOLOGY METHOD 09/30/2024 9:40 AM [facility] LAB Hemoglobin 9.7(L) 11.5 - 16.0 g/dL LAB HEMETOLOGY METHOD 09/30/2024 9:40 AM [facility] LAB Hematocrit 30.8(L) 35.0 - 47.0 % LAB HEMETOLOGY METHOD 09/30/2024 9:40 AM [facility] LAB MCV 94.2 79.0 - 98.0 FL LAB HEMETOLOGY METHOD 09/30/2024 9:40 AM [facility] LAB MCH 29.7 27.0 - 32.0 pcg LAB HEMETOLOGY METHOD 09/30/2024 9:40 AM [facility] LAB MCHC 31.5(L) 32.0 - 37.0 g/dL LAB HEMETOLOGY METHOD 09/30/2024 9:40 AM [facility] LAB RDW 13.2 11.0 - 15.0 % LAB HEMETOLOGY METHOD 09/30/2024 9:40 AM [facility] LAB Platelets 184 130 - 400 K/mcL LAB HEMETOLOGY METHOD 09/30/2024 9:40 AM [facility] LAB MPV 10.1 7.0 - 11.0 FL LAB HEMETOLOGY METHOD 09/30/2024 9:40 AM [facility] LAB NRBC 0.0 <1.0 % LAB HEMETOLOGY METHOD 09/30/2024 9:40 AM [facility] LAB NRBC Absolute 0.00 <0.10 K/mcL LAB HEMETOLOGY METHOD 09/30/2024 9:40 AM [facility] LAB Neutrophils Relative 60.8 % LAB HEMETOLOGY METHOD 09/30/2024 9:40 AM [facility] LAB Lymphocytes Relative 17.7 % LAB HEMETOLOGY METHOD 09/30/2024 9:40 AM [facility] LAB Monocytes Relative 13.8 % LAB HEMETOLOGY METHOD 09/30/2024 9:40 AM [facility] LAB Eosinophils Relative 6.0 % LAB HEMETOLOGY METHOD 09/30/2024 9:40 AM [facility] LAB Basophils Relative 0.7 % LAB HEMETOLOGY METHOD 09/30/2024 9:40 AM [facility] LAB Immature Granulocytes Relative 1.0 % LAB HEMETOLOGY METHOD 09/30/2024 9:40 AM [facility] LAB Neutrophils Absolute 2.55 1.50 - 7.00 K/mcL LAB HEMETOLOGY METHOD 09/30/2024 9:40 AM [facility] LAB Lymphocytes Absolute 0.74(L) 1.00 - 5.00 K/mcL LAB HEMETOLOGY METHOD 09/30/2024 9:40 AM [facility] LAB Monocytes Absolute 0.58 0.20 - 1.00 K/mcL LAB HEMETOLOGY METHOD 09/30/2024 9:40 AM [facility] LAB Eosinophils Absolute 0.25 0.00 - 0.50 K/mcL LAB HEMETOLOGY METHOD 09/30/2024 9:40 AM [facility] LAB Basophils Absolute 0.03 0.00 - 0.20 K/mcL LAB HEMETOLOGY METHOD 09/30/2024 9:40 AM [facility] LAB Immature Granulocytes Absolute 0.04(H) 0.00 - 0.03 K/mcL LAB HEMETOLOGY METHOD 09/30/2024 9:40 AM [facility] LAB Blood Venous blood specimen / Unknown Venipuncture / Unknown 09/30/2024 5:27 AM EST 09/30/2024 8:01 AM EST us Haroon Watson MD LAB BLOOD ORDERABLES Final Res ult [facility] LAB [address] [place] [address], [place] [phone] * Magnesium (09/30/2024 5:27 AM EST) Pathologist [facility] Magnesium 2.1 1.9 - 2.6 mg/dL LAB CHEMISTRY METHOD 09/30/2024 9:45 AM [facility] LAB Blood Venous blood specimen / Unknown Venipuncture / Unknown 09/30/2024 5:27 AM EST 09/30/2024 8:01 AM EST us Haroon Watson MD LAB BLOOD ORDERABLES Final Res ult Performing Organization Address City/[facility]/ZIP Co de Phone Number [facility] LAB [address] [place] [address], [place] [phone] * (ABNORMAL) Comprehensive metabolic panel (09/30/2024 5:27 AM EST) [facility] Sodium 137 133 - 145 mmol/L LAB CHEMISTRY METHOD 09/30/2024 9:45 AM [facility] LAB Potassium 4.9 3.5 - 5.5 mmol/L LAB CHEMISTRY METHOD 09/30/2024 9:45 AM [facility] LAB Chloride 101 96 - 110 mmol/L LAB CHEMISTRY METHOD 09/30/2024 9:45 AM [facility] LAB CO2 28 21 - 32 mmol/L LAB CHEMISTRY METHOD 09/30/2024 9:45 AM [facility] LAB Anion Gap 8 3 - 11 LAB CHEMISTRY METHOD 09/30/2024 9:45 AM [facility] LAB Glucose 68(L) 70 - 100 mg/dL LAB CHEMISTRY METHOD 09/30/2024 9:45 AM [facility] LAB BUN 17 5 - 25 mg/dL LAB CHEMISTRY METHOD 09/30/2024 9:45 AM [facility] LAB Creatinine 0.67 0.50 - 1.10 mg/dL LAB CHEMISTRY METHOD 09/30/2024 9:45 AM [facility] LAB eGFR 94 >=60 mL/min/1. 73m2 LAB CHEMISTRY METHOD 09/30/2024 9:45 AM [facility] LAB Comment:Calculation based on the??Chronic Kidney Disease Epidemiology Collaboration (CKD-EPI) equation refit??without adjustment for race. BUN/Creatinine Ratio 25.4 LAB CHEMISTRY METHOD 09/30/2024 9:45 AM [facility] LAB Calcium 9.2 8.5 - 10.5 mg/dL LAB CHEMISTRY METHOD 09/30/2024 9:45 AM [facility] LAB AST (SGOT) 19 10 - 42 unit/L LAB CHEMISTRY METHOD 09/30/2024 9:45 AM [facility] LAB ALT (SGPT) 17 10 - 60 unit/L LAB CHEMISTRY METHOD 09/30/2024 9:45 AM [facility] LAB Alkaline Phosphatase 131(H) 42 - 121 unit/L LAB CHEMISTRY METHOD 09/30/2024 9:45 AM [facility] LAB Total Protein 6.3 6.0 - 8.0 g/dL LAB CHEMISTRY METHOD 09/30/2024 9:45 AM [facility] LAB Albumin 3.3 3.2 - 5.0 g/dL LAB CHEMISTRY METHOD 09/30/2024 9:45 AM [facility] LAB Total Bilirubin 0.3 0.0 - 1.4 mg/dL LAB CHEMISTRY METHOD 09/30/2024 9:45 AM [facility] LAB Blood Venous blood specimen / Unknown Venipuncture / Unknown 09/30/2024 5:27 AM EST 09/30/2024 8:01 AM EST us Haroon Watson MD LAB BLOOD ORDERABLES Final Res ult [facility] [address] [place] [address], documented in this encounter Visit Diagnoses Diagnosis Encounter for other general examination documented in this encounter Care Teams Scabbler Relationship Specialty Start Date End Date Haroon Watson MD [address] [place] [phone] PCP - General Internal Medicine 09/30/24 documented as of this encounter
== END 2024-10-25 12:43 | disposition home or self-care (01) ==
LOC: HO.XRAY 12:42
PROVIDERS: PCP Internal Medicine; Visit Provider Physician Assistant
DX: M25.551 Pain in right hip (principal); M48.56XA Collapsed vertebra, not elsewhere classified, lumbar region, initial encounter for fracture
CPT/HCPCS: 72100; 73521

== ENCOUNTER → 2024-10-25 12:48 | Outpatient (BNV) | payer MEDICARE, OTHER, SELFPAY | PROVIDERS: PCP Internal Medicine; Visit Provider Radiology Diagnostic Radiology | DX: M48.56XA Collapsed vertebra, not elsewhere classified, lumbar region, initial encounter for fracture (principal) | CPT/HCPCS: 72100; 73521 ==

== ENCOUNTER 2024-11-16 14:44 | Outpatient (REF) | payer MEDICARE, OTHER, SELFPAY ==
--- NOTE | ~2024-11-16 | XR_ITS ---
EXAMINATION: XR LUMBAR SPINE 2-3 VIEWS HISTORY: compression fracture L2 COMPARISON: Comparison is made with the prior examination dated 10/25/2024. FINDINGS: AP, lateral, and coned down views of the lumbar spine are submitted. Osseous mineralization is normal. Again seen is a moderate compression deformity involving the superior endplate of L1. There is approximately 50% loss of height of the vertebral body. The remaining lumbar vertebral bodies maintain normal height. Alignment is anatomic. There is diffuse mild degenerative disc disease with disc space narrowing and osteophyte formation. There is osteoarthritis of the facet joints. There is calcification of the abdominal aorta. XR/XR lumbar spine 2-3V IMPRESSION: Moderate compression fracture of L1 with approximately 50% loss of height. Mild degenerative disc disease. Electronically signed by: Danis Hadley MD 11/16/2024 03:40 PM EDT
--- OUTSIDE RECORDS SUMMARY | 2024-11-16 18:30 | XMS_ITS | Encounter Summary ---
Author Organization [facility] Address [id number] [place] [phone] Care Team Providers Care Laborer Pipelines Name Role Phone Haroon Watson MD Primary Care Provider [phone] Encounter Details Date Type Department Care Team (Late st Contact Info) Description 10/05/2024 Lab Requisition [facility] Lab [address] [facility] [place] [address] Haroon Watson MD [address] [place] [phone] Encounter for other general examination Social History [...] AM EST) WBC 4.0(L) 4.8 - 10.8 K/[facility] LAB HEMETOLOGY METHOD 10/05/2024 9:24 AM EST [facility] LAB RBC 3.40(L) 3.80 - 4.80 M/[facility] LAB HEMETOLOGY METHOD 10/05/2024 9:24 AM EST [facility] LAB Hemoglobin 10.0(L) 11.5 - 16.0 g/dL LAB HEMETOLOGY METHOD 10/05/2024 9:24 AM [facility] LAB Hematocrit 31.4(L) 35.0 - 47.0 % LAB HEMETOLOGY METHOD 10/05/2024 9:24 AM [facility] LAB MCV 92.1 79.0 - 98.0 FL LAB HEMETOLOGY METHOD 10/05/2024 9:24 AM [facility] LAB MCH 29.3 27.0 - 32.0 pcg LAB HEMETOLOGY METHOD 10/05/2024 9:24 AM [facility] LAB MCHC 31.8(L) 32.0 - 37.0 g/dL LAB HEMETOLOGY METHOD 10/05/2024 9:24 AM [facility] LAB RDW 13.2 11.0 - 15.0 % LAB HEMETOLOGY METHOD 10/05/2024 9:24 AM [facility] LAB Platelets 243 130 - 400 K/mcL LAB HEMETOLOGY METHOD 10/05/2024 9:24 AM [facility] LAB MPV 10.3 7.0 - 11.0 FL LAB HEMETOLOGY METHOD 10/05/2024 9:24 AM [facility] LAB NRBC 0.0 <1.0 % LAB HEMETOLOGY METHOD 10/05/2024 9:24 AM [facility] LAB NRBC Absolute 0.00 <0.10 K/mcL LAB HEMETOLOGY METHOD 10/05/2024 9:24 AM [facility] LAB Blood Venous blood specimen / Unknown 10/05/2024 5:20 AM EST 10/05/2024 8:51 AM EST us Haroon Watosn MD LAB BLOOD ORDERABLES Final Res ult [facility] LAB [address] [place] [address], * Basic metabolic panel (10/05/2024 5:20 AM EST) Sodium 137 133 - 145 mmol/L LAB CHEMISTRY METHOD 10/05/2024 9:47 AM [facility] LAB Potassium 4.4 3.5 - 5.5 mmol/L LAB CHEMISTRY METHOD 10/05/2024 9:47 AM [facility] LAB Chloride 104 96 - 110 mmol/L LAB CHEMISTRY METHOD 10/05/2024 9:47 AM [facility] LAB CO2 28 21 - 32 mmol/L LAB CHEMISTRY METHOD 10/05/2024 9:47 AM [facility] LAB Anion Gap 5 3 - 11 LAB CHEMISTRY METHOD 10/05/2024 9:47 AM [facility] LAB Glucose 90 70 - 100 mg/dL LAB CHEMISTRY METHOD 10/05/2024 9:47 AM [facility] LAB BUN 17 5 - 25 mg/dL LAB CHEMISTRY METHOD 10/05/2024 9:47 AM [facility] LAB Creatinine 0.69 0.50 - 1.10 mg/dL LAB CHEMISTRY METHOD 10/05/2024 9:47 AM [facility] LAB eGFR 93 >=60 mL/min/1. 73m2 LAB CHEMISTRY METHOD 10/05/2024 9:47 AM [facility] LAB Comment:Calculation based on the??Chronic Kidney Disease Epidemiology Collaboration (CKD-EPI) equation refit??without adjustment for race. BUN/Creatinine Ratio 24.6 LAB CHEMISTRY METHOD 10/05/2024 9:47 AM [facility] LAB Calcium 9.5 8.5 - 10.5 mg/dL LAB CHEMISTRY METHOD 10/05/2024 9:47 AM [facility] LAB Blood Venous blood specimen / Unknown Venipuncture / Unknown 10/05/2024 5:20 AM EST 10/05/2024 8:51 AM EST us Haroon Watson MD LAB BLOOD ORDERABLES Final Res ult [facility] LAB [address] [place] [address], documented in this encounter Visit Diagnoses Diagnosis Encounter for other general examination documented in this encounter Care Teams Laborer Pipelines Relationship Specialty Start Date End Date Haroon Watson MD [address] [place] [phone] PCP - General Internal Medicine 09/30/24 documented as of this encounter
--- OUTSIDE RECORDS SUMMARY | 2024-11-16 18:30 | XMS_ITS | Encounter Summary ---
Author Organization [facility] Address [address] [place] [phone] Care Team Providers Care Hub Inventory Specialist Name Role Phone Haroon Watson MD Primary Care Provider [phone] Encounter Details Date Type Department Care Team (Late st Contact Info) Description 10/02/2024 Lab Requisition [facility] - Main Lab [address] [facility] [place] [address] Haroon Watson MD [address] [place] [phone] Encounter for other general examination Social History [...] count, no further workup. 10/03/2024 11:12 AM [facility] LAB Urine Urine specimen obtained by clean catch procedure / Unknown 10/01/2024 5:30 PM EST 10/02/2024 12:39 PM EST us Haroon Watson MD LAB MICROBIOLOGY - GENERAL ORD ERABLES Final Result [facility] LAB [address] [place] [address], [place] [phone] * (ABNORMAL) Urinalysis with reflex microscopic and culture (10/01/2024 5:30 PM EST) Specific [place] Urine 1.012 1.003 - 1.030 LAB URINALYSIS - AUTOMATED METHOD 10/02/2024 12:39 PM [facility] LAB pH, Urine 6.0 5.0 - 8.0 pH LAB URINALYSIS - AUTOMATED METHOD 10/02/2024 12:39 PM [facility] LAB Leukocytes, Urine Trace(A) Negative LAB URINALYSIS - AUTOMATED METHOD 10/02/2024 12:39 PM [facility] LAB Nitrite, Urine Negative Negative LAB URINALYSIS - AUTOMATED METHOD 10/02/2024 12:39 PM [facility] LAB Protein, Urine Trace <=Trace mg/dL LAB URINALYSIS - AUTOMATED METHOD 10/02/2024 12:39 PM [facility] LAB Glucose, Urine Negative Negative mg/dL LAB URINALYSIS - AUTOMATED METHOD 10/02/2024 12:39 PM [facility] LAB Ketones, Urine 15(A) Negative mg/dL LAB URINALYSIS - AUTOMATED METHOD 10/02/2024 12:39 PM [facility] LAB Urobilinogen, Urine 0.2 0.2 - 1.0 mg/dL LAB URINALYSIS - AUTOMATED METHOD 10/02/2024 12:39 PM [facility] LAB Bilirubin, Urine Negative Negative LAB URINALYSIS - AUTOMATED METHOD 10/02/2024 12:39 PM [facility] LAB Blood, Urine Negative Negative LAB URINALYSIS - AUTOMATED METHOD 10/02/2024 12:39 PM [facility] LAB RBC, Urine 1.7 0 - 4 /HPF LAB URINALYSIS - AUTOMATED METHOD 10/02/2024 12:39 PM [facility] LAB WBC, Urine 2.6 0 - 4 /HPF LAB URINALYSIS - AUTOMATED METHOD 10/02/2024 12:39 PM [facility] LAB Squamous Epithelial, Urine 89(H) 0 - 60 /LPF LAB URINALYSIS - AUTOMATED METHOD 10/02/2024 12:39 PM [facility] LAB Bacteria, Urine Negative Negative /HPF LAB URINALYSIS - AUTOMATED METHOD 10/02/2024 12:39 PM [facility] LAB Hyaline Casts, Urine 0.0 0 - 3 /LPF LAB URINALYSIS - AUTOMATED METHOD 10/02/2024 12:39 PM [facility] LAB Urine Urine specimen obtained by clean catch procedure / Unknown 10/01/2024 5:30 PM EST 10/02/2024 12:20 PM EST us Haroon Watson MD LAB URINE ORDERABLES Final Res ult [facility] LAB [address] [place] [address], * [place] urine culture tube (10/01/2024 5:30 PM EST) Extra Tube Hold for add-ons. 10/02/2024 2:01 PM [facility] LAB Comment:Auto resulted. Urine Urine specimen obtained by clean catch procedure / Unknown 10/01/2024 5:30 PM EST 10/02/2024 12:20 PM EST us Haroon Watson MD LAB URINE ORDERABLES Final Res ult [facility] [address] [place] [address], documented in this encounter Visit Diagnoses Diagnosis Encounter for other general examination documented in this encounter Care Teams Hub Inventory Specialist Relationship Specialty Start Date End Date Haroon Watson MD [address] [place] [id number] PCP - General Internal Medicine 09/30/24 documented as of this encounter
--- OUTSIDE RECORDS SUMMARY | 2024-11-16 18:31 | XMS_ITS | Clinical Summary ---
Author Organization 299 [facility] Address [address] [place] [address] Phone Care Team Providers Care Cad Drafter Name Role Phone Haroon Watson MD Primary Care Provider [phone] Encounters Date Type Department Care Team Description 10/05/2024 Lab Requisition [facility] [address] [place] [phone] Haroon Watson MD Encounter for other general examination 10/02/2024 Lab Requisition [facility] [address] [place] [phone] Haroon Watson MD Encounter for other general examination 09/30/2024 Lab Requisition [facility] [address] [place] [phone] Haroon Watson MD Encounter for other general [...] Complete blood count (10/05/2024 5:20 AM EST) [facility] WBC 4.0(L) 4.8 - 10.8 K/mcL LAB HEMETOLOGY METHOD 10/05/2024 9:24 AM [facility] RBC 3.40(L) 3.80 - 4.80 M/mcL LAB HEMETOLOGY METHOD 10/05/2024 9:24 AM [facility] Hemoglobin 10.0(L) 11.5 - 16.0 g/dL LAB HEMETOLOGY METHOD 10/05/2024 9:24 AM [facility] Hematocrit 31.4(L) 35.0 - 47.0 % LAB HEMETOLOGY METHOD 10/05/2024 9:24 AM [facility] LAB MCV 92.1 79.0 - 98.0 FL LAB HEMETOLOGY METHOD 10/05/2024 9:24 AM [facility] MCH 29.3 27.0 - 32.0 pcg LAB HEMETOLOGY METHOD 10/05/2024 9:24 AM [facility] MCHC 31.8(L) 32.0 - 37.0 g/dL LAB HEMETOLOGY METHOD 10/05/2024 9:24 AM [facility] RDW 13.2 11.0 - 15.0 % LAB HEMETOLOGY METHOD 10/05/2024 9:24 AM [facility] Platelets 243 130 - 400 K/mcL LAB HEMETOLOGY METHOD 10/05/2024 9:24 AM EST [facility] LAB MPV 10.3 7.0 - 11.0 FL LAB HEMETOLOGY METHOD 10/05/2024 9:24 AM EST [facility] NRBC 0.0 <1.0 % LAB HEMETOLOGY METHOD 10/05/2024 9:24 AM EST [facility] LAB NRBC Absolute 0.00 <0.10 K/mcL LAB HEMETOLOGY METHOD 10/05/2024 9:24 AM [facility] Blood Venous blood specimen / Unknown 10/05/2024 5:20 AM EST 10/05/2024 8:51 AM EST us Haroon Watson MD LAB BLOOD ORDERABLES Final Res ult [facility] [address] [place] [address], * Basic metabolic panel (10/05/2024 5:20 AM EST) Sodium 137 133 - 145 mmol/L LAB CHEMISTRY METHOD 10/05/2024 9:47 AM [facility] Potassium 4.4 3.5 - 5.5 mmol/L LAB CHEMISTRY METHOD 10/05/2024 9:47 AM [facility] Chloride 104 96 - 110 mmol/L LAB CHEMISTRY METHOD 10/05/2024 9:47 AM [facility] CO2 28 21 - 32 mmol/L LAB CHEMISTRY METHOD 10/05/2024 9:47 AM [facility] Anion Gap 5 3 - 11 LAB CHEMISTRY METHOD 10/05/2024 9:47 AM [facility] Glucose 90 70 - 100 mg/dL LAB CHEMISTRY METHOD 10/05/2024 9:47 AM [facility] BUN 17 5 - 25 mg/dL LAB CHEMISTRY METHOD 10/05/2024 9:47 AM [facility] Creatinine 0.69 0.50 - 1.10 mg/dL LAB CHEMISTRY METHOD 10/05/2024 9:47 AM [facility] LAB eGFR 93 >=60 mL/min/1. 73m2 LAB CHEMISTRY METHOD 10/05/2024 9:47 AM [facility] LAB Comment:Calculation based on the??Chronic Kidney Disease Epidemiology Collaboration (CKD-EPI) equation refit??without adjustment for race. BUN/Creatinine Ratio 24.6 LAB CHEMISTRY METHOD 10/05/2024 9:47 AM [facility] Calcium 9.5 8.5 - 10.5 mg/dL LAB CHEMISTRY METHOD 10/05/2024 9:47 AM [facility] Blood Venous blood specimen / Unknown Venipuncture / Unknown 10/05/2024 5:20 AM EST 10/05/2024 8:51 AM EST us Haroon Watson MD LAB BLOOD ORDERABLES Final Res ult [facility] [address] [place] [address], * (ABNORMAL) Urinalysis with reflex microscopic and culture (10/01/2024 5:30 PM EST) Specific [place] Urine 1.012 1.003 - 1.030 LAB URINALYSIS - AUTOMATED METHOD 10/02/2024 12:39 PM [facility] pH, Urine 6.0 5.0 - 8.0 pH LAB URINALYSIS - AUTOMATED METHOD 10/02/2024 12:39 PM [facility] Leukocytes, Urine Trace(A) Negative LAB URINALYSIS - AUTOMATED METHOD 10/02/2024 12:39 PM [facility] Nitrite, Urine Negative Negative LAB URINALYSIS - AUTOMATED METHOD 10/02/2024 12:39 PM [facility] Protein, Urine Trace <=Trace mg/dL LAB URINALYSIS - AUTOMATED METHOD 10/02/2024 12:39 PM [facility] Glucose, Urine Negative Negative mg/dL LAB URINALYSIS - AUTOMATED METHOD 10/02/2024 12:39 PM [facility] Ketones, Urine 15(A) Negative mg/dL LAB URINALYSIS - AUTOMATED METHOD 10/02/2024 12:39 PM [facility] Urobilinogen, Urine 0.2 0.2 - 1.0 mg/dL LAB URINALYSIS - AUTOMATED METHOD 10/02/2024 12:39 PM [facility] Bilirubin, Urine Negative Negative LAB URINALYSIS - AUTOMATED METHOD 10/02/2024 12:39 PM [facility] Blood, Urine Negative Negative LAB URINALYSIS - AUTOMATED METHOD 10/02/2024 12:39 PM [facility] RBC, Urine 1.7 0 - 4 /HPF LAB URINALYSIS - AUTOMATED METHOD 10/02/2024 12:39 PM [facility] WBC, Urine 2.6 0 - 4 /HPF LAB URINALYSIS - AUTOMATED METHOD 10/02/2024 12:39 PM [facility] Squamous Epithelial, Urine 89(H) 0 - 60 /LPF LAB URINALYSIS - AUTOMATED METHOD 10/02/2024 12:39 PM [facility] Bacteria, Urine Negative Negative /HPF LAB URINALYSIS - AUTOMATED METHOD 10/02/2024 12:39 PM [facility] Hyaline Casts, Urine 0.0 0 - 3 /LPF LAB URINALYSIS - AUTOMATED METHOD 10/02/2024 12:39 PM [facility] Urine Urine specimen obtained by clean catch procedure / Unknown 10/01/2024 5:30 PM EST 10/02/2024 12:20 PM EST us Adnan M Dahdul MD LAB URINE ORDERABLES Final Res ult Performing Organization Address [facility]/ZIP Co de Phone Number [facility] [address] [place] [address], [place] [phone] * [place] urine culture tube (10/01/2024 5:30 PM EST) Extra Tube Hold for add-ons. 10/02/2024 2:01 PM EST [facility] LAB Comment:Auto resulted. Urine Urine specimen obtained by clean catch procedure / Unknown 10/01/2024 5:30 PM EST 10/02/2024 12:20 PM EST Haroon Watson MD LAB URINE ORDERABLES Final Res ult Performing Organization Address [facility] Co de Phone Number [facility] [address] [place] [address], [place] [phone] * Culture urine (10/01/2024 5:30 PM EST) Pathologist [facility] Culture, Urine <10,000 cfu/ml, insignificant count, no further workup. 10/03/2024 11:12 AM EST [facility] Urine Urine specimen obtained by clean catch procedure / Unknown 10/01/2024 5:30 PM EST 10/02/2024 12:39 PM EST Haroon Watson MD LAB MICROBIOLOGY - GENERAL ORD ERABLES Final Result Performing Organization Address City/[facility]/ZIP Co de Phone Number [facility] [address] [place] [address], [place] [phone] * (ABNORMAL) CBC auto differential (09/30/2024 5:27 AM EST) WBC 4.2(L) 4.8 - 10.8 K/mcL LAB HEMETOLOGY METHOD 09/30/2024 9:40 AM EST [facility] RBC 3.30(L) 3.80 - 4.80 M/mcL LAB HEMETOLOGY METHOD 09/30/2024 9:40 AM [facility] Hemoglobin 9.7(L) 11.5 - 16.0 g/dL LAB HEMETOLOGY METHOD 09/30/2024 9:40 AM [facility] Hematocrit 30.8(L) 35.0 - 47.0 % LAB HEMETOLOGY METHOD 09/30/2024 9:40 AM [facility] MCV 94.2 79.0 - 98.0 FL LAB HEMETOLOGY METHOD 09/30/2024 9:40 AM [facility] MCH 29.7 27.0 - 32.0 pcg LAB HEMETOLOGY METHOD 09/30/2024 9:40 AM [facility] MCHC 31.5(L) 32.0 - 37.0 g/dL LAB HEMETOLOGY METHOD 09/30/2024 9:40 AM [facility] RDW 13.2 11.0 - 15.0 % LAB HEMETOLOGY METHOD 09/30/2024 9:40 AM [facility] Platelets 184 130 - 400 K/mcL LAB HEMETOLOGY METHOD 09/30/2024 9:40 AM [facility] MPV 10.1 7.0 - 11.0 FL LAB HEMETOLOGY METHOD 09/30/2024 9:40 AM [facility] NRBC 0.0 <1.0 % LAB HEMETOLOGY METHOD 09/30/2024 9:40 AM [facility] NRBC Absolute 0.00 <0.10 K/mcL LAB HEMETOLOGY METHOD 09/30/2024 9:40 AM [facility] Neutrophils Relative 60.8 % LAB HEMETOLOGY METHOD 09/30/2024 9:40 AM [facility] Lymphocytes Relative 17.7 % LAB HEMETOLOGY METHOD 09/30/2024 9:40 AM [facility] Monocytes Relative 13.8 % LAB HEMETOLOGY METHOD 09/30/2024 9:40 AM [facility] Eosinophils Relative 6.0 % LAB HEMETOLOGY METHOD 09/30/2024 9:40 AM [facility] Basophils Relative 0.7 % LAB HEMETOLOGY METHOD 09/30/2024 9:40 AM [facility] Immature Granulocytes Relative 1.0 % LAB HEMETOLOGY METHOD 09/30/2024 9:40 AM [facility] Neutrophils Absolute 2.55 1.50 - 7.00 K/mcL LAB HEMETOLOGY METHOD 09/30/2024 9:40 AM [facility] Lymphocytes Absolute 0.74(L) 1.00 - 5.00 K/mcL LAB HEMETOLOGY METHOD 09/30/2024 9:40 AM [facility] Monocytes Absolute 0.58 0.20 - 1.00 K/mcL LAB HEMETOLOGY METHOD 09/30/2024 9:40 AM [facility] Eosinophils Absolute 0.25 0.00 - 0.50 K/mcL LAB HEMETOLOGY METHOD 09/30/2024 9:40 AM [facility] Basophils Absolute 0.03 0.00 - 0.20 K/mcL LAB HEMETOLOGY METHOD 09/30/2024 9:40 AM [facility] Immature Granulocytes Absolute 0.04(H) 0.00 - 0.03 K/mcL LAB HEMETOLOGY METHOD 09/30/2024 9:40 AM [facility] Blood Venous blood specimen / Unknown Venipuncture / Unknown 09/30/2024 5:27 AM EST 09/30/2024 8:01 AM EST us Haroon Watson MD LAB BLOOD ORDERABLES Final Res ult Performing Organization Address [facility]/ZIP Co de Phone Number [facility] [address] [place] [address], [place] [phone] * Magnesium (09/30/2024 5:27 AM EST) Pathologist [facility] Magnesium 2.1 1.9 - 2.6 mg/dL LAB CHEMISTRY METHOD 09/30/2024 9:45 AM EST [facility] Blood Venous blood specimen / Unknown Venipuncture / Unknown 09/30/2024 5:27 AM EST 09/30/2024 8:01 AM EST Haroon Watson MD LAB BLOOD ORDERABLES Final Res ult Performing Organization Address [facility]/ZIP Co de Phone Number [facility] [address] [place] [address], [place] [phone] * (ABNORMAL) Comprehensive metabolic panel (09/30/2024 5:27 AM EST) [facility] Sodium 137 133 - 145 mmol/L LAB CHEMISTRY METHOD 09/30/2024 9:45 AM [facility] Potassium 4.9 3.5 - 5.5 mmol/L LAB CHEMISTRY METHOD 09/30/2024 9:45 AM [facility] Chloride 101 96 - 110 mmol/L LAB CHEMISTRY METHOD 09/30/2024 9:45 AM [facility] CO2 28 21 - 32 mmol/L LAB CHEMISTRY METHOD 09/30/2024 9:45 AM [facility] Anion Gap 8 3 - 11 LAB CHEMISTRY METHOD 09/30/2024 9:45 AM [facility] Glucose 68(L) 70 - 100 mg/dL LAB CHEMISTRY METHOD 09/30/2024 9:45 AM [facility] BUN 17 5 - 25 mg/dL LAB CHEMISTRY METHOD 09/30/2024 9:45 AM [facility] Creatinine 0.67 0.50 - 1.10 mg/dL LAB CHEMISTRY METHOD 09/30/2024 9:45 AM [facility] LAB eGFR 94 >=60 mL/min/1. 73m2 LAB CHEMISTRY METHOD 09/30/2024 9:45 AM [facility] LAB Comment:Calculation based on the??Chronic Kidney Disease Epidemiology Collaboration (CKD-EPI) equation refit??without adjustment for race. BUN/Creatinine Ratio 25.4 LAB CHEMISTRY METHOD 09/30/2024 9:45 AM [facility] Calcium 9.2 8.5 - 10.5 mg/dL LAB CHEMISTRY METHOD 09/30/2024 9:45 AM [facility] AST (SGOT) 19 10 - 42 unit/L LAB CHEMISTRY METHOD 09/30/2024 9:45 AM [facility] ALT (SGPT) 17 10 - 60 unit/L LAB CHEMISTRY METHOD 09/30/2024 9:45 AM [facility] Alkaline Phosphatase 131(H) 42 - 121 unit/L LAB CHEMISTRY METHOD 09/30/2024 9:45 AM [facility] Total Protein 6.3 6.0 - 8.0 g/dL LAB CHEMISTRY METHOD 09/30/2024 9:45 AM [facility] Albumin 3.3 3.2 - 5.0 g/dL LAB CHEMISTRY METHOD 09/30/2024 9:45 AM [facility] Total Bilirubin 0.3 0.0 - 1.4 mg/dL LAB CHEMISTRY METHOD 09/30/2024 9:45 AM [facility] Blood Venous blood specimen / Unknown Venipuncture / Unknown 09/30/2024 5:27 AM EST 09/30/2024 8:01 AM EST us Haroon Watson MD LAB BLOOD ORDERABLES Final Res ult [facility] [address] [place] [address], [place] [phone] from Last 3 Months Insurance MEDICARE Care Teams Cad Drafter Relationship Specialty Start Date End Date Haroon Watson MD [address] [place] [id number] PCP - General Internal Medicine 09/30/24
--- OUTSIDE RECORDS SUMMARY | 2024-11-16 18:31 | XMS_ITS | Continuity of Care Document ---
Author Organization [facility] Address [address] [facility] [place] [address] Assessment No assessment recorded. Plan of Treatment Reminders Order Date Submit Date Provider Last Modified By Organization Details Last Modified Time Details Appointments None recorded. Lab None recorded. Referral None recorded. Procedures None recorded. Surgeries None recorded. Imaging US, abdominal aorta - brother of a AAA incidental finding on XR lumbar spine 2024 025 [facility], [address] [place] [address], [address], 5 08:36:16 XR, lumbosacral spine, 2 or 3 view 2024 025 [facility], [address] [place], [address], 5 13:58:55 XR, hip + pelvis, bilateral, 2 view 2024 025 [facility], [address] [place] [address], [address], 5 09:34:35 Medication Orders fentanyl 12 mcg/hr transdermal patch 2024 025 [id number], [address] [place], [address], 5 11:16:06 Patient TargetsNo targets recorded. Patient InstructionsNo instructions recorded. Reason for Referral None Reported. Results Created Date Observation Date Name Description Value Unit Range Abnormal Flag Note LastModifiedBy Organization Detail LastModifiedTime 09/27/19 25 09/27/2024 XR, lumba r spine No observ ation record ed. [facility] (Medical Records) [address] [place], [address], 09/27/2024 09:19:55 09/28/19 25 09/28/2024 CT, brain , w/o contr ast No observ ation record ed. [email or web address] (Medical Records) [address] [place], [address], 09/28/2024 08:38:32 10/26/19 25 10/25/2024 XR, lumbo sacra l spine , 2 or 3 view No observ ation record ed. [address] (Medical Records) [address] [place], [address], 10/26/2024 09:57:22 10/27/19 25 10/25/2024 XR, hip + pelvi s, bilat eral, 2 view No observ ation record ed. [address] Central Scheduling [address] [place], [address], 10/26/2024 09:57:22 11/17/19 25 11/16/2024 XR, lumbo sacra l spine , 2 or 3 view No observ ation record ed. [facility] (Medical Records) [address] [place], [address], 11/16/2024 16:57:56 Result Notes None recorded. Problems Name Problem SNOMED Code Status Onset Date Resolution Date Notes Provider Name and Address Organization Details Recorded Time Systemic lupus erythemat osus 54159069 Active 2019 Not Available [facility] 3 18:59:09 Paronychi a of finger of right hand 929676438053 00603 Active 2019 Not Available [facility] 3 18:59:08 Seronegat lionel rheumatoi d arthritis 266904545 Active 2020 Not Available [facility] 3 18:59:08 Hypertens lionel encephalo juan luis 33317844 Active 2021 Not Available [facility] 3 18:59:08 Fall Active 2021 Not Available [facility] 3 18:59:08 Dysuria 42706982 Active 2021 Not Available [facility] 3 18:59:08 Acute urinary tract infection 356861376 Active 2021 Not Available [facility] 3 18:59:08 Urinary incontine nce 057605471 Active 2021 Not Available [facility] 3 18:59:08 Cervical radiculop athy 26518116 Active 2021 [facility] Available [facility] 3 18:59:08 Rib pain 215679414 Active 2021 Not Available [facility] 3 18:59:08 Dizziness 828260325 Active 2021 Not Available [facility] 3 18:59:08 Tremor 98643165 Active 2021 Not Available [facility] 3 18:59:08 Impacted cerumen of bilateral ears 973583466415 9108 Active 2021 Not Available [facility] 3 18:59:08 Impacted cerumen 90955876 Active 2021 Not Available [facility] 3 18:59:08 Cough 40987470 Active 2021 Not Available [facility] 3 18:59:08 Insomnia 232849792 Active 2022 Not Available [facility] 3 18:59:08 Multi-inf arct dementia 30119884 Active 2022 Not Available [facility] 3 18:59:09 Seizure disorder 780691677 Active 2022 Not Available [facility] 3 18:59:08 Subdural hematoma 09496518 Active 2022 Not Available [facility] 3 18:59:09 Memory impairmen t 174196455 Active 2022 Not Available [facility] 3 18:59:08 Allergic rhinitis 97854154 Active 2022 Not Available [facility] 3 18:59:09 Fatigue 97747317 Active 2022 Not Available [facility] 3 18:59:09 Vitamin D deficienc y 66206945 Active 2022 Not Available [facility] 3 18:59:08 Iron deficienc y anemia 37597874 Active 2022 Not Available [facility] 3 18:59:09 Nausea 306883967 Active 2022 Not Available [facility] 3 18:59:08 Fever with chills 355910463 Active 2022 Not Available [facility] 3 18:59:08 Bipolar disorder 98602685 Active 2017 Not Available [facility] 3 18:59:08 Hypertens lionel disorder 96605882 Active 2017 Not Available [facility] 3 18:59:08 Acid reflux 709317505 Active 2017 Not Available [facility] 3 18:59:09 Anxiety disorder 530457720 Active 2017 Not Available [facility] 3 18:59:08 Chronic constipat ion 885613729 Active 2017 Not Available [facility] 3 18:59:08 Diarrhea 88382868 Active 2023 GATO BRENNAN [address] [place] [address], [address], [facility] 4 13:38:28 Nausea and vomiting 30496292 Active 2023 GATO BRENNAN [address] [place] [address], [address], [facility] 4 10:55:51 Gastroeso phageal reflux disease 117002883 Active 2023 GATO BRENNAN [address] [place] [address], [address], [facility] 4 10:57:39 Acute gastroent eritis 08439075 Active 2023 GATO BRENNAN [address] [place], [address], [facility] 4 11:00:39 Isolated head tremor 655836551 Active 2023 GATO BRENNAN [address] [place], [address], [facility] 4 10:10:19 Acute bronchiti s 77910303 Active 2023 GATO BRENNAN [address] [place] [address], [address], [facility] 4 13:50:08 Leukopeni a 53120385 Active 2023 GATO BRENNAN [address] [place] [address], , [facility] 4 15:51:30 Degenerat ion of lumbar intervert ebral disc 84108120 Active 2024 GATO BRENNAN [address] [place] [address], [address], [facility] 5 15:13:56 Compressi on fracture of L2 715898730796 96284 Active 2024 GATO BRENNAN [address] [place] [address], , [facility] 5 15:28:19 Altered mental status 428571874 Active 2024 GATO BRENNAN [address] [place] [address], [address], [facility] 5 15:29:25 Bilateral hip joint pain 214678965551 90725 Active 2024 GATO BRENNAN [address] [place] [address], [address], [facility] 5 15:37:16 Problem Notes None recorded. Procedures Surgical History Date Name Laterality Status Provider Name and Address Organization Details Recorded Time 2 Cerumen Removal completed GATO BRENNAN [address] [place], [address], [facility] 03/05/2022 11:40:45 2 Cerumen Removal completed GATO BRENNAN [address] [place], [address], [facility] 03/01/2022 12:04:20 0 Cerumen Removal completed GATO BRENNAN [address] [place], [address], [facility] 05/22/2020 16:19:48 Imaging Results None recorded. Procedure Notes None recorded. Medical Equipment None Reported. Allergies Allergen ID Allergen Name Allergen Category Reaction Reaction Severity Criticality Documentation Date Start Date Code Code System Note Provider Name and Address Organization Details Recorded Time 747 codeine medicatio n Not available Not available Not available 11/19/2017 2670 RxNorm Emily Bose [facility] 8 14:48:46 8791 oxycodone medicatio n Not available Not available Not available 10/18/2024 7804 RxNorm GATO BRENNAN [address] [place], [address], [facility] 5 15:23:18 Medications Name Sig Start Date [...] Available Not Available prednisone 5 mg tablet 01/26 /2024 completed Not Available Not Available Not Available [...] Available Not Available tramadol 50 mg tablet TAKE 1 TABLET BY MOUTH EVERY 6 HOURS NEEDED FOR 30 DAYS 11/08 completed Not Available Not Available Not Available [...] Not Available carbamazepi ne 200 mg tablet TAKE 2 TABLETS BY MOUTH AT BEDTIME active Not Available Not Available [...] yed release TAKE 1 TABLET 2 TIMES DAILY WITH FOOD active Not Available Not Available No [...] Not Available Not Available No t Available fentanyl 25 mcg/hr transdermal patch Apply 1 patch every 72 hours by transderm al route as directed for 7 days. 2024 active Not Available Not Available Not Avai lable zolpidem 10 mg tablet TAKE 1 TABLET [...] Available Not Available Not Available amoxicillin 875 mg-vaishnavi m clavulanate 125 mg tablet TAKE 1 [...] ne ER 200 mg capsule,ext ended release [id number] Take one cap BID 2024 active Not Available Not Available Not Avai lable Boostrix Tdap 2.5 Lf unit-8 mcg-5 Lf/0.5 mL intramuscul ar suspension 06/14 completed Not Available Not Available Not Available fentanyl 12 mcg/hr transdermal patch APPLY 1 PATCH EVERY 72 HOURS BY TRANSDERM AL ROUTE FOR 7 DAYS. 11/08 completed Not Available Not Available Not Available [...] 97 % 176 mm[Hg] 78 mm[Hg] [facility] 5 15:10:49 Social History Question Answer Notes LastModified by Organizat ion Details LastModified Time Tobacco Smoking Status Former Smoker Not Available [facility] 06/27/2020 03:36:23 What Was The Date Of Your Most Recent Tobacco Screening? 11/08/2024 [email or web address] Information not available 11/08/2024 Do You Or Have You Ever Used Any Other Forms Of Tobacco Or Nicotine? No [email or web address] Information not available 07/21/2023 Sex: Unknown Functional Status None recorded. Mental Status None recorded. Family History Nothing Reported. Medical History No medical history recorded. Gynecological HistoryNo gynecological history recorded. Obstetrics History GPAL:G 0 P 0 0 0 0 Immunizations Vaccine Type Date Status Note Provider Nam e and Address Organization Details Recorded Time influenza, unspecified formulation 4 completed [facility] 06/11/2024 08:21:38 SARS-COV-2 (COVID-19) vaccine, UNSPECIFIED 4 completed Jackie [facility] 06/11/2024 08:21:46 Influenza, split virus, quadrivalent, preservative 9 completed Not Available [facility] 08/15/2023 18:59:09 pneumococcal polysaccharide PPV23 9 completed Not Available [facility] 08/15/2023 18:59:09 Influenza, split virus, quadrivalent, preservative 0 completed Not Available [facility] 08/15/2023 18:59:09 COVID-19, mRNA, LNP-S, PF, 30 mcg/0.3 mL dose 1 completed Not Available [facility] 08/15/2023 18:59:09 COVID-19, mRNA, LNP-S, PF, 30 mcg/0.3 mL dose 1 completed Not Available [facility] 08/15/2023 18:59:09 zoster recombinant 0 completed Not Available [facility] 08/15/2023 18:59:09 Pneumococcal conjugate PCV 13 0 completed Not Available [facility] 08/15/2023 18:59:09 zoster recombinant 1 completed Not Available [facility] 08/15/2023 18:59:09 Past Encounters Encounter ID Performer Location Encounter Start Date Encounter Closed Date Diagnosis/Indication Diagnosis SNOMED-CT Code Diagnosis ICD10 Code Diagnosis Note [id number] GATO BRENNAN [facility] [address] [facility],[place] [address] 10/18/2024 14:57:49 10/18/2024 15:55:37 At increased risk for falls 950315146 Z91.81 due to weakness, tremors Fall 0993095 R29.6 no recent falls Degenerati on of lumbar intervertebral disc 75503686 M51.369 will trial a very small dose of fentanyl Compressio n fracture of L2 4369174986 2387040 M48.56XA recheck if f/x is healing Altered mental status 41 8415873 R41.82 working with psych Memory impairment 799900 006 R41.3 no Anxiety disorder 6077811 06 F40.02 weaning off the ativan, switching to hydroxyzin e Family his tory of aneurysm of abdominal aorta 574958880 Z82.49 will set up with screening Bilateral hip joint pain 5506505057 1332477 M25.551 set up with XRs Health Concerns Section Related Observation LastModified by Organization Detai ls LastModified Time None Recorded Concern Status LastModified by Organization Details LastModified Time None Recorded Payers Encounter Date Sequence Insurance Name Policy Number Policy Saavedra Covered Member ID Saavedra Member ID Guarantor Name 10/18/2024 1 MEDICARE B-[place]: [employer] Tabatha Donohue [id number] Tabatha Davisarty 10/18/2024 2 [facility] [id number] Tabatha Davisarty [id number] Tabatha Charanjit Notes Date Note Type Note [...] to recent memory changes GATO BRENNAN [address] [facility], [place], [address], [facility] 10/18/2024 15:49:38 OBGyn Episode No OBEpisode recorded.
--- OUTSIDE RECORDS SUMMARY | 2024-11-16 18:31 | XMS_ITS | Encounter Summary ---
Author Organization [facility] Address [address] [place] [address] Care Team Providers Care Judicial Registrar Name Role Phone Haroon Watson MD Primary Care Provider [phone] Encounter Details Date Type Department Care Team (Late st Contact Info) Description 09/30/2024 Lab Requisition [facility] - Main Lab [address] [facility] [place] [address] Haroon Watson MD [address] [place] [address] Encounter for other general examination Social History [...] AM EST) WBC 4.2(L) 4.8 - 10.8 K/[facility] LAB HEMETOLOGY METHOD 09/30/2024 9:40 AM [facility] RBC 3.30(L) 3.80 - 4.80 M/mcL LAB HEMETOLOGY METHOD 09/30/2024 9:40 AM [facility] Hemoglobin 9.7(L) 11.5 - 16.0 g/dL LAB HEMETOLOGY METHOD 09/30/2024 9:40 AM [facility] Hematocrit 30.8(L) 35.0 - 47.0 % LAB HEMETOLOGY METHOD 09/30/2024 9:40 AM [facility] MCV 94.2 79.0 - 98.0 FL LAB HEMETOLOGY METHOD 09/30/2024 9:40 AM [facility] MCH 29.7 27.0 - 32.0 pcg LAB HEMETOLOGY METHOD 09/30/2024 9:40 AM [facility] MCHC 31.5(L) 32.0 - 37.0 g/dL LAB HEMETOLOGY METHOD 09/30/2024 9:40 AM [facility] RDW 13.2 11.0 - 15.0 % LAB HEMETOLOGY METHOD 09/30/2024 9:40 AM [facility] Platelets 184 130 - 400 K/mcL LAB HEMETOLOGY METHOD 09/30/2024 9:40 AM [facility] MPV 10.1 7.0 - 11.0 FL LAB HEMETOLOGY METHOD 09/30/2024 9:40 AM [facility] NRBC 0.0 <1.0 % LAB HEMETOLOGY METHOD 09/30/2024 9:40 AM [facility] NRBC Absolute 0.00 <0.10 K/mcL LAB HEMETOLOGY METHOD 09/30/2024 9:40 AM [facility] Neutrophils Relative 60.8 % LAB HEMETOLOGY METHOD 09/30/2024 9:40 AM [facility] Lymphocytes Relative 17.7 % LAB HEMETOLOGY METHOD 09/30/2024 9:40 AM [facility] Monocytes Relative 13.8 % LAB HEMETOLOGY METHOD 09/30/2024 9:40 AM [facility] Eosinophils Relative 6.0 % LAB HEMETOLOGY METHOD 09/30/2024 9:40 AM [facility] Basophils Relative 0.7 % LAB HEMETOLOGY METHOD 09/30/2024 9:40 AM [facility] Immature Granulocytes Relative 1.0 % LAB HEMETOLOGY METHOD 09/30/2024 9:40 AM [facility] Neutrophils Absolute 2.55 1.50 - 7.00 K/mcL LAB HEMETOLOGY METHOD 09/30/2024 9:40 AM [facility] Lymphocytes Absolute 0.74(L) 1.00 - 5.00 K/mcL LAB HEMETOLOGY METHOD 09/30/2024 9:40 AM [facility] Monocytes Absolute 0.58 0.20 - 1.00 K/mcL LAB HEMETOLOGY METHOD 09/30/2024 9:40 AM [facility] Eosinophils Absolute 0.25 0.00 - 0.50 K/mcL LAB HEMETOLOGY METHOD 09/30/2024 9:40 AM [facility] Basophils Absolute 0.03 0.00 - 0.20 K/mcL LAB HEMETOLOGY METHOD 09/30/2024 9:40 AM [facility] Immature Granulocytes Absolute 0.04(H) 0.00 - 0.03 K/mcL LAB HEMETOLOGY METHOD 09/30/2024 9:40 AM [facility] Blood Venous blood specimen / Unknown Venipuncture / Unknown 09/30/2024 5:27 AM EST 09/30/2024 8:01 AM EST us Haroon Watson MD LAB BLOOD ORDERABLES Final Res ult [facility] [address] [place] [address], [place] [phone] * Magnesium (09/30/2024 5:27 AM EST) Pathologist [facility] Magnesium 2.1 1.9 - 2.6 mg/dL LAB CHEMISTRY METHOD 09/30/2024 9:45 AM [facility] Blood Venous blood specimen / Unknown Venipuncture / Unknown 09/30/2024 5:27 AM EST 09/30/2024 8:01 AM EST us Haroon Watson MD LAB BLOOD ORDERABLES Final Res ult Performing Organization Address City/[facility]/ZIP Co de Phone Number [facility] [address] [place] [address], [place] [phone] * (ABNORMAL) Comprehensive metabolic panel (09/30/2024 5:27 AM EST) [facility] Sodium 137 133 - 145 mmol/L LAB CHEMISTRY METHOD 09/30/2024 9:45 AM [facility] Potassium 4.9 3.5 - 5.5 mmol/L LAB CHEMISTRY METHOD 09/30/2024 9:45 AM [facility] Chloride 101 96 - 110 mmol/L LAB CHEMISTRY METHOD 09/30/2024 9:45 AM [facility] CO2 28 21 - 32 mmol/L LAB CHEMISTRY METHOD 09/30/2024 9:45 AM [facility] Anion Gap 8 3 - 11 LAB CHEMISTRY METHOD 09/30/2024 9:45 AM [facility] Glucose 68(L) 70 - 100 mg/dL LAB CHEMISTRY METHOD 09/30/2024 9:45 AM [facility] BUN 17 5 - 25 mg/dL LAB CHEMISTRY METHOD 09/30/2024 9:45 AM [facility] Creatinine 0.67 0.50 - 1.10 mg/dL LAB CHEMISTRY METHOD 09/30/2024 9:45 AM [facility] eGFR 94 >=60 mL/min/1. 73m2 LAB CHEMISTRY METHOD 09/30/2024 9:45 AM [facility] Comment:Calculation based on the??Chronic Kidney Disease Epidemiology Collaboration (CKD-EPI) equation refit??without adjustment for race. BUN/Creatinine Ratio 25.4 LAB CHEMISTRY METHOD 09/30/2024 9:45 AM [facility] Calcium 9.2 8.5 - 10.5 mg/dL LAB CHEMISTRY METHOD 09/30/2024 9:45 AM [facility] AST (SGOT) 19 10 - 42 unit/L LAB CHEMISTRY METHOD 09/30/2024 9:45 AM [facility] ALT (SGPT) 17 10 - 60 unit/L LAB CHEMISTRY METHOD 09/30/2024 9:45 AM [facility] Alkaline Phosphatase 131(H) 42 - 121 unit/L LAB CHEMISTRY METHOD 09/30/2024 9:45 AM [facility] Total Protein 6.3 6.0 - 8.0 g/dL LAB CHEMISTRY METHOD 09/30/2024 9:45 AM [facility] Albumin 3.3 3.2 - 5.0 g/dL LAB CHEMISTRY METHOD 09/30/2024 9:45 AM [facility] Total Bilirubin 0.3 0.0 - 1.4 mg/dL LAB CHEMISTRY METHOD 09/30/2024 9:45 AM [facility] Blood Venous blood specimen / Unknown Venipuncture / Unknown 09/30/2024 5:27 AM EST 09/30/2024 8:01 AM EST us Haroon Watson MD LAB BLOOD ORDERABLES Final Res ult [facility] [address] [place] [address], documented in this encounter Visit Diagnoses Diagnosis Encounter for other general examination documented in this encounter Care Teams Judicial Registrar Relationship Specialty Start Date End Date Haroon Watson MD [address] [place] [id number] PCP - General Internal Medicine 09/30/24 documented as of this encounter
--- OUTSIDE RECORDS SUMMARY | 2024-11-16 18:31 | XMS_ITS | Continuity of Care Document ---
Author Organization [facility] Address [address] [place] [address] [place] [address] Assessment No assessment recorded. Plan of Treatment Reminders Order Date Submit Date Provider Last Modified By Organization Details Last Modified Time Details Appointments None recorded. Lab None recorded. Referral None recorded. Procedures None recorded. Surgeries None recorded. Imaging XR, lumbosacral spine, 2 or 3 view 2024 025 [facility] Central Scheduling, [address] [place], [address], 16:57:56 Medication Orders fentanyl 25 mcg/hr transdermal patch 2024 025 [id number], [address] [facility], [place], [address], 14:27:02 Patient TargetsNo targets recorded. Patient InstructionsNo instructions recorded. Reason for Referral None Reported. Results Created Date Observation Date Name Description Value Unit Range Abnormal Flag Note LastModifiedBy Organization Detail LastModifiedTime 10/26/1910/25/2024 XR, lumbo sacra l spine , 2 or 3 view No observ ation record ed. [address] (Medical Records) [address] [place], [address], 10/26/2024 09:57:22 10/27/1910/25/2024 XR, hip + pelvi s, bilat eral, 2 view No observ ation record ed. [address] Central Scheduling [address] [place], [address], 10/26/2024 09:57:22 11/17/19 25 11/16/2024 XR, lumbo sacra l spine , 2 or 3 view No observ ation record ed. [facility] (Medical Records) [address] [facility], [place], [address], 11/16/2024 16:57:56 Result Notes None recorded. Problems Name Problem SNOMED Code Status Onset Date Resolution Date Notes Provider Name and Address Organization Details Recorded Time Systemic lupus erythemat osus 28638098 Active 2019 Not Available [facility] 3 18:59:09 Paronychi a of finger of right hand 539532130708 29081 Active 2019 Not Available [facility] 3 18:59:08 Seronegat lionel rheumatoi d arthritis 890094342 Active 2020 Not Available [facility] 3 18:59:08 Hypertens lionel encephalo juan luis 76933892 Active 2021 Not Available [facility] 3 18:59:08 Fall Active 2021 Not Available [facility] 3 18:59:08 Dysuria 89753531 Active 2021 Not Available [facility] 3 18:59:08 Acute urinary tract infection 762892349 Active 2021 Not Available [facility] 3 18:59:08 Urinary incontine nce 676021475 Active 2021 Not Available [facility] 3 18:59:08 Cervical radiculop athy 79949151 Active 2021 Not Available [facility] 3 18:59:08 Rib pain 910629348 Active 2021 Not Available [facility] 3 18:59:08 Dizziness 273183360 Active 2021 Not Available [facility] 3 18:59:08 Tremor 43174367 Active 2021 Not Available [facility] 3 18:59:08 Impacted cerumen of bilateral ears 109286209169 9108 Active 2021 Not Available [facility] 3 18:59:08 Impacted cerumen 43206780 Active 2021 Not Available [facility] 3 18:59:08 Cough 92375188 Active 2021 Not Available [facility] 3 18:59:08 Insomnia 995637112 Active 2022 Not Available [facility] 3 18:59:08 Multi-inf arct dementia 69903442 Active 2022 Not Available [facility] 3 18:59:09 Seizure disorder 847298732 Active 2022 Not Available [facility] 3 18:59:08 Subdural hematoma 00422795 Active 2022 Not Available [facility] 3 18:59:09 Memory impairmen t 903423784 Active 2022 Not Available [facility] 3 18:59:08 Allergic rhinitis 40563778 Active 2022 Not Available [facility] 3 18:59:09 Fatigue 22202550 Active 2022 Not Available [facility] 3 18:59:09 Vitamin D deficienc y 58778497 Active 2022 Not Available [facility] 3 18:59:08 Iron deficienc y anemia 20055987 Active 2022 Not Available [facility] 3 18:59:09 Nausea 449117768 Active 2022 Not Available [facility] 3 18:59:08 Fever with chills 123223118 Active 2022 Not Available [facility] 3 18:59:08 Bipolar disorder 85144582 Active 2017 Not Available [facility] 3 18:59:08 Hypertens lionel disorder 10034467 Active 2017 Not Available [facility] 3 18:59:08 Acid reflux 116448931 Active 2017 Not Available [facility] 3 18:59:09 Anxiety disorder 729377112 Active 2017 Not Available [facility] 3 18:59:08 Chronic constipat ion 346446211 Active 2017 Not Available [facility] 3 18:59:08 Diarrhea 07387197 Active 2023 GATO BRENNAN [address] [place], [address], [facility] 4 13:38:28 Nausea and vomiting 46233654 Active 2023 GATO BRENNAN [address] [place] [address], [address], [facility] 4 10:55:51 Gastroeso phageal reflux disease 020407270 Active 2023 GATO BRENNAN [address] [place] [address], [address], [facility] 4 10:57:39 Acute gastroent eritis 63296954 Active 2023 GATO BRENNAN [address] [place] [address], [address], [facility] 4 11:00:39 Isolated head tremor 851567145 Active 2023 GATO BRENNAN [address] [place] [address], [address], [facility] 4 10:10:19 Acute bronchiti s 13944641 Active 2023 GATO BRENNAN [address] [place] [address], [address], [facility] 4 13:50:08 Leukopeni a 13213576 Active 2023 GATO BRENNAN [address] [place] [address], [address], [facility] 4 15:51:30 Degenerat ion of lumbar intervert ebral disc 92566175 Active 2024 GATO BRENNAN [address] [place] [address] [place], [address], [facility] [place] [facility] 5 15:13:56 Compressi on fracture of L2 756032172232 62711 Active 2024 GATO BRENNAN [address] [place] [address], [address], [facility] [place] [facility] 5 15:28:19 Altered mental status 178010946 Active 2024 GATO BRENNAN [address] [place] [address], [address], [facility] 5 15:29:25 Bilateral hip joint pain 976469283738 35019 Active 2024 GATO BRENNAN [address] [place] [address], [address], [facility] 5 15:37:16 Problem Notes None recorded. Procedures Surgical History Date Name Laterality Status Provider Name and Address Organization Details Recorded Time 2 Cerumen Removal completed GATO BRENNAN [address] [place] [address], [address], [facility] [place] [facility] 03/05/2022 11:40:45 2 Cerumen Removal completed GATO BRENNAN [address] [place] [address], [address], [facility] 03/01/2022 12:04:20 0 Cerumen Removal completed GATO BRENNAN [address] [place] [address], [address], [facility] 05/22/2020 16:19:48 Imaging Results None recorded. Procedure Notes None recorded. Medical Equipment None Reported. Allergies Allergen ID Allergen Name Allergen Category Reaction Reaction Severity Criticality Documentation Date Start Date Code Code System Note Provider Name and Address Organization Details Recorded Time 747 codeine medicatio n Not available Not available Not available 11/19/2017 2670 RxNorm Emily Bose [facility] [place] [facility] 8 14:48:46 8791 oxycodone medicatio n Not available Not available Not available 10/18/2024 7804 RxNorm GATO BRENNAN [address] [place], [address], [facility] 15:23:18 Medications Name Sig Start Date Stop [...] ne ER 200 mg capsule,ext ended release [id number] Take one cap BID 2024 active Not [...] Not Available Not Available Fluzone High-Dose Quad 2020- (PF) 240 mcg/0.7 mL IM syringe ADM 0.7ML IM UTD 11/24 completed Not Available Not Available Not Available Vitals Date Recorded Body height Body mass index (BMI) Body weight Heart rate Oxygen saturation Oxygen saturation in Arterial blood by Pulse oximetry Systolic blood pressure Diastolic blood pressure Provider Name and Address Organization Details Last Updated DateTime 5 165.74 cm 22 kg/m2 68937.7 9 g 78 /min 99 % 99 % 130 mm[Hg] 78 mm[Hg] [facility] 5 14:13:27 Social History Question Answer Notes LastModified by Organizat ion Details LastModified Time Tobacco Smoking Status Former Smoker Not Available [facility] 06/27/2020 03:36:23 What Was The Date Of Your Most Recent Tobacco Screening? 11/08/2024 [email or web address] Information not available 11/08/2024 Do You Or Have You Ever Used Any Other Forms Of Tobacco Or Nicotine? No [email or web address] Information not available 07/21/2023 Sex: Unknown Functional Status None recorded. Mental Status None recorded. Family History Nothing Reported. Medical History No medical history recorded. Gynecological HistoryNo gynecological history recorded. Obstetrics History GPAL:G 0 P 0 0 0 0 Immunizations Vaccine Type Date Status Note Provider Nam e and Address Organization Details Recorded Time influenza, unspecified formulation 4 completed Jackie rain [facility] 06/11/2024 08:21:38 SARS-COV-2 (COVID-19) vaccine, UNSPECIFIED 4 completed Jackie rain [facility] 06/11/2024 08:21:46 Influenza, split virus, quadrivalent, preservative 9 completed Not Available [facility] 08/15/2023 18:59:09 pneumococcal polysaccharide PPV23 9 completed Not Available [facility] 08/15/2023 18:59:09 Influenza, split virus, quadrivalent, preservative 0 completed Not Available [facility] 08/15/2023 18:59:09 COVID-19, mRNA, LNP-S, PF, 30 mcg/0.3 mL dose 1 completed Not Available [facility] 08/15/2023 18:59:09 COVID-19, mRNA, LNP-S, PF, 30 mcg/0.3 mL dose 1 completed Not Available [facility] 08/15/2023 18:59:09 zoster recombinant 0 completed Not Available [facility] 08/15/2023 18:59:09 Pneumococcal conjugate PCV 13 0 completed Not Available [facility] 08/15/2023 18:59:09 zoster recombinant 1 completed Not Available [facility] 08/15/2023 18:59:09 Past Encounters Encounter ID Performer Location Encounter Start Date Encounter Closed Date Diagnosis/Indication Diagnosis SNOMED-CT Code Diagnosis ICD10 Code Diagnosis Note [id number] GATO BRENNAN [facility] [address] [facility] [address] 10/18/2024 14:57:49 10/18/2024 15:55:37 At increased risk for falls 769646342 Z91.81 due to weakness, tremors Fall R29.6 no recent falls Degenerati on of lumbar intervertebral disc 51439166 M51.369 will trial a very small dose of fentanyl Compressio n fracture of L2 8935002048 7225016 M48.56XA recheck if f/x is healing Altered mental status 41 8541949 R41.82 working with psych Memory impairment 302427 006 R41.3 no Anxiety disorder 4600136 06 F40.02 weaning off the ativan, switching to hydroxyzin e Family his tory of aneurysm of abdominal aorta 005778463 Z82.49 will set up with screening Bilateral hip joint pain 7485284557 7471629 M25.551 set up with XRs [id number] GATO BRENNAN [facility] [address] [facility] [address] 11/08/2024 14:05:42 11/08/2024 15:33:26 Degeneration of lumbar intervertebral disc 44781487 M51.369 not effective at low dose, will incrementa lly increase over time PRN tramadol for severe paincan uses APAP PRN for break through pain Compressio n fracture of L2 6346191199 8828162 M48.56XA recheck if f/x is healing Health Concerns Section Related Observation LastModified by Organization Detai ls LastModified Time None Recorded Concern Status LastModified by Organization Details LastModified Time None Recorded Payers Encounter Date Sequence Insurance Name Policy Number Policy Saavedra Covered Member ID Saaverda Member ID Guarantor Name 11/08/2024 1 [place]: [employer] Tabatha Donohue [id number] Tabatha Donohue 11/08/2024 2 [facility] [employer] - [facility] [id number] Tabatha Donohue [id number] Tabatha Donohue Notes Date Note Type Note Provider Name a nd Address Organization Details Recorded Time 5 text/html 3 week f/u the patient is still having low back painthe patient reports that it is really bad when she sits for prolonged periods of timethe patient reports the hip pain bilaterallythe patient reports the right side is worse than the other the patient reports that she can't do the oxycodone due to the hallucinations it causescurrently on the fentanyl patch which patient reports is ineffective but it is not causing side effects US had to be rescheduled due to appt conflictthe patient reports that she was restarted all of the medications by her pyschwill deal with all of her [employer] meds, doesn't want us prescribing anything which I agreed with will increase the dosage of the fentanyl will set up with the walker again instead of the caneconcerned about her stability GATO BRENNAN [address] [facility], [place], [address], [facility] 11/08/2024 14:38:09 OBGyn Episode No OBEpisode recorded.
--- OUTSIDE RECORDS SUMMARY | 2024-11-16 18:31 | XMS_ITS | Data Portability ---
Author Organization [facility] Home Service Address [address] [place] [address] Assessment No assessment recorded. Plan of Treatment Reminders Order Date Submit Date Provider Last Modified By Organization Details Last Modified Time Details Appointments None recorded. Lab vitamin B12 + folate, serum or blood 2023 [facility] (Lab), [address] [place] [address], [address], 4 14:20:30 vitamin D, 25-hydroxy , total, serum 2023 [facility] (Lab), [address] [place] [address], [address], 4 11:24:46 TSH + free T4, serum 2023 [facility] (Lab), [address] [place] [address], [address], 4 14:20:30 iron + TIBC + ferritin, serum 2023 [facility] (Lab), [address] [place] [address], [address], 4 14:20:30 CBC w/ auto diff 2023 [facility] (Lab), [address] [place] [address], [address], 4 14:20:30 CMP, serum or plasma 2023 024 [facility] (Lab), [address] [place], [address], 4 14:20:30 magnesium, serum or plasma 2023 024 [facility] (Lab), [address] [place], [address], 4 14:20:30 ESR (erythrocy te sedimentat ion rate), blood 2023 024 [facility] (Lab), [address] [place], [address], 4 14:20:30 C-reactive protein, quantitati ve, serum or plasma 2023 024 [facility] (Lab), [address] [place], [address], 4 14:20:30 Referral None recorded. Procedures None recorded. Surgeries None recorded. Imaging XR, lumbosacra l spine, 2 or 3 view 2024 025 [facility], [address] [place], [address], 5 16:57:56 US, abdominal aorta - brother of a AAA incidental finding on XR lumbar spine 2024 025 [facility], [address] [place], [address], 5 08:36:16 XR, lumbosacra l spine, 2 or 3 view 2024 025 [facility], [address] [place], [address], 5 13:58:55 XR, hip + pelvis, bilateral, 2 view 2024 025 [facility], [address] [place], [address], 5 09:34:35 XR, chest, 2 view 2023 024 [facility], [address] [place], [address], 4 19:24:35 Medication Orders fentanyl 25 mcg/hr transderma l patch 2024 025 [id number], [address] [place], [address], 5 14:27:02 fentanyl 12 mcg/hr transderma l patch 2024 025 [id number], [address] [place], [address], 5 11:16:06 lorazepam 2 mg tablet 2023 024 [id number], [address] [place], [address], 4 14:16:17 primidone 50 mg tablet 2023 025 [id number], [address] [place], [address], 5 09:55:11 ondansetro n 8 mg disintegra ting tablet 2023 024 [facility], [address] [place], [address], 4 14:20:33 omeprazole 40 mg capsule,de layed release 2023 024 [facility], [address] [place], [address], 10:58:32 Patient TargetsNo targets recorded. Patient InstructionsNo instructions recorded. Reason for Referral None Reported. Results Created Date Observation Date Name Description Value Unit Range Abnormal Flag Note LastModifiedBy Organization Detail LastModifiedTime 09/27/19 24 09/27/2023 CT, abdom en + pelvi s, w/ contr ast No observ ation record ed. [facility] [address] [place], [address], 09/28/2023 09:30:05 01/24/20 24 12/30/2023 MAMMO , scree jason, digit al, bilat eral No observ ation record ed. [email or web address] [facility] [address] JAYDEN [place], [address], 01/25/2024 09:20:22 07/13/20 24 07/13/2024 XR, chest , 2 view No observ ation record ed. [email or web address] [facility] (Medical Records) [address] [place], [address], 07/14/2024 09:04:08 09/27/19 25 09/27/2024 XR, lumba r spine No observ ation record ed. [email or web address] [facility] (Medical Records) [address] [place], [address], 09/27/2024 09:19:55 09/28/1909/28/2024 CT, brain , w/o contr ast No observ ation record ed. [facility] [address] [place], [address], 09/28/2024 08:38:32 10/26/1910/25/2024 XR, lumbo sacra l spine , 2 or 3 view No observ ation record ed. [email or web address] [facility] (Medical Records) [address] [place], [address], 10/26/2024 09:57:22 10/27/19 25 10/25/2024 XR, hip + pelvi s, bilat eral, 2 view No observ ation record ed. [email or web address] [facility] [address] [place], [address], 10/26/2024 09:57:22 11/17/19 25 11/16/2024 XR, lumbo sacra l spine , 2 or 3 view No observ ation record ed. [facility] (Medical Records) [address] [place], [address], 11/16/2024 16:57:56 Result Notes None recorded. Problems Name Problem SNOMED Code Status Onset Date Resolution Date Notes Provider Name and Address Organization Details Recorded Time Systemic lupus erythemat osus 22011629 Active 2019 Not Available [facility] 3 18:59:09 Paronychi a of finger of right hand 125218483618 65035 Active 2019 Not Available [facility] 3 18:59:08 Seronegat lionel rheumatoi d arthritis 152183675 Active 2020 [facility] Available [facility] 3 18:59:08 Hypertens lionel encephalo juan luis 84598609 Active 2021 Not Available [facility] 3 18:59:08 Fall Active 2021 Not Available [facility] 3 18:59:08 Dysuria 08623834 Active 2021 Not Available [facility] 3 18:59:08 Acute urinary tract infection 284415417 Active 2021 Not Available [facility] 3 18:59:08 Urinary incontine nce 393108457 Active 2021 Not Available [facility] 3 18:59:08 Cervical radiculop athy 78586193 Active 2021 Not Available [facility] 3 18:59:08 Rib pain 920911332 Active 2021 Not Available [facility] 3 18:59:08 Dizziness 959743961 Active 2021 Not Available [facility] 3 18:59:08 Tremor 36339510 Active 2021 Not Available [facility] 3 18:59:08 Impacted cerumen of bilateral ears 156844441314 9108 Active 2021 Not Available [facility] 3 18:59:08 Impacted cerumen 23762177 Active 2021 Not Available [facility] 3 18:59:08 Cough 93712179 Active 2021 Not Available [facility] 3 18:59:08 Insomnia 206164984 Active 2022 Not Available [facility] 3 18:59:08 Multi-inf arct dementia 35211237 Active 2022 Not Available [facility] 3 18:59:09 Seizure disorder 827913606 Active 2022 Not Available [facility] 3 18:59:08 Subdural hematoma 67375078 Active 2022 Not Available [facility] 3 18:59:09 Memory impairmen t 197105960 Active 2022 Not Available [facility] 3 18:59:08 Allergic rhinitis 85165452 Active 2022 Not Available [facility] 3 18:59:09 Fatigue 43962340 Active 2022 Not Available [facility] 3 18:59:09 Vitamin D deficienc y 38236791 Active 2022 Not Available [facility] 3 18:59:08 Iron deficienc y anemia 04620744 Active 2022 Not Available [facility] 3 18:59:09 Nausea 747378092 Active 2022 Not Available [facility] 3 18:59:08 Fever with chills 131257681 Active 2022 Not Available [facility] 3 18:59:08 Bipolar disorder 44605318 Active 2017 Not Available [facility] 3 18:59:08 Hypertens lionel disorder 34831528 Active 2017 Not Available [facility] 3 18:59:08 Acid reflux 573175003 Active 2017 Not Available [facility] 3 18:59:09 Anxiety disorder 721729500 Active 2017 Not Available [facility] 3 18:59:08 Chronic constipat ion 492852241 Active 2017 Not Available [facility] 3 18:59:08 Diarrhea 65115294 Active 2023 GATO BRENNAN [address] [place] [address], [address], [facility] 4 13:38:28 Nausea and vomiting 31945141 Active 2023 GATO BRENNAN [address] [place] [address], [address], [facility] 4 10:55:51 Gastroeso phageal reflux disease 983450550 Active 2023 GATO BRENNAN [address] [place] [address], [address], [facility] 4 10:57:39 Acute gastroent eritis 22752819 Active 2023 GATO BRENNAN [address] [place], [address], [facility] 4 11:00:39 Isolated head tremor 411700882 Active 2023 GATO BRENNAN [address] [place], [address], [facility] 4 10:10:19 Acute bronchiti s 92698034 Active 2023 GATO BRENNAN [address] [place] [address], [address], [facility] 4 13:50:08 Leukopeni a 87732127 Active 2023 GATO BRENNAN [address] [place], [address], [facility] 4 15:51:30 Degenerat ion of lumbar intervert ebral disc 63846019 Active 2024 GATO BRENNAN [address] [place], [address], [facility] 5 15:13:56 Compressi on fracture of L2 922107643723 24001 Active 2024 GATO BRENNAN [address] [place], [address], [facility] 5 15:28:19 Altered mental status 612148256 Active 2024 GATO BRENNAN [address] [place] [address], [address], [facility] 5 15:29:25 Bilateral hip joint pain 121092201609 6[address] Active 2024 GATO BRENNAN [address] [place] [address], [address], [facility] 5 15:37:16 Problem Notes None recorded. Procedures Surgical History Date Name Laterality Status Provider Name and Address Organization Details Recorded Time 2 Cerumen Removal completed GATO BRENNAN [address] [place] [address], [address], [facility] 03/05/2022 11:40:45 2 Cerumen Removal completed GATO BRENNAN [address] [place] [address], [address], [facility] 03/01/2022 12:04:20 0 Cerumen Removal completed GATO BRENNAN [address] [place] [address], [address], [facility] 05/22/2020 16:19:48 Imaging Results Imaging Date Name Status LastModified by Organiz ation Details LastModified Time 09/27/2023 CT, abdomen + pelvis, w/ contrast completed [facility] (Medical Records) [address] [place] [address] [place], [address], 09/28/2023 09:30:05 12/30/2023 MAMMO, screening, digital, bilateral completed [email or web address] [facility] [address] [place] [address] [place], [address], 01/25/2024 09:20:22 07/13/2024 XR, chest, 2 view completed [email or web address] [facility] (Medical Records) [address] [place], [address], 07/14/2024 09:04:08 09/27/2024 XR, lumbar spine completed [email or web address] [facility] (Medical Records) [address] [place], [address], 09/27/2024 09:19:55 09/28/2024 CT, brain, w/o contrast completed [email or web address] [facility] (Medical Records) [address] [place], [address], 09/28/2024 08:38:32 10/25/2024 XR, lumbosacral spine, 2 or 3 view completed [address] (Medical Records) [address] [place], [address], 10/26/2024 09:57:22 10/25/2024 XR, hip + pelvis, bilateral, 2 view completed [address] [facility] [address] [place], [address], 10/26/2024 09:57:22 11/16/2024 XR, lumbosacral spine, 2 or 3 view active [facility] (Medical Records) [address] [place] [address], [address], 11/16/2024 16:57:56 Procedure Notes None recorded. Medical Equipment None Reported. Allergies Allergen ID Allergen Name Allergen Category Reaction Reaction Severity Criticality Documentation Date Start Date Code Code System Note Provider Name and Address Organization Details Recorded Time 747 codeine medicatio n Not available Not available Not available 11/19/2017 2670 RxNorm Emily Bose [facility], [facility] 8 14:48:46 8791 oxycodone medicatio n Not available Not available Not available 10/18/2024 7804 RxNorm GATO BRENNAN [address] [place], [address], [facility] 5 15:23:18 Medications [...] Available Not Available Not Available amoxicillin 875 mg-carliniu m clavulanate 125 mg tablet TAKE 1 [...] ne ER 200 mg capsule,ext ended release [id number] Take one cap BID 2024 active Not [...] Updated DateTime 4 165.74 cm 24.3 kg/m2 07730.0 8 g 96 /min 97 % 97 % 148 mm[Hg] 90 mm[Hg] Sadaf [facility] 4 10:49:44 Date Recorded Body height Body mass index (BMI) Body weight Heart rate Oxygen saturation Oxygen saturation in Arterial blood by Pulse oximetry Systolic blood pressure Diastolic blood pressure Provider Name and Address Organization Details Last Updated DateTime 4 165.74 cm 22.8 kg/m2 42977.4 7 g 92 /min 98 % 98 % 146 mm[Hg] 92 mm[Hg] Jackie [facility] 4 09:57:09 Date Recorded Body height Body mass index (BMI) Body weight Heart rate Oxygen saturation Oxygen saturation in Arterial blood by Pulse oximetry Systolic blood pressure Diastolic blood pressure Provider Name and Address Organization Details Last Updated DateTime 4 165.74 cm 23.5 kg/m2 21002.4 8 g 99 /min 95 % 95 % 156 mm[Hg] 88 mm[Hg] Jackie [facility] 4 14:00:57 Date Recorded Body height Heart rate Oxygen saturation Oxygen saturation in Arterial blood by Pulse oximetry Systolic blood pressure Diastolic blood pressure Provider Name and Address Organization Details Last Updated DateTime 5 165.74 cm 82 /min 97 % 97 % 176 mm[Hg] 78 mm[Hg] Jackie [facility] 5 15:10:49 Date Recorded Body height Body mass index (BMI) Body weight Heart rate Oxygen saturation Oxygen saturation in Arterial blood by Pulse oximetry Systolic blood pressure Diastolic blood pressure Provider Name and Address Organization Details Last Updated DateTime 5 165.74 cm 22 kg/m2 46397.7 9 g 78 /min 99 % 99 % 130 mm[Hg] 78 mm[Hg] Damion [facility] 5 14:13:27 Social History Question Answer Notes LastModified by Organizat ion Details LastModified Time Tobacco Smoking Status Former Smoker Not Available [facility] 06/27/2020 03:36:23 What Was The Date Of Your Most Recent Tobacco Screening? 11/08/2024 [email or web address] Information not available 11/08/2024 Do You Or Have You Ever Used Any Other Forms Of Tobacco Or Nicotine? No [email or web address] Information not available 07/21/2023 Sex: Unknown Functional Status None recorded. Mental Status None recorded. Family History Nothing Reported. Medical History No medical history recorded. Gynecological HistoryNo gynecological history recorded. Obstetrics History GPAL:G 0 P 0 0 0 0 Immunizations Vaccine Type Date Status Note Provider Nam e and Address Organization Details Recorded Time influenza, unspecified formulation 4 completed Jackie [facility] 06/11/2024 08:21:38 SARS-COV-2 (COVID-19) vaccine, UNSPECIFIED 4 completed Jackie [facility] 06/11/2024 08:21:46 Influenza, split virus, quadrivalent, preservative 9 completed Not Available [facility] 08/15/2023 18:59:09 pneumococcal polysaccharide PPV23 9 completed Not Available [facility] 08/15/2023 18:59:09 Influenza, split virus, quadrivalent, preservative 0 completed Not Available [facility] 08/15/2023 18:59:09 COVID-19, mRNA, LNP-S, PF, 30 mcg/0.3 mL dose 1 completed Not Available [facility] 08/15/2023 18:59:09 COVID-19, mRNA, LNP-S, PF, 30 mcg/0.3 mL dose 1 completed Not Available [facility] 08/15/2023 18:59:09 zoster recombinant 0 completed Not Available [facility] 08/15/2023 18:59:09 Pneumococcal conjugate PCV 13 0 completed Not Available [facility] 08/15/2023 18:59:09 zoster recombinant 1 completed Not Available [facility] 08/15/2023 18:59:09 Past Encounters Encounter ID Performer Location Encounter Start Date Encounter Closed Date Diagnosis/Indication Diagnosis SNOMED-CT Code Diagnosis ICD10 Code Diagnosis Note [id number] Myrna Colin NP, S [facility] [address] [facility],[place] [address] 11/28/2017 13:28:02 11/28/2017 14:30:55 Bipolar disorder 92327580 F31.9 improved with abilify Gastroesop hageal reflux disease without esophagitis 422347211 K21.9 use omeprazole BID, continue dietary modificati ons including reduction in cola intake Localized, primary osteoarthritis of the hand 931762416 M19.049 Tylenol prn Essential hypertension 34054075 I10 stable Hyperlipidemia 26181902 E78.5 mediterran linda diet, will recheck labs February, aware continue walking daily Impacted cerumen 5630997 6 H61.20 cleared [id number] Myrna Colin NP, S [facility] [address] [facility], [facility] [place] [address] 03/23/2018 10:28:15 03/23/2018 12:34:20 On examination - rash present 235302608 R21 written script- betamethas one , using [employer] discount card Hypertensive disorder 38 859922 I10 stable Hypercholesterolemia 136 02135 E78.2 will review Anxiety disorder 4296810 06 F41.9 abilify helpful [id number] Myrna Colin NP, S [facility] [address] [facility], [place] [address] 09/25/2018 10:20:28 09/25/2018 13:49:28 Anxiety disorder 623573761 F41.9 Bipolar disorder 2629219 4 F31.9 stable Hypertensive disorder 38 449214 I10 stable Gastroesop hageal reflux disease 761748751 K21.9 Chronic constipation 236 263630 K59.09 trulance- new 4 months ago-[facility] [id number] Myrna Colin NP, S [facility] [address] [facility], [place] [address] 10/30/2018 09:27:36 10/30/2018 10:36:32 Acid reflux 365359210 K21.9 Hypertensive disorder 38 009653 I10 stable Anxiety disorder 5492522 06 F41.9 Screening procedure 2012 5006 Z13.9 [id number] November KARY Delacruz [facility] [address] [facility], [place] [address] 02/12/2019 09:54:22 02/12/2019 10:38:43 Multiple joint pain 09817938 M25.50 treat for lymp empiricall y with doxy 100 bid x 21 day pt requests written rx Fatigue 74341952 R53.83 Hypertensive disorder 38 756445 I10 Anxiety disorder 6339074 06 F41.9 Vitamin D deficiency 347 32957 E55.9 [id number] Janis KARY Delacruz [facility] [address] [facility], [place] [address] 02/19/2019 14:13:08 02/19/2019 15:09:56 Hand joint pain 938160514 M25.549 Multiple joint pain 3567 8005 M25.50 primarily hands, wrists, elbows no injury Fatigue 00230724 R53.83 ? [place] [id number] Franko Graham [facility] [address] [facility],[place] [address] 03/01/2019 11:17:16 03/01/2019 12:03:57 Multiple joint pain 70148550 M25.50 oxycodon and pred given for next 3 days will also need to continue for now only taking half tab once a day will need to have her increase the dose back to where it should be Impetigo 66623163 L01.00 will add mupirocin [id number] Franko Graham [facility] [address] [facility],[place] [address] 03/03/2019 11:59:37 03/03/2019 12:46:37 Multiple joint pain 95979285 M25.50 oxycodon and pred will be given in a taper will also need to continue for now only taking half tab once a day [id number] Franko Graham [facility] [address] [facility], [place] [address] 03/10/2019 13:22:52 03/10/2019 14:06:53 Multiple joint pain 59046531 M25.50 -complete prednisone -continue with tylenol and diclofenac gel for pain relief -followup with rheumatolo gy after the pred still we feel that it was the latuda and she is now off the med and will be seeing the psych soon Nausea 093793055 R11.0 now gone since off latuda Acid reflux 237332733 K2 1.9 still taking omeprazole Hypertensive disorder 38 432947 I10 doing well will hold clonidine and cont metoprolol [id number] Franko Graham DO [facility] [address] [facility],[place] [address] 04/12/2019 09:58:50 04/12/2019 10:37:41 Multiple joint pain 71946218 M25.50 seems that she has not improved at all since stopping med rheum w/u in progress will look for the lab done by rheum Impetigo 13979600 L01.00 will add mupirocin will also try on 1 spot on her arm Hand joint pain 83062509 8 M25.549 [id number] Franko Graham DO [facility] [address] [facility],[place] [address] 04/19/2019 12:01:40 04/19/2019 14:41:42 Rheumatoid arthritis 87747930 M06.9 will be starting DMARDS with MTX await derm consult On examina tion - rash present 550532068 R21 ? if this is dissm herpes zoster getting to see derm 2 days will see she has had for several weeks [id number] Franko Graham DO [facility] [address] [facility], [place] [address] 05/31/2019 14:40:53 05/31/2019 15:37:59 Hypertensive disorder 43551004 I10 doing well will hold clonidine and cont metoprolol Acid reflux 870975704 K2 1.9 still taking omeprazole Gastroesop hageal reflux disease 596227336 K21.9 gets symptomati c if she stops the omeprazole Subacute c utaneous lupus erythematosus 698895087 L93.1 PEEWEE negative will cont to improve with current new meds will follow with rheumatolo gy and dermatolog y in the next 2 months. [id number] Franko Graham DO [facility] [address] [facility], [place] [address] 09/29/2019 11:43:07 09/29/2019 12:27:52 Hypertensive disorder 04684056 I10 doing well will cont clonidine and cont metoprolol Bipolar disorder 8494821 4 F31.9 will need to discuss the dx and the treatment regimen Multi-infa rct dementia 49036418 F01.50 again a I am not sure if this has anything to do with her microang changes or if this is even a correct dx also we dont know if she did or did not have a seizure Systemic l upus erythematosus 17924462 M32.9 continuing to manage her various problems assoc with this disease will have rheum see her soon also she is requiring assistive services which are vital during exacerbati on (ex cva) etc will follow closely [id number] Franko Graham DO [facility] [address] [facility],[place] [address] 12/17/2019 14:43:23 12/17/2019 15:19:19 Hypertensive disorder 81475919 I10 cont metoprolol at 50mg she will double up on 25 mg Nasal infection 72643599 3 J32.9 [id number] Franko Graham [facility] [address] [facility],[place] [address] 01/12/2020 10:54:01 01/12/2020 11:23:01 Hypertensive disorder 91119542 I10 usin 1 1/2 tabs of up on 25 mg metoprolol to equal 37.5mg Congestion of nasal sinus 94087277 R09.81 seems to have developed an seasonal allergies so she will try zyrtec and or flonase Seizure disorder 9561970 02 G40.909 now on an extra carbamaxze pine 50mg [id number] GATO BRENNAN [facility] [address] [facility] [place] [address] 04/05/2020 13:48:59 04/05/2020 14:26:15 Paronychia of finger 231555413 L03.019 the patient's second finger on her right hand has an infection of the nail bed that is red, swollen and leaking purulent discharge has tried OTC abx ointment, episom salt baths, bandaging and other OTC remedies with no effect will now try oral abx to see if this improves and removes infection Hypertensive disorder 38 454247 I10 BP well controlled stable [id number] Franko Graham DO [facility] [address] [facility], [place] [address] 05/17/2020 10:21:36 05/17/2020 11:25:00 Bipolar disorder 01200005 F31.9 will need to discuss the dx and the treatment regimen Anxiety disorder 0503416 06 F41.9 about the same and her son is getting and she is stressed Systemic l upus erythematosus 52438592 M32.9 continuing to manage her various problems assoc with this disease will have rheum see her soon also she is requiring assistive services which are vital during exacerbati on (ex cva) etc will follow closely Paronychia of finger of right hand 8304499607 0784358 L03.011 will use doxy as she is still very infected Postmenopa usal osteopenia 535910127 M85.80 [id number] GATO BRENNAN [facility] Internal Medicine [address] [facility], [place] [address] 05/22/2020 15:51:40 05/22/2020 16:27:05 Impacted cerumen of bilateral ears [id number] 812565 H61.23 procedure tolerated well doing good Tms visualized Hypertensive disorder 38 059815 I10 BP well controlled stable [id number] GATO BRENNAN [facility] Internal Medicine [address] [facility],[place] [address] 06/14/2020 13:53:01 06/14/2020 16:06:19 Paronychia of finger 655598320 L03.019 will set up with Dr. Fregoso Hypertensive disorder 38 570016 I10 BP well controlled stable [id number] Franko Graham DO [facility] Internal Medicine [address] [facility], [place] [address] 09/22/2020 08:31:33 09/22/2020 11:55:49 Hypertensive disorder 21452928 I10 using 1 1/2 tabs of up on 25 mg metoprolol to equal 37.5mg bp at home has been ok and has been stable at other appts Paronychia of finger of right hand 1606661278 0914272 L03.011 will use doxy as she is being followed by hand spec Systemic l upus erythematosus 96970652 M32.9 continuing to manage her various problems assoc with this disease will have rheum see her soon also she is requiring assistive services which are vital during exacerbati on (ex cva) etc will follow closely Acid reflux 271074676 K2 1.9 still taking omeprazole Screening mammography 24 012823 Z12.31 Seronegati ve rheumatoid arthritis 929709260 M06.00 being followed by rosie shore and has been doing ok overall has had to be on pred recently and she is worse in the left hand only [id number] rFanko Graham DO [facility] Internal Medicine [address] [facility] on [address],[place] [address] 11/24/2020 09:29:52 11/24/2020 10:03:37 Anxiety disorder 295539972 F41.9 given the severity of her anxiety and that she will be seeing dr moscoso later this month we will be giving her a mild lorazepam dose for in the meantime until she an be seen pt understand s this is temporary Chronic constipation 236 961089 K59.09 Hypertensive disorder 38 997873 I10 using 1 1/2 tabs of up on 25 mg metoprolol to equal 37.5mg bp at home has been ok and has been stable at other appts [id number] Franko Graham DO [facility] Internal Medicine [address] [facility] [place] [address] 01/10/2021 10:10:38 01/10/2021 10:33:40 Acid reflux 052145521 K21.9 still taking omeprazole sd Hypertensive disorder 38 147369 I10 using 1 1/2 tabs of up [...] she seems to be stable on latuda [id number] GATO BRENNAN [facility] Internal Medicine [address] [facility], [place] [address] 04/04/2021 14:20:32 04/04/2021 15:29:32 Contact dermatitis 60541389 L25.5 allergic contact dermatitis of unknown originstar t on pred taper, fu if no improvemen t Systemic l upus erythematosus 80791507 M32.9 uses it for lupus flare ups Paronychia of finger 444 481334 L03.011 index finger, never healed quiet right, the finger nail is growing back dented and is easily discolored has fu with rheum, told them to obtain XRs [id number] GATO BRENNAN [facility] Internal Medicine [address] [facility],[place] [address] 07/02/2021 14:11:13 07/02/2021 16:04:17 Active or passive immunization 078000338 Z23 advisedup to date Adult heal th examination 578869187 Z00.00 BP fluctuates in office, no concerns today Lipoma of skin 392179614 D17.24 fu with US and probable derm referral [id number] GATO BRENNAN [facility] Internal Medicine [address] [facility],[place] [address] 08/08/2021 08:21:08 08/08/2021 16:35:01 Cervical disc disorder 898519503 M50.90 will refer to neuro Multi-infa rct dementia 96218260 F01.50 stable Bipolar disorder 5133888 4 F31.9 stable Seizure disorder 9046380 02 G40.909 stable [id number] GATO BRENNAN [facility] Internal Medicine [address] [facility],[place] [address] 10/16/2021 10:53:37 10/16/2021 11:50:47 Rib pain 308345896 R07.81 will fu with XR ribs to r/o possible fx giving bruising pattern Superficia l injury of face 567955115 S00.83XA will fu with XR facial bones to r/o ethmoid bones Subdural hematoma 196501 01 S06.5X0A will recheck CT to monitor her bleed Recurrent falls 61729836 2 R29.6 has PT evaluating herwould like to discuss with her PT about gait imbalance Traumatic hematoma 13296 9004 T14.8XXA will resolve, pretty small Constipation 85678751 K5 9.03 increased water intake Pain of ri ght shoulder joint 3441389266 1568783 M25.511 [id number] GATO BRENNAN [facility] Internal Medicine [address] [place] [address] on [address],[place] [address] 10/30/2021 11:52:37 10/31/2021 10:14:19 Cervical radiculopathy 25273065 M54.12 will f/u with refill to [facility] [id number] GATO BRENNAN [facility] Medicine [address] [place] [address] [place] [address], [place] [address] 11/06/2021 14:11:21 11/06/2021 16:24:43 Subdural hematoma 47526247 S06.5X0A will recheck CT to monitor her bleed [id number] GATO BRENNAN [facility] Medicine [address] [place] [address],[place] [address] 11/27/2021 10:19:27 11/27/2021 14:40:16 Anxiety disorder 385025454 F40.02 refill Hypertensive disorder 38 688321 I10 stable today in office on 2 tabs of metoprolol Hypertensi ve encephalopathy 22032311 I67.4 will continue to monitor her BP Fall R29.6 no recent falls History of subdural hematoma 586073153 Z86.[address] with neuro [id number] GATO BRENNAN [facility] Internal Medicine [address] [place] [address],[place] [address] 12/05/2021 15:45:41 12/07/2021 08:56:32 Dysuria 49780425 R30.0 [id number] GATO BRENNAN [facility] Medicine [address] [place] [address] [address],[place] [address] 01/09/2022 15:09:51 01/11/2022 09:40:40 Acute urinary tract infection 205170006 N10 will trial a different medication for the recurrent UTIs Urinary incontinence 165 996250 N39.3 worsened due to UTI Cervical radiculopathy 12642639 M54.12 [place] [id number] GATO BRENNAN [facility] Internal Medicine [address] [facility],[place] [facility] [place] [address] 03/01/2022 11:12:09 03/01/2022 12:24:34 Rib pain 219458657 R07.81 will fu with XR ribs following fall Urinary incontinence 165 586174 N39.3 will start on oxybutynin Dizziness 972868642 R42 will set up with ENT for re-evaluat ion of her inner ear with the continued dizziness Tremor 33703800 G25.2 will set up with Dr. Aguila Impacted c erumen of bilateral ears 3564951012 512744 H61.23 will need to try debrox for a couple of days and come back [id number] GATO BRENNAN [facility] Internal Medicine [address] [facility], [place] [address] 03/05/2022 10:40:30 03/05/2022 14:25:08 Impacted cerumen 58113295 H61.23 resolved [id number] GATO BRENNAN [facility] Internal Medicine [address] [facility], [place] [address] 01/14/2023 08:55:50 01/14/2023 10:39:38 Insomnia 904947213 G47.09 agreed to trial trazadone for the sleep Systemic l upus erythematosus 83669881 M32.9 uses it for lupus flare ups Multi-infa rct dementia 45918364 F01.50 stable Bipolar disorder 1802811 4 F31.30 depressed episode currentlya greed to trial med specifical ly for the depression Seizure disorder 5128894 02 G40.909 stable Subdural hematoma 416541 01 S06.5X0A will recheck CT to monitor her bleed Memory impairment 034730 006 R41.3 agreed to f/u blood work Allergic rhinitis 604554 04 J30.1 agreed to trial flonase Fatigue 78647041 R53.83 agreed to lab work [id number] GATO BRENNAN [facility] Internal Medicine [address] [facility],[place] [facility] [place] [address] 05/09/2023 12:10:32 05/09/2023 15:28:14 Nausea 448235428 R11.0 will set up with zofran as needed Fever with chills 442140 006 R50.81 continue with APAP and Advil [id number] GATO BRENNAN [facility] Internal Medicine [address] [facility] on [address],[place] [address] 06/09/2023 10:19:50 06/10/2023 13:42:42 Insomnia 555602631 G47.09 agreed to trial eszopiclon e for the sleeping Tremor 32389287 G25.2 neuro exam was normal, no findings suggestive of brain damage, parkinson' s, MS or anythingre cent MRI was negativewi ll talk to shivam about possible causes from assisted use of lamictal and carbamazep ine [id number] GATO BRENNAN [facility] Internal Medicine [address] [facility] on [address],[place] [address] 07/21/2023 11:40:07 07/21/2023 12:33:52 Insomnia 288092019 G47.09 will trial doxepin instead Adult heal examination 307865102 Z00.00 BP fluctuates in office, no concerns today [id number] GATO BRENNAN [facility] Internal Medicine [address] [facility] [address],[place] [address] 10/10/2023 10:37:32 10/10/2023 14:00:16 Nausea and vomiting 94173481 R11.2 will set up with PRN zofran meds Gastroesop hageal reflux disease 597621770 K21.9 will set up with omeprazole 40 mg as she is do for it Acute gastroenteritis 69 139477 K52.9 resolved [id number] GATO BRENNAN [facility] Internal Medicine [address] [facility] [address],[place] [address] 04/09/2024 09:40:25 04/09/2024 11:43:07 Depression screening 904093253 Z13.31 SCREENING NEGATIVE Isolated head tremor 230 834699 G25.0 will start on primidoneo mariano with bupropionw ill f/u after she talks to her psych [id number] GATO BRENNAN [facility] Internal Medicine [address] [facility] [address],[place] [address] 07/09/2024 13:55:42 07/09/2024 14:37:05 Anxiety disorder 694059496 F40.02 refill Cough 54499107 R05.3 will set up with CXR to determine if there are residual symptoms Fatigue 12280789 R53.83 agreed to lab work to recheck her levels [id number] GATO BRENNAN [facility] Internal Medicine [address] [facility],[place] [address] 10/18/2024 14:57:49 10/18/2024 15:55:37 At increased risk for falls 966374509 Z91.81 due to weakness, tremors Fall 0017364 R29.6 no recent falls Degenerati on of lumbar intervertebral disc 06242470 M51.369 will trial a very small dose of fentanyl Compressio n fracture of L2 9681492416 9592870 M48.56XA recheck if f/x is healing Altered mental status 41 3469957 R41.82 working with psych Memory impairment 361143 006 R41.3 no Anxiety disorder 8102893 06 F40.02 weaning off the ativan, switching to hydroxyzin e Family his tory of aneurysm of abdominal aorta 932743211 Z82.49 will set up with screening Bilateral hip joint pain 0114112653 3518171 M25.551 set up with XRs [id number] GATO BRENNAN [facility] Internal Medicine [address] [facility],[place] [address] 11/08/2024 14:05:42 11/08/2024 15:33:26 Degeneration of lumbar intervertebral disc 59687600 M51.369 not effective at low dose, will incrementa lly increase over time PRN tramadol for severe paincan uses APAP PRN for break through pain Compressio n fracture of L2 8807548999 1103779 M48.56XA recheck if f/x is healing Health Concerns Section Related Observation LastModified by Organization Detai ls LastModified Time None Recorded Concern Status LastModified by Organization Details LastModified Time None Recorded Advance Directives Directive None Recorded Payers Encounter Date Sequence Insurance Name Policy Number Policy Saavedra Covered Member ID Saavedra Member ID Guarantor Name 10/10/2023 1 DOMINIK-JAYDEN: DOMINIK (PPO) [id number] Tabatha [id number] Tabatha Charanjit 04/09/2024 1 [place] [facility] Tabatha A Charanjit [id number] Tabatha Charanjit 04/09/2024 2 [facility] [employer] [id number] Tabatha Charanjit [id number] [facility] Charanjit 07/09/2024 1 [place] [facility] Tabatha A Chraanjit [id number] Tabatha Charanjit 07/09/2024 2 [employer] INDEMNITY PLAN - [employer] [id number] Tabatha Charanjit [id number] [facility] Charanjit 10/18/2024 1 [place] [facility] Tabatha A Charanjit [id number] 2 [facility] Cahranjit 10/18/2024 2 [employer] INDEMNITY PLAN - [employer] [id number] Tabatha Charanjit [id number] [facility] Charanjit 11/08/2024 1 [place] [facility] Tabatha A Charanjit [id number] Tabatha Charanjit 11/08/2024 2 [employer] INDEMNITY PLAN - [employer] [id number] Tabatha Charanjit [id number] [facility] Notes Date Note Type Note Provider Name a nd Address Organization Details Recorded Time 4 text/html ER f/u for dehydration the patient is drinking more appropriatelythe patient had gastro bugthe patient has possible colitis related to viral infection no longer having diarrhea the patient has not been nauseous as well which is going wellthe patient mostly doing much better needs to get her strength back will send in refills GATO BRENNAN [address] [place] [address], [place], [address], [facility] 10/10/2023 11:00:53 4 text/html f/u [...] what Dr. Rush says GATO BRENNAN [address] [place], [address], [facility] 04/09/2024 10:14:55 4 text/html f/u URI the patient reports that her cough is much betterresidual fatigue and intermittent dry cough the patient reports that she is more upset given her poor healthadjusting to this at hometalks to her psychiatrist and therapist recommended lab work and CXR GATO BRENNAN [address] [place], [address], [facility] Medicine 07/09/2024 14:31:29 5 text/html hospital [...] to recent memory changes GATO BRENNAN [address] [place], [address], [facility] 10/18/2024 15:49:38 5 text/html 3 week f/u the patient [...] her pyschwill deal with all of her [facility] meds, doesn't want us prescribing anything which I agreed with will increase the dosage of the fentanyl will set up with the walker again instead of the caneconcerned about her stability GATO BRENNAN [address] [place] [address], [place], [address], [facility] 11/08/2024 14:38:09 OBGyn Episode No OBEpisode recorded.
== END 2024-11-16 14:45 | disposition home or self-care (01) ==
LOC: HO.XRAY 14:44
PROVIDERS: PCP Internal Medicine; Visit Provider Physician Assistant
DX: M48.56XA Collapsed vertebra, not elsewhere classified, lumbar region, initial encounter for fracture (principal)
CPT/HCPCS: 72100

== ENCOUNTER → 2024-11-16 15:25 | Outpatient (BNV) | payer MEDICARE, OTHER, SELFPAY | PROVIDERS: PCP Internal Medicine; Visit Provider Radiology Diagnostic Radiology | DX: M48.56XA Collapsed vertebra, not elsewhere classified, lumbar region, initial encounter for fracture (principal) | CPT/HCPCS: 72100 ==

== ENCOUNTER 2024-11-18 09:54 | Outpatient (REF) | payer MEDICARE, OTHER, SELFPAY ==
--- NOTE | ~2024-11-18 | US_ITS ---
CLINICAL HISTORY: FAMILY HX OF AAA US Abdomen (AAA) Comparison: None Findings: Aorta proximal 2.5 cm. Aorta mid 1.7 cm. Aorta distal 1.4 cm. Right common iliac artery 0.6 cm. Left common iliac artery 0.7 cm. IMPRESSION: 1. No abdominal aortic aneurysm. This document has been electronically signed by: Filippo Poole MD on 11/18/2024 18:24:39
== END 2024-11-18 09:55 | disposition home or self-care (01) ==
LOC: HO.HMGCX 09:54
PROVIDERS: PCP Internal Medicine; Visit Provider Physician Assistant
DX: R93.7 Abnormal findings on diagnostic imaging of other parts of musculoskeletal system (principal); Z82.49 Family history of ischemic heart disease and other diseases of the circulatory system
CPT/HCPCS: 76706

== ENCOUNTER → 2024-11-18 09:57 | Outpatient (BNV) | payer MEDICARE, OTHER, SELFPAY | PROVIDERS: PCP Internal Medicine; Visit Provider Specialist | DX: Z82.49 Family history of ischemic heart disease and other diseases of the circulatory system (principal) | CPT/HCPCS: 76706 ==

== ENCOUNTER 2025-01-11 09:53 | Outpatient (REF) | payer MEDICARE, SELFPAY ==
--- NOTE | ~2025-01-11 | MM_ITS ---
EXAMINATION: DXA BONE DENSITY AXIAL HISTORY: M85.89 TECHNIQUE: ZUGGI Dual energy absorptiometry (DEXA) of the lumbar spine, total left hip, and femoral neck was performed. COMPARISON: Comparison is made with the prior examination dated 06/13/2020. FINDINGS: The bone mineral density of the lumbar spine is 1.075 with a T-score of -1.0, and a Z-score of 0.9. This is indicative of normal bone mineral density. This represents a BMD change of -6.7% compared to the prior exam. This is statistically significant. The bone mineral density of the left total hip is 0.813 with a T-score of -1.5, and a Z-score of 0.1. This is indicative of osteopenia. This represents a BMD change of -5.6% compared to the prior exam. This is statistically significant. The bone mineral density of the left femoral neck is 0.771 with a T-score of -1.9, and a Z-score of -0.1. This is indicative of osteopenia. This represents a BMD change of -4.3% compared to the prior exam. FRACTURE RISK: The FRAX index suggests a ten year probability of major osteoporotic fracture of 21.1%, and of hip fracture 4.6%. MM/XR DEXA axial skeleton IMPRESSION: Based on bone mineral density, and according to World Health Organization (WHO) criteria, the diagnosis is consistent with osteopenia. All bone density values are in grams per centimeter squared (g/cm2). Statistically, 68% of repeat scans fall within 1 SD (+/- 0.010 g/cm2 for AP spine L1-L4) and 1 SD (+/- 0.012 g/cm2 for femur total) FRAX is a trademark of the [employer]'s [employer] Metabolic Bone Disease, a World Health Organization (WHO) Collaborating Center. Electronically signed by: Danis Hadley MD 01/11/2025 11:15 AM EDT
--- OUTSIDE RECORDS SUMMARY | 2025-01-11 10:57 | XMS_ITS | Clinical Summary ---
Author Organization [address] Address [address] [place] [phone] Phone Care Team Providers Care Montessori Lead Teacher Name Role Phone Haroon Watson MD Primary Care Provider [phone] Social History Tobacco Use Types Packs/Day Years [...] Vaccines (1 of 2) 2004 COVID-19 Vaccine (2023-2 5 season) 2024 Colorectal Cancer Screening: Colonoscopy 06/20/2024 Depression Screening 06/20/2024 Falls Risk Assessment 06/20/2024 Hepatitis C Screening 06/20/2024 Medicare Annual Wellness Visit 06/20/2024 Osteoporosis Screening (Bone Density Screening) 06/20/2024 Social Influencers of Health Screening 06/20/2024 Influenza Vaccine (Season Ended) 2025 RSV Immunization Adult Patie nts (1 - 1-dose 75+ series) 2029 HIB [...] age to complete this topic Meningococcal B Vaccine Aged Out No l onger eligible based on patient's age to complete this topic RSV Immunization Patients Un shakira 20 months Aged Out No longer eligible b ased on patient's age to complete this topic Varicella Vaccines Aged Out No longer eligible based on patient's age to complete this topic Insurance MEDICARE Care Teams Montessori Lead Teacher Relationship Specialty Start Date End Date Haroon Watson MD [address] [place] [phone] PCP - General Internal Medicine 09/30/24
--- OUTSIDE RECORDS SUMMARY | 2025-01-11 10:57 | XMS_ITS | Encounter Summary ---
Author Organization [facility] Address [id number] [place] [phone] Care Team Providers Care Truck Body Repairer Name Role Phone Haroon Watson MD Primary Care Provider [phone] Encounter Details Date Type Department Care Team (Late st Contact Info) Description 09/30/2024 Lab Requisition [facility] - Main Lab [address] [facility] [place] [address] Haroon Watson MD [address] [place] [phone] Encounter for other general examination Social History [...] AM EST) WBC 4.2(L) 4.8 - 10.8 K/[facility] LAB HEMETOLOGY METHOD 09/30/2024 9:40 AM [facility] LAB RBC 3.30(L) 3.80 - 4.80 M/mcL LAB HEMETOLOGY METHOD 09/30/2024 9:40 AM [facility] LAB Hemoglobin 9.7(L) 11.5 - 16.0 g/dL LAB HEMETOLOGY METHOD 09/30/2024 9:40 AM [facility] LAB Hematocrit 30.8(L) 35.0 - 47.0 % LAB HEMETOLOGY METHOD 09/30/2024 9:40 AM [facility] LAB MCV 94.2 79.0 - 98.0 FL LAB HEMETOLOGY METHOD 09/30/2024 9:40 AM [facility] LAB MCH 29.7 27.0 - 32.0 pcg LAB HEMETOLOGY METHOD 09/30/2024 9:40 AM [facility] LAB MCHC 31.5(L) 32.0 - 37.0 g/dL LAB HEMETOLOGY METHOD 09/30/2024 9:40 AM [facility] LAB RDW 13.2 11.0 - 15.0 % LAB HEMETOLOGY METHOD 09/30/2024 9:40 AM [facility] LAB Platelets 184 130 - 400 K/mcL LAB HEMETOLOGY METHOD 09/30/2024 9:40 AM [facility] LAB MPV 10.1 7.0 - 11.0 FL LAB HEMETOLOGY METHOD 09/30/2024 9:40 AM [facility] LAB NRBC 0.0 <1.0 % LAB HEMETOLOGY METHOD 09/30/2024 9:40 AM [facility] LAB NRBC Absolute 0.00 <0.10 K/mcL LAB HEMETOLOGY METHOD 09/30/2024 9:40 AM [facility] LAB Neutrophils Relative 60.8 % LAB HEMETOLOGY METHOD 09/30/2024 9:40 AM [facility] LAB Lymphocytes Relative 17.7 % LAB HEMETOLOGY METHOD 09/30/2024 9:40 AM [facility] LAB Monocytes Relative 13.8 % LAB HEMETOLOGY METHOD 09/30/2024 9:40 AM [facility] LAB Eosinophils Relative 6.0 % LAB HEMETOLOGY METHOD 09/30/2024 9:40 AM [facility] LAB Basophils Relative 0.7 % LAB HEMETOLOGY METHOD 09/30/2024 9:40 AM [facility] LAB Immature Granulocytes Relative 1.0 % LAB HEMETOLOGY METHOD 09/30/2024 9:40 AM [facility] LAB Neutrophils Absolute 2.55 1.50 - 7.00 K/mcL LAB HEMETOLOGY METHOD 09/30/2024 9:40 AM [facility] LAB Lymphocytes Absolute 0.74(L) 1.00 - 5.00 K/mcL LAB HEMETOLOGY METHOD 09/30/2024 9:40 AM [facility] LAB Monocytes Absolute 0.58 0.20 - 1.00 K/mcL LAB HEMETOLOGY METHOD 09/30/2024 9:40 AM [facility] LAB Eosinophils Absolute 0.25 0.00 - 0.50 K/mcL LAB HEMETOLOGY METHOD 09/30/2024 9:40 AM [facility] LAB Basophils Absolute 0.03 0.00 - 0.20 K/mcL LAB HEMETOLOGY METHOD 09/30/2024 9:40 AM [facility] LAB Immature Granulocytes Absolute 0.04(H) 0.00 - 0.03 K/mcL LAB HEMETOLOGY METHOD 09/30/2024 9:40 AM [facility] LAB Blood Venous blood specimen / Unknown Venipuncture / Unknown 09/30/2024 5:27 AM EST 09/30/2024 8:01 AM EST us Haroon Watson MD LAB BLOOD ORDERABLES Final Res ult [facility] [address] [place] [address], [place] [phone] * Magnesium (09/30/2024 5:27 AM EST) Pathologist [facility] [place] Magnesium 2.1 1.9 - 2.6 mg/dL LAB CHEMISTRY METHOD 09/30/2024 9:45 AM [facility] LAB Blood Venous blood specimen / Unknown Venipuncture / Unknown 09/30/2024 5:27 AM EST 09/30/2024 8:01 AM EST us Haroon Watson MD LAB BLOOD ORDERABLES Final Res ult Performing Organization Address City/[facility]/ZIP Co de Phone Number [facility] [address] [place] [address], [place] [phone] * (ABNORMAL) Comprehensive metabolic panel (09/30/2024 5:27 AM EST) [facility] Sodium 137 133 - 145 mmol/L LAB CHEMISTRY METHOD 09/30/2024 9:45 AM [facility] Potassium 4.9 3.5 - 5.5 mmol/L LAB CHEMISTRY METHOD 09/30/2024 9:45 AM [facility] Chloride 101 96 - 110 mmol/L LAB CHEMISTRY METHOD 09/30/2024 9:45 AM [facility] CO2 28 21 - 32 mmol/L LAB CHEMISTRY METHOD 09/30/2024 9:45 AM [facility] Anion Gap 8 3 - 11 LAB CHEMISTRY METHOD 09/30/2024 9:45 AM [facility] Glucose 68(L) 70 - 100 mg/dL LAB CHEMISTRY METHOD 09/30/2024 9:45 AM [facility] BUN 17 5 - 25 mg/dL LAB CHEMISTRY METHOD 09/30/2024 9:45 AM [facility] LAB Creatinine 0.67 0.50 - 1.10 mg/dL LAB CHEMISTRY METHOD 09/30/2024 9:45 AM [facility] LAB eGFR 94 >=60 mL/min/1. 73m2 LAB CHEMISTRY METHOD 09/30/2024 9:45 AM [facility] LAB Comment:Calculation based on the??Chronic Kidney Disease Epidemiology Collaboration (CKD-EPI) equation refit??without adjustment for race. BUN/Creatinine Ratio 25.4 LAB CHEMISTRY METHOD 09/30/2024 9:45 AM [facility] Calcium 9.2 8.5 - 10.5 mg/dL LAB CHEMISTRY METHOD 09/30/2024 9:45 AM [facility] LAB AST (SGOT) 19 10 - 42 unit/L LAB CHEMISTRY METHOD 09/30/2024 9:45 AM [facility] ALT (SGPT) 17 10 - 60 unit/L LAB CHEMISTRY METHOD 09/30/2024 9:45 AM [facility] Alkaline Phosphatase 131(H) 42 - 121 unit/L LAB CHEMISTRY METHOD 09/30/2024 9:45 AM [facility] Total Protein 6.3 6.0 - 8.0 g/dL LAB CHEMISTRY METHOD 09/30/2024 9:45 AM [facility] Albumin 3.3 3.2 - 5.0 g/dL LAB CHEMISTRY METHOD 09/30/2024 9:45 AM [facility] Total Bilirubin 0.3 0.0 - 1.4 mg/dL LAB CHEMISTRY METHOD 09/30/2024 9:45 AM [facility] Blood Venous blood specimen / Unknown Venipuncture / Unknown 09/30/2024 5:27 AM EST 09/30/2024 8:01 AM EST us Haroon Watson MD LAB BLOOD ORDERABLES Final Res ult [facility] [address] [place] [address], documented in this encounter Visit Diagnoses Diagnosis Encounter for other general examination documented in this encounter Care Teams Truck Body Repairer Relationship Specialty Start Date End Date Haroon Watson MD [address] [place] [id number] PCP - General Internal Medicine 09/30/24 documented as of this encounter
--- OUTSIDE RECORDS SUMMARY | 2025-01-11 10:57 | XMS_ITS | Encounter Summary ---
Author Organization [facility] Address [id number] [place] [phone] Care Team Providers Care Production Bow Maker Name Role Phone Haroon Watson MD Primary Care Provider [phone] Encounter Details Date Type Department Care Team (Late st Contact Info) Description 10/02/2024 Lab Requisition [facility] - Main Lab [address] [facility] [place] [address] Haroon Watson MD [address] [place] [phone] Encounter for other general examination Social History [...] count, no further workup. 10/03/2024 11:12 AM [facility] LAB Urine Urine specimen obtained by clean catch procedure / Unknown 10/01/2024 5:30 PM EST 10/02/2024 12:39 PM EST us Haroon Watson MD LAB MICROBIOLOGY - GENERAL ORD ERABLES Final Result [facility] [address] [place] [address], [place] [phone] * (ABNORMAL) Urinalysis with reflex microscopic and culture (10/01/2024 5:30 PM EST) Specific [place] Urine 1.012 1.003 - 1.030 LAB URINALYSIS - AUTOMATED METHOD 10/02/2024 12:39 PM [facility] pH, Urine 6.0 5.0 - 8.0 pH LAB URINALYSIS - AUTOMATED METHOD 10/02/2024 12:39 PM [facility] Leukocytes, Urine Trace(A) Negative LAB URINALYSIS - AUTOMATED METHOD 10/02/2024 12:39 PM [facility] Nitrite, Urine Negative Negative LAB URINALYSIS - AUTOMATED METHOD 10/02/2024 12:39 PM [facility] Protein, Urine Trace <=Trace mg/dL LAB URINALYSIS - AUTOMATED METHOD 10/02/2024 12:39 PM [facility] Glucose, Urine Negative Negative mg/dL LAB URINALYSIS - AUTOMATED METHOD 10/02/2024 12:39 PM [facility] Ketones, Urine 15(A) Negative mg/dL LAB URINALYSIS - AUTOMATED METHOD 10/02/2024 12:39 PM [facility] Urobilinogen, Urine 0.2 0.2 - 1.0 mg/dL LAB URINALYSIS - AUTOMATED METHOD 10/02/2024 12:39 PM [facility] Bilirubin, Urine Negative Negative LAB URINALYSIS - AUTOMATED METHOD 10/02/2024 12:39 PM [facility] Blood, Urine Negative Negative LAB URINALYSIS - AUTOMATED METHOD 10/02/2024 12:39 PM [facility] RBC, Urine 1.7 0 - 4 /HPF LAB URINALYSIS - AUTOMATED METHOD 10/02/2024 12:39 PM [facility] WBC, Urine 2.6 0 - 4 /HPF LAB URINALYSIS - AUTOMATED METHOD 10/02/2024 12:39 PM [facility] Squamous Epithelial, Urine 89(H) 0 - 60 /LPF LAB URINALYSIS - AUTOMATED METHOD 10/02/2024 12:39 PM [facility] Bacteria, Urine Negative Negative /HPF LAB URINALYSIS - AUTOMATED METHOD 10/02/2024 12:39 PM [facility] Hyaline Casts, Urine 0.0 0 - 3 /LPF LAB URINALYSIS - AUTOMATED METHOD 10/02/2024 12:39 PM [facility] Urine Urine specimen obtained by clean catch procedure / Unknown 10/01/2024 5:30 PM EST 10/02/2024 12:20 PM EST us Haroon Watson MD LAB URINE ORDERABLES Final Res ult [facility] [address] [place] [address], * [place] urine culture tube (10/01/2024 5:30 PM EST) Extra Tube Hold for add-ons. 10/02/2024 2:01 PM [facility] LAB Comment:Auto resulted. Urine Urine specimen obtained by clean catch procedure / Unknown 10/01/2024 5:30 PM EST 10/02/2024 12:20 PM EST us Haroon Watson MD LAB URINE ORDERABLES Final Res ult [facility] [address] [place] [address], documented in this encounter Visit Diagnoses Diagnosis Encounter for other general examination documented in this encounter Care Teams Production Bow Maker Relationship Specialty Start Date End Date Haroon Watson MD [address] [place] [phone] PCP - General Internal Medicine 09/30/24 documented as of this encounter
--- OUTSIDE RECORDS SUMMARY | 2025-01-11 10:57 | XMS_ITS | Data Portability ---
Author Organization [facility] Home Service Address [address] [place] [address] Assessment Encounter Date Assessment Date Assessment LastModified by Organization Details LastModified Time 12/03/2024 12/03/2024 Patient agreed and verbally consents to this audio and video Telehealth appt via a secure platform [email or web address] Not available 12/03/2024 14:44:42 Plan of Treatment Reminders Order Date Submit Date Provider Last Modified By Organization Details Last Modified Time Details Appointments None recorded. Lab vitamin B12 + folate, serum or blood 2023 [facility] (Lab), [address] [place] [address], [address], 4 14:20:30 vitamin D, 25-hydroxy , total, serum 2023 [facility] (Lab), [address] [place] [address], [address], 4 11:24:46 TSH + free T4, serum 2023 [facility] (Lab), [address] [place] [address], [address], 4 14:20:30 iron + TIBC + ferritin, serum 2023 [facility] (Lab), [address] [place] [address], [address], 4 14:20:30 CBC w/ auto diff 2023 024 [facility] (Lab), [address] [place], [address], 4 14:20:30 CMP, serum or plasma 2023 024 [facility] (Lab), [address] [place], [address], 4 14:20:30 magnesium, serum or plasma 2023 024 [facility] (Lab), [address] [place], [address], 4 14:20:30 ESR (erythrocy te sedimentat ion rate), blood 2023 024 [facility] (Lab), [address] [place], [address], 4 14:20:30 C-reactive protein, quantitati ve, serum or plasma 2023 024 [facility] (Lab), [address] [place], [address], 4 14:20:30 Referral physical therapist referral 2024 025 nikole [facility] - New Referrals Only, [address], [place], [address], 5 08:19:24 orthopedic spine surgeon referral [address] MD, [address], [place], [address], 5 08:19:24 Procedures None recorded. Surgeries None recorded. Imaging XR, chest, 2 view 2024 025 [facility] Central Scheduling, [address] [place], [address], 5 08:55:41 XR, lumbosacra l spine, 2 or 3 view 2024 025 [facility] Central Scheduling, [address] , [place], [address], 5 16:57:56 US, abdominal aorta - brother of a AAA incidental finding on XR lumbar spine 2024 025 [facility] Central Scheduling, [address], [place], [address], 5 08:36:16 XR, lumbosacra l spine, 2 or 3 view 2024 025 [facility] Central Scheduling, [address] [place], [address], 5 13:58:55 XR, hip + pelvis, bilateral, 2 view 2024 025 [facility] Central Scheduling, [address] [place], [address], 5 09:34:35 XR, chest, 2 view 2023 024 [facility] Central Scheduling, [address] [place], [address], 4 19:24:35 Medication Orders fentanyl 50 mcg/hr transderma l patch 2024 025 [facility]acy #[id number], [address] [place], [address], 5 14:48:12 prednisone 10 mg tablet 2024 025 [facility]/Pharmacy #[id number], [address] [place], [address], 5 14:43:47 amoxicilli n 875 mg tablet 2024 025 [facility]/Pharmacy #[id number], [address] [place], [address], 5 14:43:46 albuterol sulfate HFA 90 mcg/actuat ion aerosol inhaler 2024 025 [facility] [address] [place], [address], 5 14:43:46 fentanyl 25 mcg/hr transderma l patch 2024 025 [facility] [address] [place], [address], 5 18:18:13 fentanyl 12 mcg/hr transderma l patch 2024 025 [id number] [address] [place], [address], 5 11:16:06 lorazepam 2 mg tablet 2023 024 [id number] [address] [place], [address], 4 14:16:17 Patient TargetsNo targets recorded. Patient InstructionsNo instructions recorded. Reason for Referral Orthopedic Spine Surgeon Ref erral for Degeneration of lumbosacral intervertebral disc needs eval for ongoing chronic back pain Referring Physician: Rozina Orr, Internal Medicine, Encounter Date: 12/28/2024 Physical Therapist Referral for Abnormal gait gait instability, right sided weakness Referring Physician: Rozina Orr, Internal Medicine, Encounter Date: 12/28/2024 Results Created Date Observation Date Name Description Value Unit Range Abnormal Flag Note LastModifiedBy Organization Detail LastModifiedTime 07/13/20 24 07/13/2024 XR, chest , 2 view No observ ation record ed. [email or web address] [facility] (Medical Records) [address] [place], [address], 07/14/2024 09:04:08 09/27/19 25 09/27/2024 XR, lumba r spine No observ ation record ed. [facility] (Medical Records) [address] [place], [address], 09/27/2024 09:19:55 09/28/19 25 09/28/2024 CT, brain , w/o contr ast No observ ation record ed. [facility] (Medical Records) [address] [place], [address], 09/28/2024 08:38:32 10/26/19 25 10/25/2024 XR, lumbo sacra l spine , 2 or 3 view No observ ation record ed. [address] (Medical Records) [address] [place], [address], 10/26/2024 09:57:22 10/27/19 25 10/25/2024 XR, hip + pelvi s, bilat eral, 2 view No observ ation record ed. [address] Central Scheduling [address] [place], [address], 10/26/2024 09:57:22 11/17/19 25 11/16/2024 XR, lumbo sacra l spine , 2 or 3 view No observ ation record ed. [facility] (Medical Records) [address] [place], [address], 11/17/2024 18:16:49 11/19/19 25 11/18/2024 US, abdom inal aorta No observ ation record ed. [address] [place], [address], 11/19/2024 10:08:48 11/19/19 25 11/18/2024 US, abdom inal aorta No observ ation record ed. [place] [address] [place], [address], 11/19/2024 10:08:48 Result Notes None recorded. Problems Name Problem SNOMED Code Status Onset Date Resolution Date Notes Provider Name and Address Organization Details Recorded Time Systemic lupus erythemat osus 38123935 Active 2019 Not Available [facility] 3 18:59:09 Paronychi a of finger of right hand 363098787664 08769 Active 2019 Not Available [facility] 3 18:59:08 Seronegat lionel rheumatoi d arthritis 291618722 Active 2020 Not Available [facility] 3 18:59:08 Hypertens lionel encephalo juan luis 54854171 Active 2021 Not Available [facility] 3 18:59:08 Fall Active 2021 Not Available [facility] 3 18:59:08 Dysuria 60830711 Active 2021 Not Available [facility] 3 18:59:08 Acute urinary tract infection 660606905 Active 2021 Franko Graham, DO [address] [facility], [place], [address], [facility] 5 11:48:51 Urinary incontine nce 003387815 Active 2021 Not Available [facility] 3 18:59:08 Cervical radiculop athy 12176796 Active 2021 Not Available [facility] 3 18:59:08 Rib pain 889979600 Active 2021 Not Available [facility] 3 18:59:08 Dizziness 616172391 Active 2021 Not Available [facility] 3 18:59:08 Tremor 39479514 Active 2021 Not Available [facility] 3 18:59:08 Impacted cerumen of bilateral ears 824447339465 9108 Active 2021 Not Available [facility] 3 18:59:08 Impacted cerumen 33383933 Active 2021 Not Available [facility] 3 18:59:08 Cough 54788642 Active 2021 Not Available [facility] 3 18:59:08 Insomnia 695841120 Active 2022 Not Available [facility] 3 18:59:08 Multi-inf arct dementia 25298349 Active 2022 Not Available [facility] 3 18:59:09 Seizure disorder 722651626 Active 2022 Not Available [facility] 3 18:59:08 Subdural intracran ial hematoma 16262829 Active 2022 Not Available [facility] 3 18:59:09 Memory impairmen t 504533406 Active 2022 Not Available [facility] 3 18:59:08 Allergic rhinitis 84812811 Active 2022 Not Available [facility] 3 18:59:09 Fatigue 23649262 Active 2022 Not Available [facility] 3 18:59:09 Vitamin D deficienc y 65726590 Active 2022 Not Available [facility] 3 18:59:08 Iron deficienc y anemia 34572947 Active 2022 Not Available [facility] 3 18:59:09 Nausea 054211748 Active 2022 Not Available [facility] 3 18:59:08 Fever with chills 410042316 Active 2022 Not Available [facility] 3 18:59:08 Bipolar disorder 57593110 Active 2017 Not Available [facility] 3 18:59:08 Hypertens lionel disorder 33107038 Active 2017 Not Available [facility] 3 18:59:08 Acid reflux 193715778 Active 2017 Not Available [facility] 3 18:59:09 Anxiety disorder 882369598 Active 2017 Not Available [facility] 3 18:59:08 Chronic constipat ion 875987977 Active 2017 Not Available [facility] 3 18:59:08 Diarrhea 21810340 Active 2023 GATO BRENNAN [address] [place], [address], [facility] 4 13:38:28 Nausea and vomiting 52746668 Active 2023 GATO BRENNAN [address] [place] [address], [address], [facility] 4 10:55:51 Gastroeso phageal reflux disease 337030190 Active 2023 GATO BRENNAN [address] [place] [address], [address], [facility] 4 10:57:39 Acute gastroent eritis 78784931 Active 2023 GATO BRENNAN [address] [place] [address], [address], [facility] 4 11:00:39 Isolated head tremor 440370034 Active 2023 GATO BRENNAN [address] [place] [address], [address], [facility] 4 10:10:19 Acute bronchiti s 48646650 Active 2023 GATO BRENNAN [address] [place] [address], [address], [facility] 4 13:50:08 Leukopeni a 98883609 Active 2023 GATO BRENNAN [address] [place] [address], [address], [facility] 4 15:51:30 Degenerat ion of lumbar intervert ebral disc 52464585 Active 2024 GATO BRENNAN [address] [place], [address], [facility] 5 15:13:56 Compressi on fracture of L2 955044674372 15113 Active 2024 GATO BRENNAN [address] [place], [address], [facility] 5 15:28:19 Altered mental status 574433453 Active 2024 GATO BRENNAN [address] [place], [address], [facility] 5 15:29:25 Pain of bilateral hip joints 974413256424 92400 Active 2024 GATO BRENNAN [address] [place] [address], [address], [facility] 5 15:37:16 Postmenop ausal osteopeni a 465685842 Active 2024 GATO BRENNAN [address] [place] [address], [address], [facility] 5 18:18:47 Osteopeni a 145589000 Active 2024 GATO BRENNAN [address] [place] [address], [address], [facility] Internal [facility] 5 18:19:06 Wheezing 84959462 Active 2024 GATO BRENNAN [address] [place] [address], [address], [facility] Internal [facility] 5 14:48:53 Impairmen t of balance 083833069 Active 2024 GATO BRENNAN [address] [place] [address], [address], [facility] 5 10:47:51 Degenerat ion of lumbosacr al intervert ebral disc 17859008 Active 2024 GATO BRENNAN [address] [place] [address], [address], [facility] 5 14:35:54 Abnormal gait 46547785 Active 2024 GATO BRENNAN [address] [place] [address], [address], [facility] 5 14:42:13 Problem Notes None recorded. Procedures Surgical History Date Name Laterality Status Provider Name and Address Organization Details Recorded Time 2 Cerumen Removal completed GATO BRENNAN [address] [place], [address], [facility] 03/05/2022 11:40:45 2 Cerumen Removal completed GATO BRENNAN [address] [place], [address], [facility] 03/01/2022 12:04:20 0 Cerumen Removal completed GATO BRENNAN [address] [place], [address], [facility] 05/22/2020 16:19:48 Imaging Results Imaging Date Name Status LastModified by Organiz ation Details LastModified Time 07/13/2024 XR, chest, 2 view completed [email or web address] [facility] (Medical Records) [address] [place] [address], [address], 07/14/2024 09:04:08 09/27/2024 XR, lumbar spine completed [facility] (Medical Records) [address] [place] [address], [address], 09/27/2024 09:19:55 09/28/2024 CT, brain, w/o contrast completed [facility] (Medical Records) [address] [place], [address], 09/28/2024 08:38:32 10/25/2024 XR, lumbosacral spine, 2 or 3 view completed [address] (Medical Records) [address] [place] [address], [address], 10/26/2024 09:57:22 10/25/2024 XR, hip + pelvis, bilateral, 2 view [address] Central Scheduling [address] [place], [address], 10/26/2024 09:57:22 11/16/2024 XR, lumbosacral spine, 2 or 3 view completed [facility] (Medical Records) [address] [place], [address], 11/17/2024 18:16:49 11/18/2024 US, abdominal aorta completed [address] [place], [address], 11/19/2024 10:08:48 11/18/2024 US, abdominal aorta completed [address] [place], [address], 11/19/2024 10:08:48 Procedure Notes None recorded. Medical Equipment None Reported. Allergies Allergen ID Allergen Name Allergen Category Reaction Reaction Severity Criticality Documentation Date Start Date Code Code System Note Provider Name and Address Organization Details Recorded Time 747 codeine medicatio n Not available Not available Not available 11/19/2017 2670 RxNorm Emily Bose [facility] 14:48:46 8791 oxycodone medicatio n Not available Not available Not available 10/18/2024 7804 RxNorm GATO BRENNAN [address] [place] [address], [address], [facility] 15:23:18 Medications Name Sig Start [...] Not Available Not Available Not Available fentanyl 50 mcg/hr transdermal patch APPLY 1 PATCH EVERY 72 HOURS BY TRANSDERM AL ROUTE FOR 7 DAYS. active Not Available Not Available No t [...] prednisone 10 mg tablet TAKE 4 TABS BY MOUTH FOR 3 DAYS, 3 TABS X 3 DAYS, 2 TABS X 3 DAYS, & 1 TABS X 3 DAYS active Not Available Not Available No t Available doxycycline hyclate 100 mg capsule TAKE 1 CAPSULE BY MOUTH TWICE A DAY FOR 10 DAYS 07/09 completed Not Available Not Available Not Available naproxen 375 mg tablet 04/12 completed Not Available Not Available Not Available lamotrigine 200 mg tablet TAKE 2 TABLETS BY MOUTH EVERY DAY active Not Available [...] azole 800 mg-trimetho prim 160 mg tablet Take 1 tablet every 12 hours by oral route for 5 days. 2024 active Not Available Not Available Not Avai lable omeprazole 40 mg capsule,del ayed release TAKE 1 CAPSULE BY MOUTH EVERY DAY active Not Available Not Available No t Available leflunomide 20 mg tablet TAKE 1 TABLET BY MOUTH DAILY 10/15 completed Not Available Not Available Not Available tramadol 50 mg tablet TAKE 1 TABLET BY MOUTH EVERY 6 HOURS NEEDED FOR 30 DAYS 11/08 completed Not Available Not Available Not Available ondansetron 8 mg disintegrat ing tablet PLACE 1 TABLET TWICE A DAY BY TRANSLING UAL ROUTE NEEDED FOR 30 DAYS. active Not Available Not Available No t Available lamotrigine 25 mg tablet 05/17 completed [...] Available Not Available Not Available amoxicillin 875 mg tablet TAKE 1 TABLET BY MOUTH EVERY 12 HOURS FOR 10 DAYS active Not Available Not Available No t Available lorazepam 0.5 mg tablet TAKE 1 [...] mg tablet,heena yed release TAKE 1 TABLET BY MOUTH TWICE A DAY WITH FOOD active Not Available Not Available No t Available metoprolol succinate ER 25 mg tablet,exte nded release 24 hr TAKE 1 & 1/2 TABLETS BY MOUTH EVERY DAY active Not Available [...] al route as directed for 7 days. 11/17 completed Not Available Not Available Not Available zolpidem 10 mg tablet TAKE 1 TABLET BY MOUTH EVERY DAY AT BEDTIME 11/06 completed Not Available Not Available Not Available methylpredn isolone 4 mg tablets in a dose pack TAKE 6 TABLETS ON DAY 1 DIRECTED ON PACKAGE AND DECREASE BY 1 TAB EACH DAY FOR A TOTAL OF 6 DAYS 10/15 completed Not Available Not Available Not Available albuterol sulfate HFA 90 mcg/actuati on aerosol inhaler INHALE 2 PUFFS INTO THE LUNGS EVERY 4 HOURS NEEDED FOR 30 DAYS active Not Available Not [...] Not Available Not Available No t Available nitrofurant oin monohydrate /macrocryst als 100 mg capsule Take 1 capsule every 12 hours by oral route for 5 days. 2024 active Not Available Not Available Not Avai lable duloxetine 20 mg capsule,del ayed release TAKE [...] ne ER 200 mg capsule,ext ended release [id number] Take one cap BID 2024 active Not [...] Not Available Not Available Not Available fentanyl 37.5 mcg/hour transdermal patch Apply 1 patch every 72 hours by transderm al route as needed for 5 days. 12/28 completed Not Available Not Available Not Available Vraylar 1.5 mg capsule TAKE 1 CAPSULE BY MOUTH EVERY DAY active Not Available Not Available No t Available Vraylar 3 mg capsule TAKE 1 [...] Updated DateTime 4 165.74 cm 23.5 kg/m2 20761.4 8 g 99 /min 95 % 95 % 156 mm[Hg] 88 mm[Hg] [facility] 4 14:00:57 Date Recorded Body height Heart rate Oxygen saturation Oxygen saturation in Arterial blood by Pulse oximetry Systolic blood pressure Diastolic blood pressure Provider Name and Address Organization Details Last Updated DateTime 5 165.74 cm 82 /min 97 % 97 % 176 mm[Hg] 78 mm[Hg] Jackie Baker [facility] Internal [facility] 5 15:10:49 Date Recorded Body height Body mass index (BMI) Body weight Heart rate Oxygen saturation Oxygen saturation in Arterial blood by Pulse oximetry Systolic blood pressure Diastolic blood pressure Provider Name and Address Organization Details Last Updated DateTime 5 165.74 cm 22 kg/m2 63630.7 9 g 78 /min 99 % 99 % 130 mm[Hg] 78 mm[Hg] Damion Adamein [facility] 5 14:13:27 Date Recorded Body height Heart rate Oxygen saturation Oxygen saturation in Arterial blood by Pulse oximetry Systolic blood pressure Diastolic blood pressure Provider Name and Address Organization Details Last Updated DateTime 5 165.74 cm 157 /min 70 % 70 % 162 mm[Hg] 78 mm[Hg] Jackie Baker [facility] 5 14:33:44 Social History Question Answer Notes LastModified by Organizat ion Details LastModified Time Tobacco Smoking Status Former Smoker Not Available [facility] 06/27/2020 03:36:23 What Was The Date Of Your Most Recent Tobacco Screening? 12/28/2024 [email or web address] Information not available 12/28/2024 Sex: Unknown Functional Status Question Answer Note LastModified by Organization D etails LastModified Time Do you or have you ever used any other forms of tobacco or nicotine? No Information not available 07/21/2023 Mental Status None recorded. Family History Nothing Reported. Medical History No medical history recorded. Gynecological HistoryNo gynecological history recorded. Obstetrics History GPAL:G 0 P 0 0 0 0 Immunizations Vaccine Type Date Status Note Provider Nam e and Address Organization Details Recorded Time influenza, unspecified formulation 4 completed Jackie rain [facility] Internal [facility] 06/11/2024 08:21:38 SARS-COV-2 (COVID-19) vaccine, UNSPECIFIED 4 completed Jackie rain [facility] Internal [facility] 06/11/2024 08:21:46 Influenza, split virus, quadrivalent, preservative 9 completed Not Available [facility] 08/15/2023 18:59:09 pneumococcal polysaccharide PPV23 9 completed Not Available [facility] 08/15/2023 18:59:09 Influenza, split virus, quadrivalent, preservative 0 completed Not Available [facility] 08/15/2023 18:59:09 COVID-19, mRNA, LNP-S, PF, 30 mcg/0.3 mL dose 1 completed Not Available [facility] 08/15/2023 18:59:09 COVID-19, mRNA, LNP-S, PF, 30 mcg/0.3 mL dose 1 completed Not Available [facility] 08/15/2023 18:59:09 zoster recombinant 0 completed Not Available [facility] 08/15/2023 18:59:09 Pneumococcal conjugate PCV 13 0 completed Not Available [facility] 08/15/2023 18:59:09 zoster recombinant 1 completed Not Available [facility] 08/15/2023 18:59:09 Past Encounters Encounter ID Performer Location Encounter Start Date Encounter Closed Date Diagnosis/Indication Diagnosis SNOMED-CT Code Diagnosis ICD10 Code Diagnosis Note [id number] Myrna Colin NP, Darline [facility] [address] [facility],[place] [address] 11/28/2017 13:28:02 11/28/2017 14:30:55 Bipolar disorder 94195201 F31.9 improved with abilify Gastroesop hageal reflux disease without esophagitis 938086153 K21.9 use omeprazole BID, continue dietary modificati ons including reduction in cola intake Localized, primary osteoarthritis of the hand 687661887 M19.049 Tylenol prn Essential hypertension 63734250 I10 stable Hyperlipidemia 20583582 E78.5 mediterran linda diet, will recheck labs February, pt aware continue walking daily Impacted cerumen 5070149 6 H61.20 cleared [id number] Franko Graham DO [facility] Internal Medicine [address] [facility], [place] [address] 03/23/2018 10:28:15 03/23/2018 12:34:20 On examination - rash present 046061217 R21 written script- betamethas one , using [employer] discount card Hypertensive disorder 38 080845 I10 stable Hypercholesterolemia 136 07431 E78.2 will review Anxiety disorder 7887672 06 F41.9 laura finley [id number] Franko Graham [facility] [address] [facility],[place] [address] 09/25/2018 10:20:28 09/25/2018 13:49:28 Anxiety disorder 758013939 F41.9 Bipolar disorder 9979267 4 F31.9 stable Hypertensive disorder 38 334692 I10 stable Gastroesop hageal reflux disease 691904221 K21.9 Chronic constipation 236 914329 K59.09 trulance- new 4 months ago-[facility] [id number] Franko Graham [facility] [address] [facility],[place] [address] 10/30/2018 09:27:36 10/30/2018 10:36:32 Acid reflux 517192238 K21.9 Hypertensive disorder 38 947284 I10 stable Anxiety disorder 1727859 06 F41.9 Screening procedure 2012 5006 Z13.9 [id number] Franko Graham [facility] [address] [facility],[place] [address] 02/12/2019 09:54:22 02/12/2019 10:38:43 Pain of multiple joints 63763357 M25.50 treat for lymp empiricall y with doxy 100 bid x 21 day pt requests written rx Fatigue 78292197 R53.83 Hypertensive disorder 38 565769 I10 Anxiety disorder 7072964 06 F41.9 Vitamin D deficiency 347 35051 E55.9 [id number] Franko Graham [facility] [address] [facility],[place] [address] 02/19/2019 14:13:08 02/19/2019 15:09:56 Pain of joint of hand 895363255 M25.549 Pain of mu ltiple joints 38188125 M25.50 primarily hands, wrists, elbows no injury Fatigue 94822011 R53.83 ? [place] [id number] Franko Graham [facility] [address] [facility] [address] 03/01/2019 11:17:16 03/01/2019 12:03:57 Pain of multiple joints 05924561 M25.50 oxycodon and pred given for next 3 days will also need to continue for now only taking half tab once a day will need to have her increase the dose back to where it should be Keyshawn 85493317 L01.00 will add mupirocin [id number] Franko Graham [facility] [address] [facility],[place] [address] 03/03/2019 11:59:37 03/03/2019 12:46:37 Pain of multiple joints 85368177 M25.50 oxycodon and pred will be given in a taper will also need to continue for now only taking half tab once a day [id number] Franko Graham [facility] Internal [facility] [address] [facility], [place] [address] 03/10/2019 13:22:52 03/10/2019 14:06:53 Pain of multiple joints 64192502 M25.50 -complete prednisone -continue with tylenol and diclofenac gel for pain relief -followup with rheumatolo gy after the pred still we feel that it was the latuda and she is now off the med and will be seeing the psych soon Nausea 732029973 R11.0 now gone since off latuda Acid reflux 967479425 K2 1.9 still taking omeprazole Hypertensive disorder 38 252902 I10 doing well will hold clonidine and cont metoprolol [id number] Franko Graham [facility] Internal Medicine [address] [facility] [address] 04/12/2019 09:58:50 04/12/2019 10:37:41 Pain of multiple joints 17789860 M25.50 seems that she has not improved at all since stopping med rheum w/u in progress will look for the lab done by drake Mahajan 21364047 L01.00 will add mupirocin will also try on 1 spot on her arm Pain of joint of hand 20 7999707 M25.549 [id number] Franko Graham [facility] Internal Medicine [address] [facility],[place] [address] 04/19/2019 12:01:40 04/19/2019 14:41:42 Rheumatoid arthritis 34681155 M06.9 will be starting DMARDS with MTX await derm consult On examina tion - rash present 319167763 R21 ? if this is dissm herpes zoster getting to see derm 2 days will see she has had for several weeks [id number] Franko Graham [facility] Internal Medicine [address] [facility],[place] [address] 05/31/2019 14:40:53 05/31/2019 15:37:59 Hypertensive disorder 20726885 I10 doing well will hold clonidine and cont metoprolol Acid reflux 662765899 K2 1.9 still taking omeprazole Gastroesop hageal reflux disease 925598909 K21.9 gets symptomati c if she stops the omeprazole Subacute c utaneous lupus erythematosus 591117330 L93.1 PEEWEE negative will cont to improve with current new meds will follow with rheumatolo gy and dermatolog y in the next 2 months. [id number] Franko Graham [facility] Internal Medicine [address] [facility],[place] [address] 09/29/2019 11:43:07 09/29/2019 12:27:52 Hypertensive disorder 92524935 I10 doing well will cont clonidine and cont metoprolol Bipolar disorder 0435306 4 F31.9 will need to discuss the dx and the treatment regimen Multi-infa rct dementia 02084258 F01.50 again a I am not sure if this has anything to do with her microang changes or if this is even a correct dx also we dont know if she did or did not have a seizure Systemic l upus erythematosus 79757177 M32.9 continuing to manage her various problems assoc with this disease will have rheum see her soon also she is requiring assistive services which are vital during exacerbati on (ex cva) etc will follow closely [id number] Franko Graham [facility] Internal Medicine [address] [facility],[place] [address] 12/17/2019 14:43:23 12/17/2019 15:19:19 Hypertensive disorder 50875337 I10 cont metoprolol at 50mg she will double up on 25 mg Nasal infection 33774356 3 J32.9 [id number] Franko Graham [facility] Internal Medicine [address] [facility],[place] [address] 01/12/2020 10:54:01 01/12/2020 11:23:01 Hypertensive disorder 25394719 I10 usin 1 1/2 tabs of up on 25 mg metoprolol to equal 37.5mg Congestion of nasal sinus 85688998 R09.81 seems to have developed an seasonal allergies so she will try zyrtec and or flonase Seizure disorder 6087394 02 G40.909 now on an extra carbamaxze pine 50mg [id number] Franko Graham [facility] Internal Medicine [address] [facility],[place] [address] 04/05/2020 13:48:59 04/05/2020 14:26:15 Paronychia of finger 567435204 L03.019 the patient's second finger on her right hand has an infection of the nail bed that is red, swollen and leaking purulent discharge has tried OTC abx ointment, episom salt baths, bandaging and other OTC remedies with no effect will now try oral abx to see if this improves and removes infection Hypertensive disorder 38 705183 I10 BP well controlled stable [id number] Franko Graham [facility] Internal Medicine [address] [facility],[place] [address] 05/17/2020 10:21:36 05/17/2020 11:25:00 Bipolar disorder 26592515 F31.9 will need to discuss the dx and the treatment regimen Anxiety disorder 7415131 06 F41.9 about the same and her son is getting and she is stressed Systemic l upus erythematosus 19054257 M32.9 continuing to manage her various problems assoc with this disease will have rheum see her soon also she is requiring assistive services which are vital during exacerbati on (ex cva) etc will follow closely Paronychia of finger of right hand 7022970256 6336804 L03.011 will use doxy as she is still very infected Postmenopa usal osteopenia 629226296 M85.80 [id number] Franko Graham [facility] Internal Medicine [address] [facility] [address],[place] [address] 05/22/2020 15:51:40 05/22/2020 16:27:05 Impacted cerumen of bilateral ears 2000303917 456654 H61.23 procedure tolerated well doing good Tms visualized Hypertensive disorder 38 920052 I10 BP well controlled stable [id number] Franko Graham [facility] Internal Medicine [address] [facility] on [address],[place] [address] 06/14/2020 13:53:01 06/14/2020 16:06:19 Paronychia of finger 476517157 L03.019 will set up with Dr. Fregoso Hypertensive disorder 38 071249 I10 BP well controlled stable [id number] Franko Graham [facility] Internal Medicine [address] [facility] [address],[place] [address] 09/22/2020 08:31:33 09/22/2020 11:55:49 Hypertensive disorder 80665560 I10 using 1 1/2 tabs of up on 25 mg metoprolol to equal 37.5mg bp at home has been ok and has been stable at other appts Paronychia of finger of right hand [id number] 0507088 L03.011 will use doxy as she is being followed by hand spec Systemic l upus erythematosus 59721779 M32.9 continuing to manage her various problems assoc with this disease will have rheum see her soon also she is requiring assistive services which are vital during exacerbati on (ex cva) etc will follow closely Acid reflux 576770336 K2 1.9 still taking omeprazole Screening mammography 24 946203 Z12.31 Seronegati ve rheumatoid arthritis 682613378 M06.00 being followed by rheumatros shore and has been doing ok overall has had to be on pred recently and she is worse in the left hand only [id number] Franko Graham [facility] Internal Medicine [address] [facility] [address],[place] [address] 11/24/2020 09:29:52 11/24/2020 10:03:37 Anxiety disorder 774460169 F41.9 given the severity of her anxiety and that she will be seeing dr moscoso later this month we will be giving her a mild lorazepam dose for in the meantime until she an be seen pt understand s this is temporary Chronic constipation 236 695967 K59.09 Hypertensive disorder 38 043502 I10 using 1 1/2 tabs of up on 25 mg metoprolol to equal 37.5mg bp at home has been ok and has been stable at other appts [id number] Franko Graham DO [facility] Internal Medicine [address] [facility],[place] [address] 01/10/2021 10:10:38 01/10/2021 10:33:40 Acid reflux 645380598 K21.9 still taking omeprazole sd Hypertensive disorder 38 976568 I10 using 1 1/2 tabs of up on 25 mg metoprolol to equal 37.5mg bp is excellent bp at home has been ok and has been stable at other appts Anxiety disorder 4491708 06 F41.9 given the severity of her anxiety and that she will be seeing dr moscoso later this month we will be giving her a mild lorazepam dose for in the meantime until she an be seen pt understand s and she seems to be stable on latuda [id number] Franko Graham DO [facility] Internal Medicine [address] [facility],[place] [address] 04/04/2021 14:20:32 04/04/2021 15:29:32 Contact dermatitis 54027176 L25.5 allergic contact dermatitis of unknown originstar t on pred taper, fu if no improvemen t Systemic l upus erythematosus 82589394 M32.9 uses it for lupus flare ups Paronychia of finger 444 209399 L03.011 index finger, never healed quiet right, the finger nail is growing back dented and is easily discolored has fu with rheum, told them to obtain XRs [id number] Franko Graham DO [facility] Internal Medicine [address] [facility], [place] [address] 07/02/2021 14:11:13 07/02/2021 16:04:17 Active or passive immunization 936127654 Z23 advisedup to date Adult heal th examination 898041492 Z00.00 BP fluctuates in office, no concerns today Lipoma of skin 993926551 D17.24 fu with US and probable derm referral [id number] Franko Graham [facility] Internal Medicine [address] [facility],[place] [address] 08/08/2021 08:21:08 08/08/2021 16:35:01 Cervical disc disorder 799967895 M50.90 will refer to neuro Multi-infa rct dementia 16608797 F01.50 stable Bipolar disorder 3953765 4 F31.9 stable Seizure disorder 0544110 02 G40.909 stable [id number] Franko Graham [facility] Internal Medicine [address] [facility],[place] [address] 10/16/2021 10:53:37 10/16/2021 11:50:47 Rib pain 406019255 R07.81 will fu with XR ribs to r/o possible fx giving bruising pattern Superficia l injury of face 894723749 S00.83XA will fu with XR facial bones to r/o ethmoid bones Subdural i ntracranial hematoma 45511801 S06.5X0A will recheck CT to monitor her bleed Recurrent falls 45703408 2 R29.6 has PT evaluating herwould like to discuss with her PT about gait imbalance Traumatic hematoma 85195 9004 T14.8XXA will resolve, pretty small Constipation 65247720 K5 9.03 increased water intake Pain of ri ght shoulder joint 7103319635 4084534 M25.511 [id number] Franko Graham [facility] Internal Medicine [address] [facility],[place] [address] 10/30/2021 11:52:37 10/31/2021 10:14:19 Cervical radiculopathy 80746536 M54.12 will f/u with refill to [facility] [id number] Franko Graham [facility] Internal Medicine [address] [facility],[place] [address] 11/06/2021 14:11:21 11/06/2021 16:24:43 Subdural intracranial hematoma 44705193 S06.5X0A will recheck CT to monitor her bleed [id number] Franko Graham [facility] Internal Medicine [address] [place] [address] 11/27/2021 10:19:27 11/27/2021 14:40:16 Anxiety disorder 872082249 F40.02 refill Hypertensive disorder 38 372860 I10 stable today in office on 2 tabs of metoprolol Hypertensi ve encephalopathy 58285052 I67.4 will continue to monitor her BP Fall R29.6 no recent falls History of subdural hematoma 521711747 Z86.[address] with neuro [id number] Franko Graham [facility] Internal Medicine [address] [place] [address] 12/05/2021 15:45:41 12/07/2021 08:56:32 Dysuria 72737469 R30.0 [id number] Franko Graham [facility] Internal Medicine [address] [place] [address] 01/09/2022 15:09:51 01/11/2022 09:40:40 Acute urinary tract infection 002610499 N10 will trial a different medication for the recurrent UTIs Urinary incontinence 165 137185 N39.3 worsened due to UTI Cervical radiculopathy 26671298 M54.12 [place] [id number] Franko Graham [facility] Internal [address] [address] 03/01/2022 11:12:09 03/01/2022 12:24:34 Rib pain 996924327 R07.81 will fu with XR ribs following fall Urinary incontinence 165 890607 N39.3 will start on oxybutynin Dizziness 625116650 R42 will set up with ENT for re-evaluat ion of her inner ear with the continued dizziness Tremor 70036782 G25.2 will set up with Dr. Ayla De Santiago c erumen of bilateral ears 4333921301 410832 H61.23 will need to try debrox for a couple of days and come back [id number] Franko Graham DO [facility] [address] [facility],[place] [address] 03/05/2022 10:40:30 03/05/2022 14:25:08 Impacted cerumen 65845058 H61.23 resolved [id number] Franko Graham [facility] Internal Medicine [address] [facility], [place] [address] 01/14/2023 08:55:50 01/14/2023 10:39:38 Insomnia 890566165 G47.09 agreed to trial trazadone for the sleep Systemic l upus erythematosus 89864473 M32.9 uses it for lupus flare ups Multi-infa rct dementia 04046348 F01.50 stable Bipolar disorder 3376147 4 F31.30 depressed episode currentlya greed to trial med specifical ly for the depression Seizure disorder 9015005 02 G40.909 stable Subdural i ntracranial hematoma 23690403 S06.5X0A will recheck CT to monitor her bleed Memory impairment 380954 006 R41.3 agreed to f/u blood work Allergic rhinitis 099542 04 J30.1 agreed to trial flonase Fatigue 07658589 R53.83 agreed to lab work [id number] Franko Graham [facility] Internal Medicine [address] [facility],[place] [address] 05/09/2023 12:10:32 05/09/2023 15:28:14 Nausea 728245211 R11.0 will set up with zofran as needed Fever with chills 262739 006 R50.81 continue with APAP and Advil [id number] Franko Graham [facility] Internal Medicine [address] [facility], [place] [address] 06/09/2023 10:19:50 06/10/2023 13:42:42 Insomnia 731376880 G47.09 agreed to trial eszopiclon e for the sleeping Tremor 45058828 G25.2 neuro exam was normal, no findings suggestive of brain damage, parkinson' s, MS or anythingre cent MRI was negativewi ll talk to shivam about possible causes from buttermaker 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 use of lamictal and carbamazep ine [id number] Franko Graham [facility] Internal Medicine [address] [facility],[place] [address] 07/21/2023 11:40:07 07/21/2023 12:33:52 Insomnia 787563670 G47.09 will trial doxepin instead Adult heal th examination 966429200 Z00.00 BP fluctuates in office, no concerns today [id number] Franko Graham [facility] Internal Medicine [address] [facility],[place] [address] 10/10/2023 10:37:32 10/10/2023 14:00:16 Nausea and vomiting 09007610 R11.2 will set up with PRN zofran meds Gastroesop hageal reflux disease 029172818 K21.9 will set up with omeprazole 40 mg as she is do for it Acute gastroenteritis 69 051257 K52.9 resolved [id number] Franko Graham [facility] Internal Medicine [address] [facility],[place] [address] 04/09/2024 09:40:25 04/09/2024 11:43:07 Depression screening 506431664 Z13.31 SCREENING NEGATIVE Isolated head tremor 230 586467 G25.0 will start on primidoneo mariano with bupropionw ill f/u after she talks to her psych [id number] Franko Graham [facility] Internal [facility] [address] [facility],[place] [address] 07/09/2024 13:55:42 07/09/2024 14:37:05 Anxiety disorder 663906922 F40.02 refill Cough 97127587 R05.3 will set up with CXR to determine if there are residual symptoms Fatigue 32837298 R53.83 agreed to lab work to recheck her levels [id number] Franko Graham [facility] Internal Medicine [address] [facility], [place] [address] 10/18/2024 14:57:49 10/18/2024 15:55:37 At increased risk for falls 152212179 Z91.81 due to weakness, tremors Fall 3240036 R29.6 no recent falls Degenerati on of lumbar intervertebral disc 56604324 M51.369 will trial a very small dose of fentanyl Compressio n fracture of L2 9888095016 9438222 M48.56XA recheck if f/x is healing Altered mental status 41 6111752 R41.82 working with psych Memory impairment 295035 006 R41.3 no Anxiety disorder 2307764 06 F40.02 weaning off the ativan, switching to hydroxyzin e Family his tory of aneurysm of abdominal aorta 944617967 Z82.49 will set up with screening Pain of bi lateral hip joints 5673246196 9255229 M25.551 set up with XRs [id number] Franko Graham DO [facility] Internal Medicine [address] [facility], [place] [address] 11/08/2024 14:05:42 11/08/2024 15:33:26 Degeneration of lumbar intervertebral disc 91099422 M51.369 not effective at low dose, will incrementa lly increase over time PRN tramadol for severe paincan uses APAP PRN for break through pain Compressio n fracture of L2 8058461436 0046615 M48.56XA recheck if f/x is healing [id number] Franko Graham DO [facility] Internal Medicine [address] [facility], [place] [address] 12/03/2024 09:44:57 12/03/2024 16:40:08 Acute bronchitis 45981326 J20.8 start on pred taper and amox x 10 daysCXR if symptoms worsen/do not improve Cough 72554822 R05.3 will set up with CXR to determine if there are residual symptomswi ll start on pred taper and amox currently on fentanyl patchaller gy to codeine Wheezing 56095932 R06.2 given pred and ihaler [id number] Franko Graham [facility] Internal Medicine [address] [facility], [place] [address] 12/28/2024 14:09:28 12/28/2024 15:13:02 Degeneration of lumbosacral intervertebral disc 38349965 M51.370 has bone density coming upre submit ortho evalre submit PT eval Abnormal gait 73785410 R 26.81 needs PT eval, updated IN OFFICE NOTE Degenerati on of lumbar intervertebral disc 68625665 M51.369 will monitor the usage, discuss for plan in the future to wean off Fatigue 67921634 R53.83 stable Hypertensive disorder 38 948163 I10 getting home records Health Concerns Section Related Observation LastModified by Organization Detai ls LastModified Time None Recorded Concern Status LastModified by Organization Details LastModified Time None Recorded Advance Directives Directive None Recorded Payers Encounter Date Sequence Insurance Name Policy Number Policy Saavedra Covered Member ID Saavedra Member ID Guarantor Name 07/09/2024 1 MEDICARE B-[place]: [facility] [employer] Tabatha A Charanjit [id number] 2 Tabatha Charanjit 07/09/2024 2 COMM[employer]WE[employer] INDEMNITY PLAN - [employer] [id number] Tabatha Charanjit [id number] [facility] Charanjit 10/18/2024 1 MEDIC[place]: [employer] Tabatha A Charanjit [id number] 2 Tabatha Charanjit 10/18/2024 2 [employer] INDEMNITY PLAN - [employer] [id number] Tabatha Charanjit [id number] [facility] Charanjit 11/08/2024 1 MEDICARE [place]: [employer]ATIONAL [employer] Tabatha A Charanjit [id number] 2 Tabatha Charanjit 11/08/2024 2 [employer] INDEMNITY PLAN - [employer] [id number] Tabatha Charanjit [id number] [facility] Charanjit 12/03/2024 1 MEDICARE [place]: [employer]ATIONAL [employer] Tabatha A Charanjit [id number] 2 Tabatha Charanjit 12/03/2024 2 [employer] IN[employer]MNITY PLAN - [employer] [id number] Tabatha Charanjit [id number] Tabatha Charanjit 12/28/2024 1 MEDICARE [place]: NATIONAL GOVERNMENT SERVICES Tabatha A Charanjit [id number] 2 Tabatha Charanjit 12/28/2024 2 [employer] IN[employer]MNITY PLAN - [employer] [id number] Tabatha Charanjit [id number] Tabatha Donohue Notes Date Note Type Note Provider Name a nd Address Organization Details Recorded Time 4 text/html f/u URI the patient reports that her cough is much betterresidual fatigue and intermittent dry cough the patient reports that she is more upset given her poor healthadjusting to this at hometalks to her psychiatrist and therapist recommended lab work and CXR GATO BRENNAN [address] [place], [address], [facility] 07/09/2024 14:31:29 5 text/html hospital [...] to recent memory changes GATO BRENNAN [address] [place], [address], [facility] 10/18/2024 15:49:38 5 text/html 3 [...] her pyschwill deal with all of her [employer] meds, doesn't want us prescribing anything which I agreed with will increase the dosage of the fentanyl will set up with the walker again instead of the caneconcerned about her stability GATO BRENNAN [address] [place], [address], [facility] Medicine 11/08/2024 14:38:09 5 text/html c/o sick symptoms The patient is participating in this appointment via telemedicine communication with a phone call/video calling service ([employer])The patient consents to use of these platforms in place of an in-person appointment due to either sick symptoms the patient is presenting with or current office closure due to COVID exposure in order to keep our office staff and patients safe The patient presents to the office today with concerns of sick symptoms including productive cough, wheezing (exp), headache, fatigue, chills, diarrhea (slightly residual from when she had food poisoning), mild ear and throat pain denies sob, fever, chest paindenies n/v The symptoms started originally two days agoThe patient reports exposure to her son possibly? he comes over to do dialysis for her , otherwise they try not to leave the houseThe patient symptoms mainly involves the persistant cough, wheezing, fatigue Pertinent comorbidities include age The patient symptoms are alleviated by rest, not talking or moving to muchThe patient symptoms are exacerbated by talking and moving The patient did not test for COVID GATO BRENNAN [address] [place], [address], [facility] Medicine 12/03/2024 14:49:35 5 text/html f/u in office eval the patient reports that she is thinking about weaning off the fentanyl, I recommended holding that idea until after she gets and eval by ortho and PT for better options for pain management and also so she can perform the PT to her fullest ability but I am on board for tapering her off when she is in a better physical position to do so pt gait is unsteady, weaker on the right side, walks with right foot eversion and tends to drag her right foot with a shuffle than she lifts it to take a step forwardthe patient also lists to the left and tends to lean more toward the left as well, probably due to it overcompensating for the left side renewed PT referral with office note after in person eval of patient having her check her BP at home and her O2 when she sitting resting see if her BP is higher due to compensating for her lowered 02 sat which improved when sitting for 5 minutes, came back up to 93% will fu with pt after initial ortho assessment GATO BRENNAN [address] [place], [address], [facility] 12/28/2024 14:58:16 OBGyn Episode No OBEpisode recorded.
--- OUTSIDE RECORDS SUMMARY | 2025-01-11 10:57 | XMS_ITS | Encounter Summary ---
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 Lab [address] [facility] [place] [address] Haroon Watson MD [address] [place] [address] Encounter for other general examination Social History [...] AM EST) WBC 4.0(L) 4.8 - 10.8 K/[facility] LAB HEMETOLOGY METHOD 10/05/2024 9:24 AM EST [facility] ([facility]) [facility] LAB RBC 3.40(L) 3.80 - 4.80 M/[facility] LAB HEMETOLOGY METHOD 10/05/2024 9:24 AM EST [facility] LAB Hemoglobin 10.0(L) 11.5 - 16.0 g/dL LAB HEMETOLOGY METHOD 10/05/2024 9:24 AM [facility] LAB Hematocrit 31.4(L) 35.0 - 47.0 % LAB HEMETOLOGY METHOD 10/05/2024 9:24 AM [facility] LAB MCV 92.1 79.0 - 98.0 FL LAB HEMETOLOGY METHOD 10/05/2024 9:24 AM [facility] LAB MCH 29.3 27.0 - 32.0 pcg LAB HEMETOLOGY METHOD 10/05/2024 9:24 AM [facility] LAB MCHC 31.8(L) 32.0 - 37.0 g/dL LAB HEMETOLOGY METHOD 10/05/2024 9:24 AM [facility] LAB RDW 13.2 11.0 - 15.0 % LAB HEMETOLOGY METHOD 10/05/2024 9:24 AM [facility] LAB Platelets 243 130 - 400 K/mcL LAB HEMETOLOGY METHOD 10/05/2024 9:24 AM [facility] LAB MPV 10.3 7.0 - 11.0 FL LAB HEMETOLOGY METHOD 10/05/2024 9:24 AM [facility] LAB NRBC 0.0 <1.0 % LAB HEMETOLOGY METHOD 10/05/2024 9:24 AM [facility] LAB NRBC Absolute 0.00 <0.10 K/mcL LAB HEMETOLOGY METHOD 10/05/2024 9:24 AM [facility] LAB Blood Venous blood specimen / Unknown 10/05/2024 5:20 AM EST 10/05/2024 8:51 AM EST us Haroon Watson MD LAB BLOOD ORDERABLES Final Res ult [facility] LAB [address] [place] [address], * Basic metabolic panel (10/05/2024 5:20 AM EST) Sodium 137 133 - 145 mmol/L LAB CHEMISTRY METHOD 10/05/2024 9:47 AM [facility] LAB Potassium 4.4 3.5 - 5.5 mmol/L LAB CHEMISTRY METHOD 10/05/2024 9:47 AM [facility] LAB Chloride 104 96 - 110 mmol/L LAB CHEMISTRY METHOD 10/05/2024 9:47 AM [facility] LAB CO2 28 21 - 32 mmol/L LAB CHEMISTRY METHOD 10/05/2024 9:47 AM [facility] LAB Anion Gap 5 3 - 11 LAB CHEMISTRY METHOD 10/05/2024 9:47 AM [facility] LAB Glucose 90 70 - 100 mg/dL LAB CHEMISTRY METHOD 10/05/2024 9:47 AM [facility] LAB BUN 17 5 - 25 mg/dL LAB CHEMISTRY METHOD 10/05/2024 9:47 AM [facility] LAB Creatinine 0.69 0.50 - 1.10 mg/dL LAB CHEMISTRY METHOD 10/05/2024 9:47 AM [facility] LAB eGFR 93 >=60 mL/min/1. 73m2 LAB CHEMISTRY METHOD 10/05/2024 9:47 AM [facility] LAB Comment:Calculation based on the??Chronic Kidney Disease Epidemiology Collaboration (CKD-EPI) equation refit??without adjustment for race. BUN/Creatinine Ratio 24.6 LAB CHEMISTRY METHOD 10/05/2024 9:47 AM [facility] LAB Calcium 9.5 8.5 - 10.5 mg/dL LAB CHEMISTRY METHOD 10/05/2024 9:47 AM [facility] LAB Blood Venous blood specimen / Unknown Venipuncture / Unknown 10/05/2024 5:20 AM EST 10/05/2024 8:51 AM EST us Haroon Watson MD LAB BLOOD ORDERABLES Final Res ult [facility] ([facility]) [facility] LAB [address] [place] [address], documented in this encounter Visit Diagnoses Diagnosis Encounter for other general examination documented in this encounter Care Teams Fishing Vessel Captain Relationship Specialty Start Date End Date Haroon Watson MD [address] [place] [id number] PCP - General Internal Medicine 09/30/24 documented as of this encounter
== END 2025-01-11 09:54 | disposition home or self-care (01) ==
LOC: HO.MAMMO 09:53
PROVIDERS: PCP Physician Assistant; Visit Provider Physician Assistant
DX: Z12.31 Encounter for screening mammogram for malignant neoplasm of breast (principal); Z13.820 Encounter for screening for osteoporosis; M85.89 Other specified disorders of bone density and structure, multiple sites
CPT/HCPCS: 77063; 77067; 77080

== ENCOUNTER → 2025-01-11 10:00 | Outpatient (BNV) | payer MEDICARE, SELFPAY | PROVIDERS: PCP Physician Assistant; Visit Provider Radiology Diagnostic Radiology | DX: Z12.31 Encounter for screening mammogram for malignant neoplasm of breast (principal) | CPT/HCPCS: 77063; 77067 ==

== ENCOUNTER 2025-02-04 19:19 | Outpatient (REF) | payer MEDICARE, OTHER, SELFPAY ==
--- NOTE | ~2025-02-04 | MR_ITS ---
CLINICAL HISTORY: [facility] MR Brain without gadolinium Comparison: CT/SR - CT HEAD/BRAIN WO IV CON - 09/28/24 00:05 EST Findings: No restricted diffusion. No intra-axial mass or hemorrhage. There is moderate brain atrophy. There are moderately severe white matter changes. No midline shift. No hydrocephalus. Vascular flow voids are intact. Orbital contents are unremarkable. Air-fluid level within the right maxillary sinus. Remaining paranasal sinuses are well-aerated. No focal bone lesion. IMPRESSION: No acute abnormality of the brain. Chronic findings as above. This document has been electronically signed by: Jayshree Darling MD on 02/04/2025 20:50:30
== END 2025-02-04 19:20 | disposition home or self-care (01) ==
LOC: HO.MRI 19:19
PROVIDERS: PCP Physician Assistant; Visit Provider Physician Assistant
DX: R41.3 Other amnesia (principal)
CPT/HCPCS: 70551

== ENCOUNTER → 2025-02-04 19:40 | Outpatient (BNV) | payer MEDICARE, OTHER, SELFPAY | PROVIDERS: PCP Physician Assistant; Visit Provider Radiology Diagnostic Radiology | DX: R41.82 Altered mental status, unspecified (principal) | CPT/HCPCS: 70551 ==

== ENCOUNTER 2025-04-21 11:44 | Outpatient (REF) | payer MEDICARE, OTHER, SELFPAY ==
[2025-04-21 12:05] LABS: MANUAL DIFF FLAG NO
[2025-04-21 12:28] LABS: Hematocrit 32.4 % (37.0-47.0); Hemoglobin 10.3 g/dl (12.0-16.0); Imm Gran Abs Auto 0.02 X10*3/uL (0.00-0.03); Imm Gran Pct Auto 0.5 % (0.0-0.4); Lymphocytes Absolute Auto 1.2 X10*3/uL (1.2-4.9); Mean Corpuscular HGB Conc 31.8 g/dl (31.0-35.0); Mean Corpuscular Hemoglobin 30.3 pg (27.0-33.0); Mean Corpuscular Volume 95.3 fL (80.0-98.0); NRBC Abs Auto 0.000 X10*3/uL (0.0-0.012); NRBC Pct Auto 0.0 /100WBC (0.0-0.2); Platelet Count 229 X10*3/uL (160-400); Red Blood Count 3.40 X10*6/uL (4.20-5.50); White Blood Count 3.9 X10*3/uL (4.8-10.8)
[2025-04-21 12:53] LABS: Alanine Aminotransferase 22 U/L (0-31); Albumin Level 4.4 g/dL (3.5-5.0); Alkaline Phosphatase 107 U/L (39-117); Anion Gap 11 (12-20); Aspartate Amino Transferase 25 U/L (5-31); Blood Urea Nitrogen 25 mg/dL (9-16); Calcium 7.9 mg/dL (8.4-10.2); Carbon Dioxide 24 mmol/L (22-29); Chloride 107 mmol/L (96-108); Estimated Glomerular Filt Rate 55; Potassium 4.8 mmol/L (3.3-5.1); Sodium 137 mmol/L (135-145); Total Protein 6.6 g/dL (6.5-8.0)
--- OUTSIDE RECORDS SUMMARY | 2025-04-21 12:56 | XMS_ITS | Clinical Summary ---
Author Organization [facility] Address [address] [address] Phone Care Team Providers Care Neurology Stroke Physician Name Role Phone Franko Graham DO Primary Care Provider [phone] Allergies Active Allergy Reactions Criticality Noted Date Comments Codeine Nausea Only 03/22/2022 Medications acetaminophen (TYLENOL) 325 mg tablet Take 650 mg by mouth as needed for headache. Active omeprazole (PRILOSEC) 40 MG capsule Take 40 mg by mouth daily. Active metoprolol succinate (TOPROL-XL) 25 MG 24 hr tablet Take 50 mg by mouth daily. 5 Active atorvastatin (LIPITOR) 40 MG tablet Take 40 mg by mouth daily. Active hydrOXYchloroQU INE (PLAQUENIL) 200 mg tablet Take 200 mg by mouth daily. Active LORazepam (ATIVAN) 1 MG tablet Take 0.5 mg by mouth 3 (three) times a day as needed for anxiety. 5 Active lamoTRIgine (LAMICTAL) 200 MG IMMEDIATE release tablet Take 200 mg by mouth 2 (two) times a day. Active buPROPion (WELLBUTRIN XL) 300 MG ER 24 hr tablet Take 300 mg by mouth daily. Active diclofenac sodium (VOLTAREN) 50 MG EC tablet Take 100 mg by mouth 2 (two) times a day. 5 Active DULoxetine (CYMBALTA) 30 MG capsule Take 30 mg by mouth daily. 5 Active cariprazine (VRAYLAR) 3 mg capsule Take 3 mg by mouth daily. 5 Active carBAMazepine (TEGRETOL) 200 mg tablet Take 400 mg by mouth nightly at bedtime. 5 Active fentaNYL (DURAGESIC) 12 mcg/hr Place 1 patch onto the skin every third day. 2 patches ordered Active ibuprofen (ADVIL,MOTRIN) 200 MG tablet Take 400 mg by mouth every 8 (eight) hours as needed for pain (specific location in comments). Active traMADoL (ULTRAM) 50 mg tablet Take 50 mg by mouth every 6 (six) hours as needed for pain (specific location in comments). Active leflunomide (ARAVA) 20 MG tablet Take 1 tablet by mouth daily. Active diazePAM (VALIUM) 5 MG tabletIndicatio ns:Disorder of sacrum Take 1 tablet (5 mg total) by mouth once as needed for anxiety. 1 po 1 hr prior to procedure 2 tablet Active Hospital, Clinic, or Other Facility Administered Medication Ordered Dose Route Frequency Start Date End Date Status dexAMETHasone (PF) (DECADRON) injection 20 mgIndications:Disord er of sacrum 20 mg See Adm Inst Once 03/10/2025 06/08/2025 Active Encounters Date Type Department Care Team Description 03/25/2025 12:00 PM EDT Telemedicine - audio only [facility] Spine Medicine [address] [place] [address] [place] [address] MD Disorder of sacrum (Primary Dx) 03/10/2025 9:45 AM EDT - 03/10/2025 11:59 PM EDT Hospital Encounter [address] MD Discharge Disposition: Home or Self Care 03/10/2025 9:30 AM EDT Procedure visit [facility] [address] MD Disorder of sacrum (Primary Dx) 03/04/2025 9:20 AM EDT Telemedicine - audio only [facility] [address] [place] [address] [place] [address] MD Disorder of sacrum (Primary Dx) 03/02/2025 Telephone [facility] Medicine [address] [place] [address] [place] [address] Franko Graham, DO Follow-up 02/16/2025 9:40 AM EDT Office Visit [facility] [address] [place] [address] MD Disorder of sacrum (Primary Dx) 02/07/2025 9:00 AM EDT Telemedicine - audio only [facility] Sp[facility] Medicine [address] [place] [address] [place] [address] MD Disorder of sacrum (Primary Dx) 01/24/2025 9:20 AM EDT Office Visit [facility] Spine Medicine [address] [place] [address] [place] [address] MD Disorder of sacrum (Primary Dx); Closed wedge compression fracture of L1 vertebra with routine healing, subsequent encounter from Last 3 Months Social History Tobacco Use Types Packs/Day Years Used Date Smoking Tobacco: Never Assessed Home Health Assessment: Transportation Answer Date Recorded Lack of Transportation (Medical) No 11/04/2024 Lack of Transportation (Non-Medical) No 11/04/2024 Patient Unable or Declines to Respond No 11/04/2024 Education Answer Date Recorded Are you interested in more education? Not on corwin e 12/20/2022 Are you concerned about learning? Not on file 12/20/2022 No 12/20/2022 No 12/20/2022 Digital Access Answer Date Recorded No 01/21/2023 No 01/21/2023 Reliable internet access at home? Not on file 01/21/2023 Device with a working camera? Not on file Comments Unknown Sex and Gender Information Value Date Recorded Sex Assigned at Not on file Legal Sex Female 2:47 PM EDT Gender Identity Not on file Sexual Orientation Not on file Last Filed Vital Signs Vital Sign Reading Time Taken Comments Blood Pressure 175/87 01/24/2025 9:28 AM EDT Pulse 82 01/24/2025 9:28 AM EDT Temperature 36.7 C (98.1 F) 11/04/2024 1:45 PM EDT Respiratory Rate 18 11/04/2024 1:45 PM EDT Oxygen Saturation 97% 01/24/2025 9:28 AM EDT Inhaled Oxygen Concentration - - Weight 61.5 kg (135 lb 9.6 oz) 01/24/2025 9:28 A M EDT Height 165.1 cm (5' 5 ) 01/24/2025 9:28 AM EDT Body Mass Index 22.57 01/24/2025 9:28 AM EDT Plan of Treatment Health Maintenance Due Date Last Done Comments Adult Td,Tdap Booster 1954 CARBAMAZEPINE (TEGRETOL) LEVEL 1954 DEPRESSION SCREENING 1966 SMOKING Hx and SMOKELESS TOBACCO SCREENING 1967 MAMMOGRAM 1994 COLOGUARD 1999 COLONOSCOPY 1999 COLORECTAL CANCER SCREENING 1999 FIT TEST 1999 FOBT 1999 SIGMOIDOSCOPY 1999 VIRTUAL COLONOSCOPY 1999 RSV VACCINE (1 - Risk 60-74 years 1-dose series) 2014 OSTEOPOROSIS SCREENING INITI AL (ONE-TIME) 2019 COVID-19 VACCINE (3 - Pfizer risk series) 11/29/2020 11/01/2020, 10/11/2020 LIPID PANEL 11/12/2023 11/11/2018 PNEUMOCOCCAL VACCINES (50+ years) (3 of 3 - PPSV23, PCV20 or PCV21) 05/07/2024 05/17/2020, 05/07/2019 HEPATITIS C SCREENING Completed 04/01/2019 ZOSTER VACCINES Completed 05/17/2021, 07/17/2020, 05/17/2020 HEPATITIS A VACCINES Aged Out No long er eligible based on patient's age to complete this topic HIB VACCINES Aged Out No longer eligi ble based on patient's age to complete this topic MENINGOCOCCAL VACCINES (ACWY) Aged Out No longer eligible based on patient's age to complete this topic MENINGOCOCCAL VACCINES (B) Aged Out N o longer eligible based on patient's age to complete this topic Medical Devices Not on file Insurance [employer] [facility] [employer] MEDICARE SUPPLEMENT MEDICARE PART A & B [facility] [employer] MEDICARE SUPPLEMENT MEDICARE PART A & B [facility] MEDICARE SUPPLEMENT MEDICARE PART A & B [facility] MEDICARE SUPPLEMENT MEDICARE PART A & B [facility] MEDICARE SUPPLEMENT MEDICARE PART A & B [facility] MEDICARE SUPPLEMENT MEDICARE PART A [place] [address] Care Teams Neurology Stroke Physician Relationship Specialty Start Date End Date Franko Graham DO [address] [place] [phone] PCP - General Internal Medicine 06/14/20 Additional Source Comments The information contained in this document represents components of the legal health record. It is not the complete legal health record.[facility]
--- OUTSIDE RECORDS SUMMARY | 2025-04-21 12:56 | XMS_ITS | Encounter Summary ---
Author Organization [facility] Address [address] [facility] [address] [place] [address] Phone Care Team Providers Care Bookkeepers Supervisor Name Role Phone Franko Graham DO Primary Care Provider [phone] Reason for Visit * Reason Onset Date Comments Follow-up 03/02/2025 Encounter Details Date Type Department Care Team ([facility] st Contact Info) Description 03/02/2025 Telephone [facility] Spine Medicine [address] [place] [address] Franko Graham DO [address] [facility] [place] [address] [place] [address] Follow-up Social History Tobacco Use Types Packs/Day Years [...] on file documented as of this encounter Progress Notes * Ayden Way MD - 03/02/2025 9:30 PM EDT Yes please that would be a good idea * Attila Urena - 03/02/2025 8:51 AM EDT Pt called in, rescheduled her appt because she is sick, but said she has questions about he injection and wonders if she really needs to come in. Please contact and advise. Central Support Aquacultural Worker Supervisor (Please do not reply to this user; this inbox is not monitored.) Thank you. documented in this encounter Plan of Treatment Not on file documented as of this encounter Visit Diagnoses Not on filedocumented in this encounter Care Teams Bookkeepers Supervisor Relationship Specialty Start Date End Date Franko Graham DO [address] [place] [address] PCP - General Internal Medicine 06/14/20 documented as of this encounter Additional Source Comments The information contained in this document represents components of the legal health record. It is not the complete legal health record.[facility]
--- OUTSIDE RECORDS SUMMARY | 2025-04-21 12:56 | XMS_ITS | Patient Health Record ---
Author [facility] Address [address] [facility] [place] [address] Care Team Providers Care Customer Supply Chain Analyst Name Role Phone Everardo Maldonado MD Primary Care Provider Unavaila ble Black, Cami Unavailable [phone] Allergies Allergen (clinical drug ingredient) Drug/Non Drug Allergy documented on EMR Reaction Allergy Type Onset Date Status codeine Codeine upsets stomach Drug Allergy Ac tive Reason For Referral No Information Medications Medication SIG (Take, Route, Frequency, Duration) Notes Start Date End Date Status carBAMazepine 200 MG Orally Twice a day Active buPROPion HCl ER (XL) 300 MG Orally Once a day Active lamoTRIgine 150 MG Orally Twice a day Active Trulance Active Hyoscyamine Sulfate Not-Taking clonazePAM Not-Takin g Metoprolol Tartrate 25 MG Orally once a day Active Omeprazole 40 MG Orally Once a day Active LORazepam 1 MG at bedtime Orally PRN Active ARIPiprazole 2 MG Orally Ac tive diazePAM Not-Taking Toprol XL Not-Taking cloNIDine HCl 0.1 MG Orally Twice a day Active Social History Tobacco Use: Social History Observation Description Date Details (start date - stop date) Former Smoker NA - NA Tobacco Use/Smoking Question Answer Notes Are you a: former smoker Additional Findings: Tobacco Non-User Current no n-smoker Alcohol Screen Question Answer Notes Did you have a drink containing alcohol in the p ast year? No Points 0 Interpretation Negative Tobacco use other than smoking: Question Answer Notes Are you an other tobacco user? No Problems Problem Type SNOMED Code ICD Code Onset Dates Problem Status W/U Status Risk Notes Problem Acquired hammer toe of right foot ([id number] 105) Other hammer toe(s) (acquired), right foot (M20.41) Active confirmed Plan Of Treatment No Information Insurance Providers Payer Name Payer Address Payer Phone Subscriber Number Group Number Insured Name Patient Relationship to Insured Coverage Start Date Coverage End Date [facility] [address] [place] [address] [phone] [id number] Daron Donohue Spouse - patient is the spouse of the insured Medical (General) History Medical History History ICD Code Depression High blood pressure Chicken pox Surgical History Surgery Date(Month/Year) tonsillectomy 1967 hysterectomy 1997 section 1977/1981/1987 Left Bunionectomy 1998
--- OUTSIDE RECORDS SUMMARY | 2025-04-21 12:56 | XMS_ITS | Encounter Summary ---
Author Organization [facility] Address [address] [place] [address] Care Team Providers Care Electrical Development Engineer Name Role Phone Haroon Watson MD Primary Care Provider [phone] Encounter Details Date Type Department Care Team (Late st Contact Info) Description 10/02/2024 Lab Requisition [facility] Lab [address] [facility] [place] [address] Haroon Watson MD [address] [place] [address] Encounter for other general examination Social History [...] count, no further workup. 10/03/2024 11:12 AM [facility] Urine Urine specimen obtained by clean catch procedure / Unknown 10/01/2024 5:30 PM EST 10/02/2024 12:39 PM EST us Haroon Watson MD LAB MICROBIOLOGY - GENERAL ORD ERABLES Final Result [facility] [address] [place] [address], [place] [phone] * (ABNORMAL) Urinalysis with reflex microscopic and culture (10/01/2024 5:30 PM EST) Specific [place] Urine 1.012 1.003 - 1.030 LAB URINALYSIS - AUTOMATED METHOD 10/02/2024 12:39 PM [facility] pH, Urine 6.0 5.0 - 8.0 pH LAB URINALYSIS - AUTOMATED METHOD 10/02/2024 12:39 PM [facility] Leukocytes, Urine Trace(A) Negative LAB URINALYSIS - AUTOMATED METHOD 10/02/2024 12:39 PM [facility] Nitrite, Urine Negative Negative LAB URINALYSIS - AUTOMATED METHOD 10/02/2024 12:39 PM [facility] Protein, Urine Trace <=Trace mg/dL LAB URINALYSIS - AUTOMATED METHOD 10/02/2024 12:39 PM [facility] Glucose, Urine Negative Negative mg/dL LAB URINALYSIS - AUTOMATED METHOD 10/02/2024 12:39 PM [facility] Ketones, Urine 15(A) Negative mg/dL LAB URINALYSIS - AUTOMATED METHOD 10/02/2024 12:39 PM [facility] Urobilinogen, Urine 0.2 0.2 - 1.0 mg/dL LAB URINALYSIS - AUTOMATED METHOD 10/02/2024 12:39 PM [facility] Bilirubin, Urine Negative Negative LAB URINALYSIS - AUTOMATED METHOD 10/02/2024 12:39 PM [facility] Blood, Urine Negative Negative LAB URINALYSIS - AUTOMATED METHOD 10/02/2024 12:39 PM [facility] RBC, Urine 1.7 0 - 4 /HPF LAB URINALYSIS - AUTOMATED METHOD 10/02/2024 12:39 PM [facility] WBC, Urine 2.6 0 - 4 /HPF LAB URINALYSIS - AUTOMATED METHOD 10/02/2024 12:39 PM [facility] Squamous Epithelial, Urine 89(H) 0 - 60 /LPF LAB URINALYSIS - AUTOMATED METHOD 10/02/2024 12:39 PM [facility] Bacteria, Urine Negative Negative /HPF LAB URINALYSIS - AUTOMATED METHOD 10/02/2024 12:39 PM [facility] Hyaline Casts, Urine 0.0 0 - 3 /LPF LAB URINALYSIS - AUTOMATED METHOD 10/02/2024 12:39 PM [facility] Urine Urine specimen obtained by clean catch procedure / Unknown 10/01/2024 5:30 PM EST 10/02/2024 12:20 PM EST us Haroon Watson MD LAB URINE ORDERABLES Final Res ult [facility] [address] [place] [address], * Terrazas urine culture tube (10/01/2024 5:30 PM EST) Extra Tube Hold for add-ons. 10/02/2024 2:01 PM [facility] Comment:Auto resulted. Urine Urine specimen obtained by clean catch procedure / Unknown 10/01/2024 5:30 PM EST 10/02/2024 12:20 PM EST us Haroon Watson MD LAB URINE ORDERABLES Final Res ult [facility] ([facility] [address] [place] [address], documented in this encounter Visit Diagnoses Diagnosis Encounter for other general examination documented in this encounter Care Teams Electrical Development Engineer Relationship Specialty Start Date End Date Haroon Watson MD [address] [place] [id number] PCP - General Internal Medicine 09/30/24 documented as of this encounter
--- OUTSIDE RECORDS SUMMARY | 2025-04-21 12:56 | XMS_ITS | Encounter Summary ---
Author Organization [facility] Address [address] [place] [phone] Care Team Providers Care Respiratory Physician Name Role Phone Haroon Watson MD Primary Care Provider [phone] Encounter Details Date Type Department Care Team (Late st Contact Info) Description 10/05/2024 Lab Requisition [facility] Lab [address] [facility] [employer] [place] [address] Haroon Watson MD [address] [place] [address] Encounter for other general examination Social History [...] AM EST) WBC 4.0(L) 4.8 - 10.8 K/[facility] LAB HEMETOLOGY METHOD 10/05/2024 9:24 AM EST [facility] LAB RBC 3.40(L) 3.80 - 4.80 M/[facility] LAB HEMETOLOGY METHOD 10/05/2024 9:24 AM EST [facility] LAB Hemoglobin 10.0(L) 11.5 - 16.0 g/dL LAB HEMETOLOGY METHOD 10/05/2024 9:24 AM [facility] LAB Hematocrit 31.4(L) 35.0 - 47.0 % LAB HEMETOLOGY METHOD 10/05/2024 9:24 AM [facility] LAB MCV 92.1 79.0 - 98.0 FL LAB HEMETOLOGY METHOD 10/05/2024 9:24 AM [facility] LAB MCH 29.3 27.0 - 32.0 pcg LAB HEMETOLOGY METHOD 10/05/2024 9:24 AM [facility] LAB MCHC 31.8(L) 32.0 - 37.0 g/dL LAB HEMETOLOGY METHOD 10/05/2024 9:24 AM [facility] LAB RDW 13.2 11.0 - 15.0 % LAB HEMETOLOGY METHOD 10/05/2024 9:24 AM [facility] LAB Platelets 243 130 - 400 K/mcL LAB HEMETOLOGY METHOD 10/05/2024 9:24 AM [facility] LAB MPV 10.3 7.0 - 11.0 FL LAB HEMETOLOGY METHOD 10/05/2024 9:24 AM [facility] LAB NRBC 0.0 <1.0 % LAB HEMETOLOGY METHOD 10/05/2024 9:24 AM [facility] LAB NRBC Absolute 0.00 <0.10 K/mcL LAB HEMETOLOGY METHOD 10/05/2024 9:24 AM [facility] LAB Blood Venous blood specimen / Unknown 10/05/2024 5:20 AM EST 10/05/2024 8:51 AM EST us Haroon Watson MD LAB BLOOD ORDERABLES Final Res ult [facility] LAB [address] [place] [address], * Basic metabolic panel (10/05/2024 5:20 AM EST) Sodium 137 133 - 145 mmol/L LAB CHEMISTRY METHOD 10/05/2024 9:47 AM [facility] LAB Potassium 4.4 3.5 - 5.5 mmol/L LAB CHEMISTRY METHOD 10/05/2024 9:47 AM [facility] LAB Chloride 104 96 - 110 mmol/L LAB CHEMISTRY METHOD 10/05/2024 9:47 AM [facility] LAB CO2 28 21 - 32 mmol/L LAB CHEMISTRY METHOD 10/05/2024 9:47 AM [facility] LAB Anion Gap 5 3 - 11 LAB CHEMISTRY METHOD 10/05/2024 9:47 AM [facility] LAB Glucose 90 70 - 100 mg/dL LAB CHEMISTRY METHOD 10/05/2024 9:47 AM [facility] LAB BUN 17 5 - 25 mg/dL LAB CHEMISTRY METHOD 10/05/2024 9:47 AM [facility] LAB Creatinine 0.69 0.50 - 1.10 mg/dL LAB CHEMISTRY METHOD 10/05/2024 9:47 AM [facility] LAB eGFR 93 >=60 mL/min/1. 73m2 LAB CHEMISTRY METHOD 10/05/2024 9:47 AM [facility] LAB Comment:Calculation based on the Chronic Kidney Disease Epidemiology Collaboration (CKD-EPI) equation refit without adjustment for race. BUN/Creatinine Ratio 24.6 LAB CHEMISTRY METHOD 10/05/2024 9:47 AM [facility] LAB Calcium 9.5 8.5 - 10.5 mg/dL LAB CHEMISTRY METHOD 10/05/2024 9:47 AM [facility] LAB Blood Venous blood specimen / Unknown Venipuncture / Unknown 10/05/2024 5:20 AM EST 10/05/2024 8:51 AM EST us Haroon Watson MD LAB BLOOD ORDERABLES Final Res ult [facility] ([facility]) [facility] LAB [address] [place] [address], [place] [phone] documented in this encounter Visit Diagnoses Diagnosis Encounter for other general examination documented in this encounter Care Teams Respiratory Physician Relationship Specialty Start Date End Date Haroon Watson MD [address] [place] [phone] PCP - General Internal Medicine 09/30/24 documented as of this encounter
--- OUTSIDE RECORDS SUMMARY | 2025-04-21 12:56 | XMS_ITS | Clinical Summary ---
Author Organization [address] Address [address] [place] [phone] Phone Care Team Providers Care Crew Caller Name Role Phone Haroon Watson MD Primary Care Provider Social History Tobacco Use Types Packs/Day Years [...] Vaccine ( - 2023-2 5 season) 2024 Colorectal Cancer Screening: Colonoscopy 06/20/2024 Falls Risk Assessment 06/20/2024 Hepatitis C Screening 06/20/2024 Medicare Annual Wellness Visit 06/20/2024 Osteoporosis Screening (Bone Density Screening) 06/20/2024 Social Influencers of Health Screening 06/20/2024 Depression Screening 08/25/2024 Influenza Vaccine (#1) 2025 RSV Immunization Adult Patie nts (1 [...] complete this topic Insurance MEDICARE Care Teams Crew Caller Relationship Specialty Start Date End Date Haroon Watson MD [address] [place] [phone] PCP - General Internal Medicine 09/30/24
--- OUTSIDE RECORDS SUMMARY | 2025-04-21 12:56 | XMS_ITS | Patient Health Record ---
Author Organization [facility] Address [address] [place] [address] Care Team Providers Care Infrastructure Administrator Name Role Phone Erica (RETIRED) Everardo HAYES Primary Care Provide r Danis Roman Unavailable [phone] Allergies Allergen (clinical drug ingredient) Drug/Non Drug Allergy documented on EMR Reaction Allergy Type Onset Date Status codeine Codeine (uncoded) Unknown Allergy Ac tive Reason For Referral No Information Medications Medication SIG (Take, Route, Frequency, Duration) Notes Start Date End Date Status Metoprolol Tartrate Active buPROPion HCl Active Omeprazole 20 MG 1 tablet Orally Once a day for 90 days Active Hyoscyamine Sulfate 0.125 Milligram 2 Orally Q 6 hours prn abdominal pain for 90 days Active Polyethylene Glycol 3350 1 capful 1 capful in 8 ounces of water daily for constipation for 30 Active Omeprazole 20 MG 1 capsule Orally Onc e a day for 90 days 06/08/2014 Active Hyoscyamine Sulfate 0.125 MG 1-2 tablets Orally Q 6 hours prn abdominal pain for 90 days 06/08/2014 Active lamoTRIgine Active carBAMazepine Active Aspir-81 Active Polyethylene Glycol 3350 1 1 capful in 8 ounces of water daily for constipation for 30 Active Problems Problem Type SNOMED Code ICD Code Onset Dates Problem Status W/U Status Risk Notes Problem Esophageal reflux (657350773) Esophageal reflux (530.81) Active confirmed Problem Ford's esophagus (277054747) 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 Problem Irritable bowel syndrome (41953421) Irritable bowel syndrome (564.1) Active confirmed Plan Of Treatment Future Test Test Name Order Date UPPER GI ENDOSCOPY 05/24/2014 Insurance Providers Payer Name Payer Address Payer Phone Subscriber Number Group Number Insured Name Patient Relationship to Insured Coverage Start Date Coverage End Date [facility] [address] [facility] JAYDEN ROSAS [phone] [id number] KELLEY WISE Self - patient is the insured Medical (General) History Medical History History ICD Code IBS GERD, Ford's esophagus--E GD in 10/2010 with a small HH and a small area of Ford's-no dysplasia HTN Bipolar disease Denies [place],DM,CVA,Lung disease,renal dise ase Neg colonoscopy in 08/[address] Wall ch Surgical History Surgery Date(Month/Year) MAY X3
--- OUTSIDE RECORDS SUMMARY | 2025-04-21 12:56 | XMS_ITS | Encounter Summary ---
Author Organization [facility] Address [address] [place] [phone] Care Team Providers Care Printer [employer] Name Role Phone Haroon Watson MD Primary Care Provider [phone] Encounter Details Date Type Department Care Team (Late st Contact Info) Description 09/30/2024 Lab Requisition [facility] Lab 299 [facility] [place] [address] Haroon Watson MD [address] [place] [phone] Encounter for other general examination Social History [...] AM EST) WBC 4.2(L) 4.8 - 10.8 K/[facility] LAB HEMETOLOGY METHOD 09/30/2024 9:40 AM [facility] LAB RBC 3.30(L) 3.80 - 4.80 M/mcL LAB HEMETOLOGY METHOD 09/30/2024 9:40 AM [facility] LAB Hemoglobin 9.7(L) 11.5 - 16.0 g/dL LAB HEMETOLOGY METHOD 09/30/2024 9:40 AM [facility] LAB Hematocrit 30.8(L) 35.0 - 47.0 % LAB HEMETOLOGY METHOD 09/30/2024 9:40 AM [facility] LAB MCV 94.2 79.0 - 98.0 FL LAB HEMETOLOGY METHOD 09/30/2024 9:40 AM [facility] LAB MCH 29.7 27.0 - 32.0 pcg LAB HEMETOLOGY METHOD 09/30/2024 9:40 AM [facility] LAB MCHC 31.5(L) 32.0 - 37.0 g/dL LAB HEMETOLOGY METHOD 09/30/2024 9:40 AM [facility] LAB RDW 13.2 11.0 - 15.0 % LAB HEMETOLOGY METHOD 09/30/2024 9:40 AM [facility] LAB Platelets 184 130 - 400 K/mcL LAB HEMETOLOGY METHOD 09/30/2024 9:40 AM [facility] LAB MPV 10.1 7.0 - 11.0 FL LAB HEMETOLOGY METHOD 09/30/2024 9:40 AM [facility] LAB NRBC 0.0 <1.0 % LAB HEMETOLOGY METHOD 09/30/2024 9:40 AM [facility] LAB NRBC Absolute 0.00 <0.10 K/mcL LAB HEMETOLOGY METHOD 09/30/2024 9:40 AM [facility] LAB Neutrophils Relative 60.8 % LAB HEMETOLOGY METHOD 09/30/2024 9:40 AM [facility] LAB Lymphocytes Relative 17.7 % LAB HEMETOLOGY METHOD 09/30/2024 9:40 AM [facility] LAB Monocytes Relative 13.8 % LAB HEMETOLOGY METHOD 09/30/2024 9:40 AM [facility] LAB Eosinophils Relative 6.0 % LAB HEMETOLOGY METHOD 09/30/2024 9:40 AM [facility] LAB Basophils Relative 0.7 % LAB HEMETOLOGY METHOD 09/30/2024 9:40 AM [facility] LAB Immature Granulocytes Relative 1.0 % LAB HEMETOLOGY METHOD 09/30/2024 9:40 AM [facility] LAB Neutrophils Absolute 2.55 1.50 - 7.00 K/mcL LAB HEMETOLOGY METHOD 09/30/2024 9:40 AM [facility] LAB Lymphocytes Absolute 0.74(L) 1.00 - 5.00 K/mcL LAB HEMETOLOGY METHOD 09/30/2024 9:40 AM [facility] LAB Monocytes Absolute 0.58 0.20 - 1.00 K/mcL LAB HEMETOLOGY METHOD 09/30/2024 9:40 AM [facility] LAB Eosinophils Absolute 0.25 0.00 - 0.50 K/mcL LAB HEMETOLOGY METHOD 09/30/2024 9:40 AM [facility] LAB Basophils Absolute 0.03 0.00 - 0.20 K/mcL LAB HEMETOLOGY METHOD 09/30/2024 9:40 AM [facility] LAB Immature Granulocytes Absolute 0.04(H) 0.00 - 0.03 K/mcL LAB HEMETOLOGY METHOD 09/30/2024 9:40 AM [facility] LAB Blood Venous blood specimen / Unknown Venipuncture / Unknown 09/30/2024 5:27 AM EST 09/30/2024 8:01 AM EST us Haroon Watson MD LAB BLOOD ORDERABLES Final Res ult [facility] LAB [address] [place] [address], [place] [phone] * Magnesium (09/30/2024 5:27 AM EST) Pathologist [facility] Magnesium 2.1 1.9 - 2.6 mg/dL LAB CHEMISTRY METHOD 09/30/2024 9:45 AM [facility] LAB Blood Venous blood specimen / Unknown Venipuncture / Unknown 09/30/2024 5:27 AM EST 09/30/2024 8:01 AM EST us Haroon Watson MD LAB BLOOD ORDERABLES Final Res ult Performing Organization Address City/[facility]/ZIP Co de Phone Number [facility] LAB [address] [place] [address], [place] [phone] * (ABNORMAL) Comprehensive metabolic panel (09/30/2024 5:27 AM EST) [facility] Sodium 137 133 - 145 mmol/L LAB CHEMISTRY METHOD 09/30/2024 9:45 AM [facility] LAB Potassium 4.9 3.5 - 5.5 mmol/L LAB CHEMISTRY METHOD 09/30/2024 9:45 AM [facility] LAB Chloride 101 96 - 110 mmol/L LAB CHEMISTRY METHOD 09/30/2024 9:45 AM [facility] LAB CO2 28 21 - 32 mmol/L LAB CHEMISTRY METHOD 09/30/2024 9:45 AM [facility] LAB Anion Gap 8 3 - 11 LAB CHEMISTRY METHOD 09/30/2024 9:45 AM [facility] LAB Glucose 68(L) 70 - 100 mg/dL LAB CHEMISTRY METHOD 09/30/2024 9:45 AM [facility] LAB BUN 17 5 - 25 mg/dL LAB CHEMISTRY METHOD 09/30/2024 9:45 AM [facility] LAB Creatinine 0.67 0.50 - 1.10 mg/dL LAB CHEMISTRY METHOD 09/30/2024 9:45 AM [facility] LAB eGFR 94 >=60 mL/min/1. 73m2 LAB CHEMISTRY METHOD 09/30/2024 9:45 AM [facility] LAB Comment:Calculation based on the Chronic Kidney Disease Epidemiology Collaboration (CKD-EPI) equation refit without adjustment for race. BUN/Creatinine Ratio 25.4 LAB CHEMISTRY METHOD 09/30/2024 9:45 AM [facility] LAB Calcium 9.2 8.5 - 10.5 mg/dL LAB CHEMISTRY METHOD 09/30/2024 9:45 AM [facility] LAB AST (SGOT) 19 10 - 42 unit/L LAB CHEMISTRY METHOD 09/30/2024 9:45 AM [facility] LAB ALT (SGPT) 17 10 - 60 unit/L LAB CHEMISTRY METHOD 09/30/2024 9:45 AM [facility] LAB Alkaline Phosphatase 131(H) 42 - 121 unit/L LAB CHEMISTRY METHOD 09/30/2024 9:45 AM [facility] LAB Total Protein 6.3 6.0 - 8.0 g/dL LAB CHEMISTRY METHOD 09/30/2024 9:45 AM [facility] LAB Albumin 3.3 3.2 - 5.0 g/dL LAB CHEMISTRY METHOD 09/30/2024 9:45 AM [facility] LAB Total Bilirubin 0.3 0.0 - 1.4 mg/dL LAB CHEMISTRY METHOD 09/30/2024 9:45 AM [facility] LAB Blood Venous blood specimen / Unknown Venipuncture / Unknown 09/30/2024 5:27 AM EST 09/30/2024 8:01 AM EST us Haroon Watson MD LAB BLOOD ORDERABLES Final Res ult [facility] LAB [address] [place] [address], documented in this encounter Visit Diagnoses Diagnosis Encounter for other general examination documented in this encounter Care Teams Printer [employer] Relationship Specialty Start Date End Date Haroon Watson MD [address] [place] [phone] PCP - General Internal Medicine 09/30/24 documented as of this encounter
--- OUTSIDE RECORDS SUMMARY | 2025-04-21 12:56 | XMS_ITS | Encounter Summary ---
Author Organization [facility] Address [address] [address] Phone Care Team Providers Care Marking Stitcher Name Role Phone LaceyFranko bell Primary Care Provider [phone] LaceyFranko bell Unavailable Encounter Details Date Type Department Care Team (Late st Contact Info) Description 03/22/2022 Procedure Pass [facility], [address] [address] Social History Tobacco Use Types Packs/Day Years [...] on filedocumented in this encounter Care Teams Marking Stitcher Relationship Specialty Start Date End Date Franko Graham DO [address] [place] [address] PCP - General Internal Medicine 06/14/20 Franko Graham DO [address] [place] [address] Insurance Assigned Provider 01/03/24 08/04/24 documented as of this encounter Additional Source Comments The information contained in this document represents components of the legal health record. It is not the complete legal health record.[facility]
[2025-04-21 14:49] LABS: Appearance Urine Clear; Glucose Urine UA Negative (Negative); PH 5.5 (5.0-9.0); Specific Gravity - Urine >= 1.030 (1.005-1.025); UMIC TRIGGER UA YES
== END 2025-04-21 11:45 | disposition home or self-care (01) ==
LOC: HO.LAB 11:44
PROVIDERS: PCP Physician Assistant; Visit Provider Physician Assistant
DX: R30.0 Dysuria (principal)
CPT/HCPCS: 36415; 80053; 81001; 85025